=== PATIENT | male | born 1930 | race Caucasian/White ===

== ENCOUNTER 2016-08-03 16:28 | Inpatient (IN) | payer OTHER, MEDICARE ==
[~2016-08-03] VITALS: Ht 180.3 cm; Wt 90.0 kg
[~2016-08-03 16:28] MED LIST: AMT/50 PO; ASCA500 PO; DXY100 PO; ESCI1TAB9 PO; FERR1TAB13 PO; FINA5TAB PO; FLM4 PO; GABA1CAP5 PO; HYDR-4079 PO; LCTX PO; LSN10 PO; PRED20TA2 PO; SIMV20TA2 PO; WARF2.5T8 PO; WARF5TAB7 PO; [UNRECOGNIZED DRUG - CODE] PO
[2016-08-03] MEDS ORDERED: TAMS0.4C38 PO (17:46)
[2016-08-03] MEDS ORDERED: CYCL5TAB PO (17:46)
[2016-08-03] MEDS ORDERED: MISC4CAP PO (17:46)
--- NOTE | 2016-08-03 17:59 | EMERGENCY ROOM VISIT NOTE ---
History Report prepared by Jose: José Miguel Garay Under the Supervision of: Dr. Miroslava Marcos D.O. First contact with patient: 17:44 Chief Complaint: WEAKNESS Stated Complaint: WEAKNESS Nursing Triage Summary: pt had back surgery and a pe in november, pt was doing well, going to therapy and riding his bike, then over the past 2 wks he is becoming progressively weaker, c/o R hip pain, Dr Brown is treating him with hydrocodone/flexeril/fentanyl patch, over the past 2 days pt unable to use walker is now using w/c to get around because he gets played out with ambulation, pt lives with daughter. she is concerned for chf, pt has no hx of chf History of Present Illness The patient is an 86 year old male who presents to the Emergency Room with complaints of increased generalized weakness for the past two weeks. He has trouble ambulating secondary to weakness, even with the use of his walker. The patient notes right hip pain and lower back pain when he tries to ambulate as well. He has tried a muscle relaxer which did not help. The patient has also been intermittently confused as per his daughter. He denies dizziness or lightheadedness when he tries to ambulate. He denies short of breath when he tries to walk but daughter states he occasionally appears out of breath. Denies exertional chest pain or nausea. He denies any fevers, chills, headaches , changes in visions, chest pain, palpitations, or increased swelling of the legs. He has not had any recent falls. The patient has had multiple back surgeries, with the last being this past summer. He also had a PE this past summer and pneumonia in April. He is still on a blood thinner. The patient follows up with Dr. Brown, [facility], for his back. He had an MRI this morning, and is scheduled to get the results with Dr. Brown in four days. No incontinence. No saddle anesthesia. Occasional paresthesias in the RLE. Pt states pain/RLE paresthesias chronic and unchanged despite recent sx. The patient and his live with their daughter. He denies any cardiac history. He does not take anything to control his blood glucose levels. Blood sugar recently elevated as an outpt. Source of History: patient, family (daughter) Onset: two weeks ago Position: other (generalized) Quality: other (weakness) Timing: other (increased) Associated Symptoms: + SOB, + back pain, No chest pain, No chills, No fevers , No headache, No nausea Review of Systems See HPI for pertinent positives & negatives. A total of 10 systems reviewed and were otherwise negative. Past Medical & Surgical Medical Problems: (1) Chronic anticoagulation (2) Chronic steroid use (3) CKD (chronic kidney disease), stage III (4) Dyslipidemia (5) Esophageal Reflux (6) Fall (7) Hydrocele, right (8) Hyperlipidemia Nec/Nos (9) Hypertension (10) Hypertension Nos (11) Hypertrophy (Benign) Of 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 (12) Hypoxia (13) Lumbago (14) Lumbar spinal stenosis (15) Osteoarthritis (16) PMR (polymyalgia rheumatica) (17) PMR (polymyalgia rheumatica) (18) Pulmonary embolism (19) Spinal Stenosis-Lumbar (20) Weakness Surgical Problems: (1) H/O arthroscopic knee surgery (2) H/O cataract extraction (3) Hx of spinal surgery (4) S/P lumbar fusion Family History FH: heart disease Social History Smoking Status: Former Smoker Drug Use: none Marital Status: Housing Status: lives with family Occupation Status: retired Current/Historical Medications Scheduled Amitriptyline HCl (Amitriptyline HCl), 50 MG PO QPM Ascorbic Acid (Vitamin C), 500 MG PO DAILY Bee Pollen (Ra Bee Pollen), 1 TAB PO QAM Escitalopram Oxalate (Lexapro), 1 TAB PO DAILY Ferrous Sulfate (Kp Ferrous Sulfate), 1 TAB PO BID Finasteride (Proscar), 5 MG PO QAM Gabapentin (Neurontin), 800 MG PO TID Simvastatin (Zocor), 20 MG PO QPM Tamsulosin Hcl (Flomax), 1 CAP PO DAILY Warfarin Sod (Jantoven), 2.5 MG PO 4XWK Warfarin Sod (Jantoven), 5 MG PO 3XWK Scheduled PRN Cyclobenzaprine Hcl (Flexeril), 1 TAB PO HS PRN for Muscle Spasms Hydrocodone/Acetaminophen 10MG/325MG ([place] 10MG/325MG), 1-2 TABS PO Q4 PRN for Pain Miscellaneous Medications Probiotic Product (Align) Allergies Coded Allergies: Lorazepam (Unverified Allergy, Severe, agitation, 04/18/16) Oxycodone (Verified Allergy, Mild, ITCHINESS, 04/18/16) Physical Exam Vital Signs Date Time Temp Pulse Resp B/P Pulse Ox O2 Delivery O2 Flow Rate FiO2 08/03/16 22:00 144/80 08/03/16 21:40 96 23 95 08/03/16 21:30 124/78 08/03/16 21:15 36.6 15 138/65 95 Room Air 08/03/16 21:10 96 93 08/03/16 21:03 96 08/03/16 21:00 129/72 08/03/16 20:40 102 16 95 08/03/16 20:35 138/65 08/03/16 20:22 105 15 08/03/16 19:52 95 16 95 08/03/16 19:30 144/69 08/03/16 19:22 91 13 93 08/03/16 19:17 90 20 148/69 94 08/03/16 18:44 92 19 94 08/03/16 18:39 86 142/84 96 08/03/16 18:00 144/81 08/03/16 17:58 89 08/03/16 17:30 131/72 08/03/16 17:28 91 08/03/16 17:00 135/65 08/03/16 16:58 84 16 08/03/16 16:53 94 08/03/16 16:51 97 Room Air 08/03/16 16:45 36.6 102 20 107/59 97 Room Air 08/03/16 16:34 107/59 Physical Exam GENERAL: alert, well appearing, well nourished, no distress, non-toxic EYE EXAM: normal conjunctiva, PERRL and EOM's grossly intact OROPHARYNX: no exudate, no erythema, lips, buccal mucosa, and tongue normal and mucous membranes are moist NECK: supple, no nuchal rigidity, no adenopathy, non-tender LUNGS: Clear to auscultation. Normal chest wall mechanics, no w/r/r HEART: no murmurs, S1 normal and S2 normal ABDOMEN: abdomen soft, non-tender, normo-active bowel sounds, no masses, no rebound or guarding. BACK: Back is symmetrical on inspection and there is no deformity, no midline tenderness, no CVA tenderness. SKIN: no rashes and no bruising UPPER EXTREMITIES: upper extremities are grossly normal. LOWER EXTREMITIES: 1+ bilateral lower extremity edema. NEURO EXAM: Normal sensorium, cranial nerves II-XII grossly intact, normal speech, gross sensation intact. Medical Decision & Procedures ER Provider Diagnostic Interpretation: Xray results per the radiologist and my interpretation. Other results have been interpreted by the radiologist and reviewed by me. CHEST ONE VIEW PORTABLE CLINICAL HISTORY: general weakness COMPARISON STUDY: 04/19/2016 FINDINGS: The heart is enlarged. There is no lobar consolidation. There is no failure. There is minor bibasal interstitial thickening. There is improved aeration left lung base.[ IMPRESSION: Mild cardiomegaly. Mild basilar interstitial thickening with improving aeration left lung base. No acute parenchymal consolidation. Electronically signed by: Liam Hernández M.D. 08/03/2016 6:39 PM Dictated Date/Time: 08/03/2016 6:[address] HEAD WITHOUT CONTRAST (CT) CLINICAL HISTORY: Change in neurological status. Generalized weakness. COMPARISON STUDY: A 2716 TECHNIQUE: Axial CT of the brain is performed from the vertex to the skull base. IV contrast was not administered for this examination. CT DOSE: 687.98 mGy.cm FINDINGS: No intra or extra-axial mass lesions are visualized. There is no CT evidence of acute cortical infarction. There is no evidence of midline shift. There is no acute hemorrhage. No calvarial fractures are visualized. There are patchy white matter hypodensities likely on a small vessel basis. 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 A few tiny lacunar infarcts are also visualized. These remain similar to the preceding study. There is no evidence of pathologic ventricular dilatation. There is mucosal thickening within the sphenoid and right ethmoid complex. IMPRESSION: No acute intracranial findings Electronically signed by: Liam Hernández M.D. 08/03/2016 7:07 PM Dictated Date/Time: 08/03/2016 7:05 PM Laboratory Results 08/03/16 16:15 Red Blood Count 4.28, Mean Corpuscular Volume 93.5, Mean Corpuscular Hemoglobin 31.1, Mean Corpuscular Hemoglobin Concent 33.3, Mean Platelet Volume 9.8, Neutrophils (%) (Auto) 79.6, Lymphocytes (%) (Auto) 10.6, Monocytes (%) (Auto) 4.7, Eosinophils (%) (Auto) 0.8, Basophils (%) (Auto) 0.3, Neutrophils # (Auto) 6.24, Lymphocytes # (Auto) 0.83, Monocytes # (Auto) 0.37, Eosinophils # (Auto) 0.06, Basophils # (Auto) 0.02 08/03/16 16:15 Test 08/03/16 16:15 08/03/16 18:35 08/03/16 20:00 White Blood Count 7.83 K/uL (4.8-10.8) Red Blood Count 4.28 M/uL (4.7-6.1) Hemoglobin 13.3 g/dL (14.0-18.0) Hematocrit 40.0 % (42-52) Mean Corpuscular Volume 93.5 fL (80-100) Mean Corpuscular Hemoglobin 31.1 pg (25-34) Mean Corpuscular Hemoglobin Concent 33.3 g/dl (32-36) Platelet Count 159 K/uL (130-400) Mean Platelet Volume 9.8 fL (7.4-10.4) Neutrophils (%) (Auto) 79.6 % Lymphocytes (%) (Auto) 10.6 % Monocytes (%) (Auto) 4.7 % Eosinophils (%) (Auto) 0.8 % Basophils (%) (Auto) 0.3 % Neutrophils # (Auto) 6.24 K/uL (1.4-6.5) Lymphocytes # (Auto) 0.83 K/uL (1.2-3.4) Monocytes # (Auto) 0.37 K/uL (0.11-0.59) Eosinophils # (Auto) 0.06 K/uL (0-0.5) Basophils # (Auto) 0.02 K/uL (0-0.2) RDW Standard Deviation 53.0 fL (36.4-46.3) RDW Coefficient of Variation 15.5 % (11.5-14.5) Immature Granulocyte % (Auto) 4.0 % Immature Granulocyte # (Auto) 0.31 K/uL (0.00-0.02) Nucleated RBC Absolute Count (auto) 0.02 K/uL (0-0) Nucleated Red Blood Cells % 0.3 % Anion Gap 8.0 mmol/L (3-11) Est Creatinine Clear Calc Drug Dose 35.3 ml/min Estimated GFR () 44.6 Estimated GFR (Non- 38.4 BUN/Creatinine Ratio 18.3 (10-20) Calcium Level 9.2 mg/dl (8.5-10.1) Total Bilirubin 0.5 mg/dl (0.2-1) Aspartate Amino Transf (AST/SGOT) 18 U/L (15-37) Alanine Aminotransferase (ALT/SGPT) 49 U/L (12-78) Alkaline Phosphatase 65 U/L (45-117) Troponin I < 0.015 ng/ml (0-0.045) Pro-B-Type Natriuretic Peptide 277 pg/ml (0-1800) Total Protein 6.4 gm/dl (6.4-8.2) Albumin 3.1 gm/dl (3.4-5.0) Globulin 3.3 gm/dl (2.5-4.0) Albumin/Globulin Ratio 0.9 (0.9-2) Urine Color YELLOW Urine Appearance CLEAR (CLEAR) Urine pH 5.5 (4.5-7.5) Urine Specific [place] 1.008 (1.000-1.030) Urine Protein NEG (NEG) Urine Glucose (UA) NEG (NEG) Urine Ketones NEG (NEG) Urine Occult Blood NEG (NEG) Urine Nitrite NEG (NEG) Urine Bilirubin NEG (NEG) Urine Urobilinogen NEG (NEG) Urine Leukocyte Esterase NEG (NEG) Prothrombin Time 15.0 SECONDS (9.0-12.0) Prothromb Time International Ratio 1.4 (0.9-1.1) Activated Partial Thromboplast Time 28.0 SECONDS (21.0-31.0) Partial Thromboplastin Ratio 1.1 Laboratory results per my review. Medications Administered Medications (Trade) Dose Ordered Sig/Parminder Route Start Time Stop Time Status Last Admin Dose Admin Sodium Chloride (Nss 1000ml) 1,000 ml @ 125 mls/hr Q8H STAT IV 08/03/16 19:40 08/03/16 23:10 DC 08/03/16 19:47 125 MLS/HR ECG Indication: weakness Rate (beats per minute): 91 Rhythm: normal sinus Findings: no acute ischemic change, other (normal axis, normal intervals) ED Course 1746: The patient was evaluated in room B11b. A complete history and physical exam was performed. 1930: Checked on the patient. 1939: NSS 1000 ml @ 125 mls/hr. 1944: Medicine is being paged. 1949: [facility] The patient will be evaluated. Medical Decision Differential Diagnosis includes but is not limited to dehydration, stroke, anemia, hypoglycemia, hyponatremia, hypernatremia, urinary tract infection, pneumonia, bronchitis, sepsis, gastroenteritis, additional abdominal pathology, metabolic abnormalities and infections. Pt well appearing here, VS stable, is unsteady on feet and needed help getting to bathroom. No sx to warrant emergent MRI - doubt cauda equina, epidural abscess/hematoma. Doubt acs, no evidence of acute CHF, doubt PE - coags pending at time of admission but no overt sx to more strongly suggest it despite hx and pt denies feeling like PE last summer, pt states last INR within normal range and no recent change in coumadin. No tachy/sob. Description of pt and family suggestive of generalized weakness, worse with exertion. No evidence of acute infectious process, electrolyte abnormality. Hyperglycemia likely from steroid use vs new dx DM. Mild elevation of Cr - likely due to dehydration noted clinically. No focal neuro deficit to suggest cva. Unclear if sx related to worsening PMR. Consults Time Called: 1939 [facility]ing [facility] Returned Call: 1949 1949: Discussed the case with [facility]. The patient will be evaluated. Impression Primary Impression: Generalized weakness Additional Impressions: Ambulatory dysfunction Chronic back pain SHANIKA (acute kidney injury) Dehydration Scribe Attestation The scribe's documentation has been prepared under my direction and personally reviewed by me in its entirety. I confirm that the note above accurately reflects all work, treatment, procedures, and medical decision making performed by me. Departure Information Dispostion Being Evaluated By Hospitalist Referrals Luis Miguel Liriano M.D. (PCP) Patient Instructions My [facility] Problem Qualifiers Additional Impressions: Chronic back pain Back pain location: low back pain Back pain laterality: bilateral Sciatica presence: with sciatica Sciatica laterality: sciatica of right side Qualified Codes: M54.41 - Lumbago with sciatica, right side; G89.29 - Other chronic pain
[2016-08-03 18:16] LABS: BASO % 0.3 %; BASO ABS # 0.02 K/uL (0-0.2); COMPLETE YES; EOS % 0.8 %; LYMPH % 10.6 %; LYMPH ABS # 0.83 K/uL (1.2-3.4); MEAN CELL VOLUME 93.5 fL (80-100); MEAN CORPUSCULAR HEMOGLOBIN 31.1 pg (25-34); MEAN CORPUSCULAR HGB CONC 33.3 g/dl (32-36); MEAN PLATELET VOLUME 9.8 fL (7.4-10.4); MONO % 4.7 %; NEUT % 79.6 %; PLATELET COUNT 159 K/uL (130-400); RED BLOOD COUNT 4.28 M/uL (4.7-6.1); WHITE BLOOD COUNT 7.83 K/uL (4.8-10.8)
[2016-08-03 18:24] LABS: ALT/SGPT 49 U/L (12-78); BLOOD UREA NITROGEN 29 mg/dl (7-18); BUN/CREATININE RATIO 18.3 (10-20); CALCIUM 9.2 mg/dl (8.5-10.1); CARBON DIOXIDE 30 mmol/L (21-32); CHLORIDE 99 mmol/L (98-107); GLUCOSE 181 mg/dl (70-99); POTASSIUM 4.7 mmol/L (3.5-5.1); SODIUM 137 mmol/L (136-145)
[2016-08-03 18:29] LABS: ALB/GLOB RATIO 0.9 (0.9-2); ALKALINE PHOSPHATASE 65 U/L (45-117); AST/SGOT 18 U/L (15-37)
--- NOTE | 2016-08-03 18:41 | DIAGNOSTIC IMAGING REPORT ---
CHEST ONE VIEW PORTABLE CLINICAL HISTORY: general weakness COMPARISON STUDY: 04/19/2016 FINDINGS: The heart is enlarged. There is no lobar consolidation. There is no failure. There is minor bibasal interstitial thickening. There is improved aeration left lung base.[ IMPRESSION: Mild cardiomegaly. Mild basilar interstitial thickening with improving aeration left lung base. No acute parenchymal consolidation. Electronically signed by: Liam Hernández M.D. 08/03/2016 6:39 PM Dictated Date/Time: 08/03/2016 6:38 PM
[2016-08-03 19:07] LABS: URINE APPEARANCE CLEAR (CLEAR); URINE BILIRUBIN NEG (NEG); URINE COLOR YELLOW; URINE NITRITE NEG (NEG); URINE PH 5.5 (4.5-7.5); URINE SPECIFIC GRAVITY 1.008 (1.000-1.030); UROBILINOGEN NEG (NEG); ZZUR CULT IF INDIC CLEAN CATCH NO
[2016-08-03 19:08] LABS: MANUAL MICROSCOPIC REQUIRED? NO; REVIEW REQ? NO
--- NOTE | 2016-08-03 19:08 | DIAGNOSTIC IMAGING REPORT ---
CT HEAD WITHOUT CONTRAST (CT) CLINICAL HISTORY: Change in neurological status. Generalized weakness. COMPARISON STUDY: A 2716 TECHNIQUE: Axial CT of the brain is performed from the vertex to the skull base. IV contrast was not administered for this examination. CT DOSE: 687.98 mGy.cm FINDINGS: No intra or extra-axial mass lesions are visualized. There is no CT evidence of acute cortical infarction. There is no evidence of midline shift. There is no acute hemorrhage. No calvarial fractures are visualized. There are patchy white matter hypodensities likely on a small vessel basis. 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 A few tiny lacunar infarcts are also visualized. These remain similar to the preceding study. There is no evidence of pathologic ventricular dilatation. There is mucosal thickening within the sphenoid and right ethmoid complex. IMPRESSION: No acute intracranial findings Electronically signed by: Liam Hernández M.D. 08/03/2016 7:07 PM Dictated Date/Time: 08/03/2016 7:05 PM
[2016-08-03] MEDS ORDERED: SODIUM CHLORIDE 0.9% 1000ML 1,000 ML IV STA (19:40)
[2016-08-03 20:23] LABS: INR 1.4 (0.9-1.1); PARTIAL THROMBOPLASTIN RATIO 1.1
[2016-08-03 21:15] VITALS: BP 138/65; TEMP 36.6; O2SAT 95; BMI 27.7
[2016-08-03] MEDS ORDERED: HYDROCODONE/ACETAMI 10/325 TAB PO PRN (22:30)
[2016-08-03] MEDS ORDERED: DEXTROSE 50% 50 ML SYR IV PRN (22:30)
[2016-08-03] MEDS ORDERED: GLUCAGON FOR INJ 1 MG VIAL SQ PRN (22:30)
[2016-08-03] MEDS ORDERED: HYDROmorphone INJ 0.5 MG/0.5 ML SYR IV PRN (22:30)
[2016-08-03] MEDS ORDERED: GLUCOSE 10 TABS/TUBE PO PRN (22:30)
[2016-08-03] MEDS ORDERED: GLUCOSE 40% GEL 15 GM TUBE PO PRN (22:30)
[2016-08-03] MEDS ORDERED: ENOXAPARIN 1 MG/KG SQ SCH (22:30)
[2016-08-03] MEDS ORDERED: PHARMACY GLYCEMIC MGMT CONSULT PRN (22:37)
[2016-08-03] MEDS ORDERED: ACETAMINOPHEN 325 MG TAB PO PRN (22:45)
[2016-08-03] MEDS ORDERED: ONDANSETRON INJ 2 MG/ML 2 ML VIAL IV PRN (22:45)
[2016-08-03 23:00] VITALS: BP 167/71; PULSE 84; TEMP 36.5; O2SAT 94
--- NOTE | 2016-08-03 23:04 | History and Physical ---
History & Physical Date & Time of Service: Aug 03, 2016 at 22:47 Chief Complaint: Weakness Primary Care Physician: Luis Miguel Liriano M.D. History of Present Illness Source: patient, family, clinic records, hospital records 86 year old male with history of Back Surgery November 2015, Polymyalgia Rheumatica on Chronic Prednisone, Pulmonary Embolism on coumadin, presenting with increasing back pain and leg weakness x [address] Rainey for Primary Care. History supplemented by daughter at bedside. Patient known to have chronic back pain but seemed to have worsened over the past 2 weeks. Patient reports low back pain radiating to his right lower leg, as well as bilateral leg weakness, difficulty ambulating. Denies incontinence, paresthesias. Denies shortness of breath, chest pain, palpitations, dizziness. Daughter noticed that he has been progressively getting weak, and more drowsy lately. Appetite is good. Patient was evaluated by Dr. Brown and had an MRI this morning. Flexeril seemed to have provided only minimal relief. At the ED, CT head was negative for acute process. On exam, patient seen resting in bed. Somewhat drowsy but oriented x 3. Back pain worse with movement. Denies other active symptoms. Past Medical/Surgical History Medical Problems: (1) Chronic anticoagulation Status: Chronic (2) Chronic steroid use Status: Chronic (3) CKD (chronic kidney disease), stage III Status: Chronic (4) Dyslipidemia Status: Chronic (5) Esophageal Reflux Status: Chronic (6) Fall Status: Resolved (7) Hydrocele, right Status: Chronic (8) Hyperlipidemia Nec/Nos Status: Chronic (9) Hypertension Status: Chronic (10) Hypertension Nos Status: Chronic (11) Hypertrophy (Benign) Of 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 Status: Chronic (12) Lumbar spinal stenosis Status: Chronic (13) Osteoarthritis Status: Chronic (14) PMR (polymyalgia rheumatica) Status: Chronic (15) PMR (polymyalgia rheumatica) Status: Chronic (16) Pulmonary embolism Status: Chronic (17) Spinal Stenosis-Lumbar Status: Chronic Surgical Problems: (1) H/O arthroscopic knee surgery Status: Chronic (2) H/O cataract extraction Status: Resolved (3) Hx of spinal surgery Permanent Comment: lumbar decompression/fusion in [address] Brown Status: Chronic (4) S/P lumbar fusion Status: Resolved Family History FH: heart disease Social History Smoking Status: Unknown if Ever Smoked Drug Use: none Marital Status: Housing status: lives with family Occupational Status: retired Immunizations History of Influenza Vaccine: N/A Influenza Vaccine Date: Feb 16, 2008 History of Tetanus Vaccine?: Yes History of Pneumococcal: Unknown Pneumococcal Date: Jun 18, 1998 History of Hepatitis B Vaccine: No Multi-Drug Resistant Organisms History of MDRO: No Allergies Coded Allergies: Lorazepam (Unverified Allergy, Severe, agitation, 04/18/16) Oxycodone (Verified Allergy, Mild, ITCHINESS, 04/18/16) Home Medications Scheduled Amitriptyline HCl (Amitriptyline HCl), 50 MG PO QPM Ascorbic Acid (Vitamin C), 500 MG PO DAILY Bee Pollen (Ra Bee Pollen), 1 TAB PO QAM Escitalopram Oxalate (Lexapro), 1 TAB PO DAILY Ferrous Sulfate (Kp Ferrous Sulfate), 1 TAB PO BID Finasteride (Proscar), 5 MG PO QAM Gabapentin (Neurontin), 800 MG PO TID Simvastatin (Zocor), 20 MG PO QPM Tamsulosin Hcl (Flomax), 1 CAP PO DAILY Warfarin Sod (Jantoven), 2.5 MG PO 4XWK Warfarin Sod (Jantoven), 5 MG PO 3XWK Scheduled PRN Cyclobenzaprine Hcl (Flexeril), 1 TAB PO HS PRN for Muscle Spasms Hydrocodone/Acetaminophen 10MG/325MG ([place] 10MG/325MG), 1-2 TABS PO Q4 PRN for Pain Miscellaneous Medications Probiotic Product (Align) Review of Systems Constitutional- no fever; no weight loss Eyes- no acute visual changes ENT- no sinus drainage; no pharyngitis Pulmonary- no cough, no wheezing, no shortness of breath Cardiac- no chest pain, no palpitations, no orthopnea, no dependent edema GI- no nausea, no vomiting, no diarrhea, no melena, no hematochezia - no dysuria, no hematuria Musculoskeletal- (+) as noted above Derm- no rashes, no new skin lesions, no changing skin lesions Hematologic- no unusual bruising, no unusual bleeding Lymphatics- no adenopathy Endocrine- no polyuria or polydipsia; no heat or cold intolerance Neuro- no headaches, no focal neurologic symptoms Psych- no anxiety, no depression Physical Exam Vital Signs Date Time Temp Pulse Resp B/P Pulse Ox O2 Delivery O2 Flow Rate FiO2 08/03/16 22:00 144/80 08/03/16 21:40 96 23 95 08/03/16 21:30 124/78 08/03/16 21:15 36.6 15 138/65 95 Room Air 08/03/16 21:10 96 93 08/03/16 21:03 96 08/03/16 21:00 129/72 08/03/16 20:40 102 16 95 08/03/16 20:35 138/65 08/03/16 20:22 105 15 08/03/16 19:52 95 16 95 08/03/16 19:30 144/69 08/03/16 19:22 91 13 93 08/03/16 19:17 90 20 148/69 94 08/03/16 18:44 92 19 94 08/03/16 18:39 86 142/84 96 08/03/16 18:00 144/81 08/03/16 17:58 89 08/03/16 17:30 131/72 08/03/16 17:28 91 08/03/16 17:00 135/65 08/03/16 16:58 84 16 08/03/16 16:53 94 08/03/16 16:51 97 Room Air 08/03/16 16:45 36.6 102 20 107/59 97 Room Air 08/03/16 16:34 107/59 General Appearance: WD/WN, no apparent distress Head: normocephalic, atraumatic Eyes: normal inspection, EOMI, sclerae normal ENT: normal ENT inspection, hearing grossly normal, pharynx normal Neck: supple, no adenopathy, thyroid normal, no JVD, trachea midline Respiratory/Chest: chest non-tender, lungs clear, normal breath sounds, no respiratory distress, no accessory muscle use Cardiovascular: regular rate, rhythm, no edema, no JVD, no murmur Abdomen/GI: normal bowel sounds, non tender, soft, no organomegaly Back: normal inspection, + pertinent finding (tenderness on the right lower back region, area of the pelvis) Extremities/Musculoskelatal: normal inspection, no calf tenderness, no pedal edema, normal range of motion Neurologic/Psych: records officer II-XII nml as tested, no motor/sensory deficits, alert, normal mood/affect, normal reflexes, oriented x 3 Skin: normal color, warm/dry, no rash Lymphatic: no adenopathy, + axillary node abnormality Diagnostics Laboratory Results Results Past 24 Hours Test 08/03/16 16:15 08/03/16 18:35 08/03/16 20:00 Range/Units White Blood Count 7.83 4.8-10.8 K/uL Red Blood Count 4.28 4.7-6.1 M/uL Hemoglobin 13.3 14.0-18.0 g/dL Hematocrit 40.0 42-52 % Mean Corpuscular Volume 93.5 80-100 fL Mean Corpuscular Hemoglobin 31.1 25-34 pg Mean Corpuscular Hemoglobin Concent 33.3 32-36 g/dl Platelet Count 159 130-400 K/uL Mean Platelet Volume 9.8 7.4-10.4 fL Neutrophils (%) (Auto) 79.6 % Lymphocytes (%) (Auto) 10.6 % Monocytes (%) (Auto) 4.7 % Eosinophils (%) (Auto) 0.8 % Basophils (%) (Auto) 0.3 % Neutrophils # (Auto) 6.24 1.4-6.5 K/uL Lymphocytes # (Auto) 0.83 1.2-3.4 K/uL Monocytes # (Auto) 0.37 0.11-0.59 K/uL Eosinophils # (Auto) 0.06 0-0.5 K/uL Basophils # (Auto) 0.02 0-0.2 K/uL RDW Standard Deviation 53.0 36.4-46.3 fL RDW Coefficient of Variation 15.5 11.5-14.5 % Immature Granulocyte % (Auto) 4.0 % Immature Granulocyte # (Auto) 0.31 0.00-0.02 K/uL Nucleated RBC Absolute Count (auto) 0.02 0-0 K/uL Nucleated Red Blood Cells % 0.3 % Sodium Level 137 136-145 mmol/L Potassium Level 4.7 3.5-5.1 mmol/L Chloride Level 99 98-107 mmol/L Carbon Dioxide Level 30 21-32 mmol/L Anion Gap 8.0 3-11 mmol/L Blood Urea Nitrogen 29 7-18 mg/dl Creatinine 1.60 0.60-1.40 mg/dl Est Creatinine Clear Calc Drug Dose 35.3 ml/min Estimated GFR () 44.6 Estimated GFR (Non- 38.4 BUN/Creatinine Ratio 18.3 10-20 Random Glucose 181 70-99 mg/dl Calcium Level 9.2 8.5-10.1 mg/dl Total Bilirubin 0.5 0.2-1 mg/dl Aspartate Amino Transf (AST/SGOT) 18 15-37 U/L Alanine Aminotransferase (ALT/SGPT) 49 12-78 U/L Alkaline Phosphatase 65 45-117 U/L Troponin I < 0.015 0-0.045 ng/ml Pro-B-Type Natriuretic Peptide 277 0-1800 pg/ml Total Protein 6.4 6.4-8.2 gm/dl Albumin 3.1 3.4-5.0 gm/dl Globulin 3.3 2.5-4.0 gm/dl Albumin/Globulin Ratio 0.9 0.9-2 Urine Color YELLOW Urine Appearance CLEAR CLEAR Urine pH 5.5 4.5-7.5 Urine Specific [place] 1.008 1.000-1.030 Urine Protein NEG NEG Urine Glucose (UA) NEG NEG Urine Ketones NEG NEG Urine Occult Blood NEG NEG Urine Nitrite NEG NEG Urine Bilirubin NEG NEG Urine Urobilinogen NEG NEG Urine Leukocyte Esterase NEG NEG Prothrombin Time 15.0 9.0-12.0 SECONDS Prothromb Time International Ratio 1.4 0.9-1.1 Activated Partial Thromboplast Time 28.0 21.0-31.0 SECONDS Partial Thromboplastin Ratio 1.1 Diagnostic Radiology CXR IMPRESSION: Mild cardiomegaly. Mild basilar interstitial thickening with improving aeration left lung base. No acute parenchymal consolidation. EKG NSR, HR 91, no signs of acute ischemia Impression Assessment and Plan 86 year old male with history of Back Surgery November 2015, Polymyalgia Rheumatica on Chronic Prednisone, Pulmonary Embolism on coumadin, presenting with increasing back pain and leg weakness x 2 weeks. GENERALIZED WEAKNESS likely multifactorial - from underlying back pain, Flexeril use, Deconditioning - IV fluids check TSH PERSISTENT LOW BACK PAIN POSSIBLE SCIATICA - history of back surgery November 2016 after a fall - follows with Dr. Brown MRI spine done at his office this morning - continue Fentanyl patch, [place] add Lidoderm patch, PRN Percocet, Dilaudid - start Decadron 6mg q8h, monitor BSGs usually on Prednisone 15mg daily for PMR - Dr. Brown consulted DM TYPE 2, NEW DIAGNOSIS, LIKELY FROM CHRONIC STEROIDS - a1c 8 per outpatient testing recently random BSG 216 - not on any medication for DM yet - ISS for now repeat a1c in AM HYPERTENSION - stable on Lisinopril CKD 3 - baseline crea 1.4-1.5 monitor BPH - continue Tamsulosin, Finasteride POLYMYALGIA RHEUMATICA - start Decadron 6mg q8h, monitor BSGs usually on Prednisone 15mg daily for PMR HISTORY OF PULMONARY EMBOLISM ON COUMADIN - INR 1.4 usually on coumadin 2.5mg po daily - coumadin 5mg daily Lovenox BID bridge INR daily ASPIRATION RISK - mech soft diet per family DVT PROPHYLAXIS - coumadin + lovenox bridge DNR PER DISCUSSION WITH PATIENT DISPOSITION pending lives with daughter may need Rehab/SNF for PT/OT Advanced Directives Existing Living Will: No Existing Power of Supervisor Shuttle Veneering: No VTE Prophylaxis VTE Risk Assessment Done? Y/N: Yes Risk Level: Moderate
[2016-08-03] MEDS ORDERED: SODIUM CHLORIDE 0.9% 1000ML 1,000 ML IV SCH (23:15)
[2016-08-03] MEDS ORDERED: LIDODERM (LIDOCAINE) PATCH 5% TD ONE (23:30)
[2016-08-03] MEDS ORDERED: WARFARIN SOD 2.5 MG TAB PO SCH (23:30)
[2016-08-03] MEDS: DEXAMETHASONE INJ 6 MG in SYRINGE 0 ML IV SCH (23:34)
[2016-08-03] MEDS: ENOXAPARIN 100 MG/1ML SYR SQ SCH (23:36)
[2016-08-03] MEDS: FENTANYL 25 MCG/HR TDSY TD SCH (23:59)
[2016-08-04] VITALS (9 sets, daily range): BP systolic 144–202; BP diastolic 70–105; PULSE 82–110; TEMP 36.3–36.8; O2SAT 94–97
[2016-08-04] MEDS: INSULIN ASPART 100 UNITS/ML 3 ML PEN SC SCH ×5 (00:07→21:10)
[2016-08-04] MEDS: LISINOPRIL 10 MG TAB PO SCH (06:01)
[2016-08-04 06:49] LABS: COMPLETE YES; EOS % 0.4 %; HEMATOCRIT 38.2 % (42-52); IG% 4.6 %; LYMPH % 8.4 %; MEAN CELL VOLUME 93.9 fL (80-100); MEAN CORPUSCULAR HEMOGLOBIN 31.4 pg (25-34); MEAN CORPUSCULAR HGB CONC 33.5 g/dl (32-36); MEAN PLATELET VOLUME 9.5 fL (7.4-10.4); NEUT % 84.6 %; PLATELET COUNT 127 K/uL (130-400); RED BLOOD COUNT 4.07 M/uL (4.7-6.1); WHITE BLOOD COUNT 7.11 K/uL (4.8-10.8)
[2016-08-04 06:59] LABS: INR 1.4 (0.9-1.1); PROTHROMBIN TIME (PATIENT) 14.7 SECONDS (9.0-12.0)
[2016-08-04 07:23] LABS: BUN/CREATININE RATIO 17.2 (10-20); CALCIUM 8.9 mg/dl (8.5-10.1); CREATININE 1.5 mg/dl (0.60-1.40); POTASSIUM 5.1 mmol/L (3.5-5.1)
[2016-08-04 07:31] LABS: ESTIMATED AVERAGE GLUCOSE 200 mg/dl; HA1C FLAG Normal (Normal)
[2016-08-04 07:33] LABS: THYROID STIMULATING HORMONE 0.2 uIu/ml (0.300-4.500)
[2016-08-04] MEDS: DEXAMETHASONE INJ 6 MG in SYRINGE 0 ML IV SCH ×3 (08:19→23:38)
[2016-08-04] MEDS ORDERED: HydrALAZINE HCL 20 MG/ML VIAL IV. STA (08:20)
[2016-08-04] MEDS: CHECK FENTANYL PATCH PLACEMENT SCH ×3 (08:21→23:39)
[2016-08-04] MEDS ORDERED: BEE POLLEN PO SCH (09:00)
[2016-08-04] MEDS: DOCUSATE SODIUM/SENNA 50/8.6MG TAB PO SCH (09:07)
[2016-08-04] MEDS: ASCORBIC ACID 500 MG TAB PO SCH (09:07)
[2016-08-04] MEDS: FINASTERIDE 5 MG TAB PO SCH (09:07)
[2016-08-04] MEDS: GABAPENTIN 400 MG CAP PO SCH ×3 (09:08→21:06)
[2016-08-04] MEDS: ESCITALOPRAM OXALATE 10 MG TAB PO SCH (09:08)
[2016-08-04] MEDS: FERROUS SULFATE 325 MG TAB PO SCH ×2 (09:09→21:45)
[2016-08-04] MEDS: TAMSULOSIN HCL 0.4 MG CAP PO SCH (09:09)
[2016-08-04] MEDS ORDERED: AMLODIPINE BESYLATE 5 MG TAB PO ONE (10:00)
--- NOTE | 2016-08-04 10:27 | Pharmacy Progress Note ---
Glycemic Control Intl Consult Date of Service Aug 04, 2016. Scope Glycemic Pharmacist consulted for glycemic control and to write orders per [facility] inpatient glycemic control protocol Objective Weight (Kilograms): 90.000 Accuchecks BSG (last 24hrs): Test 08/03/16 16:15 08/04/16 00:01 08/04/16 06:00 08/04/16 08:03 Random Glucose 181 mg/dl (70-99) 262 mg/dl (70-99) Bedside Glucose 200 mg/dl (70-99) 230 mg/dl (70-99) Laboratory Data (last 24hrs) Test 08/03/16 16:15 08/04/16 06:00 Anion Gap 8.0 mmol/L 7.0 mmol/L BUN/Creatinine Ratio 18.3 17.2 Blood Urea Nitrogen 29 mg/dl 26 mg/dl Creatinine 1.60 mg/dl 1.50 mg/dl Potassium Level 4.7 mmol/L 5.1 mmol/L Sodium Level 137 mmol/L 139 mmol/L White Blood Count 7.83 K/uL 7.11 K/uL Red Blood Count 4.28 M/uL 4.07 M/uL Hemoglobin 13.3 g/dL 12.8 g/dL Hematocrit 40.0 % 38.2 % Mean Corpuscular Volume 93.5 fL 93.9 fL Mean Corpuscular Hemoglobin 31.1 pg 31.4 pg Mean Corpuscular Hemoglobin Concent 33.3 g/dl 33.5 g/dl Platelet Count 159 K/uL 127 K/uL Mean Platelet Volume 9.8 fL 9.5 fL Neutrophils (%) (Auto) 79.6 % 84.6 % Lymphocytes (%) (Auto) 10.6 % 8.4 % Monocytes (%) (Auto) 4.7 % 2.0 % Eosinophils (%) (Auto) 0.8 % 0.4 % Basophils (%) (Auto) 0.3 % 0.0 % Neutrophils # (Auto) 6.24 K/uL 6.01 K/uL Lymphocytes # (Auto) 0.83 K/uL 0.60 K/uL Monocytes # (Auto) 0.37 K/uL 0.14 K/uL Eosinophils # (Auto) 0.06 K/uL 0.03 K/uL Basophils # (Auto) 0.02 K/uL 0.00 K/uL Hemoglobin A1c 8.6 % HbA1c Test 08/04/16 06:00 Hemoglobin A1c 8.6 % (4.5-5.6) H Recent Pertinent Medications Outpatient Anti-diabetic Regimen: * None * On prednisone 15 mg po daily for PMR * A1c = 8.6 % on 08/04/16 Risk Factors for Insulin Resistance: * Steroids: Dexamethasone 6 mg IV q8h * Diet: T2DM / AHA Assessment & Plan ASSESSMENT: * ADA & AACE recommend a goal blood sugar range 140-180 mg/dl for the majority of critically ill & non-critically ill patients. However, more stringent targets may be selected in individual cases. * 86 yo M with generalized weakness. Hx back surgery November 2015, Dr. Brown following. * No formal diagnosis of diabetes, not on any diabetes medications as outpatient. However, is on prednisone for PMR as outpatient. * BSG's elevated to 180-230 mg/dL over the last 24 hours. * Will start Novolog at slightly looser than weight-based estimate to start * Will start Lantus at 0.1 units/kg daily PLAN FOR INPATIENT GLYCEMIC CONTROL: * Basal insulin with LANTUS 10 units SQ daily (hold for BSG < 140 mg/dL) * Correctional Insulin with NOVOLOG per scale ACHS or Q6hrs while NPO * Goal Range: Low 140 mg/dL - High 180 mg/dL * Correction Factor: 30 mg/dL/unit * Nutritional / Prandial insulin per carb ratio of 1 unit per 10 grams CHO consumed * Please note that the plan above was derived based on current level of insulin resistance and hospital stress. These recommendations are appropriate for inpatient admission only. Plan of care upon discharge will need to be reassessed to avoid potential outpatient hypo/hyperglycemia. Thank you.
[2016-08-04] MEDS: ENOXAPARIN 100 MG/1ML SYR SQ SCH ×2 (10:39→23:38)
[2016-08-04] MEDS: INSULIN GLARGINE SOLOSTAR 100 UNITS/ML 3 ML PEN SC SCH (10:42)
--- NOTE | 2016-08-04 10:42 | DIAGNOSTIC IMAGING REPORT ---
CHEST ONE VIEW PORTABLE CLINICAL HISTORY: Shortness of breath. COMPARISON STUDY: Chest radiograph August 03, 2016. FINDINGS: Lung volumes are diminished. Bibasilar opacities have developed. There is no pneumothorax or pleural effusion. Mediastinal widening is likely due to mediastinal fat. IMPRESSION: 1. Diminished lung volumes. 2. Bibasilar opacities which may reflect atelectasis on this hypoventilatory study. An infectious process could appear similar. 3. Pulmonary vascular congestion without overt pulmonary edema. Electronically signed by: Jimbo Chase M.D. 08/04/2016 10:41 AM Dictated Date/Time: 08/04/2016 10:40 AM
--- NOTE | 2016-08-04 12:35 | DIAGNOSTIC IMAGING REPORT ---
MRI OF THE PELVIS AND HIPS WITHOUT CONTRAST CLINICAL HISTORY: Right hip pain. Weakness. COMPARISON STUDY: CT of the abdomen and pelvis November 23, 2015. TECHNIQUE: Utilizing 1.5 Samira magnet and dedicated coil, multiplanar, multiecho imaging of the pelvis and hips was performed without IV or intra-articular contrast FINDINGS: The sacroiliac joints and symphysis pubis are intact. There is no marrow edema or marrow replacement within the proximal femurs. There is mild arthritis of both hips. There is no evidence for avascular necrosis of the femoral heads. No pelvic mass or lymphadenopathy is present. A 4 cm left renal cyst is incidentally noted. Postsurgical findings within the lumbosacral spine with multilevel discectomy, decompression and bilateral pedicle screw fusion are partially imaged on this exam. Increased T2 signal within the right sacral ala is likely due to failure fat saturation related to the hardware. There is sigmoid diverticulosis without evidence for acute diverticulitis on this exam. IMPRESSION: 1. No acute abnormality within the pelvis or hips by MRI. 2. Unremarkable MRI of the right hip for age. Minimal osteoarthritis. 3. Increased signal within the right sacral ala. This is likely artifactual. Marrow edema is considered less likely. Electronically signed by: Jimbo Chase M.D. 08/04/2016 12:33 PM Dictated Date/Time: 08/04/2016 12:25 PM
--- NOTE | 2016-08-04 13:07 | ORTHOPEDIC CONSULTATION ---
DATE OF CONSULTATION: 08/04/2016 DATE OF CONSULTATION: 08/04/2016. CHIEF COMPLAINT: Right hip pain and bilateral lower extremity weakness. HISTORY OF PRESENT ILLNESS: This is an 86-year-old male who is well known to me. I have been working with Mr. Kan for several years. He has had 2 lumbar surgeries including most recent surgery which was a lumbar decompression and fusion L2 to the sacrum. He had been doing well, but over the past several weeks has noted decline in his symptoms. The symptoms include right hip pain, thigh pain and what he describes as progressive weakness to the bilateral lower extremities with prolonged standing and ambulation. He denies any precipitating trauma, fall or event. He has tried various medications to no avail. He has been seen by my partner, Dr. Wall who obtained x-rays of the right hip and felt there was no significant disease. He did have a trochanteric bursa injection by Dr. Wlal with no significant improvement. PHYSICAL EXAMINATION: On exam this morning he has tenderness to palpation of the right greater trochanter. He has positive log roll. He exhibits excellent strength to bilateral plantarflexion, dorsiflexion and quadriceps. Sensory is symmetric and intact here. No perineal numbness. He did stand and ambulate for me this morning with the assistance of a walker. He seemed to tolerate this relatively comfortably. MRI of the lumbar spine performed at [facility] [place] 08/03/2016 available for review. It demonstrates instrumented fusion, lumbar decompression L2 to the sacrum. I appreciate no evidence of adjacent level disease or pathology or fracture. ASSESSMENT: Right hip pain and leg weakness. PLAN: At this time, I cannot explain his leg weakness. He demonstrates no clonus or evidence of upper motor neuron signs. He denies any numbness or tingling. It is strictly pain only. Weakness is with prolonged walking. At this point I will obtain an MRI of the pelvis to rule out occult fracture or inflammation contributing to symptom complex. Pending these results, we may need to also consider consultation with neurology.
[2016-08-04] MEDS: FENTANYL 25 MCG/HR TDSY TD SCH (15:12)
[2016-08-04] MEDS: WARFARIN SOD 5 MG TAB PO SCH (17:53)
[2016-08-04] MEDS: AMITRIPTYLINE HCL 50 MG TAB PO SCH (21:05)
[2016-08-04] MEDS: SIMVASTATIN 20 MG TAB PO SCH (21:06)
--- NOTE | 2016-08-04 21:31 | Progress Note ---
Subjective Date of Service: Aug 04, 2016. Subjective Pt evaluation today including: conversation w/ patient, conversation w/ family , physical exam, lab review, review of studies, review of inpatient medication list Saw/examined the patient in room 303 He felt short of breath this morning - felt better during my exam with oxygen on Presented to the ER due to low back pain and generalized weakness I spoke with the daughter who said she is having trouble caring for him at home He seems a little anxious this morning; but calmed down during exam Denies chest pain Problem List Medical Problems: (1) SHANIKA (acute kidney injury) Status: Acute (2) Ambulatory dysfunction Status: Acute (3) Ambulatory dysfunction Status: Acute (4) Chronic back pain Status: Acute (5) Dehydration Status: Acute (6) Dehydration Status: Acute (7) Esophageal Reflux Status: Chronic (8) Generalized weakness Status: Acute (9) Hyperlipidemia Nec/Nos Status: Chronic (10) Hypertension Nos Status: Chronic (11) Hypertrophy (Benign) Of 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 Status: Chronic (12) Hypotension Status: Acute (13) Left sided abdominal pain Status: Acute (14) PMR (polymyalgia rheumatica) Status: Chronic (15) Pulmonary emboli Status: Acute (16) Spinal Stenosis-Lumbar Status: Chronic (17) Tachycardia Status: Acute (18) Weakness Status: Acute Review of Systems Constitutional: + fatigue, + weakness Respiratory: + shortness of breath, No cough, No dyspnea on exertion, No hemoptysis, No sputum, No wheezing Cardiac: No chest pain, No edema, No palpitations Abdomen: No diarrhea, No nausea, No pain, No vomiting Musculoskeletal: + joint pain (low back pain, left leg weakness) Heme: No abnormal bleeding/bruising Medications Current Inpatient Medications Medications (Trade) Dose Ordered Sig/Parminder Route Start Time Stop Time Status Last Admin Dose Admin Dexamethasone Sodium Phosphate/ Syringe (Decadron Inj/ Syringe) 1.5 ml @ 1 mls/min Q8H IV 08/03/16 23:30 09/02/16 23:29 08/04/16 16:37 1 MLS/MIN Lidocaine (Lidoderm Patch 5%) 1 patch HS TD 08/04/16 21:00 09/03/16 20:59 Hydromorphone HCl (Dilaudid Inj) 0.5 mg Q6H PRN IV 08/03/16 22:30 4/14/17 22:29 Insulin Aspart (novoLOG ASPART) SLIDING SCALE If C... ACHS SC 08/04/16 00:00 09/03/16 00:00 08/04/16 18:00 5 UNITS Glucose (Glucose 40% Gel) 15-30 GRAMS 15 GRAMS... UD PRN PO 08/03/16 22:30 09/02/16 22:29 Glucose (Glucose Chew Tab) 4-8 Tablets 4 Tabl... UD PRN PO 08/03/16 22:30 09/02/16 22:29 Dextrose (Dextrose 50% 50ML Syringe) 25-50ML OF 50% DW IV FOR... UD PRN IV 08/03/16 22:30 09/02/16 22:29 Glucagon (Glucagon Inj) 1 mg UD PRN SQ 08/03/16 22:30 09/02/16 22:29 Miscellaneous Information (Consult Glycemic Management Pharmacy) 1 ea UD PRN N/A 08/03/16 22:37 09/02/16 22:36 Warfarin Sodium (Coumadin Tab) 5 mg DAILY@16 PO 08/04/16 16:00 09/03/16 15:59 08/04/16 17:53 5 MG Amitriptyline HCl (Elavil Tab) 50 mg QPM PO 08/04/16 21:00 09/03/16 20:59 Ascorbic Acid (Vitamin C Tab) 500 mg DAILY PO 08/04/16 09:00 09/03/16 08:59 08/04/16 09:07 500 MG Escitalopram Oxalate (Lexapro Tab) 10 mg DAILY PO 08/04/16 09:00 09/03/16 08:59 08/04/16 09:08 10 MG Finasteride (Proscar Tab) 5 mg QAM PO 08/04/16 09:00 09/03/16 08:59 08/04/16 09:07 5 MG Gabapentin (Neurontin Cap) 800 mg TID PO 08/04/16 09:00 09/03/16 08:59 08/04/16 14:18 800 MG Acetaminophen/ Hydrocodone Bitart ([place] 10/325 Tab) 1 tab Q4 PRN PO 08/03/16 22:30 08/17/16 22:29 Simvastatin (Zocor Tab) 20 mg QPM PO 08/04/16 21:00 09/03/16 20:59 Tamsulosin HCl (Flomax Cap) 0.4 mg DAILY PO 08/04/16 09:00 09/03/16 08:59 08/04/16 09:09 0.4 MG Ferrous Sulfate (Feosol Tab) 325 mg BID PO 08/04/16 09:00 09/03/16 08:59 08/04/16 09:09 325 MG Acetaminophen (Tylenol Tab) 650 mg Q4H PRN PO 08/03/16 22:45 09/02/16 22:44 Ondansetron HCl (Zofran Inj) 4 mg Q6H PRN IV 08/03/16 22:45 09/02/16 22:44 Lisinopril (Zestril Tab) 10 mg QAM PO 08/04/16 09:00 09/03/16 08:59 08/04/16 06:01 10 MG Fentanyl (Duragesic Patch) 25 mcg Q3D@2330 TD 08/03/16 23:30 08/17/16 23:29 08/04/16 15:12 25 MCG Senna/Docusate Sodium (Senokot S Tab) 1 tab QAM PO 08/04/16 09:00 09/03/16 08:59 08/04/16 09:07 1 TAB Miscellaneous (Remove Lidoderm Patch) 1 ea QAM N/A 08/04/16 09:00 09/03/16 08:59 08/04/16 09:13 1 EA Enoxaparin Sodium (Lovenox Inj) 90 mg Q12@1100,2300 SQ 08/03/16 23:30 09/02/16 23:29 08/04/16 10:39 90 MG Miscellaneous (Fentanyl Patch Remove & Waste) 1 ea Q3D@2329 N/A 08/06/16 23:29 09/05/16 23:28 Miscellaneous Information (Check Fentanyl Patch Placement) 1 ea QS N/A 08/04/16 08:00 09/03/16 07:59 08/04/16 16:38 1 EA Insulin Glargine (Lantus Solostar Pen) QAM SC 08/04/16 10:30 09/03/16 10:29 08/04/16 10:42 10 UNIT Objective Vital Signs Date Time Temp Pulse Resp B/P Pulse Ox O2 Delivery O2 Flow Rate FiO2 08/04/16 16:15 Room Air 08/04/16 15:35 36.6 98 16 157/70 97 Room Air 08/04/16 11:18 110 144/81 97 Room Air 08/04/16 09:45 187/83 08/04/16 09:00 99 202/105 08/04/16 08:00 Room Air 08/04/16 07:39 36.3 87 17 199/102 95 Room Air 08/04/16 04:30 180/78 08/04/16 03:14 202/83 185/82 08/03/16 23:30 Room Air 08/03/16 23:00 36.5 84 16 167/71 94 Room Air 08/03/16 22:54 92 14 156/71 96 08/03/16 22:00 144/80 08/03/16 21:40 96 23 95 08/03/16 21:30 124/78 08/03/16 21:15 36.6 15 138/65 95 Room Air Physical Exam General Appearance: no apparent distress Respiratory/Chest: no respiratory distress, no accessory muscle use, + decreased breath sounds, + crackles (bases) Cardiovascular: regular rate, rhythm, no edema, no murmur Abdomen: normal bowel sounds, non tender, soft Extremities: normal range of motion (bilateral lower extremities), normal inspection, no pedal edema Neurologic/Psychiatric: no motor/sensory deficits, alert, normal mood/affect Laboratory Results Last 24 Hours Test 08/04/16 00:01 08/04/16 06:00 08/04/16 08:03 08/04/16 12:42 Bedside Glucose 200 mg/dl 230 mg/dl 196 mg/dl White Blood Count 7.11 K/uL Red Blood Count 4.07 M/uL Hemoglobin 12.8 g/dL Hematocrit 38.2 % Mean Corpuscular Volume 93.9 fL Mean Corpuscular Hemoglobin 31.4 pg Mean Corpuscular Hemoglobin Concent 33.5 g/dl Platelet Count 127 K/uL Mean Platelet Volume 9.5 fL Neutrophils (%) (Auto) 84.6 % Lymphocytes (%) (Auto) 8.4 % Monocytes (%) (Auto) 2.0 % Eosinophils (%) (Auto) 0.4 % Basophils (%) (Auto) 0.0 % Neutrophils # (Auto) 6.01 K/uL Lymphocytes # (Auto) 0.60 K/uL Monocytes # (Auto) 0.14 K/uL Eosinophils # (Auto) 0.03 K/uL Basophils # (Auto) 0.00 K/uL RDW Standard Deviation 52.1 fL RDW Coefficient of Variation 15.3 % Immature Granulocyte % (Auto) 4.6 % Immature Granulocyte # (Auto) 0.33 K/uL Prothrombin Time 14.7 SECONDS Prothromb Time International Ratio 1.4 Sodium Level 139 mmol/L Potassium Level 5.1 mmol/L Chloride Level 102 mmol/L Carbon Dioxide Level 30 mmol/L Anion Gap 7.0 mmol/L Blood Urea Nitrogen 26 mg/dl Creatinine 1.50 mg/dl Est Creatinine Clear Calc Drug Dose 37.6 ml/min Estimated GFR () 48.2 Estimated GFR (Non- 41.6 BUN/Creatinine Ratio 17.2 Random Glucose 262 mg/dl Estimated Average Glucose 200 mg/dl Hemoglobin A1c 8.6 % Calcium Level 8.9 mg/dl Thyroid Stimulating Hormone (TSH) 0.200 uIu/ml Test 08/04/16 17:03 08/04/16 20:53 Bedside Glucose 153 mg/dl 198 mg/dl Assessment and Plan This is an 86 year old male with PMH of polymyalgia rheumatica on chronic steroids, hx. of pulmonary embolism on Coumadin presents secondary to low back pain radiating to the right leg and generalized weakness Shortness of Breath Hx. of Pulmonary Embolism Presented with a subtherapeutic INR agree with Lovenox at this time, bridge to Coumadin INR = 1.4 this morning, will recheck in AM CXR performed this morning, some pulmonary congestion stopped IVFs symptomatically feels better with oxygen, though saturating well will hold off on diuretics for now, but if SOB returns, may need Lasix Low Back Pain Right Lower Extremity Weakness appreciate Dr. Brown input MRI of lumbar spine was done prior to arrival MRI of pelvis also done no acute findings on either PT/OT ordered currently on IV steroids will likely need placement if weakness persists, agree that we may need neurology input New Onset DM2 Ha1c > 8% will need medication on discharge for now, basal insulin + sliding scale HTN continue current meds CKD stage 3 creat at baseline DVT ppx Lovenox + Coumadin bridge DNR
[2016-08-04] MEDS: LIDODERM (LIDOCAINE) PATCH 5% TD SCH (21:45)
[2016-08-05 05:54] LABS: HEMATOCRIT 37.5 % (42-52); MEAN CELL VOLUME 90.6 fL (80-100); MEAN CORPUSCULAR HEMOGLOBIN 30.4 pg (25-34); MEAN CORPUSCULAR HGB CONC 33.6 g/dl (32-36); PLATELET COUNT 140 K/uL (130-400); RED BLOOD COUNT 4.14 M/uL (4.7-6.1); WHITE BLOOD COUNT 8.94 K/uL (4.8-10.8)
[2016-08-05 06:03] LABS: INR 1.4 (0.9-1.1); PROTHROMBIN TIME (PATIENT) 15.4 SECONDS (9.0-12.0)
[2016-08-05 06:19] LABS: BUN/CREATININE RATIO 22.2 (10-20); CALCIUM 9.1 mg/dl (8.5-10.1); CREATININE 1.2 mg/dl (0.60-1.40); MAGNESIUM 2.2 mg/dl (1.8-2.4); POTASSIUM 4.4 mmol/L (3.5-5.1)
[2016-08-05 07:02] VITALS: BP 155/84; PULSE 83; TEMP 36.3; O2SAT 98
[2016-08-05] MEDS: DEXAMETHASONE INJ 6 MG in SYRINGE 0 ML IV SCH ×2 (08:08→16:08)
[2016-08-05] MEDS: CHECK FENTANYL PATCH PLACEMENT SCH ×3 (08:09→23:31)
--- NOTE | 2016-08-05 09:26 | PROGRESS NOTE ---
DATE: 08/05/2016 MRI of the pelvis is essentially benign. I reviewed it personally. I do not appreciate any significant inflammatory change around the right greater trochanter or hip joint. At this point, I am not able to explain his progressive weakness and pain patterns, sort of sprain strain regarding the hip region. At this point, it may warrant an evaluation by neurology on Saturday.
[2016-08-05 10:00] VITALS: BP 173/70; PULSE 89
[2016-08-05] MEDS: DOCUSATE SODIUM/SENNA 50/8.6MG TAB PO SCH (10:11)
[2016-08-05] MEDS: FERROUS SULFATE 325 MG TAB PO SCH ×2 (10:11→20:56)
[2016-08-05] MEDS: FINASTERIDE 5 MG TAB PO SCH (10:12)
[2016-08-05] MEDS: ESCITALOPRAM OXALATE 10 MG TAB PO SCH (10:12)
[2016-08-05] MEDS: GABAPENTIN 400 MG CAP PO SCH ×3 (10:13→20:57)
[2016-08-05] MEDS: TAMSULOSIN HCL 0.4 MG CAP PO SCH (10:13)
[2016-08-05] MEDS: ASCORBIC ACID 500 MG TAB PO SCH (10:13)
[2016-08-05] MEDS: ENOXAPARIN 100 MG/1ML SYR SQ SCH ×2 (10:20→23:30)
[2016-08-05] MEDS: INSULIN GLARGINE SOLOSTAR 100 UNITS/ML 3 ML PEN SC SCH ×2 (10:26→21:03)
[2016-08-05] MEDS: INSULIN ASPART 100 UNITS/ML 3 ML PEN SC SCH ×4 (10:29→21:02)
--- NOTE | 2016-08-05 10:39 | Pharmacy Progress Note ---
Glycemic Control: Progress Nt Date of Service Aug 05, 2016. Scope Glycemic Pharmacist consulted for glycemic control and to write orders per [facility] inpatient glycemic control protocol. Objective Accuchecks BSG (last 24hrs): Test 08/04/16 12:42 08/04/16 17:03 08/04/16 20:53 08/05/16 05:20 Bedside Glucose 196 mg/dl (70-99) 153 mg/dl (70-99) 198 mg/dl (70-99) Random Glucose 217 mg/dl (70-99) Test 08/05/16 08:03 Bedside Glucose 218 mg/dl (70-99) Laboratory Data (last 24hrs) Test 08/05/16 05:20 Anion Gap 7.0 mmol/L BUN/Creatinine Ratio 22.2 Blood Urea Nitrogen 27 mg/dl Creatinine 1.20 mg/dl Potassium Level 4.4 mmol/L Sodium Level 141 mmol/L White Blood Count 8.94 K/uL HbA1c: Test 08/04/16 06:00 Hemoglobin A1c 8.6 % (4.5-5.6) H Recent Pertinent Medications Outpatient Anti-diabetic Regimen: * None * On prednisone 15 mg po daily for PMR * A1c = 8.6 % on 08/04/16 Risk Factors for Insulin Resistance: * Steroids: Dexamethasone 6 mg IV q8h * Diet: T2DM / AHA Assessment & Plan ASSESSMENT: * ADA & AACE recommend a goal blood sugar range 140-180 mg/dl for the majority of critically ill & non-critically ill patients. However, more stringent targets may be selected in individual cases. 08/04/16 * 86 yo M with generalized weakness. Hx back surgery November 2015, Dr. Brown following. * No formal diagnosis of diabetes, not on any diabetes medications as outpatient. However, is on prednisone for PMR as outpatient. * BSG's elevated to 180-230 mg/dL over the last 24 hours. * Will start Novolog at slightly looser than weight-based estimate to start * Will start Lantus at 0.1 units/kg daily 08/05/16 * AM fasting BSG elevated. Will maintain AM Lantus dose, but will add in PM Lantus dose based on BSG * Post-prandial BSG's elevated, albeit not significantly. Will slightly tighten carb ratio as patient is being maintained on dexamethasone. Will also slightly tighten correction factor. * Lunch BSG elevated to 236 mg/dL but as AM Novolog was administered < 1 hr before that this does not change recommendation outlined above PLAN FOR INPATIENT GLYCEMIC CONTROL: * Increase Basal insulin with LANTUS 10 units SQ qAM (hold for BSG < 110 mg/dL) and 5 units qPM (hold for BSG < 180 mg/dL) * Correctional Insulin with NOVOLOG per scale ACHS or Q6hrs while NPO * Goal Range: Low 140 mg/dL - High 180 mg/dL * Tighten Correction Factor: 25 mg/dL/unit * Tighten Nutritional / Prandial insulin per carb ratio of 1 unit per 9 grams CHO consumed * Please note that the plan above was derived based on current level of insulin resistance and hospital stress. These recommendations are appropriate for inpatient admission only. Plan of care upon discharge will need to be reassessed to avoid potential outpatient hypo/hyperglycemia. Thank you.
[2016-08-05] MEDS: LISINOPRIL 10 MG TAB PO SCH (12:00)
[2016-08-05] MEDS ORDERED: LISINOPRIL 10 MG TAB PO ONE (13:00)
[2016-08-05 14:36] VITALS: BP 150/76; PULSE 103
--- NOTE | 2016-08-05 15:12 | ECHOCARDIOGRAM REPORT ---
*NOTICE TO RECEIVING DEMOCRAT AGENCY This information is strictly Confidential and protected under [place] law. [place] law prohibits you from making any further disclosure of this information unless further disclosure is expressly permitted by the written consent of the person to whom it pertains or is authorized by law. A general authorization for the release of medical or other information is not sufficient for this purpose. Hospital accepts no responsibility if the information is made available to any other person, INCLUDING THE PATIENT. Interpretation Summary * Name: CASS CALDWELL Study Date: 08/05/2016 01:26 PM BP: 173/70 mmHg * Patient Location: [facility] HR: 89 * : 1930 (M/d/yyyy) Gender: Male Height: 71 in * Age: 86 yrs Ethnicity: [place] Weight: 198 lb * Ordering Physician: Skyla Lehman DO * Performed By: Judith Maravilla RDCS * * Reason For Study: CHF * BSA: 2.1 m2 * -- Conclusions -- * 1. Normal LV size. Borderline concentric LVH. * 2. Normal LV systolic function. LVEF 55-60%. No regional wall motion abnormaliteis. * 3. Normal RV size and function. * 4. No significant valvular pathology. * 5. Grade I diastolic dysfunction. * 6. Compared with prior study on 11/23/2015: No significant changes. Procedure Details * A complete two-dimensional transthoracic echocardiogram was performed (2D, M-mode, Doppler and color flow Doppler). Left Ventricle * The left ventricle is grossly normal size. * There is borderline concentric left ventricular hypertrophy. * Ejection Fraction = 55-60%. * No regional wall motion abnormalities noted. Right Ventricle * The right ventricle is grossly normal size. * The right ventricular systolic function is normal. Atria * The left atrium is moderately dilated. * Right atrial size is normal. * No ASD detected; PFO is not assessed. Mitral Valve * The mitral valve is grossly normal. * There is no mitral valve stenosis. * There is trace mitral regurgitation. Tricuspid Valve * The tricuspid valve is not well visualized, but is grossly normal. * Significant tricuspid regurgitation is absent. Aortic Valve * The aortic valve opens well. * The aortic valve is trileaflet. * No hemodynamically significant valvular aortic stenosis. * Trace aortic regurgitation. Pulmonic Valve * The pulmonary valve is not well seen, but the Doppler examination is normal without significant regurgitation or stenosis. Great Vessels * The aortic root and proximal ascending aorta are normal sized. Pericardium/Pleural * There is no pericardial effusion. Left Ventricular Diastolic Function * Grade I diastolic dysfunction, (abnormal relaxation pattern). MMode 2D Measurements and Calculations IVSd 1.3 cm LVIDd 4.0 cm LVIDs 2.9 cm LVPWd 0.95 cm IVS/LVPW 1.4 FS 27.2 % EDV(Teich) 68.0 ml ESV(Teich) 31.6 ml EF(Teich) 53.5 % EDV(cubed) 61.7 ml ESV(cubed) 23.8 ml EF(cubed) 61.4 % LV mass(C)d 150.5 grams LV mass(C)dI 71.7 grams/m\S\2 SV(Teich) 36.4 ml SI(Teich) 17.3 ml/m\S\2 SV(cubed) 37.8 ml SI(cubed) 18.0 ml/m\S\2 Ao root diam 3.1 cm Ao root area 7.5 cm\S\2 ACS 1.8 cm LA dimension 2.7 cm asc Aorta Diam 3.2 cm LA/Ao 0.89 LVOT diam 2.0 cm LVOT area 3.1 cm\S\2 LVAd ap4 25.2 cm\S\2 LVLd ap4 7.3 cm EDV(MOD-sp4) 71.6 ml EDV(sp4-el) 73.5 ml LVAs ap4 15.0 cm\S\2 LVLs ap4 6.3 cm ESV(MOD-sp4) 32.3 ml ESV(sp4-el) 30.3 ml EF(MOD-sp4) 54.9 % EF(sp4-el) 58.7 % LVAd ap2 18.0 cm\S\2 LVLd ap2 7.1 cm EDV(MOD-sp2) 38.4 ml EDV(sp2-el) 38.7 ml LVAs ap2 11.1 cm\S\2 LVLs ap2 6.8 cm ESV(MOD-sp2) 15.9 ml ESV(sp2-el) 15.4 ml EF(MOD-sp2) 58.6 % EF(sp2-el) 60.3 % LVLd %diff -3.22 % EDV(MOD-bp) 52.4 ml LVLs %diff 7.5 % ESV(MOD-bp) 23.2 ml EF(MOD-bp) 55.7 % SV(MOD-sp4) 39.4 ml SI(MOD-sp4) 18.7 ml/m\S\2 SV(MOD-sp2) 22.5 ml SI(MOD-sp2) 10.7 ml/m\S\2 SV(MOD-bp) 29.2 ml SI(MOD-bp) 13.9 ml/m\S\2 SV(sp4-el) 43.1 ml SI(sp4-el) 20.5 ml/m\S\2 SV(sp2-el) 23.4 ml SI(sp2-el) 11.1 ml/m\S\2 Doppler Measurements and Calculations MV E max caro 76.6 cm/sec MV A max caro 136.8 cm/sec MV E/A 0.56 MV dec time 0.19 sec Ao V2 max 129.4 cm/sec Ao max PG 6.7 mmHg Ao max PG (full) 2.4 mmHg RIVER(V,A) 2.5 cm\S\2 RIVER(V,D) 2.5 cm\S\2 AI max caro 276.3 cm/sec AI max PG 30.6 mmHg AI dec slope 313.7 cm/sec\S\2 AI P1/2t 258.0 msec LV V1 max PG 4.3 mmHg LV V1 max 103.8 cm/sec PA V2 max 146.6 cm/sec PA max PG 8.6 mmHg PA acc slope 817.4 cm/sec\S\2 PA acc time 0.11 sec TR max caro 108.6 cm/sec PA pr(Accel) 31.5 mmHg
[2016-08-05 15:15] VITALS: BP 146/79; PULSE 97; TEMP 36.5; O2SAT 94
[2016-08-05] MEDS: WARFARIN SOD 5 MG TAB PO SCH (16:06)
--- NOTE | 2016-08-05 17:22 | Progress Note ---
Subjective Date of Service: Aug 05, 2016. Subjective Pt evaluation today including: conversation w/ patient, physical exam, lab review, review of studies, review of inpatient medication list Saw/examined the patient in room 303, daughter in the room with him States he is breathing better currently, no oxygen needed at this time There is no chest pain Low back pain is still there, but controlled while laying Patient concerned about R leg weakness Problem List Medical Problems: (1) SHANIKA (acute kidney injury) Status: Acute (2) Ambulatory dysfunction Status: Acute (3) Ambulatory dysfunction Status: Acute (4) Chronic back pain Status: Acute (5) Dehydration Status: Acute (6) Dehydration Status: Acute (7) Esophageal Reflux Status: Chronic (8) Generalized weakness Status: Acute (9) Hyperlipidemia Nec/Nos Status: Chronic (10) Hypertension Nos Status: Chronic (11) Hypertrophy (Benign) Of 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 Status: Chronic (12) Hypotension Status: Acute (13) Left sided abdominal pain Status: Acute (14) PMR (polymyalgia rheumatica) Status: Chronic (15) Pulmonary emboli Status: Acute (16) Spinal Stenosis-Lumbar Status: Chronic (17) Tachycardia Status: Acute (18) Weakness Status: Acute Review of Systems Constitutional: No chills, No fever Respiratory: No shortness of breath Cardiac: No chest pain, No edema, No palpitations Abdomen: No diarrhea (improving), No nausea, No pain, No vomiting Objective Vital Signs Date Time Temp Pulse Resp B/P Pulse Ox O2 Delivery O2 Flow Rate FiO2 08/05/16 14:36 103 150/76 08/05/16 10:00 89 173/70 08/05/16 08:00 Room Air 08/05/16 07:02 36.3 83 17 155/84 98 Room Air 08/04/16 23:30 36.8 85 16 167/79 94 Room Air 08/04/16 23:25 Room Air 08/04/16 21:13 82 163/83 08/04/16 16:15 Room Air 08/04/16 15:35 36.6 98 16 157/70 97 Room Air Physical Exam General Appearance: no apparent distress Respiratory/Chest: chest non-tender, lungs clear, normal breath sounds, no respiratory distress, no accessory muscle use Cardiovascular: regular rate, rhythm, no edema, no gallop, no JVD, no murmur Abdomen: normal bowel sounds, non tender, soft Extremities: normal inspection, no pedal edema Neurologic/Psychiatric: + motor weakness (painful ROM of right leg) Skin: normal color Laboratory Results Last 24 Hours Test 08/04/16 17:03 08/04/16 20:53 08/05/16 05:20 08/05/16 08:03 Bedside Glucose 153 mg/dl 198 mg/dl 218 mg/dl White Blood Count 8.94 K/uL Red Blood Count 4.14 M/uL Hemoglobin 12.6 g/dL Hematocrit 37.5 % Mean Corpuscular Volume 90.6 fL Mean Corpuscular Hemoglobin 30.4 pg Mean Corpuscular Hemoglobin Concent 33.6 g/dl RDW Standard Deviation 50.3 fL RDW Coefficient of Variation 15.2 % Platelet Count 140 K/uL Mean Platelet Volume 9.0 fL Prothrombin Time 15.4 SECONDS Prothromb Time International Ratio 1.4 Sodium Level 141 mmol/L Potassium Level 4.4 mmol/L Chloride Level 104 mmol/L Carbon Dioxide Level 30 mmol/L Anion Gap 7.0 mmol/L Blood Urea Nitrogen 27 mg/dl Creatinine 1.20 mg/dl Est Creatinine Clear Calc Drug Dose 47.1 ml/min Estimated GFR () 63.1 Estimated GFR (Non- 54.4 BUN/Creatinine Ratio 22.2 Random Glucose 217 mg/dl Calcium Level 9.1 mg/dl Magnesium Level 2.2 mg/dl Test 08/05/16 11:25 Bedside Glucose 236 mg/dl Assessment and Plan This is an 86 year old male with PMH of polymyalgia rheumatica on chronic steroids, hx. of pulmonary embolism on Coumadin presents secondary to low back pain radiating to the right leg and generalized weakness Shortness of Breath Hx. of Pulmonary Embolism 08/05 no shortness of breath today CXR with diminished lung volumes and some congestion IVFs stopped continue Lovenox + Coumadin bridge 08/04 Presented with a subtherapeutic INR agree with Lovenox at this time, bridge to Coumadin INR = 1.4 this morning, will recheck in AM CXR performed this morning, some pulmonary congestion stopped IVFs symptomatically feels better with oxygen, though saturating well will hold off on diuretics for now, but if SOB returns, may need Lasix Low Back Pain Right Lower Extremity Weakness appreciate Dr. Brown input MRI of lumbar spine was done prior to arrival MRI of pelvis also done no acute findings on either PT/OT ordered currently on IV steroids will likely need placement neuro consult placed New Onset DM2 Ha1c > 8% will need medication on discharge for now, basal insulin + sliding scale HTN gave an extra dose of Lisinopril otherwise, continue current medications CKD stage 3 creat improved, IVFs stopped DVT ppx Lovenox + Coumadin bridge DNR
[2016-08-05] MEDS: SIMVASTATIN 20 MG TAB PO SCH (20:56)
[2016-08-05] MEDS: AMITRIPTYLINE HCL 50 MG TAB PO SCH (20:57)
[2016-08-05] MEDS: LIDODERM (LIDOCAINE) PATCH 5% TD SCH (20:57)
[2016-08-05 23:03] VITALS: BP_SYST 177; BP_SYST 180; BP_DIAS 68; BP_DIAS 73; PULSE 66; TEMP 36.3; O2SAT 95
[2016-08-06] VITALS (7 sets, daily range): BP systolic 138–195; BP diastolic 67–86; PULSE 19–79; TEMP 36.5–37.4; O2SAT 94–95; Ht 180.3 cm; Wt 90.0 kg
[2016-08-06] MEDS ORDERED: CLONIDINE HCL 0.1 MG TAB PO ONE (01:31)
[2016-08-06] MEDS ORDERED: CLONIDINE HCL 0.1 MG TAB PO PRN (01:45)
[2016-08-06 06:25] LABS: HEMATOCRIT 36.7 % (42-52); MEAN CORPUSCULAR HEMOGLOBIN 31.1 pg (25-34); MEAN CORPUSCULAR HGB CONC 34.6 g/dl (32-36); MEAN PLATELET VOLUME 9.5 fL (7.4-10.4); PLATELET COUNT 146 K/uL (130-400); RED BLOOD COUNT 4.08 M/uL (4.7-6.1); WHITE BLOOD COUNT 9.21 K/uL (4.8-10.8)
[2016-08-06 06:37] LABS: INR 1.9 (0.9-1.1); PROTHROMBIN TIME (PATIENT) 20.7 SECONDS (9.0-12.0)
[2016-08-06 06:55] LABS: BUN/CREATININE RATIO 23.9 (10-20); CALCIUM 8.8 mg/dl (8.5-10.1); CREATININE 1.2 mg/dl (0.60-1.40); MAGNESIUM 2.2 mg/dl (1.8-2.4); POTASSIUM 4.1 mmol/L (3.5-5.1)
[2016-08-06] MEDS: CHECK FENTANYL PATCH PLACEMENT SCH ×3 (07:39→23:24)
[2016-08-06] MEDS: GABAPENTIN 400 MG CAP PO SCH ×3 (09:07→20:45)
[2016-08-06] MEDS: FINASTERIDE 5 MG TAB PO SCH (09:07)
[2016-08-06] MEDS: LISINOPRIL 10 MG TAB PO SCH (09:08)
[2016-08-06] MEDS: FERROUS SULFATE 325 MG TAB PO SCH ×2 (09:08→20:45)
[2016-08-06] MEDS: ESCITALOPRAM OXALATE 10 MG TAB PO SCH (09:08)
[2016-08-06] MEDS: DOCUSATE SODIUM/SENNA 50/8.6MG TAB PO SCH (09:08)
[2016-08-06] MEDS: ASCORBIC ACID 500 MG TAB PO SCH (09:09)
[2016-08-06] MEDS: TAMSULOSIN HCL 0.4 MG CAP PO SCH (09:09)
[2016-08-06] MEDS: INSULIN ASPART 100 UNITS/ML 3 ML PEN SC SCH ×4 (09:13→20:48)
[2016-08-06] MEDS: INSULIN GLARGINE SOLOSTAR 100 UNITS/ML 3 ML PEN SC SCH ×2 (09:14→20:51)
[2016-08-06] MEDS: ENOXAPARIN 100 MG/1ML SYR SQ SCH ×2 (12:00→22:35)
--- NOTE | 2016-08-06 14:43 | Progress Note ---
Subjective Date of Service: Aug 06, 2016. Subjective Pt evaluation today including: conversation w/ patient, physical exam, lab review, review of studies, conversation w/ in home sales consultant, review of inpatient medication list Saw/examined the patient in room 303 Currently seated at bedside states there is currently no low back pain right leg weakness, but not present until ambulating No shortness of breath Problem List Medical Problems: (1) SHANIKA (acute kidney injury) Status: Acute (2) Ambulatory dysfunction Status: Acute (3) Ambulatory dysfunction Status: Acute (4) Chronic back pain Status: Acute (5) Dehydration Status: Acute (6) Dehydration Status: Acute (7) Esophageal Reflux Status: Chronic (8) Generalized weakness Status: Acute (9) Hyperlipidemia Nec/Nos Status: Chronic (10) Hypertension Nos Status: Chronic (11) Hypertrophy (Benign) Of 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 Status: Chronic (12) Hypotension Status: Acute (13) Left sided abdominal pain Status: Acute (14) PMR (polymyalgia rheumatica) Status: Chronic (15) Pulmonary emboli Status: Acute (16) Spinal Stenosis-Lumbar Status: Chronic (17) Tachycardia Status: Acute (18) Weakness Status: Acute Review of Systems Respiratory: No cough, No dyspnea on exertion, No shortness of breath, No sputum, No wheezing Cardiac: No chest pain, No edema, No palpitations Abdomen: No diarrhea, No nausea, No pain, No vomiting Musculoskeletal: + joint pain (low back pain, r LE pain/weakness) Medications Current Inpatient Medications Medications (Trade) Dose Ordered Sig/Parminder Route Start Time Stop Time Status Last Admin Dose Admin Lidocaine (Lidoderm Patch 5%) 1 patch HS TD 08/04/16 21:00 09/03/16 20:59 08/05/16 20:57 1 PATCH Hydromorphone HCl (Dilaudid Inj) 0.5 mg Q6H PRN IV 08/03/16 22:30 08/17/16 22:29 Insulin Aspart (novoLOG ASPART) SLIDING SCALE If C... ACHS SC 08/04/16 00:00 09/03/16 00:00 08/06/16 13:22 9 UNITS Glucose (Glucose 40% Gel) 15-30 GRAMS 15 GRAMS... UD PRN PO 08/03/16 22:30 09/02/16 22:29 Glucose (Glucose Chew Tab) 4-8 Tablets 4 Tabl... UD PRN PO 08/03/16 22:30 09/02/16 22:29 Dextrose (Dextrose 50% 50ML Syringe) 25-50ML OF 50% DW IV FOR... UD PRN IV 08/03/16 22:30 09/02/16 22:29 Glucagon (Glucagon Inj) 1 mg UD PRN SQ 08/03/16 22:30 09/02/16 22:29 Miscellaneous Information (Consult Glycemic Management Pharmacy) 1 ea UD PRN N/A 08/03/16 22:37 09/02/16 22:36 Warfarin Sodium (Coumadin Tab) 5 mg DAILY@16 PO 08/04/16 16:00 09/03/16 15:59 08/05/16 16:06 5 MG Amitriptyline HCl (Elavil Tab) 50 mg QPM PO 08/04/16 21:00 09/03/16 20:59 08/05/16 20:57 50 MG Ascorbic Acid (Vitamin C Tab) 500 mg DAILY PO 08/04/16 09:00 09/03/16 08:59 08/06/16 09:09 500 MG Escitalopram Oxalate (Lexapro Tab) 10 mg DAILY PO 08/04/16 09:00 09/03/16 08:59 08/06/16 09:08 10 MG Finasteride (Proscar Tab) 5 mg QAM PO 08/04/16 09:00 09/03/16 08:59 08/06/16 09:07 5 MG Gabapentin (Neurontin Cap) 800 mg TID PO 08/04/16 09:00 09/03/16 08:59 08/06/16 13:23 800 MG Acetaminophen/ Hydrocodone Bitart ([place] 10/325 Tab) 1 tab Q4 PRN PO 08/03/16 22:30 08/17/16 22:29 Simvastatin (Zocor Tab) 20 mg QPM PO 08/04/16 21:00 09/03/16 20:59 08/05/16 20:56 20 MG Tamsulosin HCl (Flomax Cap) 0.4 mg DAILY PO 08/04/16 09:00 09/03/16 08:59 08/06/16 09:09 0.4 MG Ferrous Sulfate (Feosol Tab) 325 mg BID PO 08/04/16 09:00 09/03/16 08:59 08/06/16 09:08 325 MG Acetaminophen (Tylenol Tab) 650 mg Q4H PRN PO 08/03/16 22:45 09/02/16 22:44 Ondansetron HCl (Zofran Inj) 4 mg Q6H PRN IV 08/03/16 22:45 09/02/16 22:44 Lisinopril (Zestril Tab) 10 mg QAM PO 08/04/16 09:00 09/03/16 08:59 08/06/16 09:08 10 MG Fentanyl (Duragesic Patch) 25 mcg Q3D@2330 TD 08/03/16 23:30 08/17/16 23:29 08/04/16 15:12 25 MCG Senna/Docusate Sodium (Senokot S Tab) 1 tab QAM PO 08/04/16 09:00 09/03/16 08:59 08/06/16 09:08 1 TAB Miscellaneous (Remove Lidoderm Patch) 1 ea QAM N/A 08/04/16 09:00 09/03/16 08:59 08/06/16 09:10 1 EA Enoxaparin Sodium (Lovenox Inj) 90 mg Q12@1100,2300 SQ 08/03/16 23:30 09/02/16 23:29 08/06/16 12:00 90 MG Miscellaneous (Fentanyl Patch Remove & Waste) 1 ea Q3D@2329 N/A 08/06/16 23:29 09/05/16 23:28 Miscellaneous Information (Check Fentanyl Patch Placement) 1 ea QS N/A 08/04/16 08:00 09/03/16 07:59 08/06/16 07:39 1 EA Insulin Glargine (Lantus Solostar Pen) QAM SC 08/04/16 10:30 09/03/16 10:29 08/06/16 09:14 10 UNIT Insulin Glargine (Lantus Solostar Pen) QPM SC 08/05/16 21:00 09/04/16 20:59 08/05/16 21:03 5 UNIT Prednisone (PredniSONE TAB) 40 mg DAILY PO 08/06/16 09:00 09/05/16 08:59 08/06/16 09:10 40 MG Clonidine HCl (Catapres Tab) 0.1 mg Q6H PRN PO 08/06/16 01:45 09/05/16 01:44 Objective Vital Signs Date Time Temp Pulse Resp B/P Pulse Ox O2 Delivery O2 Flow Rate FiO2 08/06/16 11:54 151/67 08/06/16 10:25 94 Room Air 08/06/16 08:28 37.4 79 19 138/70 94 Room Air 08/06/16 07:30 Room Air 08/06/16 03:30 175/70 08/06/16 01:05 76 192/85 195/86 08/05/16 23:30 Room Air 08/05/16 23:03 36.3 66 20 180/73 95 Room Air 177/68 08/05/16 15:45 Room Air 08/05/16 15:15 36.5 97 16 146/79 94 Room Air 08/05/16 14:36 103 150/76 Physical Exam General Appearance: no apparent distress Respiratory/Chest: no respiratory distress, no accessory muscle use Cardiovascular: regular rate, rhythm, no edema, no murmur Abdomen: normal bowel sounds, non tender, soft Extremities: normal inspection, no pedal edema Neurologic/Psychiatric: no motor/sensory deficits, alert, normal mood/affect Laboratory Results Last 24 Hours Test 08/05/16 16:59 08/05/16 20:49 08/06/16 05:20 08/06/16 07:19 Bedside Glucose 178 mg/dl 205 mg/dl White Blood Count 9.21 K/uL Red Blood Count 4.08 M/uL Hemoglobin 12.7 g/dL Hematocrit 36.7 % Mean Corpuscular Volume 90.0 fL Mean Corpuscular Hemoglobin 31.1 pg Mean Corpuscular Hemoglobin Concent 34.6 g/dl RDW Standard Deviation 49.6 fL RDW Coefficient of Variation 15.1 % Platelet Count 146 K/uL Mean Platelet Volume 9.5 fL Prothrombin Time 20.7 SECONDS Prothromb Time International Ratio 1.9 Sodium Level 140 mmol/L Potassium Level 4.1 mmol/L Chloride Level 103 mmol/L Carbon Dioxide Level 28 mmol/L Anion Gap 9.0 mmol/L Blood Urea Nitrogen 29 mg/dl Creatinine 1.20 mg/dl Est Creatinine Clear Calc Drug Dose 47.1 ml/min Estimated GFR () 63.1 Estimated GFR (Non- 54.4 BUN/Creatinine Ratio 23.9 Random Glucose 165 mg/dl Calcium Level 8.8 mg/dl Magnesium Level 2.2 mg/dl Erythrocyte Sedimentation Rate 12 mm/hr Total Creatine Kinase 14 U/L Test 08/06/16 08:00 08/06/16 11:12 Bedside Glucose 147 mg/dl 193 mg/dl Assessment and Plan This is an 86 year old male with PMH of polymyalgia rheumatica on chronic steroids, hx. of pulmonary embolism on Coumadin presents secondary to low back pain radiating to the right leg and generalized weakness Shortness of Breath Hx. of Pulmonary Embolism 08/06 Lovenox + Coumadin bridge clinically stable 08/05 no shortness of breath today CXR with diminished lung volumes and some congestion IVFs stopped continue Lovenox + Coumadin bridge 08/04 Presented with a subtherapeutic INR agree with Lovenox at this time, bridge to Coumadin INR = 1.4 this morning, will recheck in AM CXR performed this morning, some pulmonary congestion stopped IVFs symptomatically feels better with oxygen, though saturating well will hold off on diuretics for now, but if SOB returns, may need Lasix Low Back Pain Right Lower Extremity Weakness 08/06 MRI of back and pelvis normal appreciate neuro input PT/OT will need rehab Taper prednisone, currently 40mg daily 08/[address] Brown input MRI of lumbar spine was done prior to arrival MRI of pelvis also done no acute findings on either PT/OT ordered currently on IV steroids will likely need placement neuro consult placed New Onset DM2 4/3 oral medications on discharge taper prednisone 08/05 Ha1c > 8% will need medication on discharge for now, basal insulin + sliding scale HTN gave an extra dose of Lisinopril otherwise, continue current medications CKD stage 3 creat improved, IVFs stopped DVT ppx Lovenox + Coumadin bridge DNR
--- NOTE | 2016-08-06 15:31 | Neurology Consultation ---
Neurology Consultation Date of Consultation: Aug 06, 2016. Attending Physician: Skyla Lehman DO Primary Care Physician: Luis Miguel Liriano M.D. Reason for Consultation: Right LE weakness History of Present Illness Source: patient, family Hugh is an 86 year old male who has a PMH HTN, OA, polymyalgia rheumatic on chronic steroids, CKD III, back surgeries x 3, newly diagnosed DM. Daughter is in the room and states he had his last back surgery at the end of last year with Dr Brown. He did well in rehab but then developed a PE. He was treated and then developed pneumonia and right hip and back pain. He had an MRI at Dr Brown office which she states had no acute findings. He had progressive weakness and hip pain and SOB and was brought to the ED. He was found to be DM. He does not have pain when lying down but as soon as he moves his hip hurts. He denies any falls. Daughter states he has a sister and his father both had parkinson's and she states his is having more difficulty eating because of the hand shaking and he is now shuffling with his gait. denies CP, SOB, vision changes, slurred speech, swallowing difficulty, N, V, fever chills night sweats. 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 Status: Chronic (12) Hypotension Status: Acute (13) Left sided abdominal pain Status: Acute (14) PMR (polymyalgia rheumatica) Status: Chronic (15) Pulmonary emboli Status: Acute (16) Spinal Stenosis-Lumbar Status: Chronic (17) Tachycardia Status: Acute (18) Weakness Status: Acute Social History Drug Use: none Marital Status: Housing Status: lives with family Occupation Status: retired Allergies Coded Allergies: Lorazepam (Unverified Allergy, Severe, agitation, 04/18/16) Oxycodone (Verified Allergy, Mild, ITCHINESS, 04/18/16) Current Inpatient Medications Current Inpatient Medications Medications (Trade) Dose Ordered Sig/Parminder Route Start Time Stop Time Status Last Admin Dose Admin Lidocaine (Lidoderm Patch 5%) 1 patch HS TD 08/04/16 21:00 09/03/16 20:59 08/05/16 20:57 1 PATCH Hydromorphone HCl (Dilaudid Inj) 0.5 mg Q6H PRN IV 08/03/16 22:30 08/17/16 22:29 Insulin Aspart (novoLOG ASPART) SLIDING SCALE If C... ACHS SC 08/04/16 00:00 09/03/16 00:00 08/06/16 13:22 9 UNITS Glucose (Glucose 40% Gel) 15-30 GRAMS 15 GRAMS... UD PRN PO 08/03/16 22:30 09/02/16 22:29 Glucose (Glucose Chew Tab) 4-8 Tablets 4 Tabl... UD PRN PO 08/03/16 22:30 09/02/16 22:29 Dextrose (Dextrose 50% 50ML Syringe) 25-50ML OF 50% DW IV FOR... UD PRN IV 08/03/16 22:30 09/02/16 22:29 Glucagon (Glucagon Inj) 1 mg UD PRN SQ 08/03/16 22:30 09/02/16 22:29 Miscellaneous Information (Consult Glycemic Management Pharmacy) 1 ea UD PRN N/A 08/03/16 22:37 09/02/16 22:36 Warfarin Sodium (Coumadin Tab) 5 mg DAILY@16 PO 08/04/16 16:00 09/03/16 15:59 08/05/16 16:06 5 MG Amitriptyline HCl (Elavil Tab) 50 mg QPM PO 08/04/16 21:00 09/03/16 20:59 08/05/16 20:57 50 MG Ascorbic Acid (Vitamin C Tab) 500 mg DAILY PO 08/04/16 09:00 09/03/16 08:59 08/06/16 09:09 500 MG Escitalopram Oxalate (Lexapro Tab) 10 mg DAILY PO 08/04/16 09:00 09/03/16 08:59 08/06/16 09:08 10 MG Finasteride (Proscar Tab) 5 mg QAM PO 08/04/16 09:00 09/03/16 08:59 08/06/16 09:07 5 MG Gabapentin (Neurontin Cap) 800 mg TID PO 08/04/16 09:00 09/03/16 08:59 08/06/16 13:23 800 MG Acetaminophen/ Hydrocodone Bitart ([place] 10/325 Tab) 1 tab Q4 PRN PO 08/03/16 22:30 08/17/16 22:29 Simvastatin (Zocor Tab) 20 mg QPM PO 08/04/16 21:00 09/03/16 20:59 08/05/16 20:56 20 MG Tamsulosin HCl (Flomax Cap) 0.4 mg DAILY PO 08/04/16 09:00 09/03/16 08:59 08/06/16 09:09 0.4 MG Ferrous Sulfate (Feosol Tab) 325 mg BID PO 08/04/16 09:00 09/03/16 08:59 08/06/16 09:08 325 MG Acetaminophen (Tylenol Tab) 650 mg Q4H PRN PO 08/03/16 22:45 09/02/16 22:44 Ondansetron HCl (Zofran Inj) 4 mg Q6H PRN IV 08/03/16 22:45 09/02/16 22:44 Lisinopril (Zestril Tab) 10 mg QAM PO 08/04/16 09:00 09/03/16 08:59 08/06/16 09:08 10 MG Fentanyl (Duragesic Patch) 25 mcg Q3D@2330 TD 08/03/16 23:30 08/17/16 23:29 08/04/16 15:12 25 MCG Senna/Docusate Sodium (Senokot S Tab) 1 tab QAM PO 08/04/16 09:00 09/03/16 08:59 08/06/16 09:08 1 TAB Miscellaneous (Remove Lidoderm Patch) 1 ea QAM N/A 08/04/16 09:00 09/03/16 08:59 08/06/16 09:10 1 EA Enoxaparin Sodium (Lovenox Inj) 90 mg Q12@1100,2300 SQ 08/03/16 23:30 09/02/16 23:29 08/06/16 12:00 90 MG Miscellaneous (Fentanyl Patch Remove & Waste) 1 ea Q3D@2329 N/A 08/06/16 23:29 09/05/16 23:28 Miscellaneous Information (Check Fentanyl Patch Placement) 1 ea QS N/A 08/04/16 08:00 09/03/16 07:59 08/06/16 07:39 1 EA Insulin Glargine (Lantus Solostar Pen) QAM SC 08/04/16 10:30 09/03/16 10:29 08/06/16 09:14 10 UNIT Insulin Glargine (Lantus Solostar Pen) QPM SC 08/05/16 21:00 09/04/16 20:59 08/05/16 21:03 5 UNIT Prednisone (PredniSONE TAB) 40 mg DAILY PO 08/06/16 09:00 09/05/16 08:59 08/06/16 09:10 40 MG Clonidine HCl (Catapres Tab) 0.1 mg Q6H PRN PO 08/06/16 01:45 09/05/16 01:44 Physical Exam Vital Signs (Past 24 Hrs): Date Time Temp Pulse Resp B/P Pulse Ox O2 Delivery O2 Flow Rate FiO2 08/06/16 11:54 151/67 08/06/16 10:25 94 Room Air 08/06/16 08:28 37.4 79 19 138/70 94 Room Air 08/06/16 07:30 Room Air 08/06/16 03:30 175/70 08/06/16 01:05 76 192/85 195/86 08/05/16 23:30 Room Air 08/05/16 23:03 36.3 66 20 180/73 95 Room Air 177/68 08/05/16 15:45 Room Air 08/05/16 15:15 36.5 97 16 146/79 94 Room Air Physical Exam: Constitutional: appearance nourished, very stoic decreased blink frequency Ears, Nose, Mouth and Throat: mucous membranes moist, no injection and skin normal, eyes normal Cardiovascular: normal S-1 and S-2 and regular rate and rhythm Respiratory: clear to auscultation (CTA) and no rales, rhonchi or wheeze Musculoskeletal: no peripheral edema and good distal pulses Skin: no stigmata of neurocutaneous disease noted and normal and intact Eyes: extraocular muscles intact (EOMI) and pupils equal, round and reactive to light (PERRL), miotic NEUROLOGIC EXAMINATION: Mental status: Alert and interactive Oriented to full date and location Oriented to person Speech fluent with no evidence of aphasia Cranial Nerves smile and eye brow raise symmetric, tongue midline Reflexes: Deep tendon reflexes were symmetrical and graded 2/5. Plantar responses were neutral , no clonus bilaterally Sensory: decreased sensation to vibration, GT proprioception and cool intact Coordination: finger to nose without bipass, minimal tremor, intentions tremor with out reached hands, no cog wheeling Gait/Stance: Posture lying in bed Motor: Negative for pronator drift of out stretched arms with eyes closed. Strength: biceps triceps hand wrapping machine helper intrinsics bilaterally 5/5, right hip flex 4+/5 plantar flex ext bilaterally 5/5. Laboratory Results Past 24 Hours: 08/06/16 05:20 08/06/16 05:20 Test 08/06/16 05:20 08/06/16 07:19 08/06/16 11:12 Red Blood Count 4.08 M/uL (4.7-6.1) Mean Corpuscular Volume 90.0 fL (80-100) Mean Corpuscular Hemoglobin 31.1 pg (25-34) Mean Corpuscular Hemoglobin Concent 34.6 g/dl (32-36) RDW Standard Deviation 49.6 fL (36.4-46.3) RDW Coefficient of Variation 15.1 % (11.5-14.5) Mean Platelet Volume 9.5 fL (7.4-10.4) Prothrombin Time 20.7 SECONDS (9.0-12.0) Prothromb Time International Ratio 1.9 (0.9-1.1) Anion Gap 9.0 mmol/L (3-11) Est Creatinine Clear Calc Drug Dose 47.1 ml/min Estimated GFR () 63.1 Estimated GFR (Non- 54.4 BUN/Creatinine Ratio 23.9 (10-20) Calcium Level 8.8 mg/dl (8.5-10.1) Magnesium Level 2.2 mg/dl (1.8-2.4) Erythrocyte Sedimentation Rate 12 mm/hr (0-14) Total Creatine Kinase 14 U/L (39-308) Bedside Glucose 193 mg/dl (70-99) Imaging CT head-There are patchy white matter hypodensities likely on a small vessel basis. 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 A few tiny lacunar infarcts are also visualized. These remain similar to the preceding study. TTE- 1. Normal LV size. Borderline concentric LVH. 2. Normal LV systolic function. LVEF 55-60%. No regional wall motion abnormaliteis. 3. Normal RV size and function. 4. No significant valvular pathology. 5. Grade I diastolic dysfunction. 6. Compared with prior study on 11/23/2015: No significant changes. Impression 86 year old male s/p back surgeries, PE, pneumonia with progressive LE weakness- newly diagnosed DM Plan 1. MRI with and without contrast would be helpful to r/o stroke 2. PT/OT speech for discharge needs 3. medical management of DM, HTN 4. out patient EMG 5. consult pain mgt for possible hip injection I have seen and discussed above patient with Dr Real Mc, neurology I have seen this man examined him and discussed the situation and findings with Denisse JOLLY and the patients daughter suspect weakness is in part steroid induced and exacerbated by effects of local pain He may have meghan element of a central gait disturbance as well and mri looking for leukoencephalopathy is being ordered in addition to pain management evaluation for potential injection in another site besides the right trochanteric bursa will need outpatient emg/ncs and repetetive nerve stimualtion and currently ck, aldolase and antiacr ab levels have been ordered but doubt the latter exam shows no myelopathy, and only minimal neuropathy and 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
--- NOTE | 2016-08-06 15:38 | Pharmacy Progress Note ---
Glycemic: Assessment & Plan Date of Service Aug 06, 2016. Assessment & Plan ASSESSMENT: * ADA & AACE recommend a goal blood sugar range 140-180 mg/dl for the majority of critically ill & non-critically ill patients. However, more stringent targets may be selected in individual cases. 08/04/16 * 86 yo M with generalized weakness. Hx back surgery November 2015, Dr. Brown following. * No formal diagnosis of diabetes, not on any diabetes medications as outpatient. However, is on prednisone for PMR as outpatient. * BSG's elevated to 180-230 mg/dL over the last 24 hours. * Will start Novolog at slightly looser than weight-based estimate to start * Will start Lantus at 0.1 units/kg daily 08/05/16 * AM fasting BSG elevated. Will maintain AM Lantus dose, but will add in PM Lantus dose based on BSG * Post-prandial BSG's elevated, albeit not significantly. Will slightly tighten carb ratio as patient is being maintained on dexamethasone. Will also slightly tighten correction factor. * Lunch BSG elevated to 236 mg/dL but as AM Novolog was administered < 1 hr before that this does not change recommendation outlined above 08/06/16 * FBG has improved this morning, 147 mg/dl * Decadron was discontinued yesterday afternoon. However, the effects of Decadron on BSGs usually persist for up to 72 hours. Additionally, the pt is now ordered Prednisone 40 mg daily. * Of note, pt is on chronic prednisone doses of 15mg daily as an outpatient. * No changes will be made to insulin regimen at this time. CONTINUE CURRENT PLAN FOR INPATIENT GLYCEMIC CONTROL: * Basal insulin: Lantus qAM per scale: BSG below 110 mg/dl, give 0 units; BSG above 110 mg/dl, give 10units Lantus qPM per scale: BSG below 180 mg/dl, give 0 units; BSG above 180 mg/dl, give 5 units * Correctional Insulin: Novolog Correction per scale ACHS Goal Range: Low 140 mg/dL - High 180 mg/dL Correction Factor: 25 mg/dL/unit * Prandial insulin: Per carb ratio of 1 unit per 9 grams CHO consumed BSGs continue to improve, no changes needed to inpatient regimen at this time. Pharmacy will continue to monitor patient daily and write orders per [facility] inpatient glycemic control protocol. Thanks. * Please note that the plan above was derived based on current level of insulin resistance and hospital stress. These recommendations are appropriate for inpatient admission only. Plan of care upon discharge will need to be reassessed to avoid potential outpatient hypo/hyperglycemia.
[2016-08-06] MEDS: WARFARIN SOD 5 MG TAB PO SCH (16:25)
[2016-08-06] MEDS: AMITRIPTYLINE HCL 50 MG TAB PO SCH (20:45)
[2016-08-06] MEDS: SIMVASTATIN 20 MG TAB PO SCH (20:46)
[2016-08-06] MEDS: LIDODERM (LIDOCAINE) PATCH 5% TD SCH (20:47)
[2016-08-06] MEDS: FENTANYL 25 MCG/HR TDSY TD SCH (23:23)
[2016-08-06] MEDS ORDERED: FENTANYL PATCH REMOVE & WASTE SCH (23:29)
[2016-08-07 02:30] VITALS: BP 176/73; PULSE 78
[2016-08-07 06:20] LABS: HEMATOCRIT 39.1 % (42-52); MEAN CELL VOLUME 90.5 fL (80-100); MEAN CORPUSCULAR HEMOGLOBIN 31.3 pg (25-34); MEAN CORPUSCULAR HGB CONC 34.5 g/dl (32-36); MEAN PLATELET VOLUME 9.5 fL (7.4-10.4); PLATELET COUNT 138 K/uL (130-400); RED BLOOD COUNT 4.32 M/uL (4.7-6.1); WHITE BLOOD COUNT 8.26 K/uL (4.8-10.8)
[2016-08-07 06:27] LABS: INR 2.9 (0.9-1.1); PROTHROMBIN TIME (PATIENT) 32.2 SECONDS (9.0-12.0)
[2016-08-07 06:52] LABS: CALCIUM 9.1 mg/dl (8.5-10.1); CREATININE 1.3 mg/dl (0.60-1.40); POTASSIUM 4.3 mmol/L (3.5-5.1)
[2016-08-07 07:11] VITALS: BP 172/78; PULSE 69; TEMP 36.4; O2SAT 97
[2016-08-07] MEDS: CHECK FENTANYL PATCH PLACEMENT SCH ×3 (07:50→23:29)
[2016-08-07] MEDS: LISINOPRIL 10 MG TAB PO SCH (08:29)
[2016-08-07] MEDS: GABAPENTIN 400 MG CAP PO SCH ×3 (08:29→21:19)
[2016-08-07] MEDS: FERROUS SULFATE 325 MG TAB PO SCH ×2 (08:29→21:19)
[2016-08-07] MEDS: ASCORBIC ACID 500 MG TAB PO SCH (08:29)
[2016-08-07] MEDS: TAMSULOSIN HCL 0.4 MG CAP PO SCH (08:29)
[2016-08-07] MEDS: FINASTERIDE 5 MG TAB PO SCH (08:30)
[2016-08-07] MEDS: ESCITALOPRAM OXALATE 10 MG TAB PO SCH (08:30)
[2016-08-07] MEDS: DOCUSATE SODIUM/SENNA 50/8.6MG TAB PO SCH (08:30)
[2016-08-07] MEDS: INSULIN ASPART 100 UNITS/ML 3 ML PEN SC SCH ×4 (08:55→21:22)
[2016-08-07 09:58] VITALS: BP 123/74; PULSE 84; O2SAT 95
--- NOTE | 2016-08-07 10:57 | Pharmacy Progress Note ---
Glycemic Control: Progress Nt Date of Service Aug 07, 2016. Scope Glycemic Pharmacist consulted by Dr Elder on 08/03/16 for glycemic control and to write orders per [facility] inpatient glycemic control protocol. Objective Accuchecks BSG (last 24hrs): Test 08/06/16 11:12 08/06/16 17:04 08/06/16 20:46 08/07/16 05:30 Bedside Glucose 193 mg/dl (70-99) 203 mg/dl (70-99) 180 mg/dl (70-99) Random Glucose 99 mg/dl (70-99) Test 08/07/16 07:58 Bedside Glucose 83 mg/dl (70-99) Laboratory Data (last 24hrs) Test 08/07/16 05:30 Anion Gap 6.0 mmol/L BUN/Creatinine Ratio 21.0 Blood Urea Nitrogen 27 mg/dl Creatinine 1.30 mg/dl Potassium Level 4.3 mmol/L Sodium Level 141 mmol/L White Blood Count 8.26 K/uL HbA1c: Test 08/04/16 06:00 Hemoglobin A1c 8.6 % (4.5-5.6) H Recent Pertinent Medications Outpatient Anti-diabetic Regimen: * N/A The patient is currently receiving: * Basal insulin: Lantus 5-10 units every 12 hours based on BSG * Correctional Insulin: Novolog Correction per scale ACHS Goal Range: Low 140 mg/dL - High 180 mg/dL Correction Factor: 25 mg/dL/unit * Prandial insulin: Per carb ratio of 1 unit per 9 grams CHO consumed * Oral Agents: N/A Risk Factors for Insulin Resistance: * Steroids * Diet Assessment & Plan ASSESSMENT: * 86yo ?T2DM? male with steroid induced hyperglycemia * Steroids tapered significantly from IV Dexamethasone 8mg IV Q8hrs --> Prednisone 40mg PO daily * Expect significant improvement in BSGs with this massive step down in steroid dosing * Steroids have their most profound effect on post-prandial hyperglycemia --> will empirically loosen CF/CR in accordance with tapered steroids * AM fasting BSG is below goal range per inpatient targets at 83mg/dl * Basal insulin no longer needed to help cover RTC steroid dosing --> will D/C * ADA & AACE recommend a goal blood sugar range 140-180 mg/dl for the majority of critically ill & non-critically ill patients. However, more stringent targets may be selected in individual cases. PLAN FOR INPATIENT GLYCEMIC CONTROL: * D/C Basal insulin with Lantus * NOVOLOG per scale ACHS or Q6hrs while NPO * Goal Range: Low 140 mg/dL - High 180 mg/dL * Loosen Correction Factor: 40 mg/dL/unit * Loosen Nutritional / Prandial insulin per carb ratio of 1 unit per 13 grams CHO consumed RECOMMENDATIONS FOR DISCHARGE: * A1c is elevated at 8.6% however this is adequate glycemic control based on patient specific factors (age, co-morbidities, etc) * Pt may require short courses of insulin to help manage severe hyperglycemia when chronic steroid/prednisone dosing is increased for acute situations. Pt can work this out with PCP if needed in the future. * Please note that the plan above was derived based on current level of insulin resistance and hospital stress. These recommendations are appropriate for inpatient admission only. Plan of care upon discharge will need to be reassessed to avoid potential outpatient hypo/hyperglycemia. Thank you.
[2016-08-07] MEDS: ENOXAPARIN 100 MG/1ML SYR SQ SCH (11:00)
--- NOTE | 2016-08-07 11:04 | CONSULTATION REPORT ---
DATE OF CONSULTATION: 08/07/2016 Plan of care discussed with Dr. Ayde Murphy. CHIEF COMPLAINT: Right-sided low back pain with radiation toward the hip and thigh as well as lower extremity weakness. HISTORY OF PRESENT ILLNESS: Mr. Kan is an 86-year-old white male who was admitted with complaints of weakness in the lower extremities as well as pain in the right lumbosacral region extending to the lateral hip and thigh location. He has a prior history of lumbar spinal surgery in November 2015 in which he was fused from L2 through the sacrum. The patient reported right lower extremity radicular pain as his initial complaint prior to the surgery, which was improved. The patient reported recurrence over the past 1 month without known injury of pain in the right lumbosacral region extending into the gluteal, lateral hip and thigh location. Primary evaluation with Dr. Brown in the outpatient setting with MRI failed to reveal an acute abnormality. A right greater trochanteric bursa injection was performed by Dr. Wall without relief of symptoms. The patient indicates that his pain has been improved over the past 24-48 hours. He indicates his pain as 0/10 in the sitting position. His pain can range between a 4-5/10 with ambulation. He reports moderate discomfort with positional change from sitting to standing. The patient has been out of bed to the bathroom with use of a walker without limitations over the past 24 hours per his report. The patient denies radiating pain below the level of the knee. He denies footdrop, bowel or bladder incontinence, or other constitutional complaints at today's visit. He does have past medical history significant for polymyalgia rheumatica, on chronic prednisone, as well as pulmonary embolism, on Coumadin which is currently being bridged with Lovenox due to a subtherapeutic INR. PAST MEDICAL HISTORY: 1. Chronic anticoagulation therapy with Coumadin. 2. Chronic steroid use. 3. Chronic kidney disease -- stage III. 4. Dyslipidemia. 5. GERD. 6. History of right-sided hydrocele. 7. Hyperlipidemia. 8. Hypertension. 9. BPH. 10. Lumbar spinal canal stenosis. 11. Osteoarthritis. 12. Polymyalgia rheumatica -- chronic steroid dependency. 13. History of pulmonary embolism. PAST SURGICAL HISTORY: 1. Knee arthroscopy. 2. Cataract extraction. 3. Multiple lumbar spine surgeries, most recent fusion from L2 through S1 in 2015. SOCIAL HISTORY: The patient currently lives with family. He is . The patient is retired. Denies alcohol or illicit drug use or tobacco utilization. FAMILY HISTORY: Heart disease. ALLERGIES: LORAZEPAM AND OXYCODONE. CURRENT MEDICATIONS: Reviewed extensively in EMR -- refer current list. REVIEW OF SYSTEMS: The patient denies complaints related to cardiac, pulmonary, GI, , endocrine, neurologic, hepatic, renal, ENT, dermatologic, musculoskeletal other than described above in the HPI. PHYSICAL EXAMINATION: VITAL SIGNS: Temperature 36.4 degrees Celsius, pulse 69, respirations 19, BP 172/78, pulse oximetry 97 on room air. GENERAL: Mr. Kan is sitting in a bedside chair upon entering the room, in no acute distress. Speech and thought process are appropriate. Mood and affect are appropriate. Cognition is intact. BACK AND SPINE: Complete loss of lumbar lordosis. He has a well-healed midline surgical incision over the entire lumbar spine. He is nontender over the midline. He has no focal facet joint tenderness to provocative testing. He is nontender in the paravertebral, quadratus lumborum or gluteal musculature. The patient is tender to provocative testing of the right SI joint. He is nontender correspondingly on the left. LOWER EXTREMITIES: SLR negative bilaterally in the sitting position. NIGEL maneuver is equivocal on the right and negative on the left. Thigh thrust test was positive on the right and negative on the left. He has limited range of motion of the hips with internal and external rotation but no obvious discomfort. He is nontender over the greater trochanter. Sensation is intact without deficits. Strength is 5/5 and equal with dorsiflexion, plantarflexion, EHL testing, knee flexion/extension, hip flexion/extension maneuvering. NEUROLOGIC: Cranial nerves are grossly intact. The patient was witnessed ambulating with a walker out of the bathroom prior to entering the room. IMAGING: Pelvic and hip MRI without contrast dated 08/04/2016 revealed no acute abnormalities in the pelvis or hips by MRI. Unremarkable MRI of the right hip for age. Minimal osteoarthritis. Increased signal within the right sacral ala which was likely artifactual. Marrow edema is considered less likely. Lumbar spine MRI unavailable for review, which was reportedly done at an outside facility. ASSESSMENT: 1. Right-sided sacroiliitis. 2. Right lower extremity radicular pain without myelopathy. 3. Lumbar post-laminectomy syndrome with fusion from L2 through S1. 4. Chronic anticoagulation therapy with Coumadin secondary to history of pulmonary embolism. 5. Polymyalgia rheumatica, chronic steroid dependency. TREATMENT AND RECOMMENDATIONS: We discussed potential etiologies as well as various treatment options. We discussed pursuing a diagnostic/therapeutic right SI joint injection should it be safe for him to hold Coumadin therapy in the outpatient setting. There is plan for discharge to [facility]. The patient may return to Dr. Brown's office for consideration of right SI joint injection or to our clinic in the outpatient setting for consideration of the SI joint procedure with symptomatic persistent/recurrence as he is reporting symptomatic improvement over the past 24-48 hours. Thank you for allowing us to participate in the care of Mr. Kan. JAMAAL
[2016-08-07] MEDS ORDERED: NURSING VERBAL MED ORDER ONE (11:45)
[2016-08-07 15:09] VITALS: BP 128/74; PULSE 97; TEMP 36.6; O2SAT 96
--- NOTE | 2016-08-07 15:12 | Neurology Progress Notes ---
Neurology Progress Note Date of Service Aug 07, 2016. Subjective Hugh is an 86 year old male who has a PMH HTN, OA, polymyalgia rheumatic on chronic steroids, CKD III, back surgeries x 3, newly diagnosed DM. Daughter is in the room and states he had his last back surgery at the end of last year with Dr Brown. He did well in rehab but then developed a PE. He was treated and then developed pneumonia and right hip and back pain. He had an MRI at Dr Brown office which she states had no acute findings. He had progressive weakness and hip pain and SOB and was brought to the ED. He was found to be DM. He does not have pain when lying down but as soon as he moves his hip hurts. Patient is walking better today and is not having as much pain. He refused the MRI brain just didn't want it. Discussed with daughter that is was really not essential. Daughter states they are going to get him to [facility] for rehab and try the injection in the SI joint the pain mgt has recommended and see how he does with that. She will call if she wants to pursue the EMG after HS. Objective Date Time Temp Pulse Resp B/P Pulse Ox O2 Delivery O2 Flow Rate FiO2 08/07/16 09:58 84 123/74 95 Room Air 08/07/16 07:45 Room Air 08/07/16 07:11 36.4 69 19 172/78 97 Room Air 08/07/16 02:30 78 176/73 08/06/16 23:25 184/78 08/06/16 23:25 36.6 69 16 187/78 94 Room Air 08/06/16 23:15 Room Air 08/06/16 16:05 Room Air 08/06/16 15:20 36.5 74 16 142/77 95 Room Air Last 24 Hours Test 08/06/16 17:04 08/06/16 18:10 08/06/16 20:46 08/07/16 05:30 Bedside Glucose 203 mg/dl 180 mg/dl White Blood Count 8.26 K/uL Red Blood Count 4.32 M/uL Hemoglobin 13.5 g/dL Hematocrit 39.1 % Mean Corpuscular Volume 90.5 fL Mean Corpuscular Hemoglobin 31.3 pg Mean Corpuscular Hemoglobin Concent 34.5 g/dl RDW Standard Deviation 50.0 fL RDW Coefficient of Variation 15.1 % Platelet Count 138 K/uL Mean Platelet Volume 9.5 fL Nucleated RBC Absolute Count (auto) 0.02 K/uL Nucleated Red Blood Cells % 0.3 % Prothrombin Time 32.2 SECONDS Prothromb Time International Ratio 2.9 Sodium Level 141 mmol/L Potassium Level 4.3 mmol/L Chloride Level 105 mmol/L Carbon Dioxide Level 30 mmol/L Anion Gap 6.0 mmol/L Blood Urea Nitrogen 27 mg/dl Creatinine 1.30 mg/dl Est Creatinine Clear Calc Drug Dose 43.4 ml/min Estimated GFR () 57.3 Estimated GFR (Non- 49.4 BUN/Creatinine Ratio 21.0 Random Glucose 99 mg/dl Calcium Level 9.1 mg/dl Chemistry Specimen Hemolysis Test 08/07/16 07:58 08/07/16 11:53 Bedside Glucose 83 mg/dl 151 mg/dl Imaging: no further imaging Exam: gen: alert and oriented NAD lungs CTA CV RRR patient is walking to the bathroom with his walker (which is baseline) Current Inpatient Medications Medications (Trade) Dose Ordered Sig/Parminder Route Start Time Stop Time Status Last Admin Dose Admin Lidocaine (Lidoderm Patch 5%) 1 patch HS TD 08/04/16 21:00 09/03/16 20:59 08/06/16 20:47 1 PATCH Hydromorphone HCl (Dilaudid Inj) 0.5 mg Q6H PRN IV 08/03/16 22:30 08/17/16 22:29 Insulin Aspart (novoLOG ASPART) SLIDING SCALE If C... ACHS SC 08/04/16 00:00 09/03/16 00:00 08/07/16 13:19 4 UNITS Glucose (Glucose 40% Gel) 15-30 GRAMS 15 GRAMS... UD PRN PO 08/03/16 22:30 09/02/16 22:29 Glucose (Glucose Chew Tab) 4-8 Tablets 4 Tabl... UD PRN PO 08/03/16 22:30 09/02/16 22:29 Dextrose (Dextrose 50% 50ML Syringe) 25-50ML OF 50% DW IV FOR... UD PRN IV 08/03/16 22:30 09/02/16 22:29 Glucagon (Glucagon Inj) 1 mg UD PRN SQ 08/03/16 22:30 09/02/16 22:29 Miscellaneous Information (Consult Glycemic Management Pharmacy) 1 ea UD PRN N/A 08/03/16 22:37 09/02/16 22:36 Warfarin Sodium (Coumadin Tab) 5 mg DAILY@16 PO 08/04/16 16:00 09/03/16 15:59 08/06/16 16:25 5 MG Amitriptyline HCl (Elavil Tab) 50 mg QPM PO 08/04/16 21:00 09/03/16 20:59 08/06/16 20:45 50 MG Ascorbic Acid (Vitamin C Tab) 500 mg DAILY PO 08/04/16 09:00 09/03/16 08:59 08/07/16 08:29 500 MG Escitalopram Oxalate (Lexapro Tab) 10 mg DAILY PO 08/04/16 09:00 09/03/16 08:59 08/07/16 08:30 10 MG Finasteride (Proscar Tab) 5 mg QAM PO 08/04/16 09:00 09/03/16 08:59 08/07/16 08:30 5 MG Gabapentin (Neurontin Cap) 800 mg TID PO 08/04/16 09:00 09/03/16 08:59 08/07/16 13:21 800 MG Acetaminophen/ Hydrocodone Bitart ([place] 10/325 Tab) 1 tab Q4 PRN PO 08/03/16 22:30 08/17/16 22:29 Simvastatin (Zocor Tab) 20 mg QPM PO 08/04/16 21:00 09/03/16 20:59 08/06/16 20:46 20 MG Tamsulosin HCl (Flomax Cap) 0.4 mg DAILY PO 08/04/16 09:00 09/03/16 08:59 08/07/16 08:29 0.4 MG Ferrous Sulfate (Feosol Tab) 325 mg BID PO 08/04/16 09:00 09/03/16 08:59 08/07/16 08:29 325 MG Acetaminophen (Tylenol Tab) 650 mg Q4H PRN PO 08/03/16 22:45 09/02/16 22:44 Ondansetron HCl (Zofran Inj) 4 mg Q6H PRN IV 08/03/16 22:45 09/02/16 22:44 Lisinopril (Zestril Tab) 10 mg QAM PO 08/04/16 09:00 09/03/16 08:59 08/07/16 08:29 10 MG Fentanyl (Duragesic Patch) 25 mcg Q3D@2330 TD 08/03/16 23:30 08/17/16 23:29 08/06/16 23:23 25 MCG Senna/Docusate Sodium (Senokot S Tab) 1 tab QAM PO 08/04/16 09:00 09/03/16 08:59 08/07/16 08:30 1 TAB Miscellaneous (Remove Lidoderm Patch) 1 ea QAM N/A 08/04/16 09:00 09/03/16 08:59 08/07/16 08:24 1 EA Miscellaneous (Fentanyl Patch Remove & Waste) 1 ea Q3D@2329 N/A 08/06/16 23:29 09/05/16 23:28 08/06/16 23:23 1 EA Miscellaneous Information (Check Fentanyl Patch Placement) 1 ea QS N/A 08/04/16 08:00 09/03/16 07:59 08/07/16 07:50 1 EA Prednisone (PredniSONE TAB) 40 mg DAILY PO 08/06/16 09:00 09/05/16 08:59 08/07/16 08:30 40 MG Clonidine HCl (Catapres Tab) 0.1 mg Q6H PRN PO 08/06/16 01:45 09/05/16 01:44 08/06/16 23:31 0.1 MG Impression 86 year old male s/p back surgeries, PE, pneumonia with progressive LE weakness- newly diagnosed DM Plan 1. MRI with and without contrast - patient refused- not essential to assessment 2. PT/OT speech for discharge needs 3. medical management of DM, HTN 4. out patient EMG if family would like to pursue they will call for appointment 5. consult pain mgt for possible hip injection- recommending SI joint injection 6. will sign off for now please call with any further concerns or questions 7. family pursue admission to [facility] I have seen and discussed above patient with Dr Real Mc, neurology Seen and discussed with Yohana Benavides no pain today and able to ambulate with walker will hold off on mri and EMG labs thus far ok and achr ab will be out for some time exam and history suggest steroid myopathy low grade with step off in status due to pain related diminished activity and disuse off hiopefully the [facility] or potentially another rehab facility for some therapy prior to returning home we will sign off now Real Mc MD
[2016-08-07] MEDS: WARFARIN SOD 5 MG TAB PO SCH (16:37)
--- NOTE | 2016-08-07 17:04 | Progress Note ---
Subjective Date of Service: Aug 07, 2016. Subjective Pt evaluation today including: conversation w/ patient, physical exam, lab review, review of studies, review of inpatient medication list Saw/examined the patient in room 303 He's doing well today, denies any pain No lower extremity pain Seated comfortably Problem List Medical Problems: (1) SHANIKA (acute kidney injury) Status: Acute (2) Ambulatory dysfunction Status: Acute (3) Ambulatory dysfunction Status: Acute (4) Chronic back pain Status: Acute (5) Dehydration Status: Acute (6) Dehydration Status: Acute (7) Esophageal Reflux Status: Chronic (8) Generalized weakness Status: Acute (9) Hyperlipidemia Nec/Nos Status: Chronic (10) Hypertension Nos Status: Chronic (11) Hypertrophy (Benign) Of 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 Status: Chronic (12) Hypotension Status: Acute (13) Left sided abdominal pain Status: Acute (14) PMR (polymyalgia rheumatica) Status: Chronic (15) Pulmonary emboli Status: Acute (16) Spinal Stenosis-Lumbar Status: Chronic (17) Tachycardia Status: Acute (18) Weakness Status: Acute Review of Systems Constitutional: No weakness Respiratory: No cough, No shortness of breath, No sputum Abdomen: No diarrhea, No nausea, No pain, No vomiting Musculoskeletal: No joint pain, No muscle pain Medications Current Inpatient Medications Medications (Trade) Dose Ordered Sig/Parminder Route Start Time Stop Time Status Last Admin Dose Admin Lidocaine (Lidoderm Patch 5%) 1 patch HS TD 08/04/16 21:00 09/03/16 20:59 08/06/16 20:47 1 PATCH Hydromorphone HCl (Dilaudid Inj) 0.5 mg Q6H PRN IV 08/03/16 22:30 08/17/16 22:29 Insulin Aspart (novoLOG ASPART) SLIDING SCALE If C... ACHS SC 08/04/16 00:00 09/03/16 00:00 08/07/16 13:19 4 UNITS Glucose (Glucose 40% Gel) 15-30 GRAMS 15 GRAMS... UD PRN PO 08/03/16 22:30 09/02/16 22:29 Glucose (Glucose Chew Tab) 4-8 Tablets 4 Tabl... UD PRN PO 08/03/16 22:30 09/02/16 22:29 Dextrose (Dextrose 50% 50ML Syringe) 25-50ML OF 50% DW IV FOR... UD PRN IV 08/03/16 22:30 09/02/16 22:29 Glucagon (Glucagon Inj) 1 mg UD PRN SQ 08/03/16 22:30 09/02/16 22:29 Miscellaneous Information (Consult Glycemic Management Pharmacy) 1 ea UD PRN N/A 08/03/16 22:37 09/02/16 22:36 Warfarin Sodium (Coumadin Tab) 5 mg DAILY@16 PO 08/04/16 16:00 09/03/16 15:59 08/07/16 16:37 5 MG Amitriptyline HCl (Elavil Tab) 50 mg QPM PO 08/04/16 21:00 09/03/16 20:59 08/06/16 20:45 50 MG Ascorbic Acid (Vitamin C Tab) 500 mg DAILY PO 08/04/16 09:00 09/03/16 08:59 08/07/16 08:29 500 MG Escitalopram Oxalate (Lexapro Tab) 10 mg DAILY PO 08/04/16 09:00 09/03/16 08:59 08/07/16 08:30 10 MG Finasteride (Proscar Tab) 5 mg QAM PO 08/04/16 09:00 09/03/16 08:59 08/07/16 08:30 5 MG Gabapentin (Neurontin Cap) 800 mg TID PO 08/04/16 09:00 09/03/16 08:59 08/07/16 13:21 800 MG Acetaminophen/ Hydrocodone Bitart ([place] 10/325 Tab) 1 tab Q4 PRN PO 08/03/16 22:30 08/17/16 22:29 Simvastatin (Zocor Tab) 20 mg QPM PO 08/04/16 21:00 09/03/16 20:59 08/06/16 20:46 20 MG Tamsulosin HCl (Flomax Cap) 0.4 mg DAILY PO 08/04/16 09:00 09/03/16 08:59 08/07/16 08:29 0.4 MG Ferrous Sulfate (Feosol Tab) 325 mg BID PO 08/04/16 09:00 09/03/16 08:59 08/07/16 08:29 325 MG Acetaminophen (Tylenol Tab) 650 mg Q4H PRN PO 08/03/16 22:45 09/02/16 22:44 Ondansetron HCl (Zofran Inj) 4 mg Q6H PRN IV 08/03/16 22:45 09/02/16 22:44 Lisinopril (Zestril Tab) 10 mg QAM PO 08/04/16 09:00 09/03/16 08:59 08/07/16 08:29 10 MG Fentanyl (Duragesic Patch) 25 mcg Q3D@2330 TD 08/03/16 23:30 08/17/16 23:29 08/06/16 23:23 25 MCG Senna/Docusate Sodium (Senokot S Tab) 1 tab QAM PO 08/04/16 09:00 09/03/16 08:59 08/07/16 08:30 1 TAB Miscellaneous (Remove Lidoderm Patch) 1 ea QAM N/A 08/04/16 09:00 09/03/16 08:59 08/07/16 08:24 1 EA Miscellaneous (Fentanyl Patch Remove & Waste) 1 ea Q3D@2329 N/A 08/06/16 23:29 09/05/16 23:28 08/06/16 23:23 1 EA Miscellaneous Information (Check Fentanyl Patch Placement) 1 ea QS N/A 08/04/16 08:00 09/03/16 07:59 08/07/16 16:00 1 EA Prednisone (PredniSONE TAB) 40 mg DAILY PO 08/06/16 09:00 09/05/16 08:59 08/07/16 08:30 40 MG Clonidine HCl (Catapres Tab) 0.1 mg Q6H PRN PO 08/06/16 01:45 09/05/16 01:44 08/06/16 23:31 0.1 MG Objective Vital Signs Date Time Temp Pulse Resp B/P Pulse Ox O2 Delivery O2 Flow Rate FiO2 08/07/16 15:09 36.6 97 17 128/74 96 Room Air 08/07/16 09:58 84 123/74 95 Room Air 08/07/16 07:45 Room Air 08/07/16 07:11 36.4 69 19 172/78 97 Room Air 08/07/16 02:30 78 176/73 08/06/16 23:25 184/78 08/06/16 23:25 36.6 69 16 187/78 94 Room Air 08/06/16 23:15 Room Air Physical Exam General Appearance: no apparent distress Respiratory/Chest: lungs clear, no respiratory distress, no accessory muscle use Cardiovascular: regular rate, rhythm, no edema, no murmur Abdomen: normal bowel sounds, non tender, soft Extremities: normal inspection, no pedal edema Neurologic/Psychiatric: alert Laboratory Results Last 24 Hours Test 08/06/16 17:04 08/06/16 18:10 08/06/16 20:46 08/07/16 05:30 Bedside Glucose 203 mg/dl 180 mg/dl White Blood Count 8.26 K/uL Red Blood Count 4.32 M/uL Hemoglobin 13.5 g/dL Hematocrit 39.1 % Mean Corpuscular Volume 90.5 fL Mean Corpuscular Hemoglobin 31.3 pg Mean Corpuscular Hemoglobin Concent 34.5 g/dl RDW Standard Deviation 50.0 fL RDW Coefficient of Variation 15.1 % Platelet Count 138 K/uL Mean Platelet Volume 9.5 fL Nucleated RBC Absolute Count (auto) 0.02 K/uL Nucleated Red Blood Cells % 0.3 % Prothrombin Time 32.2 SECONDS Prothromb Time International Ratio 2.9 Sodium Level 141 mmol/L Potassium Level 4.3 mmol/L Chloride Level 105 mmol/L Carbon Dioxide Level 30 mmol/L Anion Gap 6.0 mmol/L Blood Urea Nitrogen 27 mg/dl Creatinine 1.30 mg/dl Est Creatinine Clear Calc Drug Dose 43.4 ml/min Estimated GFR () 57.3 Estimated GFR (Non- 49.4 BUN/Creatinine Ratio 21.0 Random Glucose 99 mg/dl Calcium Level 9.1 mg/dl Chemistry Specimen Hemolysis Test 08/07/16 07:58 08/07/16 11:53 Bedside Glucose 83 mg/dl 151 mg/dl Assessment and Plan This is an 86 year old male with PMH of polymyalgia rheumatica on chronic steroids, hx. of pulmonary embolism on Coumadin presents secondary to low back pain radiating to the right leg and generalized weakness Shortness of Breath Hx. of Pulmonary Embolism 08/07 d/c Lovenox continue Coumadin INR = 2.9 recheck INR at [facility] in AM 08/06 Lovenox + Coumadin bridge clinically stable 08/05 no shortness of breath today CXR with diminished lung volumes and some congestion IVFs stopped continue Lovenox + Coumadin bridge 08/04 Presented with a subtherapeutic INR agree with Lovenox at this time, bridge to Coumadin INR = 1.4 this morning, will recheck in AM CXR performed this morning, some pulmonary congestion stopped IVFs symptomatically feels better with oxygen, though saturating well will hold off on diuretics for now, but if SOB returns, may need Lasix Low Back Pain Right Lower Extremity Weakness 08/07 taper prednisone at [facility] 08/06 MRI of back and pelvis normal appreciate neuro input PT/OT will need rehab Taper prednisone, currently 40mg daily 08/[address] Brown input MRI of lumbar spine was done prior to arrival MRI of pelvis also done no acute findings on either PT/OT ordered currently on IV steroids will likely need placement neuro consult placed New Onset DM2 08/06 oral medications on discharge taper prednisone 08/05 Ha1c > 8% will need medication on discharge for now, basal insulin + sliding scale HTN gave an extra dose of Lisinopril otherwise, continue current medications CKD stage 3 creat improved, IVFs stopped DVT ppx Lovenox + Coumadin bridge DNR
[2016-08-07] MEDS ORDERED: LSN10 PO (17:09)
[2016-08-07] MEDS ORDERED: PRED10TA PO (17:09)
[2016-08-07] MEDS ORDERED: METF500T5 PO (17:09)
--- NOTE | 2016-08-07 17:12 | Discharge Instructions ---
Discharge Instructions Date of Service Aug 07, 2016. Admission Reason for Admission: Weakness Discharge Discharge Diagnosis / Problem: Lower Extremity Weakness; New Onset DM2; hx. of PE Discharge Goals Goal(s): Decrease discomfort, Improve function, Diagnostic testing, Therapeutic intervention Activity Recommendations Activity Level: Up Ad Kristin Therapies: Physical Therapy, Occupational Therapy . Additional Information Patient informed of condition: Yes Advance Directives: Yes DNR: Yes Level of Care: Acute Rehab Communicable Disease: No Prognosis: Stable Instructions / Follow-Up Instructions / Follow-Up You will be started on Metformin 500mg twice a day for your new onset diabetes Blood sugars should be checked twice daily You are stated on lisinopril 10mg daily for blood pressure You will be on a prednisone taper * Take 40mg x 3 days, then 30mg x 3 days, then 20mg x 3 days, and then back to 15mg as home dose Current Hospital Diet Patient's current hospital diet: Diabetes Type 2 Diet, AHA Diet (Heart Healthy) Discharge Diet Recommended Diet: AHA Diet (Heart Healthy), Diabetes Type 2 Diet Pending Studies Studies pending at discharge: no Laboratory Results Hemoglobin A1c Test 08/04/16 06:00 Range/Units Estimated Average Glucose 200 mg/dl Hemoglobin A1c 8.6 H 4.5-5.6 % Medical Emergencies . Who to Call and When: Medical Emergencies: If at any time you feel your situation is an emergency, please call 911 immediately. . Non-Emergent Contact Non-Emergency issues call your: Primary Care Provider . . "Provider Documentation" section prepared by Skyla Lehman. Core Measure Problem Core Measures: None
--- NOTE | 2016-08-07 17:14 | Discharge Summary ---
Discharge Summary Date of Service Aug 07, 2016. Discharge Summary Admission Date: Aug 03, 2016 at 22:20 Discharge Date: Aug 07, 2016 Discharge Disposition: Rehab Principal Diagnosis: Lower Extremity Weakness Low Back Pain New Onset DM2 Hx. of PE Medication Reconciliation New Medications: Metformin Hcl Er (Glucophage Er) 500 Mg Tab 500 MG PO BID for 30 Days, #60 TAB Prednisone Tab (Prednisone) 10 Mg Tab 10 MG PO DAILY for 30 Days, #30 TAB Lisinopril (Zestril) 10 Mg Tab 10 MG PO QAM for 30 Days, #30 TAB Continued Medications: Amitriptyline HCl (Amitriptyline HCl) 50 Mg Tab 50 MG PO QPM, #30 Ascorbic Acid (Vitamin C) 500 Mg Tab 500 MG PO DAILY Bee Pollen (Ra Bee Pollen) 500 Mg Chw 1 TAB PO QAM Cyclobenzaprine Hcl (Flexeril) 5 Mg Tab 1 TAB PO HS PRN for Muscle Spasms for 30 Days, #30 TAB Escitalopram Oxalate (Lexapro) 10 Mg Tab 1 TAB PO DAILY for 30 Days, #30 TAB 3 Refills Ferrous Sulfate (Kp Ferrous Sulfate) 325 Mg Tab 1 TAB PO BID, TAB 3 Refills Finasteride (Proscar) 5 Mg Tab 5 MG PO QAM Gabapentin (Neurontin) 400 Mg Cap 800 MG PO TID, CAP Hydrocodone/Acetaminophen 10MG/325MG ([place] 10MG/325MG) Tab 1-2 TABS PO Q4 PRN for Pain for 20 Days, TAB PRN PAIN Probiotic Product (Align) 4 Mg Cap Simvastatin (Zocor) 20 Mg Tab 20 MG PO QPM Tamsulosin Hcl (Flomax) 0.4 Mg Cap 1 CAP PO DAILY for 30 Days, #30 CAP 5 Refills Warfarin Sod (Jantoven) 2.5 Mg Tab 2.5 MG PO 4XWK, TAB TAKE 2.5 MG ON SUNDAYS, MONDAYS, WEDNESDAYS AND FRIDAYS Warfarin Sod (Jantoven) 5 Mg Tab 5 MG PO 3XWK, TAB TAKE 5 MG ON TUESDAYS, THURSDAYS AND SATURDAYS Admission Information HPI (per Admitting provider): 86 year old male with history of Back Surgery November 2015, Polymyalgia Rheumatica on Chronic Prednisone, Pulmonary Embolism on coumadin, presenting with increasing back pain and leg weakness x [address] Rainey for Primary Care. History supplemented by daughter at bedside. Patient known to have chronic back pain but seemed to have worsened over the past 2 weeks. Patient reports low back pain radiating to his right lower leg, as well as bilateral leg weakness, difficulty ambulating. Denies incontinence, paresthesias. Denies shortness of breath, chest pain, palpitations, dizziness. Daughter noticed that he has been progressively getting weak, and more drowsy lately. Appetite is good. Patient was evaluated by Dr. Brown and had an MRI this morning. Flexeril seemed to have provided only minimal relief. At the ED, CT head was negative for acute process. On exam, patient seen resting in bed. Somewhat drowsy but oriented x 3. Back pain worse with movement. Denies other active symptoms. Physical Exam (per Admitting): General Appearance: WD/WN, no apparent distress Head: normocephalic, atraumatic Eyes: normal inspection, EOMI, sclerae normal ENT: normal ENT inspection, hearing grossly normal, pharynx normal Neck: supple, no adenopathy, thyroid normal, no JVD, trachea midline Respiratory/Chest: chest non-tender, lungs clear, normal breath sounds, no respiratory distress, no accessory muscle use Cardiovascular: regular rate, rhythm, no edema, no JVD, no murmur Abdomen/GI: normal bowel sounds, non tender, soft, no organomegaly Back: normal inspection, + pertinent finding (tenderness on the right lower back region, area of the pelvis) Extremities/Musculoskelatal: normal inspection, no calf tenderness, no pedal edema, normal range of motion Neurologic/Psych: 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 of pulmonary embolism on Coumadin presents secondary to low back pain radiating to the right leg and generalized weakness Shortness of Breath Hx. of Pulmonary Embolism 5 Plan is to discharge to [facility] Continue Coumadin with goal INR of 2-3 4/4 d/c Lovenox continue Coumadin INR = 2.9 recheck INR at [facility] in AM 08/06 Lovenox + Coumadin bridge clinically stable 08/05 no shortness of breath today CXR with diminished lung volumes and some congestion IVFs stopped continue Lovenox + Coumadin bridge 08/04 Presented with a subtherapeutic INR agree with Lovenox at this time, bridge to Coumadin INR = 1.4 this morning, will recheck in AM CXR performed this morning, some pulmonary congestion stopped IVFs symptomatically feels better with oxygen, though saturating well will hold off on diuretics for now, but if SOB returns, may need Lasix Low Back Pain Right Lower Extremity Weakness 08/08 prednisone taper as per instructions (40mg x 3 days, 30mg x 3 days, 20mg x 3 days, then back to home dose of 15mg) 08/07 taper prednisone at [facility] 08/06 MRI of back and pelvis normal appreciate neuro input PT/OT will need rehab Taper prednisone, currently 40mg daily 08/[address] Brown input MRI of lumbar spine was done prior to arrival MRI of pelvis also done no acute findings on either PT/OT ordered currently on IV steroids will likely need placement neuro consult placed New Onset DM2 08/07 started on metformin 500mg BID, lisinopril 10mg daily to check BSGs twice daily at [facility] 08/06 oral medications on discharge taper prednisone 08/05 Ha1c > 8% will need medication on discharge for now, basal insulin + sliding scale HTN gave an extra dose of Lisinopril otherwise, continue current medications CKD stage 3 creat improved, IVFs stopped DVT ppx Lovenox + Coumadin bridge DNR Total time spent on discharge = 35 minutes This includes examination of the patient, discharge planning, medication reconciliation, and communication with other providers. Discharge Instructions You will be started on Metformin 500mg twice a day for your new onset diabetes Blood sugars should be checked twice daily You are stated on lisinopril 10mg daily for blood pressure You will be on a prednisone taper * Take 40mg x 3 days, then 30mg x 3 days, then 20mg x 3 days, and then back to 15mg as home dose
[2016-08-07] MEDS: LIDODERM (LIDOCAINE) PATCH 5% TD SCH (21:00)
[2016-08-07] MEDS: SIMVASTATIN 20 MG TAB PO SCH (21:19)
[2016-08-07] MEDS: AMITRIPTYLINE HCL 50 MG TAB PO SCH (21:19)
[2016-08-07 22:55] VITALS: BP 172/79; PULSE 78; TEMP 36.9; O2SAT 95
[2016-08-07 23:26] VITALS: BP 162/89
[2016-08-08 06:30] VITALS: BP 123/73; PULSE 66; TEMP 36.8; O2SAT 93
[2016-08-08 06:31] LABS: INR 2.9 (0.9-1.1); PROTHROMBIN TIME (PATIENT) 32.7 SECONDS (9.0-12.0)
[2016-08-08 07:27] VITALS: BP_SYST 178; BP_SYST 186; BP_DIAS 82; PULSE 82; TEMP 36.7; O2SAT 94
[2016-08-08] MEDS: CHECK FENTANYL PATCH PLACEMENT SCH (07:53)
[2016-08-08] MEDS: INSULIN ASPART 100 UNITS/ML 3 ML PEN SC SCH ×2 (08:00→12:42)
[2016-08-08] MEDS: LISINOPRIL 10 MG TAB PO SCH (08:31)
[2016-08-08] MEDS: ASCORBIC ACID 500 MG TAB PO SCH (08:31)
[2016-08-08] MEDS: ESCITALOPRAM OXALATE 10 MG TAB PO SCH (08:31)
[2016-08-08] MEDS: GABAPENTIN 400 MG CAP PO SCH (08:31)
[2016-08-08] MEDS: FERROUS SULFATE 325 MG TAB PO SCH (08:31)
[2016-08-08] MEDS: FINASTERIDE 5 MG TAB PO SCH (08:31)
[2016-08-08] MEDS: TAMSULOSIN HCL 0.4 MG CAP PO SCH (08:31)
[2016-08-08] MEDS: DOCUSATE SODIUM/SENNA 50/8.6MG TAB PO SCH (08:32)
--- NOTE | 2016-08-08 09:33 | Progress Note ---
Subjective Date of Service: Aug 08, 2016. Subjective Pt evaluation today including: conversation w/ patient, physical exam, lab review, review of studies, review of inpatient medication list Saw/examined the patient in room 303 He's doing well today, no problems; low back pain improved, R leg pain/weakness improved as well Problem List Medical Problems: (1) SHANIKA (acute kidney injury) Status: Acute (2) Ambulatory dysfunction Status: Acute (3) Ambulatory dysfunction Status: Acute (4) Chronic back pain Status: Acute (5) Dehydration Status: Acute (6) Dehydration Status: Acute (7) Esophageal Reflux Status: Chronic (8) Generalized weakness Status: Acute (9) Hyperlipidemia Nec/Nos Status: Chronic (10) Hypertension Nos Status: Chronic (11) Hypertrophy (Benign) Of 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 Status: Chronic (12) Hypotension Status: Acute (13) Left sided abdominal pain Status: Acute (14) PMR (polymyalgia rheumatica) Status: Chronic (15) Pulmonary emboli Status: Acute (16) Spinal Stenosis-Lumbar Status: Chronic (17) Tachycardia Status: Acute (18) Weakness Status: Acute Review of Systems Constitutional: No chills, No fever Respiratory: No cough, No shortness of breath, No sputum Cardiac: No chest pain Abdomen: No diarrhea, No nausea, No pain, No vomiting Medications Current Inpatient Medications Medications (Trade) Dose Ordered Sig/Parminder Route Start Time Stop Time Status Last Admin Dose Admin Lidocaine (Lidoderm Patch 5%) 1 patch HS TD 08/04/16 21:00 09/03/16 20:59 08/06/16 20:47 1 PATCH Hydromorphone HCl (Dilaudid Inj) 0.5 mg Q6H PRN IV 08/03/16 22:30 08/17/16 22:29 Insulin Aspart (novoLOG ASPART) SLIDING SCALE If C... ACHS SC 08/04/16 00:00 09/03/16 00:00 08/07/16 21:22 1 UNITS Glucose (Glucose 40% Gel) 15-30 GRAMS 15 GRAMS... UD PRN PO 08/03/16 22:30 09/02/16 22:29 Glucose (Glucose Chew Tab) 4-8 Tablets 4 Tabl... UD PRN PO 08/03/16 22:30 09/02/16 22:29 Dextrose (Dextrose 50% 50ML Syringe) 25-50ML OF 50% DW IV FOR... UD PRN IV 08/03/16 22:30 09/02/16 22:29 Glucagon (Glucagon Inj) 1 mg UD PRN SQ 08/03/16 22:30 09/02/16 22:29 Miscellaneous Information (Consult Glycemic Management Pharmacy) 1 ea UD PRN N/A 08/03/16 22:37 09/02/16 22:36 Warfarin Sodium (Coumadin Tab) 5 mg DAILY@16 PO 08/04/16 16:00 09/03/16 15:59 08/07/16 16:37 5 MG Amitriptyline HCl (Elavil Tab) 50 mg QPM PO 08/04/16 21:00 09/03/16 20:59 08/07/16 21:19 50 MG Ascorbic Acid (Vitamin C Tab) 500 mg DAILY PO 08/04/16 09:00 09/03/16 08:59 08/08/16 08:31 500 MG Escitalopram Oxalate (Lexapro Tab) 10 mg DAILY PO 08/04/16 09:00 09/03/16 08:59 08/08/16 08:31 10 MG Finasteride (Proscar Tab) 5 mg QAM PO 08/04/16 09:00 09/03/16 08:59 08/08/16 08:31 5 MG Gabapentin (Neurontin Cap) 800 mg TID PO 08/04/16 09:00 09/03/16 08:59 08/08/16 08:31 800 MG Acetaminophen/ Hydrocodone Bitart ([place] 10/325 Tab) 1 tab Q4 PRN PO 08/03/16 22:30 08/17/16 22:29 Simvastatin (Zocor Tab) 20 mg QPM PO 08/04/16 21:00 09/03/16 20:59 08/07/16 21:19 20 MG Tamsulosin HCl (Flomax Cap) 0.4 mg DAILY PO 08/04/16 09:00 09/03/16 08:59 08/08/16 08:31 0.4 MG Ferrous Sulfate (Feosol Tab) 325 mg BID PO 08/04/16 09:00 09/03/16 08:59 08/08/16 08:31 325 MG Acetaminophen (Tylenol Tab) 650 mg Q4H PRN PO 08/03/16 22:45 09/02/16 22:44 Ondansetron HCl (Zofran Inj) 4 mg Q6H PRN IV 08/03/16 22:45 09/02/16 22:44 Lisinopril (Zestril Tab) 10 mg QAM PO 08/04/16 09:00 09/03/16 08:59 08/08/16 08:31 10 MG Fentanyl (Duragesic Patch) 25 mcg Q3D@2330 TD 08/03/16 23:30 08/17/16 23:29 08/06/16 23:23 25 MCG Senna/Docusate Sodium (Senokot S Tab) 1 tab QAM PO 08/04/16 09:00 09/03/16 08:59 08/07/16 08:30 1 TAB Miscellaneous (Remove Lidoderm Patch) 1 ea QAM N/A 08/04/16 09:00 09/03/16 08:59 08/07/16 08:24 1 EA Miscellaneous (Fentanyl Patch Remove & Waste) 1 ea Q3D@2329 N/A 08/06/16 23:29 09/05/16 23:28 08/06/16 23:23 1 EA Miscellaneous Information (Check Fentanyl Patch Placement) 1 ea QS N/A 08/04/16 08:00 09/03/16 07:59 08/08/16 07:53 1 EA Prednisone (PredniSONE TAB) 40 mg DAILY PO 08/06/16 09:00 09/05/16 08:59 08/08/16 08:31 40 MG Clonidine HCl (Catapres Tab) 0.1 mg Q6H PRN PO 08/06/16 01:45 09/05/16 01:44 08/06/16 23:31 0.1 MG Objective Vital Signs Date Time Temp Pulse Resp B/P Pulse Ox O2 Delivery O2 Flow Rate FiO2 08/08/16 07:45 Room Air 08/08/16 07:27 36.7 82 19 186/82 94 178/82 08/07/16 23:26 162/89 08/07/16 23:20 Room Air 08/07/16 22:55 36.9 78 18 172/79 95 Room Air 08/07/16 16:00 Room Air 08/07/16 15:09 36.6 97 17 128/74 96 Room Air 08/07/16 09:58 84 123/74 95 Room Air Physical Exam General Appearance: no apparent distress Respiratory/Chest: lungs clear, normal breath sounds, no respiratory distress, no accessory muscle use Cardiovascular: regular rate, rhythm, no edema, no murmur Abdomen: normal bowel sounds, non tender, soft Extremities: normal inspection, no pedal edema Neurologic/Psychiatric: no motor/sensory deficits, alert, normal mood/affect Skin: normal color Laboratory Results Last 24 Hours Test 08/07/16 11:53 08/07/16 17:23 08/07/16 20:53 08/08/16 05:26 Bedside Glucose 151 mg/dl 168 mg/dl 194 mg/dl Prothrombin Time 32.7 SECONDS Prothromb Time International Ratio 2.9 Test 08/08/16 08:02 Bedside Glucose 94 mg/dl Assessment and Plan This is an 86 year old male with PMH of polymyalgia rheumatica on chronic steroids, hx. of pulmonary embolism on Coumadin presents secondary to low back pain radiating to the right leg and generalized weakness Shortness of Breath Hx. of Pulmonary Embolism 08/08 Plan is to discharge to [facility] Continue Coumadin with goal INR of 2-3 08/07 d/c Lovenox continue Coumadin INR = 2.9 recheck INR at [facility] in AM 08/06 Lovenox + Coumadin bridge clinically stable 08/05 no shortness of breath today CXR with diminished lung volumes and some congestion IVFs stopped continue Lovenox + Coumadin bridge 08/04 Presented with a subtherapeutic INR agree with Lovenox at this time, bridge to Coumadin INR = 1.4 this morning, will recheck in AM CXR performed this morning, some pulmonary congestion stopped IVFs symptomatically feels better with oxygen, though saturating well will hold off on diuretics for now, but if SOB returns, may need Lasix Low Back Pain Right Lower Extremity Weakness 08/08 prednisone taper as per instructions (40mg x 3 days, 30mg x 3 days, 20mg x 3 days, then back to home dose of 15mg) 08/07 taper prednisone at [facility] 08/06 MRI of back and pelvis normal appreciate neuro input PT/OT will need rehab Taper prednisone, currently 40mg daily 08/[address] Brown input MRI of lumbar spine was done prior to arrival MRI of pelvis also done no acute findings on either PT/OT ordered currently on IV steroids will likely need placement neuro consult placed New Onset DM2 08/07 started on metformin 500mg BID, lisinopril 10mg daily to check BSGs twice daily at [facility] 08/06 oral medications on discharge taper prednisone 08/05 Ha1c > 8% will need medication on discharge for now, basal insulin + sliding scale HTN gave an extra dose of Lisinopril otherwise, continue current medications CKD stage 3 creat improved, IVFs stopped DVT ppx Lovenox + Coumadin bridge DNR
[2016-08-08 09:43] VITALS: TEMP 36.7; O2SAT 94
[2016-08-08 09:51] VITALS: BP 155/72; PULSE 79
[2016-08-08] MEDS ORDERED: LISINOPRIL 5 MG TAB PO ONE (10:00)
[2016-08-11 20:22] LABS: ACETYLCHOLINE RECEP MODULATING 21; ACETYLCHOLINE RECEPT BLOCKING <15 % inhibit (<15); RECEPTOR BINDING AB <0.30 nmol/L (<=0.30)
[2016-08-23] MEDS ORDERED: TAMS0.4C38 PO (13:39)
[2016-08-23] MEDS ORDERED: PRED-301 PO (13:39)
[2016-09-20] MEDS ORDERED: GLC/500 PO (11:04)
[2016-10-10] MEDS ORDERED: LISI-729 PO (11:01)
[2016-10-10] MEDS ORDERED: FNTTP25 (11:02)
[2017-01-22] MEDS ORDERED: PRED-301 PO (07:37)
[2017-03-15] MEDS ORDERED: PRD20 PO (14:10)
[2017-03-15] MEDS ORDERED: LSN5 PO (14:10)
[2017-03-15] MEDS ORDERED: AMOX1TAB42 PO (14:10)
== END 2016-08-08 13:27 | DRG 552 ==
LOC: ENRESERVTM → ENRESERVDT → EDSEX 16:28 → EDBD 16:28 → C.EDB 16:29 → C.3E 22:20 → UNDODISIN 08-04 11:30
PROVIDERS: ADMIT Internal Medicine; ATTEND Family Medicine
DX: M54.5 Low back pain (principal); N17.9 Acute kidney failure, unspecified; I12.9 Hypertensive chronic kidney disease with stage 1 through stage 4 chronic kidney disease, or unspecified chronic kidney disease; N18.3 Chronic kidney disease, stage 3 (moderate); E11.22 Type 2 diabetes mellitus with diabetic chronic kidney disease; K21.9 Gastro-esophageal reflux disease without esophagitis; E78.5 Hyperlipidemia, unspecified; M46.1 Sacroiliitis, not elsewhere classified; Z66 Do not resuscitate; M96.1 Postlaminectomy syndrome, not elsewhere classified; Z79.52 Long term (current) use of systemic steroids; M35.3 Polymyalgia rheumatica; Z79.01 Long term (current) use of anticoagulants; M25.551 Pain in right hip; N40.0 Benign prostatic hyperplasia without lower urinary tract symptoms; Z86.711 Personal history of pulmonary embolism; E86.0 Dehydration

== ENCOUNTER → 2016-09-17 | Outpatient (CLI) | payer OTHER, MEDICARE ==
[~2016-09-17] MED LIST changes: +AMOX1TAB42 PO; -DXY100 PO; -FLM4 PO; +FNTTP25; +FNTTP50 TD; +GLC/500 PO; -LCTX PO; +LISI-729 PO; +LSN5 PO; +MISC4CAP PO; +OMEP40CA41 PO; +PRD20 PO; +PRED-301 PO; -PRED20TA2 PO; +TAMS0.4C38 PO; -WARF2.5T8 PO; -WARF5TAB7 PO
--- NOTE | 2016-09-17 09:53 | DIAGNOSTIC IMAGING REPORT ---
(BARIUM SWALLOW) ESOPHAGUS CLINICAL HISTORY: ESOPHAGEAL DYSPHAGIA COMPARISON STUDY: None. FLUOROSCOPY TIME: 0.4 minutes. 10 images submitted. FINDINGS: The examination was terminated early as the patient aspirated the barium. The visualized portion of the esophagus is normal in course and caliber. No hiatus hernia. IMPRESSION: Incomplete examination as the patient aspirated during the study. The esophagus appears unremarkable. Recommend dedicated video swallow for further evaluation. Electronically signed by: Gregor Chanel M.D. 09/17/2016 9:51 AM Dictated Date/Time: 09/17/2016 9:50 AM
== END | disposition home or self-care (01) ==
LOC: C.RAD 09:15
PROVIDERS: ATTEND Family Medicine
DX: R13.14 Dysphagia, pharyngoesophageal phase (principal)

== ENCOUNTER → 2016-09-19 | Outpatient (CLI) | payer OTHER, MEDICARE ==
[2016-09-19 09:41] LABS: BASO % 0.1 %; BASO ABS # 0.01 K/uL (0-0.2); COMPLETE YES; EOS % 0.7 %; HEMATOCRIT 36.2 % (42-52); IG% 1.9 %; LYMPH % 14.2 %; LYMPH ABS # 0.98 K/uL (1.2-3.4); MEAN CELL VOLUME 98.9 fL (80-100); MEAN CORPUSCULAR HEMOGLOBIN 31.7 pg (25-34); MEAN PLATELET VOLUME 9.5 fL (7.4-10.4); NEUT % 80.1 %; PLATELET COUNT 176 K/uL (130-400); RED BLOOD COUNT 3.66 M/uL (4.7-6.1); WHITE BLOOD COUNT 6.89 K/uL (4.8-10.8)
== END | disposition home or self-care (01) ==
LOC: C.LAB 08:41
PROVIDERS: ATTEND Physician Assistant Medical
DX: Z01.812 Encounter for preprocedural laboratory examination (principal)

== ENCOUNTER → 2016-10-16 | Outpatient (CLI) | payer OTHER, MEDICARE ==
[~2016-10-16] MED LIST changes: -LSN10 PO
--- NOTE | 2016-10-16 13:37 | DIAGNOSTIC IMAGING REPORT ---
VIDEO SWALLOW HISTORY: ASPIRATION INTO AIRWAY, DYSPHAGIA TECHNIQUE: Video fluoroscopic evaluation of swallowing was performed in the AP and lateral projections by the speech pathology staff. The patient is fed nectar-thick and thin liquid barium, a barium coated wafer, and barium pudding. FLUOROSCOPY TIME: 2.6 minutes. A cine loop was submitted. COMPARISON STUDY: Barium swallow 09/17/2016. FINDINGS: Multiple episodes of deep penetration. However, no definite aspiration identified. This is likely due to the slightly delayed epiglottic deflection. Mild vallecular residue seen throughout the examination. IMPRESSION: 1. Multiple episodes of deep penetration without definite aspiration 2. Please see the speech pathologist report for detailed findings and recommendations. Electronically signed by: Gregor Chanel M.D. 10/16/2016 1:35 PM Dictated Date/Time: 10/16/2016 1:26 PM
--- NOTE | 2016-10-16 17:02 | SWALLOWING EVALUATION ---
REFERRING SPEECH PATHOLOGIST: n/a HISTORY: This 86 year-old man was referred for a VFSS at [facility] in order to assess swallowing s/p an episode of petey aspiration during an attempt to complete a Barium Swallow Study on 09/17/16. He reports having globus sensation and also that he can sometimes regurgitate liquids and solids after swallowing. He also reports being able to "taste the last thing I had to eat all through the night and the next morning". The patient has a PMH significant for unilateral vocal fold paralysis, spinal stenosis, prostatitis, syncope, CKD III, DM II, hypertension, and OA. He had a VFSS in 2012 that resulted normally. Currently the patient's diet level is regular. He has recently begun taking Omeprazole q.d. and reports possibly feeling some improvement of symptoms. PROCEDURE: The patient was seen in the Radiology Department of [facility] for the VFSS. Cursory examination of the oral cavity revealed adequate dentition. Movement of the articulators was WNL. The patient was seated on a stool and was viewed in both the Anterior-Posterior (A-P) and Lateral planes. Volitional phonation exercises completed in the A-P plane revealed bilateral vocal fold movement (contrary to history of unilateral movement) and vocal intensity within functional limits, but with a gravelly quality. In the lateral plane, the patient was given the following boluses: 1 tsp. thin liquid barium x 2, single swallow thin liquid barium self-presented from a cup, sequential swallows of thin liquid barium self-presented from a cup, 1 tsp. nectar-thick liquid barium, single swallow nectar-thick liquid barium self-presented from a cup, 1 tsp. barium pudding, and 1 club cracker with barium pudding. The patient was then repositioned into the A-P plane and given the following boluses: 1 tsp. nectar-thick liquid barium and 1 tsp. barium pudding. RESULTS: Oral Stage: Interlabial bolus escape without progression to the anterior lip. Cohesive bolus between tongue and palate during oral bolus hold exercise. Timely and efficient mastication. Disorganized lingual movement for bolus transport. Residue collections on the tongue after the swallow. These cleared with a second swallow. Latent pharyngeal swallow initiation when the bolus head was in the pyriform sinuses. Indications of decreased lingual strength and coordination and delayed pharyngeal swallow initiation. Pharyngeal Stage: No contrast between the soft palate and pharyngeal wall. Partial superior movement of the thyroid cartilage with partial approximation of the arytenoids to the epiglottic petiole. Partial anterior hyoid excursion. Complete epiglottic inversion. Incomplete laryngeal vestibular closure. Diminished pharyngeal stripping wave. Incomplete pharyngeal contraction as seen in the AP plane. Partial distention and duration of PES opening. Wide column of contrast between the tongue base and pharyngeal wall. Collection of bolus in the valleculae after the initial swallow. Minimized with second swallow. There was no overt aspiration during this study; HOWEVER, there was PETEY PENETRATION (PA Scale = 4) with thin liquid boluses and also penetration with nectar-thick liquid boluses. There is HIGH suspicion of microaspiration. Esophageal Stage: There was complete clearance as a pudding bolus transited the esophagus. SUMMARY/RECOMMENDATIONS: This patient presents with mild-moderate oral-pharyngeal dysphagia. In addition, the patient presents with s/s esophageal dysfunction. Despite not seeing esophageal bolus retention, the patient's presenting complaints are very suspicious for esophageal dysfunction. The following is recommended: 1. SLIPPERY diet: choose foods that are moist, loose, slippery; avoid foods that are thick, dry, doughy, pasty; use condiments liberally to make foods slippery 2. Compensatory Strategies: Fully upright for meals and for 20-30 minutes after meals; keep head of bed elevated AT LEAST 30-degrees at ALL times-even sleep; alternate solids and liquids frequently during meals; avoid icy cold beverages/use warm beverages during meals; complete oral hygiene frequently (at least 3x/day) to minimize oral bacteria that may be aspirated with any microaspiration 3. Consideration of f/u with otolaryngology re: dysphonia and h/o vocal fold dysfunction 4. Consideration of using Omeprazole b.i.d. d/t patient c/o increased reflux and increased discomfort at night. 5. Consideration of f/u with gastroenterology re: GERD management. A summary of the results and recommendations was discussed with the patient and his daughter immediately following the study. They were also given some written information re: Slippery diet. They are anticipating f/u with the referring physician. Thank you for referral of this patient. Please contact me at if any additional information is needed.
== END | disposition home or self-care (01) ==
LOC: C.RAD 12:32
PROVIDERS: ATTEND Family Medicine
DX: R13.10 Dysphagia, unspecified (principal)

== ENCOUNTER → 2016-11-12 | Outpatient (CLI) | payer OTHER, MEDICARE ==
[~2016-11-12] MED LIST changes: -AMOX1TAB42 PO; -FNTTP50 TD; -LSN5 PO; +MISC4CAP; -MISC4CAP PO; -OMEP40CA41 PO; -PRD20 PO
[2016-11-12 11:47] LABS: BASO % 0.1 %; BASO ABS # 0.01 K/uL (0-0.2); COMPLETE YES; EOS % 0.1 %; HEMATOCRIT 37.5 % (42-52); IG% 1.7 %; LYMPH % 12.6 %; LYMPH ABS # 0.91 K/uL (1.2-3.4); MEAN CELL VOLUME 98.2 fL (80-100); MEAN CORPUSCULAR HEMOGLOBIN 31.9 pg (25-34); MEAN CORPUSCULAR HGB CONC 32.5 g/dl (32-36); MEAN PLATELET VOLUME 9.5 fL (7.4-10.4); MONO % 5.1 %; NEUT % 80.4 %; PLATELET COUNT 185 K/uL (130-400); RED BLOOD COUNT 3.82 M/uL (4.7-6.1); WHITE BLOOD COUNT 7.24 K/uL (4.8-10.8)
== END | disposition home or self-care (01) ==
LOC: C.LAB 10:54
PROVIDERS: ATTEND Physician Assistant Medical
DX: D84.9 Immunodeficiency, unspecified (principal); Z79.899 Other long term (current) drug therapy

== ENCOUNTER 2017-03-13 11:43 | Inpatient (IN) | payer OTHER, MEDICARE ==
[~2017-03-13] VITALS: Ht 180.3 cm; Wt 92.2 kg
[~2017-03-13 11:43] MED LIST changes: -FNTTP25; -MISC4CAP; +MISC4CAP PO
[2017-03-13] MEDS ORDERED: SODIUM CHLORIDE 0.9% 1000ML 1,000 ML IV STA (12:31)
[2017-03-13] MEDS ORDERED: OPTIRAY 320 IV PRN (12:45)
[2017-03-13 12:46] LABS: BASO % 0.3 %; BASO ABS # 0.03 K/uL (0-0.2); COMPLETE YES; EOS % 1.9 %; HEMATOCRIT 37.7 % (42-52); IG% 0.7 %; LYMPH % 18.7 %; LYMPH ABS # 1.78 K/uL (1.2-3.4); MEAN CELL VOLUME 94.3 fL (80-100); MEAN CORPUSCULAR HEMOGLOBIN 29.8 pg (25-34); MEAN CORPUSCULAR HGB CONC 31.6 g/dl (32-36); MEAN PLATELET VOLUME 10.6 fL (7.4-10.4); MONO % 5.9 %; NEUT % 72.5 %; PLATELET COUNT 235 K/uL (130-400); WHITE BLOOD COUNT 9.54 K/uL (4.8-10.8)
[2017-03-13 12:54] LABS: BUN/CREATININE RATIO 10.4 (10-20); CALCIUM 9.6 mg/dl (8.5-10.1); CREATININE 1.57 mg/dl (0.60-1.40); POTASSIUM 4.1 mmol/L (3.5-5.1)
--- NOTE | 2017-03-13 12:59 | DIAGNOSTIC IMAGING REPORT ---
CHEST ONE VIEW PORTABLE CLINICAL HISTORY: weakness mental status change COMPARISON STUDY: 08/04/2016 FINDINGS: Minimal chronic interstitial change left base. Slight peribronchial thickening also considered chronic. Upper lungs are clear. Diaphragms smooth. IMPRESSION: Chronic change. No acute process. The above report was generated using voice recognition software. It may contain grammatical, syntax or spelling errors. Electronically signed by: Shahab Renee M.D. 03/13/2017 12:58 PM Dictated Date/Time: 03/13/2017 12:55 PM
[2017-03-13 13:05] LABS: ALB/GLOB RATIO 0.9 (0.9-2); CKMB/CK RATIO 4.3 (0-3.0); THYROID STIMULATING HORMONE 1.49 uIu/ml (0.300-4.500)
[2017-03-13 13:42] LABS: URINE APPEARANCE CLEAR (CLEAR); URINE BILIRUBIN NEG (NEG); URINE COLOR YELLOW; URINE EPITHELIAL CELL AUTO 0-5 /lpf (0-5); URINE NITRITE NEG (NEG); URINE SPECIFIC GRAVITY 1.016 (1.000-1.030); UROBILINOGEN NEG (NEG); ZZUR CULT IF INDIC CLEAN CATCH NO
[2017-03-13 13:48] LABS: MANUAL MICROSCOPIC REQUIRED? NO; REVIEW REQ? NO
--- NOTE | 2017-03-13 13:50 | DIAGNOSTIC IMAGING REPORT ---
ABD/PELVIS NO IV OR ORAL CONT CLINICAL HISTORY: 87 years-old Male presenting with abd pain, ventral/umbilical hernia, elevated labs, weakness. TECHNIQUE: Multidetector CT of the abdomen and pelvis was performed without the use of intravenous contrast. IV contrast: None. A dose lowering technique was used consistent with the principles of ALARA (as low as reasonably achievable). COMPARISON: 11/23/2015. CT DOSE (mGy.cm): The estimated cumulative dose is 1192.95 mGy.cm. FINDINGS: Post Tensioning Ironworker topogram: Posterior lumbar fusion hardware. Lung bases: Extensive dependent changes possibly atelectasis and/or chronic aspiration. Minimal debris in several subsegmental lower lobe bronchi. Multichamber enlargement of the heart. Coronary artery and aortic valve calcification. No pericardial or pleural effusion. Liver: Normal morphology. Density consistent with hepatic steatosis. Biliary: No gross biliary ductal dilatation allowing for noncontrast technique. Normal gallbladder. Pancreas: Moderate parenchymal atrophy. Spleen: Normal noncontrast appearance. Adrenal glands: Normal noncontrast appearance. Kidneys and ureters: Well-defined hypodensity in the left kidney indeterminate but likely simple cyst. No hydronephrosis. No nephrolithiasis. Ureters normal. Bladder: Normal. Pelvic organs: Prostate and seminal vesicles normal. Bowel: Moderate stool burden throughout normal caliber colon. Diverticulosis of the sigmoid colon. No bowel obstruction. Peritoneal cavity: No free fluid or intraperitoneal gas. Lymph nodes: No gross lymphadenopathy allowing for noncontrast technique. Vasculature: Atherosclerosis of the abdominal aorta, which demonstrates mild multifocal ectasia, most prominent in the infrarenal portion with a maximal diameter of 2.7 cm. Abdominal wall: Diastasis of the rectus abdominis. No evidence of ventral abdominal defect to suggest hernia. Musculoskeletal: Posterior lumbar fusion hardware with laminectomy defects of L3-L5. Osteopenia. IMPRESSION: 1. Extensive dependent changes in the lungs with minimal debris in subsegmental bronchi could suggest chronic aspiration. 2. Hepatic steatosis. Correlate with function tests to exclude steatohepatitis, which can be a cause for abdominal pain. 3. Moderate stool burden could suggest constipation. Electronically signed by: Caleb Hill M.D. 03/13/2017 1:49 PM Dictated Date/Time: 03/13/2017 1:38 PM
--- NOTE | 2017-03-13 14:01 | EMERGENCY ROOM VISIT NOTE ---
History Report prepared by Jose: Johana Corey Under the Supervision of: Dr. Liliana Small M.D. First contact with patient: 12:22 Chief Complaint: WEAKNESS Stated Complaint: SHOULDER PAIN/WEAKNESS Nursing Triage Summary: Patient lives with his daughter. This morning daughter noticed that around 0700 patient was more weak than normal. Patient was unsteady on his feet and had to use his walker to walk. History of TIA. Patient denies chest pain or shortness of breath. Denies dizziness. Denies numbness or tingling anywhere. Daughter and patient noted patient having mild tremors in his hands, which is new for patient. Patient also c/o feeling constipated x 3 days. PE one year ago, but no longer taking coumadin. History of Present Illness The patient is a 87 year old male who presents to the Emergency Room with complaints of constant weakness beginning this morning. The patient was feeling fine last night before bed. This morning he woke up and his arms felt weak bilaterally. He has a lot of pain in his shoulder and states that it hurts to raise his arms. He is unable to lift his arms secondary to pain. He has a history of polymyalgia rheumatica but states that he has not recently had any flare-ups related to this. The patient is chronically on prednisone and is currently taking 10mg daily. Daughter states that the patient has had some health problems over the past 18 months including back surgery, a PE, PNA, and C -diff. Recently he had been doing well though. Two days ago he returned to physical therapy. He has been riding his stationary bike and feeling well. This new weakness started suddenly today. The patient takes fentanyl and hydrocodone for pain. They deny any recent changes to his medications. The patient denies nausea, vomiting, diarrhea, and urinary symptoms. He has not had a bowel movement in 3 days. He reports diffuse abdominal pain with movement. Source of History: patient, family Onset: this morning Position: other (global) Quality: other (weakness) Timing: constant Modifying Factors (Worsening): movement Associated Symptoms: + abdominal pain, No nausea, No vomiting, No diarrhea, No urinary symptoms Review of Systems See HPI for pertinent positives & negatives. A total of 10 systems reviewed and were otherwise negative. Past Medical & Surgical Medical Problems: (1) Chronic anticoagulation (2) Chronic steroid use (3) CKD (chronic kidney disease), stage III (4) Dyslipidemia (5) Esophageal Reflux (6) Fall (7) History of pulmonary embolism (8) Hydrocele, right (9) Hyperlipidemia Nec/Nos (10) Hypertension (11) Hypertension Nos (12) Hypertrophy (Benign) Of 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 (13) Hypoxia (14) Lumbago (15) Lumbar spinal stenosis (16) Osteoarthritis (17) PMR (polymyalgia rheumatica) (18) PMR (polymyalgia rheumatica) (19) Pulmonary embolism (20) Spinal Stenosis-Lumbar (21) Weakness Surgical Problems: (1) H/O arthroscopic knee surgery (2) H/O cataract extraction (3) Hx of spinal surgery (4) S/P lumbar fusion Family History FH: heart disease Social History Smoking Status: Former Smoker Drug Use: none Marital Status: Housing Status: lives with family Occupation Status: retired Current/Historical Medications Scheduled Amitriptyline HCl (Amitriptyline HCl), 50 MG PO QPM Ascorbic Acid (Vitamin C), 500 MG PO DAILY Bee Pollen (Ra Bee Pollen), 1 TAB PO QAM Escitalopram Oxalate (Lexapro), 1 TAB PO DAILY Fentanyl (Duragesic), 1 PATCH TD [id number] Ferrous Sulfate (Kp Ferrous Sulfate), 1 TAB PO BID Finasteride (Proscar), 5 MG PO QAM Gabapentin (Neurontin), 800 MG PO BID Metformin Hcl (Glucophage), 500 MG PO BID Omeprazole (Prilosec), 1 CAP PO BID Prednisone (Prednisone), 10 MG PO QPM Probiotic Product (Align), 1 CAP PO HS Simvastatin (Zocor), 20 MG PO QPM Tamsulosin Hcl (Flomax), 0.4 MG PO BID Scheduled PRN Hydrocodone/Acetaminophen 10MG/325MG ([place] 10MG/325MG), 1-2 TABS PO Q4H PRN for Pain Allergies Coded Allergies: Oxycodone (Verified Allergy, Mild, ITCHINESS, 03/13/17) Lorazepam (Unverified Adverse Reaction, Severe, agitation, 03/13/17) Physical Exam Vital Signs Date Time Temp Pulse Resp B/P (MAP) Pulse Ox O2 Delivery O2 Flow Rate FiO2 03/13/17 17:10 98 134/72 91 Room Air 03/13/17 16:35 Room Air 03/13/17 14:56 103 131/59 93 Room Air 03/13/17 14:27 99 137/63 91 Room Air 03/13/17 13:55 100 148/94 94 Room Air 03/13/17 13:13 98 22 95 03/13/17 13:01 116/57 03/13/17 12:44 131/53 03/13/17 12:43 112 21 86 03/13/17 12:14 103 03/13/17 12:13 103 20 94 03/13/17 12:12 93 Room Air 03/13/17 12:10 36.9 107 123/56 92 Room Air 03/13/17 11:49 123/56 Physical Exam Vital signs reviewed. General: Chronically ill appearing male, in no significant distress. HEENT: No scleral icterus, PERRLA, neck supple. Atraumatic. Dry mucous membranes Cardiovascular: Regular rate and rhythm, no extra sounds. Pulmonary: Clear to auscultation bilaterally, normal work of breathing. Abdomen: Soft, nontender, nondistended, positive bowel sounds. Small reducible ventral/umbilical hernia. Musculoskeletal: Atraumatic, no peripheral edema. Neurologic: Patient is somnolent but arousable. Answers questions in short sentences. Falls asleep quickly. Skin: Warm, dry, no rash Medical Decision & Procedures ER Provider Diagnostic Interpretation: Radiology results as stated below per my review and radiologist interpretation: CHEST ONE VIEW PORTABLE CLINICAL HISTORY: weakness mental status change COMPARISON STUDY: 08/04/2016 FINDINGS: Minimal chronic interstitial change left base. Slight peribronchial thickening also considered chronic. Upper lungs are clear. Diaphragms smooth. IMPRESSION: Chronic change. No acute process. The above report was generated using voice recognition software. It may contain grammatical, syntax or spelling errors. Electronically signed by: Shahab Renee M.D. 03/13/2017 12:58 PM Dictated Date/Time: 03/13/2017 12:55 PM ABD/PELVIS NO IV OR ORAL CONT CLINICAL HISTORY: 87 years-old Male presenting with abd pain, ventral/umbilical hernia, elevated labs, weakness. TECHNIQUE: Multidetector CT of the abdomen and pelvis was performed without the use of intravenous contrast. IV contrast: None. A dose lowering technique was used consistent with the principles of ALARA (as low as reasonably achievable). COMPARISON: 11/23/2015. CT DOSE (mGy.cm): The estimated cumulative dose is 1192.95 mGy.cm. FINDINGS: Procedure Analyst topogram: Posterior lumbar fusion hardware. Lung bases: Extensive dependent changes possibly atelectasis and/or chronic aspiration. Minimal debris in several subsegmental lower lobe bronchi. Multichamber enlargement of the heart. Coronary artery and aortic valve calcification. No pericardial or pleural effusion. Liver: Normal morphology. Density consistent with hepatic steatosis. Biliary: No gross biliary ductal dilatation allowing for noncontrast technique. Normal gallbladder. Pancreas: Moderate parenchymal atrophy. Spleen: Normal noncontrast appearance. Adrenal glands: Normal noncontrast appearance. Kidneys and ureters: Well-defined hypodensity in the left kidney indeterminate but likely simple cyst. No hydronephrosis. No nephrolithiasis. Ureters normal. Bladder: Normal. Pelvic organs: Prostate and seminal vesicles normal. Bowel: Moderate stool burden throughout normal caliber colon. Diverticulosis of the sigmoid colon. No bowel obstruction. Peritoneal cavity: No free fluid or intraperitoneal gas. Lymph nodes: No gross lymphadenopathy allowing for noncontrast technique. Vasculature: Atherosclerosis of the abdominal aorta, which demonstrates mild multifocal ectasia, most prominent in the infrarenal portion with a maximal diameter of 2.7 cm. Abdominal wall: Diastasis of the rectus abdominis. No evidence of ventral abdominal defect to suggest hernia. Musculoskeletal: Posterior lumbar fusion hardware with laminectomy defects of L3-L5. Osteopenia. IMPRESSION: 1. Extensive dependent changes in the lungs with minimal debris in subsegmental bronchi could suggest chronic aspiration. 2. Hepatic steatosis. Correlate with function tests to exclude steatohepatitis, which can be a cause for abdominal pain. 3. Moderate stool burden could suggest constipation. Electronically signed by: Caleb Hill M.D. 03/13/2017 1:49 PM Dictated Date/Time: 03/13/2017 1:38 PM Laboratory Results 03/13/17 11:30 Red Blood Count 4.00, Mean Corpuscular Volume 94.3, Mean Corpuscular Hemoglobin 29.8, Mean Corpuscular Hemoglobin Concent 31.6, Mean Platelet Volume 10.6, Neutrophils (%) (Auto) 72.5, Lymphocytes (%) (Auto) 18.7, Monocytes (%) (Auto) 5.9, Eosinophils (%) (Auto) 1.9, Basophils (%) (Auto) 0.3, Neutrophils # (Auto) 6.92, Lymphocytes # (Auto) 1.78, Monocytes # (Auto) 0.56, Eosinophils # (Auto) 0.18, Basophils # (Auto) 0.03 03/13/17 11:30 Test 03/13/17 11:30 03/13/17 11:58 03/13/17 13:20 White Blood Count 9.54 K/uL (4.8-10.8) Red Blood Count 4.00 M/uL (4.7-6.1) Hemoglobin 11.9 g/dL (14.0-18.0) Hematocrit 37.7 % (42-52) Mean Corpuscular Volume 94.3 fL (80-100) Mean Corpuscular Hemoglobin 29.8 pg (25-34) Mean Corpuscular Hemoglobin Concent 31.6 g/dl (32-36) Platelet Count 235 K/uL (130-400) Mean Platelet Volume 10.6 fL (7.4-10.4) Neutrophils (%) (Auto) 72.5 % Lymphocytes (%) (Auto) 18.7 % Monocytes (%) (Auto) 5.9 % Eosinophils (%) (Auto) 1.9 % Basophils (%) (Auto) 0.3 % Neutrophils # (Auto) 6.92 K/uL (1.4-6.5) Lymphocytes # (Auto) 1.78 K/uL (1.2-3.4) Monocytes # (Auto) 0.56 K/uL (0.11-0.59) Eosinophils # (Auto) 0.18 K/uL (0-0.5) Basophils # (Auto) 0.03 K/uL (0-0.2) RDW Standard Deviation 48.9 fL (36.4-46.3) RDW Coefficient of Variation 14.3 % (11.5-14.5) Immature Granulocyte % (Auto) 0.7 % Immature Granulocyte # (Auto) 0.07 K/uL (0.00-0.02) Erythrocyte Sedimentation Rate 54 mm/hr (0-14) Anion Gap 9.0 mmol/L (3-11) Est Creatinine Clear Calc Drug Dose 38.5 ml/min Estimated GFR () 45.3 Estimated GFR (Non- 39.1 BUN/Creatinine Ratio 10.4 (10-20) Calcium Level 9.6 mg/dl (8.5-10.1) Total Bilirubin 0.3 mg/dl (0.2-1) Aspartate Amino Transf (AST/SGOT) 23 U/L (15-37) Alanine Aminotransferase (ALT/SGPT) 35 U/L (12-78) Alkaline Phosphatase 103 U/L (45-117) Total Creatine Kinase 30 U/L (39-308) Creatine Kinase MB 1.3 ng/ml (0.5-3.6) Creatine Kinase MB Ratio 4.3 (0-3.0) C-Reactive Protein 5.65 mg/dl (0-0.29) Total Protein 6.8 gm/dl (6.4-8.2) Albumin 3.2 gm/dl (3.4-5.0) Globulin 3.6 gm/dl (2.5-4.0) Albumin/Globulin Ratio 0.9 (0.9-2) Thyroid Stimulating Hormone (TSH) 1.490 uIu/ml (0.300-4.500) Bedside Glucose 111 mg/dl (70-99) Urine Color YELLOW Urine Appearance CLEAR (CLEAR) Urine pH 5.0 (4.5-7.5) Urine Specific Ace 1.016 (1.000-1.030) Urine Protein NEG (NEG) Urine Glucose (UA) NEG (NEG) Urine Ketones NEG (NEG) Urine Occult Blood NEG (NEG) Urine Nitrite NEG (NEG) Urine Bilirubin NEG (NEG) Urine Urobilinogen NEG (NEG) Urine Leukocyte Esterase TRACE (NEG) Urine WBC (Auto) 0 /hpf (0-5) Urine RBC (Auto) 0-4 /hpf (0-4) Urine Hyaline Casts (Auto) 0 /lpf (0-5) Urine Epithelial Cells (Auto) 0-5 /lpf (0-5) Urine Bacteria (Auto) NEG (NEG) Laboratory results per my review. Medications Administered Medications (Trade) Dose Ordered Sig/Parminder Route Start Time Stop Time Status Last Admin Dose Admin Sodium Chloride 1,000 ml @ 125 mls/hr Q8H STAT IV 03/13/17 12:31 03/13/17 20:30 03/13/17 12:31 125 MLS/HR Ampicillin Sodium/ Sulbactam Sodium 3000 mg/Sodium Chloride 108 ml @ 200 mls/hr ONE ONCE IV 03/13/17 14:15 03/13/17 14:47 DC 03/13/17 14:27 200 MLS/HR Methylprednisolone Sodium Succinate (Solu-Medrol IV) 125 mg NOW STAT IV 03/13/17 14:34 03/13/17 14:35 DC 03/13/17 14:53 125 MG ECG Indication: weakness Rate (beats per minute): 103 Rhythm: sinus tachycardia Findings: no acute ischemic change, no ectopy ED Course 1222: Past medical records reviewed. The patient was evaluated in room C10. A complete history and physical examination was performed. 1231: NSS 1000 ml @ 125 mls/hr IV 1415: Ampicillin Sodium/Sulbactam Sodium 3000 mg/Sodium Chloride 108 ml @ 200 mls/hr IV 1418: I reassessed the patient at this time. He is feeling better and resting comfortably. I discussed the results and treatment plan with the patient and his daughter. I answered all pertaining questions that they had. They expressed understanding and verbalized agreement. 1432: I spoke with Dr. Lehman. We discussed the patient's case. The patient will be evaluated by the [facility] for further management. 1434: Solu-Medrol 125 mg IV Medical Decision The patient is an 87 year old male who presents to the ED with complaints of weakness. Differentials include metabolic, infection, hypo/hyperglycemia, electrolyte abnormalities, cardiac sources, intracerebral event, toxicologic, neurologic, polymyalgia rheumatica flare as well as others were entertained. This patient was evaluated and appeared to be in no significant distress. IV access was obtained and laboratory work was drawn. Chest x-ray was performed and reveals chronic changes without acute process. CT scan abdomen and pelvis was performed as the patient complained of periodic sharp abdominal pain. This imaging is largely significant for evidence of aspiration. Patient was given 3 g of IV Unasyn and hydrated with normal saline solution. He was given cimetidine Medrol 125 mg IV for what I think is likely to be in exacerbation of his polymyalgia rheumatica. He does have an elevated sedimentation rate and CRP. Patient was discussed with the hospitalist service will evaluate the patient for further management. Medication Reconcilliation Current Medication List: was personally reviewed by me Blood Pressure Screening Patient's blood pressure: Normal blood pressure Consults Time Called: [phone] Consulting Physician: Dr. Lehman Returned Call: [address] Lehman. We discussed the patient's case. The patient will be evaluated by the [facility] for further management. Impression Primary Impression: Aspiration pneumonitis Additional Impression: Polymyalgia rheumatica syndrome Scribe Attestation The scribe's documentation has been prepared under my direction and personally reviewed by me in its entirety. I confirm that the note above accurately reflects all work, treatment, procedures, and medical decision making performed by me. Departure Information Dispostion Being Evaluated By Hospitalist Referrals Luis Miguel Liriano M.D. (PCP) Patient Instructions My [facility] Problem Qualifiers
[2017-03-13] MEDS ORDERED: AMPICILLIN/SULBACTAM SOD INJ 3,000 MG in SODIUM CHLORIDE 0.9% 100ML 100 ML IV ONE (14:15)
[2017-03-13] MEDS ORDERED: OMEP40CA41 PO (14:18)
[2017-03-13] MEDS ORDERED: FNTTP50 TD (14:18)
[2017-03-13] MEDS ORDERED: HYDR-4079 PO (14:18)
[2017-03-13] MEDS ORDERED: METHYLPREDNISOLONE 125 MG VIAL IV STA (14:34)
[2017-03-13] MEDS ORDERED: ALUMINUM/MAGNESIUM/SIMETH (MAALOX MAX) 30 ML UDC PO PRN (15:45)
[2017-03-13] MEDS ORDERED: ACETAMINOPHEN 325 MG TAB PO PRN (15:45)
[2017-03-13] MEDS ORDERED: HYDROCODONE/ACETAMI 10/325 TAB PO PRN (15:45)
[2017-03-13] MEDS ORDERED: MAGNESIUM HYDROXIDE SUSP 30 ML UDC PO PRN (15:45)
[2017-03-13 16:35] VITALS: Ht 180.3 cm; Wt 92.2 kg
[2017-03-13 17:16] VITALS: O2SAT 91
[2017-03-13 18:00] VITALS: BP 173/73; PULSE 102; TEMP 36.8; O2SAT 93
[2017-03-13 18:49] LABS: PARTIAL THROMBOPLASTIN RATIO 1.1; PROTHROMBIN TIME (PATIENT) 10.5 SECONDS (9.0-12.0)
[2017-03-13] MEDS: SODIUM CHLORIDE 0.9% 1000ML 1,000 ML IV SCH (19:19)
--- NOTE | 2017-03-13 20:43 | History and Physical ---
History & Physical Date & Time of Service: Mar 13, 2017 at 20:22 Chief Complaint: Aspiration Pneumonitis, Polymyalgia Rheumatica Primary Care Physician: Luis Miguel Liriano M.D. History of Present Illness Source: patient, family, clinic records, hospital records This is an 87 year old male with a PMH of polymyalgia rheumatic on chronic steroids, hx. of PE no longer on anticoagulation, chronic back pain from lumbar spinal stenosis, HTN, HLD, CKD stage 3 presents with a sudden weakness - as per patient's daughter - he became very weak. He has polymyalgia and difficulty moving his shoulders; yesterday he was in his usual state of health; actually ambulating with his walker. Today, he could not do much. As per daughter, she is concerned with his coughing and shortness of breath today. Has had evaluations by speech therapy in the past due to aspiration risk and was told to be on a slippery diet. Today, he denies fevers/chills, but has some shortness of breath with exertion, has a cough, intermittent production of sputum; +weakness. Back pain persists, but improves with rest. Past Medical/Surgical History Medical Problems: (1) Chronic anticoagulation Status: Chronic (2) Chronic steroid use Status: Chronic (3) CKD (chronic kidney disease), stage III Status: Chronic (4) Dyslipidemia Status: Chronic (5) Esophageal Reflux Status: Chronic (6) Fall Status: Resolved (7) History of pulmonary embolism Status: Resolved (8) Hydrocele, right Status: Chronic (9) Hyperlipidemia Nec/Nos Status: Chronic (10) Hypertension Status: Chronic (11) Hypertension Nos Status: Chronic (12) Hypertrophy (Benign) Of 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 Status: Chronic (13) Lumbar spinal stenosis Status: Chronic (14) Osteoarthritis Status: Chronic (15) PMR (polymyalgia rheumatica) Status: Chronic (16) PMR (polymyalgia rheumatica) Status: Chronic (17) Pulmonary embolism Status: Chronic (18) Spinal Stenosis-Lumbar Status: Chronic Surgical Problems: (1) H/O arthroscopic knee surgery Status: Chronic (2) H/O cataract extraction Status: Resolved (3) Hx of spinal surgery Permanent Comment: lumbar decompression/fusion in [address] Brown Status: Chronic (4) S/P lumbar fusion Status: Resolved Family History FH: heart disease Social History Smoking Status: Former Smoker Drug Use: none Marital Status: Housing status: lives with family Occupational Status: retired Immunizations History of Influenza Vaccine: N/A Influenza Vaccine Date: Feb 16, 2008 History of Tetanus Vaccine?: Yes History of Pneumococcal: Unknown Pneumococcal Date: Jun 18, 1998 History of Hepatitis B Vaccine: No Multi-Drug Resistant Organisms History of MDRO: No Allergies Coded Allergies: Oxycodone (Verified Allergy, Mild, ITCHINESS, 03/13/17) Lorazepam (Unverified Adverse Reaction, Severe, agitation, 03/13/17) Home Medications Scheduled Amitriptyline HCl (Amitriptyline HCl), 50 MG PO QPM Ascorbic Acid (Vitamin C), 500 MG PO DAILY Bee Pollen (Ra Bee Pollen), 1 TAB PO QAM Escitalopram Oxalate (Lexapro), 1 TAB PO DAILY Fentanyl (Duragesic), 1 PATCH TD [id number] Ferrous Sulfate (Kp Ferrous Sulfate), 1 TAB PO BID Finasteride (Proscar), 5 MG PO QAM Gabapentin (Neurontin), 800 MG PO BID Metformin Hcl (Glucophage), 500 MG PO BID Omeprazole (Prilosec), 1 CAP PO BID Prednisone (Prednisone), 10 MG PO QPM Probiotic Product (Align), 1 CAP PO HS Simvastatin (Zocor), 20 MG PO QPM Tamsulosin Hcl (Flomax), 0.4 MG PO BID Scheduled PRN Hydrocodone/Acetaminophen 10MG/325MG ([place] 10MG/325MG), 1-2 TABS PO Q4H PRN for Pain Review of Systems Constitutional: + weakness, + fatigue, No fever, No chills Eyes: No worsening of vision ENT: + trouble swallowing, No hearing loss Respiratory: + cough, + sputum, + shortness of breath, No wheezing, No dyspnea on exertion, No dyspnea at rest, No hemoptysis Cardiovascular: No chest pain, No orthopnea, No edema, No palpitations Abdomen: No pain, No nausea, No vomiting, No diarrhea, No constipation, No GI bleeding Musculoskeletal: No joint pain, No muscle pain Genitourinary - Male: No hematuria, No dysuria, No urinary frequency, No urinary urgency Neurologic: + weakness, + balance problems, No memory loss, No paralysis, No numbness/tingling, No vertigo Psychiatric: No depression symptoms, No anxiety, No insomnia Endocrine: + fatigue Hematologic / Lymphatic: No abnormal bleeding/bruising Integumentary: No rash, No itch Allergic / Immunologic: No environmental allergies, No seasonal allergies Physical Exam Vital Signs Date Time Temp Pulse Resp B/P (MAP) Pulse Ox O2 Delivery O2 Flow Rate FiO2 03/13/17 18:00 36.8 102 18 173/73 (106) 93 Room Air 03/13/17 17:16 98 20 134/72 91 03/13/17 17:10 98 134/72 91 Room Air 03/13/17 16:35 Room Air 03/13/17 14:56 103 131/59 93 Room Air 03/13/17 14:27 99 137/63 91 Room Air 03/13/17 13:55 100 148/94 94 Room Air 03/13/17 13:13 98 22 95 03/13/17 13:01 116/57 03/13/17 12:44 131/53 03/13/17 12:43 112 21 86 03/13/17 12:14 103 03/13/17 12:13 103 20 94 03/13/17 12:12 93 Room Air 03/13/17 12:10 36.9 107 123/56 92 Room Air 03/13/17 11:49 123/56 General Appearance: no apparent distress, + pertinent finding (+weakness, lethargy, difficulty with motor function of upper extremities) Head: normocephalic, atraumatic Eyes: normal inspection ENT: hearing grossly normal Neck: supple Respiratory/Chest: chest non-tender, lungs clear, normal breath sounds, no respiratory distress, no accessory muscle use Cardiovascular: regular rate, rhythm, no edema, no murmur Abdomen/GI: normal bowel sounds, non tender, soft Back: + decreased range of motion (painful ROM) Extremities/Musculoskelatal: normal inspection, no calf tenderness, normal capillary refill, no pedal edema, normal range of motion Neurologic/Psych: + motor weakness (of bilateral upper extremities), + pertinent finding Skin: normal color Diagnostics Laboratory Results Results Past 24 Hours Test 03/13/17 11:30 03/13/17 11:58 03/13/17 13:20 03/13/17 18:21 Range/Units White Blood Count 9.54 4.8-10.8 K/uL Red Blood Count 4.00 4.7-6.1 M/uL Hemoglobin 11.9 14.0-18.0 g/dL Hematocrit 37.7 42-52 % Mean Corpuscular Volume 94.3 80-100 fL Mean Corpuscular Hemoglobin 29.8 25-34 pg Mean Corpuscular Hemoglobin Concent 31.6 32-36 g/dl Platelet Count 235 130-400 K/uL Mean Platelet Volume 10.6 7.4-10.4 fL Neutrophils (%) (Auto) 72.5 % Lymphocytes (%) (Auto) 18.7 % Monocytes (%) (Auto) 5.9 % Eosinophils (%) (Auto) 1.9 % Basophils (%) (Auto) 0.3 % Neutrophils # (Auto) 6.92 1.4-6.5 K/uL Lymphocytes # (Auto) 1.78 1.2-3.4 K/uL Monocytes # (Auto) 0.56 0.11-0.59 K/uL Eosinophils # (Auto) 0.18 0-0.5 K/uL Basophils # (Auto) 0.03 0-0.2 K/uL RDW Standard Deviation 48.9 36.4-46.3 fL RDW Coefficient of Variation 14.3 11.5-14.5 % Immature Granulocyte % (Auto) 0.7 % Immature Granulocyte # (Auto) 0.07 0.00-0.02 K/uL Erythrocyte Sedimentation Rate 54 0-14 mm/hr Sodium Level 139 136-145 mmol/L Potassium Level 4.1 3.5-5.1 mmol/L Chloride Level 104 98-107 mmol/L Carbon Dioxide Level 26 21-32 mmol/L Anion Gap 9.0 3-11 mmol/L Blood Urea Nitrogen 16 7-18 mg/dl Creatinine 1.57 0.60-1.40 mg/dl Est Creatinine Clear Calc Drug Dose 38.5 ml/min Estimated GFR () 45.3 Estimated GFR (Non- 39.1 BUN/Creatinine Ratio 10.4 10-20 Random Glucose 106 70-99 mg/dl Calcium Level 9.6 8.5-10.1 mg/dl Total Bilirubin 0.3 0.2-1 mg/dl Aspartate Amino Transf (AST/SGOT) 23 15-37 U/L Alanine Aminotransferase (ALT/SGPT) 35 12-78 U/L Alkaline Phosphatase 103 45-117 U/L Total Creatine Kinase 30 39-308 U/L Creatine Kinase MB 1.3 0.5-3.6 ng/ml Creatine Kinase MB Ratio 4.3 0-3.0 C-Reactive Protein 5.65 0-0.29 mg/dl Total Protein 6.8 6.4-8.2 gm/dl Albumin 3.2 3.4-5.0 gm/dl Globulin 3.6 2.5-4.0 gm/dl Albumin/Globulin Ratio 0.9 0.9-2 Thyroid Stimulating Hormone (TSH) 1.490 0.300-4.500 uIu/ml Bedside Glucose 111 70-99 mg/dl Urine Color YELLOW Urine Appearance CLEAR CLEAR Urine pH 5.0 4.5-7.5 Urine Specific [place] 1.016 1.000-1.030 Urine Protein NEG NEG Urine Glucose (UA) NEG NEG Urine Ketones NEG NEG Urine Occult Blood NEG NEG Urine Nitrite NEG NEG Urine Bilirubin NEG NEG Urine Urobilinogen NEG NEG Urine Leukocyte Esterase TRACE NEG Urine WBC (Auto) 0 0-5 /hpf Urine RBC (Auto) 0-4 0-4 /hpf Urine Hyaline Casts (Auto) 0 0-5 /lpf Urine Epithelial Cells (Auto) 0-5 0-5 /lpf Urine Bacteria (Auto) NEG NEG Prothrombin Time 10.5 9.0-12.0 SECONDS Prothromb Time International Ratio 1.0 0.9-1.1 Activated Partial Thromboplast Time 29.4 21.0-31.0 SECONDS Partial Thromboplastin Ratio 1.1 Diagnostic Radiology CHEST ONE VIEW PORTABLE CLINICAL HISTORY: weakness mental status change COMPARISON STUDY: 08/04/2016 FINDINGS: Minimal chronic interstitial change left base. Slight peribronchial thickening also considered chronic. Upper lungs are clear. Diaphragms smooth. IMPRESSION: Chronic change. No acute process. ABD/PELVIS NO IV OR ORAL CONT CLINICAL HISTORY: 87 years-old Male presenting with abd pain, ventral/umbilical hernia, elevated labs, weakness. TECHNIQUE: Multidetector CT of the abdomen and pelvis was performed without the use of intravenous contrast. IV contrast: None. A dose lowering technique was used consistent with the principles of ALARA (as low as reasonably achievable). COMPARISON: 11/23/2015. CT DOSE (mGy.cm): The estimated cumulative dose is 1192.95 mGy.cm. 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 Lung bases: Extensive dependent changes possibly atelectasis and/or chronic aspiration. Minimal debris in several subsegmental lower lobe bronchi. Multichamber enlargement of the heart. Coronary artery and aortic valve calcification. No pericardial or pleural effusion. Liver: Normal morphology. Density consistent with hepatic steatosis. Biliary: No gross biliary ductal dilatation allowing for noncontrast technique. Normal gallbladder. Pancreas: Moderate parenchymal atrophy. Spleen: Normal noncontrast appearance. Adrenal glands: Normal noncontrast appearance. Kidneys and ureters: Well-defined hypodensity in the left kidney indeterminate but likely simple cyst. No hydronephrosis. No nephrolithiasis. Ureters normal. Bladder: Normal. Pelvic organs: Prostate and seminal vesicles normal. Bowel: Moderate stool burden throughout normal caliber colon. Diverticulosis of the sigmoid colon. No bowel obstruction. Peritoneal cavity: No free fluid or intraperitoneal gas. Lymph nodes: No gross lymphadenopathy allowing for noncontrast technique. Vasculature: Atherosclerosis of the abdominal aorta, which demonstrates mild multifocal ectasia, most prominent in the infrarenal portion with a maximal diameter of 2.7 cm. Abdominal wall: Diastasis of the rectus abdominis. No evidence of ventral abdominal defect to suggest hernia. Musculoskeletal: Posterior lumbar fusion hardware with laminectomy defects of L3-L5. Osteopenia. IMPRESSION: 1. Extensive dependent changes in the lungs with minimal debris in subsegmental bronchi could suggest chronic aspiration. 2. Hepatic steatosis. Correlate with function tests to exclude steatohepatitis, which can be a cause for abdominal pain. 3. Moderate stool burden could suggest constipation. EKG Sinus tachycardia Otherwise normal ECG Impression Assessment and Plan This is an 87 year old male with a PMH of polymyalgia rheumatic on chronic steroids, hx. of PE no longer on anticoagulation, chronic back pain from lumbar spinal stenosis, HLD, CKD stage 3 presents with a sudden weakness Exacerbation of Polymyalgia Rheumatica worsening weakness and shoulder decreased motor function uses 10mg of prednisone chronically, which was tapered from 20mg over the summer ESR elevated given solu-medrol in the ED will consult rheumatology for steroid taper and further input Possible Aspiration Pneumonitis patient with aspiration issues CT suggests some debris and chronic aspiration changes will start with slippery, moist foods started on Unasyn speech therapy placed Chronic Back Pain continue Fentanyl patch and hydrocodone home dose (cannot use oxycodone as per allergy list and patient's daughter) CKD stage 3 creatinine slightly bumped, possibly due to infection/weakness/decreased appetite will add gentle IV hydration DVT ppx subq heparin FULL CODE Advanced Directives Existing Living Will: No Existing Power of Business Change Manager: No VTE Prophylaxis VTE Risk Assessment Done? Y/N: Yes Risk Level: High
[2017-03-13] MEDS: FERROUS SULFATE 325 MG TAB PO SCH (20:54)
[2017-03-13] MEDS: AMPICILLIN/SULBACTAM SOD INJ 1,500 MG in SODIUM CHLORIDE 0.9% 100ML 100 ML IV SCH (20:54)
[2017-03-13] MEDS: TAMSULOSIN HCL 0.4 MG CAP PO SCH (20:55)
[2017-03-13] MEDS: GABAPENTIN 400 MG CAP PO SCH (20:56)
[2017-03-13] MEDS: PANTOprazole SOD 40 MG TAB PO SCH (21:07)
[2017-03-13] MEDS: AMITRIPTYLINE HCL 50 MG TAB PO SCH (21:08)
[2017-03-13] MEDS: SIMVASTATIN 20 MG TAB PO SCH (21:08)
[2017-03-13] MEDS: HEPARIN SOD 5000 UNIT/0.5 ML CARP SQ SCH (21:13)
[2017-03-13 23:59] VITALS: BP 153/74; PULSE 82; TEMP 36.5; O2SAT 95
[2017-03-14] MEDS: CHECK FENTANYL PATCH PLACEMENT SCH ×4 (00:30→23:18)
[2017-03-14] MEDS: AMPICILLIN/SULBACTAM SOD INJ 1,500 MG in SODIUM CHLORIDE 0.9% 100ML 100 ML IV SCH ×3 (02:25→13:34)
[2017-03-14] MEDS: HEPARIN SOD 5000 UNIT/0.5 ML CARP SQ SCH ×3 (05:48→21:39)
[2017-03-14 07:16] VITALS: BP 177/80; PULSE 74; TEMP 36.3; O2SAT 95
[2017-03-14] MEDS: FERROUS SULFATE 325 MG TAB PO SCH ×2 (09:23→16:43)
[2017-03-14] MEDS: TAMSULOSIN HCL 0.4 MG CAP PO SCH ×2 (09:23→19:34)
[2017-03-14] MEDS: ASCORBIC ACID 500 MG TAB PO SCH (09:24)
[2017-03-14] MEDS: PANTOprazole SOD 40 MG TAB PO SCH ×2 (09:24→19:34)
[2017-03-14] MEDS: ESCITALOPRAM OXALATE 10 MG TAB PO SCH (09:24)
[2017-03-14] MEDS: GABAPENTIN 400 MG CAP PO SCH ×2 (09:25→19:35)
[2017-03-14] MEDS: FINASTERIDE 5 MG TAB PO SCH (09:25)
[2017-03-14] MEDS: SODIUM CHLORIDE 0.9% 1000ML 1,000 ML IV SCH (09:29)
--- NOTE | 2017-03-14 14:35 | Progress Note ---
Internal Med Progress Note Date of Service: Mar 14, 2017. Provider Documentation: SUBJECTIVE: Seen and examined at bedside Feels well today Weakness and shoulder pain resolved Denies chest pain, SOB, cough, dysphagia, odynophagia, abd pain, dizziness Offers no complaints Family at bedside OBJECTIVE: Vital Signs-as noted below Physical Exam: General Appearance:Moderately built and nourished, no apparent distress Head: normocephalic, Atraumatic Eyes: normal inspection, EOMI, PERRL Neck: supple, Trachea midline Respiratory/Chest: Normal breath sounds, CTA Cardiovascular: S1, S2, No murmur Abdomen/GI:Soft, Non tender, Bowel sounds present Extremities/Musculoskelatal:normal inspection, no edema Neurologic/Psych:AAOX3, grossly no focal neurological deficits Skin: normal color, warm Lab data as noted below. ASSESSMENT & PLAN: Patient is an 87 yr old male with a PMH of polymyalgia rheumatic on chronic steroids, hx. of PE no longer on anticoagulation, chronic back pain from lumbar spinal stenosis, HLD, CKD stage 3 presents with a sudden weakness Upper Extremity Weakness and Pain Unclear etiology H/O Polymyalgia Rheumatica Presented with worsening weakness and shoulder decreased motor function Resolved No focal deficits on exam On chronic prednisone: 10mg of prednisone chronically, which was tapered from 20mg over the summer Continue Home dose of prednisone TSH, CK levels normal Await for rheumatology Input Chronic Aspiration Previously had swallow eval and suggested to follow up with GI as outpatient Denies cough, SOB, dysphagia, Odynophagia CXR: No acute process CT ABD suggests some debris and chronic aspiration changes Speech and Swallow eval Continue slippery, moist foods Continue Unasyn for now Chronic Back Pain continue Fentanyl patch and hydrocodone home dose (cannot use oxycodone as per allergy list and patient's daughter) CKD III creatinine slightly increased IV fluids monitor renal function DVT px sq heparin Code Status FULL CODE Vital Signs: Date Time Temp Pulse Resp B/P (MAP) Pulse Ox O2 Delivery O2 Flow Rate FiO2 03/14/17 09:20 Room Air 03/14/17 07:16 36.3 74 20 177/80 (112) 95 Room Air 03/14/17 00:25 Room Air 03/13/17 23:59 36.5 82 20 153/74 (100) 95 Room Air 03/13/17 18:00 36.8 102 18 173/73 (106) 93 Room Air 03/13/17 17:16 98 20 134/72 91 03/13/17 17:10 98 134/72 91 Room Air 03/13/17 16:35 Room Air 03/13/17 14:56 103 131/59 93 Room Air 03/13/17 14:27 99 137/63 91 Room Air Lab Results: Results Past 24 Hours Test 03/13/17 18:21 Range/Units Prothrombin Time 10.5 9.0-12.0 SECONDS Prothromb Time International Ratio 1.0 0.9-1.1 Activated Partial Thromboplast Time 29.4 21.0-31.0 SECONDS Partial Thromboplastin Ratio 1.1
[2017-03-14 14:58] VITALS: BP_SYST 177; BP_SYST 181; BP_DIAS 75; PULSE 81; TEMP 36.2; O2SAT 98
[2017-03-14 15:44] VITALS: BP 167/87
[2017-03-14] MEDS: AMOXICILLIN/CLAVULANATE TAB 500 MG TAB PO SCH (16:42)
--- NOTE | 2017-03-14 17:12 | Rheumatology Consultation ---
Rheumatology Consultation Date of Consultation: Mar 14, 2017. Reason for Consultation: Patient is with a history of polymyalgia rheumatica and had recent hospitalization for aspiration pneumonia and was found to have shoulder pain and weakness. With an elevated sedimentation rate and CRP. Please evaluate for polymyalgia rheumatica and steroid taper. History of Present Illness Patient is an 87-year-old male has longstanding chronic polymyalgia rheumatica. He has been placed on prednisone 20 milligrams p.o. q.day Patient was diagnosed 5 years ago and wasplaced on prednisone 20 mg po q day and was told to modify the dosage by 2.5 mg depending on how he felt. and over the summer time through now he has been slowly taper to prednisone 10 milligrams p.o. q.day. Unfortunately the adrenal gland was not able to produce enough cortizal for the stress of the aspiration and he decompensated. The dose of steroids on admission restored that. Now his sedimentation rate is markedly elevated. He also has chronic has been aspiration and is being mid and is currently on antibiotics. The aspiration could account for the elevated sedimentation rate but when he has the symptoms of the muscle weakness and discomfort it may be that the PMR is active as well. Past Medical/Surgical History Medical History: arthritis (generalized osteoarthritis), chronic back pain ( spinal stenosis), high cholesterol, lung disease (chronic aspiration), pulmonary embolism, renal disease (stage 3) Surgical History: orthopedic surgery (lumbar stabilization) Family History heart disease Social History Smoking Status: Former Smoker History of Alcohol Use: No Drug Use: none Marital Status: Housing Status: lives with family Occupation Status: retired Review of Systems Constitutional: + fever, + weakness (Initially had the weakness but this is better after he has had the high-dose steroids.), No see HPI, No chills, No sweats, No weight loss, No fatigue, No problem reported Eyes: No see HPI, No worsening of vision, No eye pain, No redness, No discharge , No diplopia, No problem reported ENT: No see HPI, No hearing loss, No unusual epistaxis, No nasal symptoms, No sore throat, No tinnitus, No dental problems, No trouble swallowing, No problem reported Respiratory: + cough, No see HPI, No sputum, No wheezing, No shortness of breath, No dyspnea on exertion, No dyspnea at rest, No hemoptysis, No problem reported Cardiac: No see HPI, No chest pain, No orthopnea, No PND, No edema, No claudication, No palpitations, No problem reported Abdomen: No see HPI, No pain, No nausea, No vomiting, No diarrhea, No constipation, No GI bleeding, No problem reported Musculoskeletal: + joint pain (Shoulder and hip girdle discomfort initially. No actual synovitis of the joints. The shoulder and hip girdle discomfort and sense of weakness is now improved after the steroids), + muscle pain (Proximal arms and thighs. This was initially and later on in the day after the steroids he feels better.), No see HPI, No swelling, No calf pain, No problem reported Male : No see HPI, No dysuria, No urinary frequency, No incontinence, No nocturia more than once/night, No slowing stream, No hematuria, No sexual dysfunction, No problem reported Neurologic: + balance problems (Normal he uses a walker but since this episode is happened he is weaker.), No see HPI, No memory loss, No paralysis, No weakness, No numbness/tingling, No vertigo, No problem reported Heme: No see HPI, No abnormal bleeding/bruising, No clotting problems, No swollen lymph nodes, No night sweats, No problem reported Endo: + fatigue (Especially prior to the steroids, and the fluids.), No see HPI , No excessive thirst, No excessive urination, No problem reported Skin: No see HPI, No rash, No itch, No new/changing skin lesions, No color change, No bleeding, No problem reported Allergies Coded Allergies: Oxycodone (Verified Allergy, Mild, ITCHINESS, 03/13/17) Lorazepam (Unverified Adverse Reaction, Severe, agitation, 03/13/17) Medications Current Inpatient Medications Medications (Trade) Dose Ordered Sig/Parminder Route Start Time Stop Time Status Last Admin Dose Admin Ioversol (Optiray 320) 125 ml UD PRN IV 03/13/17 12:45 03/17/17 12:44 Heparin Sodium (Porcine) (Heparin Sq 5000 Unit/0.5ml) 5,000 unit Q8 SQ 03/13/17 22:00 04/12/17 21:59 03/14/17 13:38 5,000 UNIT Acetaminophen (Tylenol Tab) 650 mg Q4H PRN PO 03/13/17 15:45 04/12/17 15:44 Al Hydrox/Mg Hydrox/Simethicone (Maalox Max Susp) 15 ml Q4H PRN PO 03/13/17 15:45 04/12/17 15:44 Magnesium Hydroxide (Milk Of Magnesia Susp) 30 ml Q6H PRN PO 03/13/17 15:45 04/12/17 15:44 Amitriptyline HCl (Elavil Tab) 50 mg QPM PO 03/13/17 21:00 04/12/17 20:59 03/13/17 21:08 50 MG Ascorbic Acid (Vitamin C Tab) 500 mg DAILY PO 03/14/17 08:00 04/13/17 08:59 03/14/17 09:24 500 MG Escitalopram Oxalate (Lexapro Tab) 10 mg DAILY PO 03/14/17 08:00 04/13/17 08:59 03/14/17 09:24 10 MG Fentanyl (Duragesic Patch) 50 mcg Q3D@1900 TD 03/15/17 19:00 03/29/17 18:59 Finasteride (Proscar Tab) 5 mg QAM PO 03/14/17 08:00 04/13/17 08:59 03/14/17 09:25 5 MG Gabapentin (Neurontin Cap) 800 mg BID PO 03/13/17 20:00 04/12/17 20:59 03/14/17 09:25 800 MG Acetaminophen/ Hydrocodone Bitart ([place] 10/325 Tab) 1 tab Q4H PRN PO 03/13/17 15:45 03/27/17 15:44 03/13/17 20:54 1 TAB Simvastatin (Zocor Tab) 20 mg QPM PO 03/13/17 21:00 04/12/17 20:59 03/13/17 21:08 20 MG Tamsulosin HCl (Flomax Cap) 0.4 mg BID PO 03/13/17 20:00 04/12/17 20:59 03/14/17 09:23 0.4 MG Ferrous Sulfate (Feosol Tab) 325 mg BIDM PO 03/13/17 17:41 04/12/17 17:59 03/14/17 09:23 325 MG Pantoprazole Sodium (Protonix Tab) 40 mg BID PO 03/13/17 20:00 04/12/17 20:59 03/14/17 09:24 40 MG Miscellaneous Information (Order Awaiting Action) 1 ea QS N/A 03/14/17 00:00 04/13/17 00:00 Ampicillin Sodium/ Sulbactam Sodium 1500 mg/Sodium Chloride 104 ml @ 200 mls/hr Q6H IV 03/13/17 20:00 03/20/17 15:44 03/14/17 13:34 200 MLS/HR Miscellaneous (Fentanyl Patch Remove & Waste) 1 ea Q3D@1859 N/A 03/15/17 18:59 04/14/17 18:58 Miscellaneous Information (Check Fentanyl Patch Placement) 1 ea QS N/A 03/14/17 00:00 04/13/17 00:00 03/14/17 09:29 1 EA Physical Exam Date Time Temp Pulse Resp B/P (MAP) Pulse Ox O2 Delivery O2 Flow Rate FiO2 03/14/17 09:20 Room Air 03/14/17 07:16 36.3 74 20 177/80 (112) 95 Room Air 03/14/17 00:25 Room Air 03/13/17 23:59 36.5 82 20 153/74 (100) 95 Room Air 03/13/17 18:00 36.8 102 18 173/73 (106) 93 Room Air 03/13/17 17:16 98 20 134/72 91 03/13/17 17:10 98 134/72 91 Room Air 03/13/17 16:35 Room Air 03/13/17 14:56 103 131/59 93 Room Air Eyes: bilateral eyes normal inspection ENT: normal ENT inspection, pharynx normal Neck: no adenopathy, no JVD Respiratory: chest non-tender, normal breath sounds (At the bases with small crackles), + crackles (bases) Cardiovascular: regular rate, rhythm, no gallop Abdomen: normal bowel sounds Musculoskeletal: patient has evidence of osteoarthritis of his hands but no synovitis. decrease in range of motion of his neck and lumbar spine. He has normal range of motion of his ankles ,knees and hips Motor strength is 5/5 through out Neurologic/Psychiatric: no motor/sensory deficits, alert, normal mood/affect, oriented x 3 Skin: normal color, + rash (on his face) Lymphatic: no adenopathy Laboratory Results Last 24 Hours Test 03/13/17 18:21 Prothrombin Time 10.5 SECONDS Prothromb Time International Ratio 1.0 Activated Partial Thromboplast Time 29.4 SECONDS Partial Thromboplastin Ratio 1.1 Assessment & Plan Assessment & Plan: Elevated ESR. :this is multi factorial . It is from an activation of his PMR and his aspiration pneumonia, Normal for his age would be around 36. His Level is mid 50 s.He needs another ESR before he is discharged. Adrenal insufficiency: This is due to the 5 years of steroids managed by the patient with recent decrease to 10 mg po q am. With the aspiration where there should have been a cortisol rise in response to the stress did not happen and the patient decompensated. The dose in the early hospitalization restored balance I recommend Prednisone 20 mg po q am starting tomorrow. Polymyalgia Rheumatica: restart the prednisone 20 mg po q am and I need to follow up with the patient as an out patient in 2 weeks/ He will need blood work q month and a follow up with me q 5 weeks until we have the PMR cured which usually is 1 1/2 years. The rheumatology consults will be managed by [facility] rheum starting tomorrow through the weekend
[2017-03-14] MEDS: AMITRIPTYLINE HCL 50 MG TAB PO SCH (19:34)
[2017-03-14] MEDS: SIMVASTATIN 20 MG TAB PO SCH (19:34)
[2017-03-14 23:45] VITALS: BP 162/51; PULSE 82; TEMP 36.7; O2SAT 96
[2017-03-15] MEDS: HEPARIN SOD 5000 UNIT/0.5 ML CARP SQ SCH ×2 (05:31→14:00)
[2017-03-15 06:44] LABS: BASO % 0.1 %; BASO ABS # 0.01 K/uL (0-0.2); COMPLETE YES; EOS % 0.1 %; HEMATOCRIT 33.4 % (42-52); IG% 0.5 %; LYMPH % 11.6 %; LYMPH ABS # 1.08 K/uL (1.2-3.4); MEAN CELL VOLUME 91.3 fL (80-100); MEAN CORPUSCULAR HGB CONC 31.7 g/dl (32-36); MEAN PLATELET VOLUME 9.8 fL (7.4-10.4); MONO % 5.2 %; NEUT % 82.5 %; PLATELET COUNT 221 K/uL (130-400); RED BLOOD COUNT 3.66 M/uL (4.7-6.1)
[2017-03-15 07:12] LABS: BUN/CREATININE RATIO 12.9 (10-20); CALCIUM 8.8 mg/dl (8.5-10.1); CREATININE 1.28 mg/dl (0.60-1.40)
[2017-03-15 07:15] LABS: C-REACTIVE PROTEIN 2.77 mg/dl (0-0.29)
[2017-03-15] MEDS: ASCORBIC ACID 500 MG TAB PO SCH (07:51)
[2017-03-15] MEDS: AMOXICILLIN/CLAVULANATE TAB 500 MG TAB PO SCH (07:52)
[2017-03-15] MEDS: FINASTERIDE 5 MG TAB PO SCH (07:52)
[2017-03-15] MEDS: FERROUS SULFATE 325 MG TAB PO SCH (07:52)
[2017-03-15] MEDS: PANTOprazole SOD 40 MG TAB PO SCH (07:52)
[2017-03-15] MEDS: TAMSULOSIN HCL 0.4 MG CAP PO SCH (07:52)
[2017-03-15] MEDS: ESCITALOPRAM OXALATE 10 MG TAB PO SCH (07:52)
[2017-03-15] MEDS: GABAPENTIN 400 MG CAP PO SCH (07:52)
[2017-03-15] MEDS: CHECK FENTANYL PATCH PLACEMENT SCH (07:55)
[2017-03-15 08:00] VITALS: BP_SYST 193; BP_SYST 195; BP_DIAS 71; PULSE 72; TEMP 36.4; O2SAT 96
[2017-03-15 11:56] VITALS: BP 187/75; PULSE 83
--- NOTE | 2017-03-15 13:45 | Progress Note ---
Internal Med Progress Note Date of Service: Mar 15, 2017. Provider Documentation: SUBJECTIVE: Seen and examined at bedside Doing well Weakness and shoulder pain resolved Denies chest pain, SOB, cough, dysphagia, odynophagia, abd pain, dizziness Offers no complaints Family at bedside OBJECTIVE: Vital Signs-as noted below Physical Exam: General Appearance:Moderately built and nourished, no apparent distress Head: normocephalic, Atraumatic Eyes: normal inspection, EOMI, PERRL Neck: supple, Trachea midline Respiratory/Chest: Normal breath sounds, CTA Cardiovascular: S1, S2, No murmur Abdomen/GI:Soft, Non tender, Bowel sounds present Extremities/Musculoskelatal:normal inspection, no edema Neurologic/Psych:AAOX3, grossly no focal neurological deficits Skin: normal color, warm Lab data as noted below. ASSESSMENT & PLAN: Patient is an 87 yr old male with a PMH of polymyalgia rheumatic on chronic steroids, hx. of PE no longer on anticoagulation, chronic back pain from lumbar spinal stenosis, HLD, CKD stage 3 presents with a sudden weakness Polymyalgia Rheumatica exacerbation Presented with worsening weakness and shoulder decreased motor function ESR, CRP trending down No focal deficits on exam On chronic prednisone: 10mg of prednisone chronically, which was tapered from 20mg over the summer Continue increased dose of prednisone 20mg daily as per Rheumatology TSH, CK levels normal Appreciate rheumatology Input, Needs follow up in 2 weeks Chronic Aspiration Previously had swallow eval and suggested to follow up with GI as outpatient Denies cough, SOB, dysphagia, Odynophagia CXR: No acute process CT ABD suggests some debris and chronic aspiration changes Speech and Swallow eval Continue slippery, moist foods Continue Unasyn >>>Augmentin HTN: Elevated Previously on Lisinopril per patient's daughter which was weaned off Restart lisinopril 5mg daily Monitor Chronic Back Pain continue Fentanyl patch and hydrocodone home dose (cannot use oxycodone as per allergy list and patient's daughter) CKD III creatinine slightly increased Cr back to baseline DC IV Fluids monitor renal function DVT px sq heparin Code Status FULL CODE Disposition: Plan to discharge home today Follow up with for Primary Care on 03/20/17 at 12:45pm Follow up with your Peanut Grader in 2 weeks as advised Complete the antibiotic course as prescribed Seek immediate medical attention if your symptoms reoccur or worsen Your Prednisone is increased from 10mg to 20mg daily You are started on Lisinopril 5mg daily for better blood pressure control Vital Signs: Date Time Temp Pulse Resp B/P (MAP) Pulse Ox O2 Delivery O2 Flow Rate FiO2 03/15/17 11:56 83 187/75 (112) 03/15/17 10:30 Room Air 03/15/17 08:00 36.4 72 18 193/71 (111) 96 Room Air 195/71 (112) 03/15/17 00:00 Room Air 03/14/17 23:45 36.7 82 20 162/51 (88) 96 Room Air 03/14/17 19:45 Room Air 03/14/17 15:13 Room Air 03/14/17 14:58 36.2 81 20 181/75 (110) 98 Room Air 177/75 (109) Lab Results: Results Past 24 Hours Test 03/15/17 06:13 Range/Units White Blood Count 9.30 4.8-10.8 K/uL Red Blood Count 3.66 4.7-6.1 M/uL Hemoglobin 10.6 14.0-18.0 g/dL Hematocrit 33.4 42-52 % Mean Corpuscular Volume 91.3 80-100 fL Mean Corpuscular Hemoglobin 29.0 25-34 pg Mean Corpuscular Hemoglobin Concent 31.7 32-36 g/dl Platelet Count 221 130-400 K/uL Mean Platelet Volume 9.8 7.4-10.4 fL Neutrophils (%) (Auto) 82.5 % Lymphocytes (%) (Auto) 11.6 % Monocytes (%) (Auto) 5.2 % Eosinophils (%) (Auto) 0.1 % Basophils (%) (Auto) 0.1 % Neutrophils # (Auto) 7.67 1.4-6.5 K/uL Lymphocytes # (Auto) 1.08 1.2-3.4 K/uL Monocytes # (Auto) 0.48 0.11-0.59 K/uL Eosinophils # (Auto) 0.01 0-0.5 K/uL Basophils # (Auto) 0.01 0-0.2 K/uL RDW Standard Deviation 46.2 36.4-46.3 fL RDW Coefficient of Variation 14.0 11.5-14.5 % Immature Granulocyte % (Auto) 0.5 % Immature Granulocyte # (Auto) 0.05 0.00-0.02 K/uL Erythrocyte Sedimentation Rate 41 0-14 mm/hr Sodium Level 143 136-145 mmol/L Potassium Level 4.0 3.5-5.1 mmol/L Chloride Level 112 98-107 mmol/L Carbon Dioxide Level 25 21-32 mmol/L Anion Gap 6.0 3-11 mmol/L Blood Urea Nitrogen 17 7-18 mg/dl Creatinine 1.28 0.60-1.40 mg/dl Est Creatinine Clear Calc Drug Dose 47.2 ml/min Estimated GFR () 57.9 Estimated GFR (Non- 50.0 BUN/Creatinine Ratio 12.9 10-20 Random Glucose 132 70-99 mg/dl Calcium Level 8.8 8.5-10.1 mg/dl Total Creatine Kinase 25 39-308 U/L C-Reactive Protein 2.77 0-0.29 mg/dl
[2017-03-15] MEDS ORDERED: LISINOPRIL 5 MG TAB PO ONE (14:00)
[2017-03-15] MEDS ORDERED: LSN5 PO (14:10)
[2017-03-15] MEDS ORDERED: AMOX1TAB42 PO (14:10)
[2017-03-15] MEDS ORDERED: PRD20 PO (14:10)
--- NOTE | 2017-03-15 14:13 | Discharge Summary ---
Discharge Summary Date of Service Mar 15, 2017. Discharge Summary Admission Date: Mar 13, 2017 at 15:57 Discharge Date: Mar 15, 2017 Discharge Disposition: Home with services Principal Diagnosis: Polymyalgia Rheumatica Procedures: CXR: Chronic change. No acute process. CT ABD: 1. Extensive dependent changes in the lungs with minimal debris in subsegmental bronchi could suggest chronic aspiration. 2. Hepatic steatosis. Correlate with function tests to exclude steatohepatitis, which can be a cause for abdominal pain. 3. Moderate stool burden could suggest constipation. Consultations: Rheumatology Pending Studies/Follow-Up: Follow up with for Primary Care on 03/20/17 at 12:45pm Follow up with your Histotechnologist Supervisor in 2 weeks as advised Complete the antibiotic course as prescribed Seek immediate medical attention if your symptoms reoccur or worsen Your Prednisone is increased from 10mg to 20mg daily You are started on Lisinopril 5mg daily for better blood pressure control Medication Reconciliation New Medications: Prednisone (Prednisone) 20 Mg Tab 20 MG PO DAILY for 30 Days, #30 TABS 1 Refill Amoxicillin & Pot Clavulanate (Amoxicillin/Clavulanate P) 1 Tab Tab 500 MG PO BIDM for 5 Days, #10 TAB Lisinopril (Lisinopril) 5 Mg Tab 5 MG PO QAM for 30 Days, #30 TAB Continued Medications: Amitriptyline HCl (Amitriptyline HCl) 50 Mg Tab 50 MG PO QPM Ascorbic Acid (Vitamin C) 500 Mg Tab 500 MG PO DAILY Bee Pollen (Ra Bee Pollen) 500 Mg Chw 1 TAB PO QAM Escitalopram Oxalate (Lexapro) 10 Mg Tab 1 TAB PO DAILY, TAB Fentanyl (Duragesic) 50 Mcg Tdsy 1 PATCH TD [id number] Ferrous Sulfate (Kp Ferrous Sulfate) 325 Mg Tab 1 TAB PO BID, TAB Finasteride (Proscar) 5 Mg Tab 5 MG PO QAM Gabapentin (Neurontin) 400 Mg Cap 800 MG PO BID, CAP 400MG AT NOON Hydrocodone/Acetaminophen 10MG/325MG (Brinson 10MG/325MG) Tab 1-2 TABS PO Q4H PRN for Pain, TAB PRN PAIN Metformin Hcl (Glucophage) 500 Mg Tab 500 MG PO BID, TAB Omeprazole (Prilosec) 40 Mg Cap 1 CAP PO BID Probiotic Product (Align) 4 Mg Cap 1 CAP PO HS Simvastatin (Zocor) 20 Mg Tab 20 MG PO QPM Tamsulosin Hcl (Flomax) 0.4 Mg Cap 0.4 MG PO BID, CAP Discontinued Medications: Prednisone (Prednisone) 5 Mg Tab 10 MG PO QPM, TAB Admission Information HPI (per Admitting provider): This is an 87 year old male with a PMH of polymyalgia rheumatic on chronic steroids, hx. of PE no longer on anticoagulation, chronic back pain from lumbar spinal stenosis, HTN, HLD, CKD stage 3 presents with a sudden weakness - as per patient's daughter - he became very weak. He has polymyalgia and difficulty moving his shoulders; yesterday he was in his usual state of health; actually ambulating with his walker. Today, he could not do much. As per daughter, she is concerned with his coughing and shortness of breath today. Has had evaluations by speech therapy in the past due to aspiration risk and was told to be on a slippery diet. Today, he denies fevers/chills, but has some shortness of breath with exertion, has a cough, intermittent production of sputum; +weakness. Back pain persists, but improves with rest. Physical Exam (per Admitting): General Appearance: no apparent distress, + pertinent finding (+weakness, lethargy, difficulty with motor function of upper extremities) Head: normocephalic, atraumatic Eyes: normal inspection ENT: hearing grossly normal Neck: supple Respiratory/Chest: chest non-tender, lungs clear, normal breath sounds, no respiratory distress, no accessory muscle use Cardiovascular: regular rate, rhythm, no edema, no murmur Abdomen/GI: normal bowel sounds, non tender, soft Back: + decreased range of motion (painful ROM) Extremities/Musculoskelatal: normal inspection, no calf tenderness, normal capillary refill, no pedal edema, normal range of motion Neurologic/Psych: + motor weakness (of bilateral upper extremities), + pertinent finding Skin: normal color Hospital Course Patient is an 87 yr old male with a PMH of polymyalgia rheumatic on chronic steroids, hx. of PE no longer on anticoagulation, chronic back pain from lumbar spinal stenosis, HLD, CKD stage 3 presents with a sudden weakness Polymyalgia Rheumatica exacerbation Presented with worsening weakness and shoulder decreased motor function ESR, CRP trending down No focal deficits on exam On chronic prednisone: 10mg of prednisone chronically, which was tapered from 20mg over the summer Continue increased dose of prednisone 20mg daily as per Rheumatology TSH, CK levels normal Appreciate rheumatology Input, Needs follow up in 2 weeks Chronic Aspiration Previously had swallow eval and suggested to follow up with GI as outpatient Denies cough, SOB, dysphagia, Odynophagia CXR: No acute process CT ABD suggests some debris and chronic aspiration changes Speech and Swallow eval Continue slippery, moist foods Continue Unasyn >>>Augmentin HTN: Elevated Previously on Lisinopril per patient's daughter which was weaned off Restart lisinopril 5mg daily Monitor Chronic Back Pain continue Fentanyl patch and hydrocodone home dose (cannot use oxycodone as per allergy list and patient's daughter) CKD III creatinine slightly increased Cr back to baseline DC IV Fluids monitor renal function DVT px sq heparin Code Status FULL CODE Disposition: Plan to discharge home today Follow up with for Primary Care on 03/20/17 at 12:45pm Follow up with your Histotechnologist Supervisor in 2 weeks as advised Complete the antibiotic course as prescribed Seek immediate medical attention if your symptoms reoccur or worsen Your Prednisone is increased from 10mg to 20mg daily You are started on Lisinopril 5mg daily for better blood pressure control Total time spent on discharge = 35 minutes This includes examination of the patient, discharge planning, medication reconciliation, and communication with other providers. Discharge Instructions Discharge Instructions Date of Service Mar 15, 2017. Admission Reason for Admission: Aspiration Pneumonitis, Polymyalgia Rheumatica Discharge Discharge Diagnosis / Problem: Polymyalgia Rheumatica Discharge Goals Goal(s): Decrease discomfort, Improve function Activity Recommendations Activity Limitations: resume your previous activity Exercise/Sports Limitations: as tolerated . Instructions / Follow-Up Instructions / Follow-Up Follow up with for Primary Care on 03/20/17 at 12:45pm Follow up with your Histotechnologist Supervisor in 2 weeks as advised Complete the antibiotic course as prescribed Seek immediate medical attention if your symptoms reoccur or worsen Your Prednisone is increased from 10mg to 20mg daily You are started on Lisinopril 5mg daily for better blood pressure control Current Hospital Diet Patient's current hospital diet: Diabetes Type 2 Diet, AHA Diet (Heart Healthy) Discharge Diet Recommended Diet: AHA Diet (Heart Healthy), Diabetes Type 2 Diet Pending Studies Studies pending at discharge: no Medical Emergencies . Who to Call and When: Medical Emergencies: If at any time you feel your situation is an emergency, please call 911 immediately. . Non-Emergent Contact Non-Emergency issues call your: Primary Care Provider, Specialist ( Histotechnologist Supervisor) Call Non-Emergent contact if: you have a fever, your pain is not controlled, your pain is worsening, your pain is unusual for you, your pain is concerning you, you have any medication questions Seek immediate medical attention if your symptoms reoccur or worsen . . "Provider Documentation" section prepared by Flo Lyn. . VTE Core Measure Inpt VTE Proph given/why not?: Unfractionated heparin SQ
[2017-03-15 14:22] VITALS: BP 187/75; PULSE 83; TEMP 36.4; O2SAT 96
[2017-03-15] MEDS ORDERED: FENTANYL PATCH REMOVE & WASTE SCH (18:59)
[2017-03-15] MEDS ORDERED: FENTANYL 50 MCG/HR TDSY TD SCH (19:00)
[2017-03-16] MEDS ORDERED: LISINOPRIL 5 MG TAB PO SCH (08:00)
--- NOTE | 2017-03-19 12:13 | EDITING REQUIRED CODING QUERY ---
CODING QUERY To promote full compliance with coding requirements relating to patient care, provider participation is requested in all cases of service car operator uncertainty. Please assist us with the question(s) below: Coding Question(s): Please clarify below, in your clinical opinion, regarding the possible aspiration pneumonitis. ( ) the patient was treated for possible aspiration pneumonitis ( ) the possible aspiration pneumonitis was ruled out ( x ) patient had chronic aspiration. No signs of pneumonitis Physician's Response(s): Thank you Priya Parkinson Principal Diagnosis: "_that condition established after study, to be chiefly responsible for occasioning the admission of the patient to the hospital for care." Co-Existing Principal Diagnosis: "_when two or more diagnoses equally meet the criteria for principal diagnosis as determined by the circumstances of admission, diagnostic work up, and/or therapy provided, and the Alphabetic Index, Tabular List, or another coding guideline does not provide sequencing direction, any one of the diagnoses may be sequenced first." "When the physician has documented what appears to be a current diagnosis in the body of the record, but has not included the diagnosis in the final diagnostic statement, the physician should be asked whether the diagnosis should be added." (Source Coding [facility] 2 QTR90. p3-4)
== END 2017-03-15 16:30 | disposition home health service (06) | DRG 546 ==
LOC: EDBD 11:43 → C.EDC 11:44 → C.4E 15:57 → ENRESERV 16:15
PROVIDERS: ADMIT Family Medicine; ATTEND Internal Medicine
DX: M35.3 Polymyalgia rheumatica (principal); E27.40 Unspecified adrenocortical insufficiency; N18.3 Chronic kidney disease, stage 3 (moderate); I12.9 Hypertensive chronic kidney disease with stage 1 through stage 4 chronic kidney disease, or unspecified chronic kidney disease; M48.061 Spinal stenosis, lumbar region without neurogenic claudication; R13.10 Dysphagia, unspecified; E78.5 Hyperlipidemia, unspecified; N40.0 Benign prostatic hyperplasia without lower urinary tract symptoms; K21.9 Gastro-esophageal reflux disease without esophagitis; Z51.81 Encounter for therapeutic drug level monitoring; Z79.899 Other long term (current) drug therapy; Z79.52 Long term (current) use of systemic steroids; Z79.891 Long term (current) use of opiate analgesic; Z86.711 Personal history of pulmonary embolism; Z87.891 Personal history of nicotine dependence

== ENCOUNTER → 2017-03-20 | Outpatient (CLI) | payer OTHER, MEDICARE ==
[~2017-03-20] MED LIST changes: +AMOX1TAB42 PO; +FNTTP50 TD; -LISI-729 PO; +LSN5 PO; +OMEP40CA41 PO; +PRD20 PO; -PRED-301 PO
== END | disposition home or self-care (01) ==
LOC: C.LAB1850 14:46
PROVIDERS: ATTEND Internal Medicine Rheumatology
DX: M35.3 Polymyalgia rheumatica (principal)

== ENCOUNTER → 2017-04-24 | Outpatient (CLI) | payer OTHER, MEDICARE ==
[~2017-04-24] MED LIST changes: +CMD5 PO; +CYAN1CAP4 PO; +DOCU-94 PO; +DXY100 PO; +GABA-1220 PO; -GABA1CAP5 PO; +LISI-726 PO; +LISI-730 PO; -LSN5 PO; +PRED20TA PO; +SENN-65 PO; +TMFUDL30 PO
--- NOTE | 2017-04-24 15:29 | DIAGNOSTIC IMAGING REPORT ---
L-SPINE MIN 4 VIEWS ROUTINE, THORACIC SPINE 3 VIEWS ROUTINE HISTORY: 87 years-old Male M35.3 Polymyalgia [id number] senior care (current) use of sy COMPARISON: CT abdomen and pelvis 03/13/2017 TECHNIQUE: 5 views of the lumbar spine and 3 views of the thoracic spine FINDINGS: THORACIC: Atherosclerosis of the aorta. Multilevel anterior endplate bridging osteophytosis and mostly mild intervertebral disc space narrowing. Bones appear moderately demineralized. No acute fracture or subluxation identified. LUMBAR: Posterior dougie and screw fusion of the lumbar spine is again seen at L2-S1. Prior removal of the posterior interbody screw on the left at L5-S1 with portions of the bilateral pedicle screws still present at these levels, unchanged from comparison. Prior discectomy at L3-L4, L4-L5 and L5-S1. Unchanged 1.4 cm anterolisthesis L5 on S1. Multilevel endplate spurring and facet arthropathy. 5 mm retrolisthesis L2 on L3 is also unchanged. The bones appear osteopenic. No acute fracture or subluxation. IMPRESSION: 1. No acute fracture or subluxation of the thoracic or lumbar spine. 2. Osteopenic appearance of the bones with multilevel degenerative changes as described above. 3. Postoperative changes of the lumbar spine as above. The above report was generated using voice recognition software. It may contain grammatical, syntax or spelling errors. Electronically signed by: Walter Zuniga M.D. 04/24/2017 3:27 PM Dictated Date/Time: 04/24/2017 3:22 PM
[2017-04-24 16:07] LABS: ALBUMIN 3.2 gm/dl (3.4-5.0); ALT/SGPT 25 U/L (12-78); AST/SGOT 10 U/L (15-37); BLOOD UREA NITROGEN 27 mg/dl (7-18); CARBON DIOXIDE 29 mmol/L (21-32); CREATININE 1.85 mg/dl (0.60-1.40); GLUCOSE 150 mg/dl (70-99); POTASSIUM 4.4 mmol/L (3.5-5.1); SODIUM 138 mmol/L (136-145)
[2017-04-24 16:09] LABS: ALKALINE PHOSPHATASE 61 U/L (45-117); TOTAL PROTEIN 6.8 gm/dl (6.4-8.2)
== END | disposition home or self-care (01) ==
LOC: C.RAD1850 14:28
PROVIDERS: ATTEND Internal Medicine Rheumatology
DX: M35.3 Polymyalgia rheumatica (principal); Z79.52 Long term (current) use of systemic steroids; E27.40 Unspecified adrenocortical insufficiency; M85.88 Other specified disorders of bone density and structure, other site; M47.9 Spondylosis, unspecified

== ENCOUNTER 2017-06-07 11:48 | Inpatient (IN) | payer OTHER, MEDICARE ==
[~2017-06-07] VITALS: Ht 180.3 cm; Wt 86.6 kg
[~2017-06-07 11:48] MED LIST changes: -CMD5 PO; -CYAN1CAP4 PO; -DOCU-94 PO; -DXY100 PO; -GABA-1220 PO; +GABA1CAP5 PO; -LISI-726 PO; -LISI-730 PO; +LSN5 PO; -PRED20TA PO; -SENN-65 PO; -TMFUDL30 PO
[2017-06-07] MEDS ORDERED: SODIUM CHLORIDE 0.9% 1000ML 1,000 ML IV STA (12:08)
[2017-06-07 12:45] LABS: BASO % 0.1 %; BASO ABS # 0.01 K/uL (0-0.2); EOS % 0.2 %; EOS ABS # 0.02 K/uL (0-0.5); HEMATOCRIT 43.6 % (42-52); HEMOGLOBIN 14.1 g/dL (14.0-18.0); IG# 0.09 K/uL (0.00-0.02); LYMPH % 6.5 %; LYMPH ABS # 0.53 K/uL (1.2-3.4); MEAN CELL VOLUME 91.4 fL (80-100); MEAN CORPUSCULAR HEMOGLOBIN 29.6 pg (25-34); MEAN CORPUSCULAR HGB CONC 32.3 g/dl (32-36); MEAN PLATELET VOLUME 9.4 fL (7.4-10.4); MONO % 3.7 %; NEUT % 88.4 %; NEUT ABS # 7.21 K/uL (1.4-6.5); PLATELET COUNT 139 K/uL (130-400); RED CELL DISTRIBUTION WIDTH CV 15.3 % (11.5-14.5); RED CELL DISTRIBUTION WIDTH SD 51.3 fL (36.4-46.3); WHITE BLOOD COUNT 8.16 K/uL (4.8-10.8)
--- NOTE | 2017-06-07 12:48 | EMERGENCY ROOM VISIT NOTE ---
History Report prepared by Jose: King Singh Under the Supervision of: Dr. Real Garay M.D. First contact with patient: 12:05 Chief Complaint: FLU LIKE SX Stated Complaint: FLU, SENT FROM History of Present Illness The patient is a 87 year old male who presents to the Emergency Room with complaints of flu-like symptoms that began last night. He has a past medical history of PMR, diabetes, and aspiration pneumonia. Per the patient's daughter, during the night she heard the patient begin to cough. When he woke up, he seemed to be "off" and not entirely himself. Two hours ago, the patient began to rapidly decline. He began to have generalized muscle aches, generalized weakness, shortness of breath, and chest congestion. He went to the [facility] and was referred to the ER for further evaluation. He has had contact with people who had a sinus infection and the flu. He is not normally on oxygen at home. Pt denies LOC, headache, fevers, chills, diaphoresis , visual changes, neck pain, chest pain, nausea, vomiting, abdominal pain, back pain, melena, hematochezia, urinary symptoms, numbness, lymphadenopathy, rash, or other complaints. Source of History: patient, family Onset: last night Position: other (global) Symptom Intensity: moderate Quality: other (Flu-like symptoms) Timing: worsening Associated Symptoms: + cough, + SOB, + weakness Note: He is experiencing muscle aches and chest congestion. Review of Systems See HPI for pertinent positives and negatives. A total of ten systems were reviewed and were otherwise negative. Past Medical & Surgical Medical Problems: (1) Aspiration pneumonia (2) Chronic steroid use (3) CKD (chronic kidney disease), stage III (4) Dyslipidemia (5) Hydrocele, right (6) Hypertension (7) Lumbar spinal stenosis (8) Osteoarthritis (9) PMR (polymyalgia rheumatica) (10) Pulmonary embolism Surgical Problems: (1) H/O arthroscopic knee surgery (2) H/O cataract extraction (3) Hx of spinal surgery (4) S/P lumbar fusion Family History FH: heart disease Social History Smoking Status: Never Smoker Drug Use: none Marital Status: Housing Status: lives with family Occupation Status: retired Current/Historical Medications Scheduled Amitriptyline HCl (Amitriptyline HCl), 50 MG PO HS Ascorbic Acid (Vitamin C), 500 MG PO DAILY Bee Pollen (Ra Bee Pollen), 500 MG PO UD Cyanocobalamin (B-12), 5,000 UNITS PO DAILY Docusate Sodium (Colace), 100 MG PO BID Escitalopram Oxalate (Lexapro), 10 MG PO DAILY Fentanyl (Duragesic), 1 PATCH TD [id number] Ferrous Sulfate (Kp Ferrous Sulfate), 325 MG PO BID Finasteride (Proscar), 5 MG PO QAM Gabapentin (Neurontin), 800 MG PO TID Metformin Hcl (Glucophage), 500 MG PO BIDM Omeprazole (Prilosec), 40 MG PO BID Prednisone (Prednisone), 17.5 MG PO DAILY Probiotic Product (Align), 4 MG PO DAILY Senna/Docusate Sod (Senokot S), 1 TAB PO DAILY Simvastatin (Zocor), 20 MG PO HS Tamsulosin Hcl (Flomax), 0.4 MG PO DAILY Scheduled PRN Hydrocodone/Acetaminophen 10MG/325MG ([place] 10MG/325MG), 1 TAB PO Q6 PRN for Pain Allergies Coded Allergies: Oxycodone (Verified Allergy, Mild, ITCHINESS, 06/07/17) Lorazepam (Unverified Adverse Reaction, Severe, agitation, 06/07/17) Physical Exam Vital Signs Date Time Temp Pulse Resp B/P (MAP) Pulse Ox O2 Delivery O2 Flow Rate FiO2 06/07/17 14:40 37.1 117 22 146/84 93 Nasal Cannula 5.0 06/07/17 13:30 36.9 06/07/17 13:22 108 26 232/99 96 Nasal Cannula 5.0 06/07/17 12:50 110 06/07/17 12:43 95 Nasal Cannula 3.0 06/07/17 12:42 95 Nasal Cannula 3.0 06/07/17 11:57 90 Nasal Cannula 3.0 06/07/17 11:52 37.2 116 22 217/86 85 Room Air Physical Exam GENERAL: Awake, alert, mildly ill-appearing, in no distress HENT: Normocephalic, atraumatic. Oropharynx unremarkable. EYES: Normal conjunctiva. Sclera non-icteric. NECK: Supple. No nuchal rigidity. FROM. No JVD. RESPIRATORY: Scattered rhonchi. CARDIAC: Regular rate, normal rhythm. Extremities warm and well perfused. Pulses equal. ABDOMEN: Soft, non-distended. No tenderness to palpation. No rebound or guarding. No masses. RECTAL: Deferred. MUSCULOSKELETAL: Chest examination reveals no tenderness. The back is symmetrical on inspection without obvious abnormality. There is no CVA tenderness to palpation. No joint edema. LOWER EXTREMITIES: Calves are equal size bilaterally and non-tender. No edema. No discoloration. NEURO: Normal sensorium. No sensory or motor deficits noted. SKIN: No rash or jaundice noted. Medical Decision & Procedures ER Provider Diagnostic Interpretation: Radiology results as stated below per my review and radiologist interpretation: CHEST ONE VIEW PORTABLE CLINICAL HISTORY: Weakness COMPARISON STUDY: 03/13/2017 FINDINGS: The cardiac and mediastinal contours remain stable. There is left basilar interstitial thickening, minimally progressive when compared the prior study. There is no acute lobar consolidation. There are no pleural effusions. There is no failure.[ IMPRESSION: Minimal progression of the left basal interstitial thickening Electronically signed by: Liam Hernández M.D. 06/07/2017 12:48 PM Dictated Date/Time: 06/07/2017 12:47 PM Laboratory Results 06/07/17 12:30 Red Blood Count 4.77, Mean Corpuscular Volume 91.4, Mean Corpuscular Hemoglobin 29.6, Mean Corpuscular Hemoglobin Concent 32.3, Mean Platelet Volume 9.4, Neutrophils (%) (Auto) 88.4, Lymphocytes (%) (Auto) 6.5, Monocytes (%) (Auto) 3.7, Eosinophils (%) (Auto) 0.2, Basophils (%) (Auto) 0.1, Neutrophils # (Auto) 7.21, Lymphocytes # (Auto) 0.53, Monocytes # (Auto) 0.30, Eosinophils # (Auto) 0.02, Basophils # (Auto) 0.01 06/07/17 12:30 06/07/17 13:40 Test 06/07/17 00:00 06/07/17 12:25 06/07/17 12:30 06/07/17 13:20 Influenza Type A (RT-PCR) POS for Influ A (NEG) Influenza Type B (RT-PCR) Neg for Influ B (NEG) Influenza Type A Antigen Neg for Influ A (NEG) Influenza Type B Antigen Neg for Influ B (NEG) White Blood Count 8.16 K/uL (4.8-10.8) Red Blood Count 4.77 M/uL (4.7-6.1) Hemoglobin 14.1 g/dL (14.0-18.0) Hematocrit 43.6 % (42-52) Mean Corpuscular Volume 91.4 fL (80-100) Mean Corpuscular Hemoglobin 29.6 pg (25-34) Mean Corpuscular Hemoglobin Concent 32.3 g/dl (32-36) Platelet Count 139 K/uL (130-400) Mean Platelet Volume 9.4 fL (7.4-10.4) Neutrophils (%) (Auto) 88.4 % Lymphocytes (%) (Auto) 6.5 % Monocytes (%) (Auto) 3.7 % Eosinophils (%) (Auto) 0.2 % Basophils (%) (Auto) 0.1 % Neutrophils # (Auto) 7.21 K/uL (1.4-6.5) Lymphocytes # (Auto) 0.53 K/uL (1.2-3.4) Monocytes # (Auto) 0.30 K/uL (0.11-0.59) Eosinophils # (Auto) 0.02 K/uL (0-0.5) Basophils # (Auto) 0.01 K/uL (0-0.2) RDW Standard Deviation 51.3 fL (36.4-46.3) RDW Coefficient of Variation 15.3 % (11.5-14.5) Immature Granulocyte % (Auto) 1.1 % Immature Granulocyte # (Auto) 0.09 K/uL (0.00-0.02) Prothrombin Time 10.1 SECONDS (9.0-12.0) Prothromb Time International Ratio 1.0 (0.9-1.1) Activated Partial Thromboplast Time 23.3 SECONDS (21.0-31.0) Partial Thromboplastin Ratio 0.9 Anion Gap 9.0 mmol/L (3-11) Est Creatinine Clear Calc Drug Dose 38.4 ml/min Estimated GFR () 45.6 Estimated GFR (Non- 39.4 BUN/Creatinine Ratio 13.3 (10-20) Calcium Level 9.3 mg/dl (8.5-10.1) Total Bilirubin 0.6 mg/dl (0.2-1) Alanine Aminotransferase (ALT/SGPT) 49 U/L (12-78) Alkaline Phosphatase 67 U/L (45-117) Creatine Kinase MB 1.4 ng/ml (0.5-3.6) Creatine Kinase MB Ratio (0-3.0) Troponin I < 0.015 ng/ml (0-0.045) Total Protein 7.2 gm/dl (6.4-8.2) Albumin 3.5 gm/dl (3.4-5.0) Lipase 107 U/L (73-393) Thyroid Stimulating Hormone (TSH) 0.869 uIu/ml (0.300-4.500) Urine Color YELLOW Urine Appearance CLEAR (CLEAR) Urine pH 5.0 (4.5-7.5) Urine Specific [place] 1.020 (1.000-1.030) Urine Protein NEG (NEG) Urine Glucose (UA) NEG (NEG) Urine Ketones NEG (NEG) Urine Occult Blood NEG (NEG) Urine Nitrite NEG (NEG) Urine Bilirubin NEG (NEG) Urine Urobilinogen NEG (NEG) Urine Leukocyte Esterase NEG (NEG) Test 06/07/17 13:40 06/07/17 14:39 Magnesium Level 1.7 mg/dl (1.8-2.4) Direct Bilirubin 0.1 mg/dl (0-0.2) Aspartate Amino Transf (AST/SGOT) 18 U/L (15-37) Total Creatine Kinase 26 U/L (39-308) Bedside Lactic Acid Venous 2.12 mmol/L (0.90-1.70) Laboratory results reviewed by me Medications Administered Medications (Trade) Dose Ordered Sig/Parminder Route Start Time Stop Time Status Last Admin Dose Admin Sodium Chloride 1,000 ml @ 125 mls/hr Q8H STAT IV 06/07/17 12:08 06/07/17 17:34 DC 06/07/17 12:08 125 MLS/HR Sodium Chloride 500 ml @ 999 mls/hr Q31M STAT IV 06/07/17 13:08 06/07/17 13:38 DC 06/07/17 13:08 999 MLS/HR Acetaminophen (Tylenol Tab) 1,000 mg NOW STAT PO 06/07/17 13:26 06/07/17 13:27 DC 06/07/17 13:29 1,000 MG Levofloxacin (Levaquin / D5W) 750 mg NOW STAT IV 06/07/17 14:09 06/07/17 14:10 DC 06/07/17 14:33 750 MG Sodium Chloride 1,000 ml @ 80 mls/hr [id number] IV 06/07/17 15:20 07/07/17 15:19 06/07/17 18:23 80 MLS/HR ECG Indication: SOB/dyspnea Rate (beats per minute): 108 Rhythm: sinus tachycardia Findings: no acute ischemic change, no ectopy Change: Patient's electrocardiogram was interpreted by me. ED Course 1205: The patient was evaluated in room C11B. A complete history and physical exam was performed. 1208: Ordered Sodium Chloride 1000 ml @ 125 mls/hr IV 1308: Ordered Sodium Chloride 500 ml @ 999 mls/hr IV 1326: Ordered Tylenol Tab 1000 mg PO 1409: Ordered Levofloxacin 750 mg IV 1436: Upon reexamination, the patient was resting. I discussed the test results and treatment plan with him. I discussed the patient's case with Jessica CRABTREE of the [facility] Hospitalist service. The patient will be evaluated for further management. Medical Decision Triage Nursing notes reviewed. The patient's presentation and history were concerning for flulike symptoms. Etiologies such as viral syndrome, influenza, otitis, pharyngitis, pneumonia, cardiac sources, urinary tract infection, sepsis, bacteremia, as well as others were entertained. The patient was evaluated. He was hypoxic. He required supplemental oxygen. Normal saline hydration was started. Imaging was ordered. Blood work including cultures and lactate were performed. The patient lactate was elevated. His blood work was rather unremarkable. Initial set testing was negative. Chest x-ray was concerning for increased markings in the left base. Given his pulmonary symptoms patient was started on IV Levaquin. A PCR flu test was sent. Repeat lactate was performed and was better. The initial elevation of his lactate was secondary to his hypoxia. The patient was hydrated. He was treated with Tylenol. His PCR flu testing came back positive for influenza. Tamiflu was ordered. Patient and daughter were informed. Consultation was made with the hospitalist service. The patient was evaluated in the Emergency Room for further management. Medication Reconcilliation Current Medication List: was personally reviewed by me Blood Pressure Screening Patient's blood pressure: Elevated blood pressure Referred to the hospitalist Consults Time Called: 1430 Consulting Physician: Jessica Gonzalez Hospitalist Returned Call: [phone] Discussed the patient's case. The patient will be evaluated for further treatment and disposition. Impression Primary Impression: Influenza A Additional Impressions: Hypoxia Pneumonia Scribe Attestation The scribe's documentation has been prepared under my direction and personally reviewed by me in its entirety. I confirm that the note above accurately reflects all work, treatment, procedures, and medical decision making performed by me. Departure Information Dispostion Being Evaluated By Hospitalist Referrals Luis Miguel Liriano M.D. (PCP) Patient Instructions My [facility] Problem Qualifiers
[2017-06-07] MEDS ORDERED: SENN-65 PO (12:49)
[2017-06-07] MEDS ORDERED: CYAN1CAP4 PO (12:49)
[2017-06-07] MEDS ORDERED: DOCU-94 PO (12:49)
[2017-06-07] MEDS ORDERED: PRED20TA PO (12:49)
[2017-06-07 13:02] LABS: PTT PATIENT 23.3 SECONDS (21.0-31.0)
[2017-06-07] MEDS ORDERED: SODIUM CHLORIDE 0.9% 500ML 500 ML IV STA (13:08)
[2017-06-07 13:14] LABS: INFLUENZA B ANTIGEN Neg for Influ B (NEG)
[2017-06-07 13:20] LABS: ALBUMIN 3.5 gm/dl (3.4-5.0); ALT/SGPT 49 U/L (12-78); BLOOD UREA NITROGEN 21 mg/dl (7-18); CALCIUM 9.3 mg/dl (8.5-10.1); CARBON DIOXIDE 27 mmol/L (21-32); CREATININE 1.56 mg/dl (0.60-1.40); GLUCOSE 79 mg/dl (70-99); LIPASE 107 U/L (73-393); SODIUM 139 mmol/L (136-145)
[2017-06-07 13:22] LABS: ALKALINE PHOSPHATASE 67 U/L (45-117); CKMB 1.4 ng/ml (0.5-3.6); TOTAL PROTEIN 7.2 gm/dl (6.4-8.2)
[2017-06-07] MEDS ORDERED: ACETAMINOPHEN 500 MG TAB PO STA (13:26)
[2017-06-07] MEDS ORDERED: LEVAQUIN 750MG / 150ML D5W IV STA (14:09)
[2017-06-07] MEDS ORDERED: MAGNESIUM SULFATE 1GM / D5W 1 GM in PREMIXED IN D5W 100 ML IV STA (15:23)
[2017-06-07] MEDS ORDERED: ONDANSETRON INJ 2 MG/ML 2 ML VIAL IV PRN (15:30)
[2017-06-07] MEDS ORDERED: ACETAMINOPHEN 325 MG TAB PO PRN (15:30)
[2017-06-07] MEDS ORDERED: GLUCOSE 10 TABS/TUBE PO PRN (15:45)
[2017-06-07] MEDS ORDERED: GLUCAGON FOR INJ 1 MG VIAL SQ PRN (15:45)
[2017-06-07] MEDS ORDERED: DEXTROSE 50% 50 ML SYR IV PRN (15:45)
[2017-06-07] MEDS ORDERED: GLUCOSE 40% GEL 15 GM TUBE PO PRN (15:45)
[2017-06-07] MEDS ORDERED: HYDROCODONE/ACETAMI 10/325 TAB PO PRN (15:45)
[2017-06-07] MEDS ORDERED: IBUPROFEN 600 MG TAB PO STA (15:56)
[2017-06-07] MEDS: INSULIN ASPART 100 UNITS/ML 3 ML PEN SC SCH ×2 (16:00→21:00)
[2017-06-07 16:03] LABS: INFLUENZA B PCR Neg for Influ B (NEG)
[2017-06-07 16:04] LABS: INFLUENZA A PCR POS for Influ A (NEG)
[2017-06-07] MEDS ORDERED: IBUPROFEN 600 MG TAB ONE (16:05)
[2017-06-07] MEDS ORDERED: MAGNESIUM SULFATE 1GM / D5W 1 GM BAG ONE (16:09)
[2017-06-07] MEDS ORDERED: OSELTAMIVIR PHOSPHATE 75 MG CAP PO STA (16:10)
[2017-06-07] MEDS ORDERED: LEVALBUTEROL/IPRATROPIUM NEB INH SCH (16:30)
[2017-06-07] MEDS ORDERED: IPRATROPIUM BROMIDE NEB SOLN 0.02% 2.5 ML VIAL INH PRN (16:45)
[2017-06-07] MEDS ORDERED: LEVALBUTEROL 1.25MG/0.5ML NEB INH PRN (16:45)
[2017-06-07 17:16] VITALS: BP 112/61; PULSE 102; TEMP 37; Ht 180.3 cm; Wt 86.6 kg
[2017-06-07 17:22] VITALS: O2SAT 92
--- NOTE | 2017-06-07 18:02 | History and Physical ---
History & Physical Date & Time of Service: Jun 07, 2017 ~ 15:00 Chief Complaint: Shortness of Breath, Cough Primary Care Physician: Luis Miguel Liriano M.D. History of Present Illness 87 year old male who presents to the ED with shortness of breath and cough. Patient reports he woke up in the middle of the night coughing. Cough has been productive for yellow and white sputum. He also has felt short of breath which has been progressing. He feels short of breath at rest and with minimal exertion. No chest pain. He denies lightheadedness, dizziness, diaphoresis, or syncopal events. He has felt chilled but did not take his temperature at home. No abdominal pain, nausea, vomiting, or diarrhea. He denies urinary symptoms. He has had sick contacts with others who have had flu-like symptoms. Patient was seen at his PCPs office and found to be hypoxic, tachycardic, and febrile. He was sent to the ED for further evaluation. He was hypoxic on room air at 85% . This improved with oxygen 3L. He is influenza A positive. CXR suggests a LLL pneumonia. He was given IVF, Tylenol, and IV Levaquin. Past Medical/Surgical History Medical Problems: (1) Aspiration pneumonia Status: Chronic (2) Chronic steroid use Status: Chronic (3) CKD (chronic kidney disease), stage III Status: Chronic (4) Dyslipidemia Status: Chronic (5) Hydrocele, right Status: Chronic (6) Hypertension Status: Chronic (7) Lumbar spinal stenosis Status: Chronic (8) Osteoarthritis Status: Chronic (9) PMR (polymyalgia rheumatica) Status: Chronic (10) Pulmonary embolism Permanent Comment: post op, completed Coumadin treatment Status: Chronic Surgical Problems: (1) H/O arthroscopic knee surgery Status: Chronic (2) H/O cataract extraction Status: Resolved (3) Hx of spinal surgery Permanent Comment: lumbar decompression/fusion Status: Chronic (4) S/P lumbar fusion Status: Resolved Family History non contributory due to patient's advanced age Social History Smoking Status: Never Smoker Alcohol Use: occasionally Marital Status: Housing status: lives with family Immunizations History of Influenza Vaccine: Yes Influenza Vaccine Date: Feb 01, 2017 History of Tetanus Vaccine?: Yes Tetanus Immunization Date: Jul 24, 2012 History of Pneumococcal: Yes Pneumococcal Date: September 20, 2015 Multi-Drug Resistant Organisms History of MDRO: No Allergies Coded Allergies: Oxycodone (Verified Allergy, Mild, ITCHINESS, 06/07/17) Lorazepam (Unverified Adverse Reaction, Severe, agitation, 06/07/17) Home Medications Scheduled Amitriptyline HCl (Amitriptyline HCl), 50 MG PO HS Ascorbic Acid (Vitamin C), 500 MG PO DAILY Bee Pollen (Ra Bee Pollen), 500 MG PO UD Cyanocobalamin (B-12), 5,000 UNITS PO DAILY Docusate Sodium (Colace), 100 MG PO BID Escitalopram Oxalate (Lexapro), 10 MG PO DAILY Fentanyl (Duragesic), 1 PATCH TD [id number] Ferrous Sulfate (Kp Ferrous Sulfate), 325 MG PO BID Finasteride (Proscar), 5 MG PO QAM Gabapentin (Neurontin), 800 MG PO TID Metformin Hcl (Glucophage), 500 MG PO BIDM Omeprazole (Prilosec), 40 MG PO BID Prednisone (Prednisone), 17.5 MG PO DAILY Probiotic Product (Align), 4 MG PO DAILY Senna/Docusate Sod (Senokot S), 1 TAB PO DAILY Simvastatin (Zocor), 20 MG PO HS Tamsulosin Hcl (Flomax), 0.4 MG PO DAILY Scheduled PRN Hydrocodone/Acetaminophen 10MG/325MG ([place] 10MG/325MG), 1 TAB PO Q6 PRN for Pain Review of Systems ROS per HPI, all other systems reviewed and negative Physical Exam Vital Signs Date Time Temp Pulse Resp B/P (MAP) Pulse Ox O2 Delivery O2 Flow Rate FiO2 06/07/17 15:45 90 Nasal Cannula 5.0 06/07/17 15:44 38.8 117 24 137/62 89 Nasal Cannula 3.0 06/07/17 14:40 37.1 117 22 146/84 93 Nasal Cannula 5.0 06/07/17 13:30 36.9 06/07/17 13:22 108 26 232/99 96 Nasal Cannula 5.0 06/07/17 12:50 110 06/07/17 12:43 95 Nasal Cannula 3.0 06/07/17 12:42 95 Nasal Cannula 3.0 06/07/17 11:57 90 Nasal Cannula 3.0 06/07/17 11:52 37.2 116 22 217/86 85 Room Air General Appearance: WD/WN, no apparent distress (ill appearing) Head: normocephalic, atraumatic Eyes: normal inspection, EOMI, sclerae normal ENT: hearing grossly normal, + pertinent finding (mucous membranes dry) Neck: supple, no JVD, trachea midline Respiratory/Chest: + decreased breath sounds, + pertinent finding (mild tachypnea, able to speak in full sentences) Cardiovascular: no edema, normal peripheral pulses, + tachycardia (regular rhythm) Abdomen/GI: normal bowel sounds, non tender, soft, no organomegaly Extremities/Musculoskelatal: normal inspection, no calf tenderness, normal capillary refill Neurologic/Psych: no motor/sensory deficits, alert, normal mood/affect, oriented x 3 Skin: warm/dry, + pertinent finding (cheeks flushed) Diagnostics Laboratory Results Results Past 24 Hours Test 06/07/17 00:00 06/07/17 12:25 06/07/17 12:30 06/07/17 13:20 Range/Units Influenza Type A Antigen Neg for Influ A NEG Influenza Type B Antigen Neg for Influ B NEG White Blood Count 8.16 4.8-10.8 K/uL Red Blood Count 4.77 4.7-6.1 M/uL Hemoglobin 14.1 14.0-18.0 g/dL Hematocrit 43.6 42-52 % Mean Corpuscular Volume 91.4 80-100 fL Mean Corpuscular Hemoglobin 29.6 25-34 pg Mean Corpuscular Hemoglobin Concent 32.3 32-36 g/dl Platelet Count 139 130-400 K/uL Mean Platelet Volume 9.4 7.4-10.4 fL Neutrophils (%) (Auto) 88.4 % Lymphocytes (%) (Auto) 6.5 % Monocytes (%) (Auto) 3.7 % Eosinophils (%) (Auto) 0.2 % Basophils (%) (Auto) 0.1 % Neutrophils # (Auto) 7.21 1.4-6.5 K/uL Lymphocytes # (Auto) 0.53 1.2-3.4 K/uL Monocytes # (Auto) 0.30 0.11-0.59 K/uL Eosinophils # (Auto) 0.02 0-0.5 K/uL Basophils # (Auto) 0.01 0-0.2 K/uL RDW Standard Deviation 51.3 36.4-46.3 fL RDW Coefficient of Variation 15.3 11.5-14.5 % Immature Granulocyte % (Auto) 1.1 % Immature Granulocyte # (Auto) 0.09 0.00-0.02 K/uL Prothrombin Time 10.1 9.0-12.0 SECONDS Prothromb Time International Ratio 1.0 0.9-1.1 Activated Partial Thromboplast Time 23.3 21.0-31.0 SECONDS Partial Thromboplastin Ratio 0.9 Sodium Level 139 136-145 mmol/L Potassium Level 3.5-5.1 mmol/L Chloride Level 103 98-107 mmol/L Carbon Dioxide Level 27 21-32 mmol/L Anion Gap 9.0 3-11 mmol/L Blood Urea Nitrogen 21 7-18 mg/dl Creatinine 1.56 0.60-1.40 mg/dl Est Creatinine Clear Calc Drug Dose 38.4 ml/min Estimated GFR () 45.6 Estimated GFR (Non- 39.4 BUN/Creatinine Ratio 13.3 10-20 Random Glucose 79 70-99 mg/dl Bedside Lactic Acid Venous 3.60 0.90-1.70 mmol/L Calcium Level 9.3 8.5-10.1 mg/dl Magnesium Level 1.8-2.4 mg/dl Total Bilirubin 0.6 0.2-1 mg/dl Direct Bilirubin 0-0.2 mg/dl Aspartate Amino Transf (AST/SGOT) 15-37 U/L Alanine Aminotransferase (ALT/SGPT) 49 12-78 U/L Alkaline Phosphatase 67 45-117 U/L Total Creatine Kinase 39-308 U/L Creatine Kinase MB 1.4 0.5-3.6 ng/ml Creatine Kinase MB Ratio 0-3.0 Troponin I < 0.015 0-0.045 ng/ml Total Protein 7.2 6.4-8.2 gm/dl Albumin 3.5 3.4-5.0 gm/dl Lipase 107 73-393 U/L Thyroid Stimulating Hormone (TSH) 0.869 0.300-4.500 uIu/ml Urine Color YELLOW Urine Appearance CLEAR CLEAR Urine pH 5.0 4.5-7.5 Urine Specific [place] 1.020 1.000-1.030 Urine Protein NEG NEG Urine Glucose (UA) NEG NEG Urine Ketones NEG NEG Urine Occult Blood NEG NEG Urine Nitrite NEG NEG Urine Bilirubin NEG NEG Urine Urobilinogen NEG NEG Urine Leukocyte Esterase NEG NEG Test 06/07/17 13:40 06/07/17 14:39 Range/Units Potassium Level 4.0 3.5-5.1 mmol/L Magnesium Level 1.7 1.8-2.4 mg/dl Direct Bilirubin 0.1 0-0.2 mg/dl Aspartate Amino Transf (AST/SGOT) 18 15-37 U/L Total Creatine Kinase 26 39-308 U/L Bedside Lactic Acid Venous 2.12 0.90-1.70 mmol/L Microbiology Results 06/07/17 Blood Culture, Received Pending 06/07/17 Blood Culture, Received Pending 06/07/17 Urine Culture, Received Pending Diagnostic Radiology CXR IMPRESSION: Minimal progression of the left basal interstitial thickening Impression Assessment and Plan ACUTE HYPOXIC RESPIRATORY FAILURE INFLUENZA A, SUPERIMPOSED PNEUMONIA SEPSIS - admit to tele - patient presenting with sudden onset of productive cough and shortness of breath; in the ED, found to be hypoxic on room air at 85%, improved with oxygen 3L, + influenza A on PCR testing, CXR suggests LLL pneumonia - on presentation: febrile, tachycardic, tachypneic, hypoxic, and elevated lactic acid; BP stable - s/p Levaquin in the ED, will continue with (renally dosed) - supportive care with Tamiflu (renally dosed), IVF, supplemental oxygen - hypoxia could be contributing to lactic acidosis - will continue IVF and trend lactic acid HX PMR - continue chronic Prednisone - BP stable, no role for stress dose steroids at this time STEROID INDUCED DIABETES - hgb a1c 6.8 12/2016 - hold oral agents and utilize SSI while hospitalized HTN - BP stable, continue Lisinopril CKD STAGE III - baseline creat runs in the mid 1'd - creat noted to be 1.5 today - continue to monitor, avoid nephrotoxic agents when able DVT PROPHYLAXIS - SQ Heparin CODE STATUS - Patient is a DNR as per my discussion with him. DISPO - In my clinical judgment this beneficiary meets acute admission criteria, established by [facility], that includes being hospitalized through two midnights. - PT/OT evals ADDENDUM: This is an 87 year old male with a PMH of polymyalgia rheumatic on chronic steroids, hx. of PE no longer on anticoagulation, chronic back pain from lumbar spinal stenosis, HTN, HLD, CKD stage 3 - presents with cough, chest congestion, shortness of breath, weakness. Presented to the ED, found to be hypoxic in the mid 80s. Had a CXR done in the ED, found to have L basal interstitial thickening. As per daughter, family members at home are sick and likely have the flu. He was checked for the flu and the PCR is now back positive for Influenza A. On exam: he is weak, lethargy, flush mild sonorous breath sounds, decreased Plan: Acute Hypoxic Respiratory Failure Sepsis secondary to Influenza A and superimposed Pneumonia Tamiflu for the Influenza A. fluids for the infection and sepsis. will recheck lactate in AM, it is trending down, likely worsened by his hypoxia. Levaquin for pneumonia plan to wean O2 as tolerated VTE Prophylaxis VTE Risk Assessment Done? Y/N: Yes Risk Level: Moderate
[2017-06-07] MEDS: SODIUM CHLORIDE 0.9% 1000ML 1,000 ML IV SCH (18:23)
[2017-06-07] MEDS: OSELTAMIVIR PHOSPHATE SUSP 30 MG/5 ML UDP PO SCH (18:31)
[2017-06-07 19:34] VITALS: BP 86/44; PULSE 92; TEMP 36.9; O2SAT 95
[2017-06-07 20:23] VITALS: PULSE 91; O2SAT 94
[2017-06-07] MEDS: LEVALBUTEROL 1.25MG/0.5ML NEB INH SCH (20:23)
[2017-06-07] MEDS: IPRATROPIUM BROMIDE NEB SOLN 0.02% 2.5 ML VIAL INH SCH (20:23)
[2017-06-07] MEDS: AMITRIPTYLINE HCL 50 MG TAB PO SCH (21:26)
[2017-06-07] MEDS: PANTOprazole SOD 40 MG TAB PO SCH (21:26)
[2017-06-07] MEDS: DOCUSATE SODIUM 100 MG CAP PO SCH (21:27)
[2017-06-07] MEDS: GABAPENTIN 800 MG TAB PO SCH (21:27)
[2017-06-07] MEDS: FERROUS SULFATE 325 MG TAB PO SCH (21:28)
[2017-06-07] MEDS: SIMVASTATIN 20 MG TAB PO SCH (21:28)
[2017-06-07] MEDS: HEPARIN SOD 5000 UNIT/0.5 ML CARP SQ SCH (21:29)
[2017-06-07] MEDS ORDERED: FENTANYL 50 MCG/HR TDSY TD ONE (23:45)
[2017-06-08] VITALS (12 sets, daily range): BP systolic 109–183; BP diastolic 55–86; PULSE 74–108; TEMP 36.4–38.6; O2SAT 90–100
[2017-06-08] MEDS: CHECK FENTANYL PATCH PLACEMENT SCH ×3 (00:28→16:08)
[2017-06-08] MEDS: LEVALBUTEROL 1.25MG/0.5ML NEB INH SCH ×4 (02:21→19:04)
[2017-06-08] MEDS: IPRATROPIUM BROMIDE NEB SOLN 0.02% 2.5 ML VIAL INH SCH ×4 (02:21→19:04)
[2017-06-08] MEDS: SODIUM CHLORIDE 0.9% 1000ML 1,000 ML IV SCH ×2 (04:09→17:03)
[2017-06-08] MEDS: HEPARIN SOD 5000 UNIT/0.5 ML CARP SQ SCH ×3 (06:22→21:38)
[2017-06-08] MEDS: FENTANYL PATCH REMOVE & WASTE SCH (08:02)
[2017-06-08] MEDS: INSULIN ASPART 100 UNITS/ML 3 ML PEN SC SCH ×4 (08:02→21:35)
[2017-06-08] MEDS: ASCORBIC ACID 500 MG TAB PO SCH (08:04)
[2017-06-08] MEDS: ESCITALOPRAM OXALATE 10 MG TAB PO SCH (08:05)
[2017-06-08] MEDS: FINASTERIDE 5 MG TAB PO SCH (08:05)
[2017-06-08] MEDS: FERROUS SULFATE 325 MG TAB PO SCH ×2 (08:05→21:28)
[2017-06-08] MEDS: GABAPENTIN 800 MG TAB PO SCH ×3 (08:05→21:28)
[2017-06-08] MEDS: TAMSULOSIN HCL 0.4 MG CAP PO SCH (08:05)
[2017-06-08] MEDS: DOCUSATE SODIUM 100 MG CAP PO SCH ×2 (08:05→21:28)
[2017-06-08] MEDS: PANTOprazole SOD 40 MG TAB PO SCH ×2 (08:06→21:29)
[2017-06-08] MEDS: DOCUSATE SODIUM/SENNA 50/8.6MG TAB PO SCH (08:06)
[2017-06-08] MEDS: CYANOCOBALAMIN 2,500 MCG SUBL TAB PO SCH (08:07)
[2017-06-08 08:42] LABS: HEMOGLOBIN 12.6 g/dL (14.0-18.0); MEAN CELL VOLUME 91.3 fL (80-100); MEAN CORPUSCULAR HEMOGLOBIN 29.5 pg (25-34); MEAN CORPUSCULAR HGB CONC 32.3 g/dl (32-36); MEAN PLATELET VOLUME 9.4 fL (7.4-10.4); PLATELET COUNT 109 K/uL (130-400); RED CELL DISTRIBUTION WIDTH CV 15.8 % (11.5-14.5); RED CELL DISTRIBUTION WIDTH SD 52.8 fL (36.4-46.3); WHITE BLOOD COUNT 6.07 K/uL (4.8-10.8)
[2017-06-08] MEDS: OSELTAMIVIR PHOSPHATE SUSP 30 MG/5 ML UDP PO SCH ×2 (08:53→21:32)
[2017-06-08] MEDS ORDERED: FENTANYL 50 MCG/HR TDSY TD SCH (09:00)
[2017-06-08] MEDS ORDERED: NON-FORMULARY MEDICATION (Probiotic Product (Align) 4 MG) PO SCH (09:00)
[2017-06-08 09:08] LABS: CALCIUM 8.5 mg/dl (8.5-10.1); CREATININE 1.55 mg/dl (0.60-1.40); POTASSIUM 3.5 mmol/L (3.5-5.1)
[2017-06-08] MEDS ORDERED: IBUPROFEN 200 MG TAB PO ONE (15:30)
[2017-06-08] MEDS: HYDROCORTISONE IV 50 MG in SYRINGE 0 ML IV SCH (16:09)
--- NOTE | 2017-06-08 17:13 | Progress Note ---
Medicine Progress Note Date & Time of Visit: Jun 08, 2017 at 11:30 . Subjective CC: Follow-up visit for influenza A and other problems. HPI: Persistent fevers. Congested nonproductive cough. No SOB. 3 loose stools today; no abdominal pain, nausea, vomiting. ROS: General- as noted above in HPI Resp- as noted above in HPI Cardiac- no chest pain, no edema GI- as noted above in HPI - no dysuria, no difficulty voiding . Objective Last 8 Hrs Date Time Temp Pulse Resp B/P (MAP) Pulse Ox O2 Delivery O2 Flow Rate FiO2 06/08/17 16:02 36.9 99 16 135/66 (89) 95 Nasal Cannula 2.0 06/08/17 16:00 Nasal Cannula 2.0 06/08/17 14:25 100 15 92 Nasal Cannula 2.0 06/08/17 13:55 108 94 06/08/17 12:20 38.6 103 18 155/68 (97) 91 Nasal Cannula 06/08/17 12:00 Nasal Cannula 2.0 Physical Exam: General- lying in bed; no distress Lungs- scattered rhonchi, diffuse wheezing; no respiratory distress Cardiovascular- RRR; no murmur; no gallop; no JVD; no pretibial edema Abdomen- + bowel sounds, soft, nontender Extremities- no cyanosis; no calf tenderness Neuro- alert, mild confusion, oriented Skin- warm & dry . Laboratory Results: Last 24 Hours Test 06/07/17 18:05 06/07/17 20:39 06/08/17 07:44 06/08/17 07:59 Lactic Acid Level 2.1 mmol/L Bedside Glucose 127 mg/dl 90 mg/dl Sodium Level 137 mmol/L Potassium Level 3.5 mmol/L Chloride Level 102 mmol/L Carbon Dioxide Level 27 mmol/L Anion Gap 9.0 mmol/L Blood Urea Nitrogen 16 mg/dl Creatinine 1.55 mg/dl Est Creatinine Clear Calc Drug Dose 35.7 ml/min Estimated GFR () 46.0 Estimated GFR (Non- 39.7 BUN/Creatinine Ratio 10.1 Random Glucose 93 mg/dl Calcium Level 8.5 mg/dl Magnesium Level 1.9 mg/dl Test 06/08/17 08:19 06/08/17 11:13 06/08/17 16:25 White Blood Count 6.07 K/uL Red Blood Count 4.27 M/uL Hemoglobin 12.6 g/dL Hematocrit 39.0 % Mean Corpuscular Volume 91.3 fL Mean Corpuscular Hemoglobin 29.5 pg Mean Corpuscular Hemoglobin Concent 32.3 g/dl RDW Standard Deviation 52.8 fL RDW Coefficient of Variation 15.8 % Platelet Count 109 K/uL Mean Platelet Volume 9.4 fL Lactic Acid Level 1.9 mmol/L Bedside Glucose 127 mg/dl 144 mg/dl Date/Time Source Procedure Growth Status 06/07/17 23:45 Sputum Expectorated Sputum Gram Stain - Final Resulted 06/07/17 23:45 Sputum Expectorated Sputum Sputum Culture Pending Resulted Assessment & Plan INFLUENZA A Continue oseltamivir, IV fluids. POSSIBLE PNEUMONIA Chest x-ray showed increased markings at left base, but no lobar consolidation. Continue doxycycline. LOOSE STOOLS 3 loose stools today. Check C diff PCR. CKD III Serum creatinine today = 1.55. Follow. DM TYPE 2 Hold metformin during acute illness. Lantus / NovoLog per protocol. FBS this morning = 90. 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 IV hydrocortisone while acutely ill, then taper to usual maintenance therapy. BPH Continue finasteride and tamsulosin. PMR IV hydrocortisone while acutely ill, then taper to usual maintenance dose. CHRONIC PAIN Continue usual analgesics. VTE PROPHYLAXIS SQ heparin. Ambulate. DISPOSITION Expected discharge to home. Family Medicine follow-up with Dr. Liriano. . Current Inpatient Medications: Current Inpatient Medications Medications (Trade) Dose Ordered Sig/Parminder Route Start Time Stop Time Status Last Admin Dose Admin Heparin Sodium (Porcine) (Heparin Sq 5000 Unit/0.5ml) 5,000 unit Q8 SQ 06/07/17 22:00 07/07/17 21:59 06/08/17 14:18 5,000 UNIT Sodium Chloride 1,000 ml @ 80 mls/hr [id number] IV 06/07/17 15:20 07/07/17 15:19 06/08/17 17:03 80 MLS/HR Acetaminophen (Tylenol Tab) 650 mg Q4H PRN PO 06/07/17 15:30 07/07/17 15:29 06/08/17 08:04 650 MG Ondansetron HCl (Zofran Inj) 4 mg Q6H PRN IV 06/07/17 15:30 07/07/17 15:29 Insulin Aspart (novoLOG ASPART) SLIDING SCALE If C... ACHS SC 06/07/17 16:00 07/07/17 15:59 06/08/17 17:06 4 UNITS Glucose (Glucose 40% Gel) 15-30 GRAMS 15 GRAMS... UD PRN PO 06/07/17 15:45 07/07/17 15:44 Glucose (Glucose Chew Tab) 4-8 Tablets 4 Tabl... UD PRN PO 06/07/17 15:45 07/07/17 15:44 Dextrose (Dextrose 50% 50ML Syringe) 25-50ML OF 50% DW IV FOR... UD PRN IV 06/07/17 15:45 07/07/17 15:44 Glucagon (Glucagon Inj) 1 mg UD PRN SQ 06/07/17 15:45 07/07/17 15:44 Amitriptyline HCl (Elavil Tab) 50 mg HS PO 06/07/17 21:00 07/07/17 20:59 06/07/17 21:26 50 MG Ascorbic Acid (Vitamin C Tab) 500 mg DAILY PO 06/08/17 09:00 07/08/17 08:59 06/08/17 08:04 500 MG Docusate Sodium (coLACE CAP) 100 mg BID PO 06/07/17 21:00 07/07/17 20:59 06/08/17 08:05 100 MG Escitalopram Oxalate (Lexapro Tab) 10 mg DAILY PO 06/08/17 09:00 07/08/17 08:59 06/08/17 08:05 10 MG Fentanyl (Duragesic Patch) 50 mcg Q3D@0900 TD 06/08/17 09:00 06/22/17 08:59 Future hold Finasteride (Proscar Tab) 5 mg QAM PO 06/08/17 09:00 07/08/17 08:59 06/08/17 08:05 5 MG Gabapentin (Neurontin Tab) 800 mg TID PO 06/07/17 21:00 07/07/17 20:59 06/08/17 14:19 800 MG Acetaminophen/ Hydrocodone Bitart ([place] 10/325 Tab) 1 tab Q6 PRN PO 06/07/17 15:45 06/21/17 15:44 Prednisone (PredniSONE TAB) 17.5 mg DAILY PO 06/08/17 09:00 07/08/17 08:59 Future Hold 06/08/17 08:06 17.5 MG Senna/Docusate Sodium (Senokot S Tab) 1 tab DAILY PO 06/08/17 09:00 07/08/17 08:59 06/08/17 08:06 1 TAB Simvastatin (Zocor Tab) 20 mg HS PO 06/07/17 21:00 07/07/17 20:59 06/07/17 21:28 20 MG Tamsulosin HCl (Flomax Cap) 0.4 mg DAILY PO 06/08/17 09:00 07/08/17 08:59 06/08/17 08:05 0.4 MG Cyanocobalamin (Vitamin B-12 Tab) 5,000 mcg DAILY PO 06/08/17 09:00 07/08/17 08:59 06/08/17 08:07 5,000 MCG Ferrous Sulfate (Feosol Tab) 325 mg BID PO 06/07/17 21:00 07/07/17 20:59 06/08/17 08:05 325 MG Pantoprazole Sodium (Protonix Tab) 40 mg BID PO 06/07/17 21:00 07/07/17 20:59 06/08/17 08:06 40 MG Oseltamivir Phosphate (Tamiflu Susp) 30 mg BID PO 06/07/17 18:00 06/12/17 17:59 06/08/17 08:53 30 MG Ipratropium [place] (Atrovent 0.02% 0.5MG/2.5ML Neb) 0.5 mg Q6R INH 06/07/17 21:00 07/07/17 20:59 06/08/17 14:25 0.5 MG Levalbuterol (Xopenex 1.25MG/ 0.5ML Neb) 1.25 mg Q6R INH 06/07/17 21:00 07/07/17 20:59 06/08/17 14:25 1.25 MG Ipratropium [place] (Atrovent 0.02% 0.5MG/2.5ML Neb) 0.5 mg Q2H PRN INH 06/07/17 16:45 3/4/18 16:44 Levalbuterol (Xopenex 1.25MG/ 0.5ML Neb) 1.25 mg Q2H PRN INH 06/07/17 16:45 07/07/17 16:44 Miscellaneous (Fentanyl Patch Remove & Waste) 1 ea Q3D@0859 N/A 06/08/17 08:59 07/08/17 08:58 06/08/17 08:02 1 EA Miscellaneous Information (Check Fentanyl Patch Placement) 1 ea QS N/A 06/08/17 00:00 07/08/17 00:00 06/08/17 16:08 1 EA Hydrocortisone Sodium Succinate 50 mg/Syringe 1 ml @ 4 mls/min Q8H IV 06/08/17 16:00 07/08/17 15:59 06/08/17 16:09 4 MLS/MIN Doxycycline Hyclate (Vibramycin Cap) 100 mg BID PO 06/08/17 21:00 06/15/17 20:59
[2017-06-08] MEDS ORDERED: NALOXONE HCL 0.4 MG/1 ML VIAL/CARP IV STA (20:39)
[2017-06-08] MEDS: AMITRIPTYLINE HCL 50 MG TAB PO SCH (21:27)
[2017-06-08] MEDS: SIMVASTATIN 20 MG TAB PO SCH (21:29)
[2017-06-08] MEDS: DOXYCYCLINE HYCLATE 100 MG CAP PO SCH (21:29)
[2017-06-08 22:48] LABS: CALCIUM 8.3 mg/dl (8.5-10.1); CREATININE 1.6 mg/dl (0.60-1.40)
[2017-06-09] VITALS (11 sets, daily range): BP systolic 173–197; BP diastolic 72–83; PULSE 70–89; TEMP 36.5–36.8; O2SAT 73–99
[2017-06-09] MEDS: HYDROCORTISONE IV 50 MG in SYRINGE 0 ML IV SCH ×2 (00:41→07:51)
[2017-06-09] MEDS: IPRATROPIUM BROMIDE NEB SOLN 0.02% 2.5 ML VIAL INH SCH ×4 (01:56→19:59)
[2017-06-09] MEDS: LEVALBUTEROL 1.25MG/0.5ML NEB INH SCH ×4 (01:56→19:59)
[2017-06-09] MEDS: SODIUM CHLORIDE 0.9% 1000ML 1,000 ML IV SCH ×2 (04:50→17:07)
[2017-06-09] MEDS: HEPARIN SOD 5000 UNIT/0.5 ML CARP SQ SCH ×3 (06:45→20:53)
[2017-06-09 07:23] LABS: CALCIUM 8.8 mg/dl (8.5-10.1); CREATININE 1.43 mg/dl (0.60-1.40)
[2017-06-09] MEDS: OSELTAMIVIR PHOSPHATE SUSP 30 MG/5 ML UDP PO SCH ×2 (07:51→20:49)
[2017-06-09] MEDS: FINASTERIDE 5 MG TAB PO SCH (07:51)
[2017-06-09] MEDS: CYANOCOBALAMIN 2,500 MCG SUBL TAB PO SCH (07:52)
[2017-06-09] MEDS: TAMSULOSIN HCL 0.4 MG CAP PO SCH (07:52)
[2017-06-09] MEDS: DOXYCYCLINE HYCLATE 100 MG CAP PO SCH ×2 (07:52→20:45)
[2017-06-09] MEDS: FERROUS SULFATE 325 MG TAB PO SCH ×2 (07:52→20:44)
[2017-06-09] MEDS: DOCUSATE SODIUM/SENNA 50/8.6MG TAB PO SCH (07:52)
[2017-06-09] MEDS: ASCORBIC ACID 500 MG TAB PO SCH (07:52)
[2017-06-09] MEDS: GABAPENTIN 800 MG TAB PO SCH ×3 (07:52→20:44)
[2017-06-09] MEDS: DOCUSATE SODIUM 100 MG CAP PO SCH ×2 (07:53→20:44)
[2017-06-09] MEDS: PANTOprazole SOD 40 MG TAB PO SCH ×2 (07:53→20:45)
[2017-06-09] MEDS: ESCITALOPRAM OXALATE 10 MG TAB PO SCH (07:53)
[2017-06-09] MEDS: CHECK FENTANYL PATCH PLACEMENT SCH ×3 (07:54→15:42)
[2017-06-09] MEDS: INSULIN ASPART 100 UNITS/ML 3 ML PEN SC SCH ×4 (07:59→20:46)
[2017-06-09] MEDS ORDERED: LEVOFLOXACIN / D5W 750 MG in PREMIXED IN D5W 150 ML IV SCH (14:00)
--- NOTE | 2017-06-09 19:50 | Progress Note ---
Medicine Progress Note Date & Time of Visit: Jun 09, 2017 at 15:00 . Subjective CC: Follow-up visit for influenza A and other problems. HPI: No fever last night. Cough improved. No SOB. Daughter Macy visiting. ROS: General- as noted above in HPI Resp- as noted above in HPI Cardiac- no chest pain, no edema GI- diarrhea improved - no dysuria, no difficulty voiding . Objective Last 8 Hrs Date Time Temp Pulse Resp B/P (MAP) Pulse Ox O2 Delivery O2 Flow Rate FiO2 06/09/17 19:44 36.8 77 16 173/75 (107) 99 Room Air 06/09/17 15:45 36.7 82 18 190/83 (118) 95 Room Air 06/09/17 15:45 Room Air 06/09/17 15:20 89 18 73 Room Air 06/09/17 12:08 36.5 82 22 197/73 (114) 99 Nasal Cannula 2.0 06/09/17 12:00 93 Room Air Physical Exam: General- lying in bed; no distress Lungs- scattered rhonchi, less wheezing; no respiratory distress Cardiovascular- RRR; no murmur; no gallop; no JVD; no pretibial edema Abdomen- + bowel sounds, soft, nontender Extremities- no cyanosis; no calf tenderness Neuro- alert, mild confusion, oriented Skin- warm & dry . Laboratory Results: Last 24 Hours Test 06/08/17 20:39 06/08/17 20:53 06/08/17 22:43 06/09/17 06:01 Bedside Glucose 175 mg/dl Sodium Level 141 mmol/L 141 mmol/L Potassium Level 4.0 mmol/L mmol/L Chloride Level 107 mmol/L 109 mmol/L Carbon Dioxide Level 24 mmol/L 26 mmol/L Anion Gap 10.0 mmol/L 7.0 mmol/L Blood Urea Nitrogen 17 mg/dl 15 mg/dl Creatinine 1.60 mg/dl 1.43 mg/dl Est Creatinine Clear Calc Drug Dose 34.6 ml/min 38.7 ml/min Estimated GFR () 44.2 50.7 Estimated GFR (Non- 38.2 43.7 BUN/Creatinine Ratio 10.6 10.7 Random Glucose 169 mg/dl 177 mg/dl Calcium Level 8.3 mg/dl 8.8 mg/dl Magnesium Level 1.9 mg/dl Ammonia < 10.0 umol/L Test 06/09/17 06:43 06/09/17 07:27 06/09/17 11:05 06/09/17 16:13 Bedside Glucose 166 mg/dl 130 mg/dl 127 mg/dl Potassium Level 4.2 mmol/L Date/Time Source Procedure Growth Status 06/09/17 07:10 Stool C.difficile Toxin B Gene (PCR) - Final No C. difficile toxin B gene detected Complete 06/09/17 15:30 Sputum Expectorated Sputum Gram Stain Pending Received 06/09/17 15:30 Sputum Expectorated Sputum Sputum Culture Pending Received Assessment & Plan INFLUENZA A Continue oseltamivir, IV fluids. POSSIBLE PNEUMONIA Chest x-ray showed increased markings at left base, but no lobar consolidation. Continue doxycycline. LOOSE STOOLS Stools negative for C diff. CKD III Serum creatinine today = 1.43. Follow. DM TYPE 2 Hold metformin during acute illness. Lantus / NovoLog per protocol. FBS this morning = 166. 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 IV hydrocortisone while acutely ill, then taper to usual maintenance therapy. BPH Continue finasteride and tamsulosin. PMR IV hydrocortisone while acutely ill, then taper to usual maintenance dose. CHRONIC PAIN Continue usual analgesics. VTE PROPHYLAXIS SQ heparin. Ambulate. DISPOSITION Expected discharge to daughter's home, perhaps with home health services. Family Medicine follow-up with Dr. Liriano. Daughter visiting and given update. . Current Inpatient Medications: Current Inpatient Medications Medications (Trade) Dose Ordered Sig/Parminder Route Start Time Stop Time Status Last Admin Dose Admin Heparin Sodium (Porcine) (Heparin Sq 5000 Unit/0.5ml) 5,000 unit Q8 SQ 06/07/17 22:00 07/07/17 21:59 06/09/17 12:34 5,000 UNIT Sodium Chloride 1,000 ml @ 80 mls/hr [id number] IV 06/07/17 15:20 07/07/17 15:19 06/09/17 17:07 80 MLS/HR Acetaminophen (Tylenol Tab) 650 mg Q4H PRN PO 06/07/17 15:30 07/07/17 15:29 06/08/17 08:04 650 MG Ondansetron HCl (Zofran Inj) 4 mg Q6H PRN IV 06/07/17 15:30 07/07/17 15:29 Insulin Aspart (novoLOG ASPART) SLIDING SCALE If C... ACHS SC 06/07/17 16:00 07/07/17 15:59 06/09/17 17:05 5 UNITS Glucose (Glucose 40% Gel) 15-30 GRAMS 15 GRAMS... UD PRN PO 06/07/17 15:45 07/07/17 15:44 Glucose (Glucose Chew Tab) 4-8 Tablets 4 Tabl... UD PRN PO 06/07/17 15:45 07/07/17 15:44 Dextrose (Dextrose 50% 50ML Syringe) 25-50ML OF 50% DW IV FOR... UD PRN IV 06/07/17 15:45 07/07/17 15:44 Glucagon (Glucagon Inj) 1 mg UD PRN SQ 06/07/17 15:45 07/07/17 15:44 Amitriptyline HCl (Elavil Tab) 50 mg HS PO 06/07/17 21:00 07/07/17 20:59 06/08/17 21:27 50 MG Ascorbic Acid (Vitamin C Tab) 500 mg DAILY PO 06/08/17 09:00 07/08/17 08:59 06/09/17 07:52 500 MG Docusate Sodium (coLACE CAP) 100 mg BID PO 06/07/17 21:00 07/07/17 20:59 06/09/17 07:53 100 MG Escitalopram Oxalate (Lexapro Tab) 10 mg DAILY PO 06/08/17 09:00 07/08/17 08:59 06/09/17 07:53 10 MG Finasteride (Proscar Tab) 5 mg QAM PO 06/08/17 09:00 07/08/17 08:59 06/09/17 07:51 5 MG Gabapentin (Neurontin Tab) 800 mg TID PO 06/07/17 21:00 07/07/17 20:59 06/09/17 12:31 800 MG Acetaminophen/ Hydrocodone Bitart ([place] 10/325 Tab) 1 tab Q6 PRN PO 06/07/17 15:45 06/21/17 15:44 Prednisone (PredniSONE TAB) 17.5 mg DAILY PO 06/08/17 09:00 07/08/17 08:59 Future hold 06/08/17 08:06 17.5 MG Senna/Docusate Sodium (Senokot S Tab) 1 tab DAILY PO 06/08/17 09:00 07/08/17 08:59 06/09/17 07:52 1 TAB Simvastatin (Zocor Tab) 20 mg HS PO 06/07/17 21:00 07/07/17 20:59 06/08/17 21:29 20 MG Tamsulosin HCl (Flomax Cap) 0.4 mg DAILY PO 06/08/17 09:00 07/08/17 08:59 06/09/17 07:52 0.4 MG Cyanocobalamin (Vitamin B-12 Tab) 5,000 mcg DAILY PO 06/08/17 09:00 07/08/17 08:59 06/09/17 07:52 5,000 MCG Ferrous Sulfate (Feosol Tab) 325 mg BID PO 06/07/17 21:00 07/07/17 20:59 06/09/17 07:52 325 MG Pantoprazole Sodium (Protonix Tab) 40 mg BID PO 06/07/17 21:00 07/07/17 20:59 06/09/17 07:53 40 MG Oseltamivir Phosphate (Tamiflu Susp) 30 mg BID PO 06/07/17 18:00 06/12/17 17:59 06/09/17 07:51 30 MG Ipratropium [place] (Atrovent 0.02% 0.5MG/2.5ML Neb) 0.5 mg Q6R INH 06/07/17 21:00 07/07/17 20:59 06/09/17 15:20 0.5 MG Levalbuterol (Xopenex 1.25MG/ 0.5ML Neb) 1.25 mg Q6R INH 06/07/17 21:00 07/07/17 20:59 06/09/17 15:20 1.25 MG Ipratropium [place] (Atrovent 0.02% 0.5MG/2.5ML Neb) 0.5 mg Q2H PRN INH 06/07/17 16:45 07/07/17 16:44 Levalbuterol (Xopenex 1.25MG/ 0.5ML Neb) 1.25 mg Q2H PRN INH 06/07/17 16:45 07/07/17 16:44 Miscellaneous (Fentanyl Patch Remove & Waste) 1 ea Q3D@0859 N/A 06/08/17 08:59 07/08/17 08:58 06/08/17 08:02 1 EA Miscellaneous Information (Check Fentanyl Patch Placement) 1 ea QS N/A 06/08/17 00:00 07/08/17 00:00 06/09/17 07:54 1 EA Doxycycline Hyclate (Vibramycin Cap) 100 mg BID PO 06/08/17 21:00 06/15/17 20:59 06/09/17 07:52 100 MG Fentanyl (Duragesic Patch) 50 mcg Q3D@0900 TD 06/11/17 09:00 06/22/17 08:59 Hydrocortisone Sodium Succinate 25 mg/Syringe 0.5 ml @ 4 mls/min Q8 IV 06/09/17 22:00 07/09/17 21:59
[2017-06-09] MEDS: AMITRIPTYLINE HCL 50 MG TAB PO SCH (20:44)
[2017-06-09] MEDS: SIMVASTATIN 20 MG TAB PO SCH (20:46)
[2017-06-09] MEDS: HYDROCORTISONE IV 25 MG in SYRINGE 0 ML IV SCH (20:50)
[2017-06-10] VITALS (9 sets, daily range): BP systolic 165–202; BP diastolic 68–80; PULSE 69–83; TEMP 36.4–36.8; O2SAT 92–98
[2017-06-10] MEDS: IPRATROPIUM BROMIDE NEB SOLN 0.02% 2.5 ML VIAL INH SCH ×4 (02:15→19:19)
[2017-06-10] MEDS: LEVALBUTEROL 1.25MG/0.5ML NEB INH SCH ×4 (02:15→19:19)
[2017-06-10] MEDS: HYDROCORTISONE IV 25 MG in SYRINGE 0 ML IV SCH (06:01)
[2017-06-10] MEDS: HEPARIN SOD 5000 UNIT/0.5 ML CARP SQ SCH ×3 (06:05→21:26)
[2017-06-10 06:14] LABS: HEMATOCRIT 34.8 % (42-52); HEMOGLOBIN 11.1 g/dL (14.0-18.0); MEAN CELL VOLUME 90.4 fL (80-100); MEAN CORPUSCULAR HEMOGLOBIN 28.8 pg (25-34); MEAN CORPUSCULAR HGB CONC 31.9 g/dl (32-36); MEAN PLATELET VOLUME 9.3 fL (7.4-10.4); PLATELET COUNT 128 K/uL (130-400); RED CELL DISTRIBUTION WIDTH CV 15.5 % (11.5-14.5); RED CELL DISTRIBUTION WIDTH SD 50.9 fL (36.4-46.3); WHITE BLOOD COUNT 5.13 K/uL (4.8-10.8)
[2017-06-10 06:53] LABS: CALCIUM 8.4 mg/dl (8.5-10.1); CREATININE 1.5 mg/dl (0.60-1.40)
[2017-06-10 07:57] LABS: HEMOGLOBIN A1C 6.9 % (4.5-5.6)
[2017-06-10] MEDS: ASCORBIC ACID 500 MG TAB PO SCH (08:04)
[2017-06-10] MEDS: OSELTAMIVIR PHOSPHATE SUSP 30 MG/5 ML UDP PO SCH ×2 (08:09→21:21)
[2017-06-10] MEDS: FINASTERIDE 5 MG TAB PO SCH (08:09)
[2017-06-10] MEDS: DOCUSATE SODIUM/SENNA 50/8.6MG TAB PO SCH (08:09)
[2017-06-10] MEDS: TAMSULOSIN HCL 0.4 MG CAP PO SCH ×2 (08:09→21:22)
[2017-06-10] MEDS: DOXYCYCLINE HYCLATE 100 MG CAP PO SCH ×2 (08:09→21:23)
[2017-06-10] MEDS: FERROUS SULFATE 325 MG TAB PO SCH ×2 (08:09→21:23)
[2017-06-10] MEDS: ESCITALOPRAM OXALATE 10 MG TAB PO SCH (08:09)
[2017-06-10] MEDS: PANTOprazole SOD 40 MG TAB PO SCH ×2 (08:09→21:21)
[2017-06-10] MEDS: DOCUSATE SODIUM 100 MG CAP PO SCH ×2 (08:09→21:21)
[2017-06-10] MEDS: GABAPENTIN 800 MG TAB PO SCH ×3 (08:11→21:21)
[2017-06-10] MEDS: CHECK FENTANYL PATCH PLACEMENT SCH ×4 (08:11→23:42)
[2017-06-10] MEDS: INSULIN ASPART 100 UNITS/ML 3 ML PEN SC SCH ×4 (08:14→21:00)
[2017-06-10] MEDS: CYANOCOBALAMIN 2,500 MCG SUBL TAB PO SCH (08:46)
[2017-06-10] MEDS ORDERED: LISINOPRIL 2.5 MG TAB PO ONE (13:15)
[2017-06-10] MEDS: ENALAPRILAT IV 0.625 MG in DEXTROSE 5% 25ML 25 ML IV PRN (16:14)
--- NOTE | 2017-06-10 20:38 | Progress Note ---
Medicine Progress Note Date & Time of Visit: Jun 10, 2017 at 20:37. Subjective CC: Follow-up visit for influenza A and other problems. HPI: Cough improved. No fever or chills. No SOB. ROS: General- as noted above in HPI Resp- as noted above in HPI Cardiac- no chest pain, no edema GI- no nausea, vomiting, diarrhea - no dysuria, no difficulty voiding . Objective Last 8 Hrs Date Time Temp Pulse Resp B/P (MAP) Pulse Ox O2 Delivery O2 Flow Rate FiO2 06/10/17 19:40 36.6 69 16 165/75 (105) 97 Room Air 06/10/17 16:00 Room Air 06/10/17 15:05 36.6 80 16 185/80 (115) 92 Room Air 06/10/17 14:22 83 18 98 Room Air Physical Exam: General- no distress Lungs- few scattered rhonchi, mild wheezing; no respiratory distress Cardiovascular- RRR; no murmur; no gallop; no JVD; no pretibial edema Abdomen- + bowel sounds, soft, nontender Extremities- no cyanosis; no calf tenderness Neuro- alert, mild confusion, oriented Skin- warm & dry . Laboratory Results: Last 24 Hours Test 06/10/17 05:55 06/10/17 06:09 06/10/17 11:14 06/10/17 16:16 White Blood Count 5.13 K/uL Red Blood Count 3.85 M/uL Hemoglobin 11.1 g/dL Hematocrit 34.8 % Mean Corpuscular Volume 90.4 fL Mean Corpuscular Hemoglobin 28.8 pg Mean Corpuscular Hemoglobin Concent 31.9 g/dl RDW Standard Deviation 50.9 fL RDW Coefficient of Variation 15.5 % Platelet Count 128 K/uL Mean Platelet Volume 9.3 fL Sodium Level 143 mmol/L Potassium Level 4.0 mmol/L Chloride Level 111 mmol/L Carbon Dioxide Level 27 mmol/L Anion Gap 5.0 mmol/L Blood Urea Nitrogen 16 mg/dl Creatinine 1.50 mg/dl Est Creatinine Clear Calc Drug Dose 36.9 ml/min Estimated GFR () 47.8 Estimated GFR (Non- 41.3 BUN/Creatinine Ratio 10.9 Random Glucose 116 mg/dl Calcium Level 8.4 mg/dl Bedside Glucose 136 mg/dl 120 mg/dl Test 06/10/17 20:27 Bedside Glucose 124 mg/dl Assessment & Plan INFLUENZA A Continue oseltamivir, IV fluids. POSSIBLE PNEUMONIA Chest x-ray showed increased markings at left base, but no lobar consolidation. Continue doxycycline. LOOSE STOOLS Stools negative for C diff. HYPERTENSION Taper steroids. Resume lisinopril. CKD III Serum creatinine today = 1.5. Follow. DM TYPE 2 Hold metformin during acute illness. Lantus / NovoLog per protocol. FBS this morning = 116. 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 IV hydrocortisone while acutely ill, then taper to usual maintenance therapy. BPH Continue finasteride and tamsulosin. PMR IV hydrocortisone while acutely ill, then taper to usual maintenance dose. CHRONIC PAIN Continue usual analgesics. VTE PROPHYLAXIS SQ heparin. Ambulate. DISPOSITION Expected discharge to daughter's home, perhaps with home health services. Family Medicine follow-up with Dr. Liriano. . Current Inpatient Medications: Current Inpatient Medications Medications (Trade) Dose Ordered Sig/Parminder Route Start Time Stop Time Status Last Admin Dose Admin Heparin Sodium (Porcine) (Heparin Sq 5000 Unit/0.5ml) 5,000 unit Q8 SQ 06/07/17 22:00 07/07/17 21:59 06/10/17 13:52 5,000 UNIT Acetaminophen (Tylenol Tab) 650 mg Q4H PRN PO 06/07/17 15:30 07/07/17 15:29 06/08/17 08:04 650 MG Ondansetron HCl (Zofran Inj) 4 mg Q6H PRN IV 06/07/17 15:30 07/07/17 15:29 Insulin Aspart (novoLOG ASPART) SLIDING SCALE If C... ACHS SC 06/07/17 16:00 07/07/17 15:59 06/10/17 17:01 3 UNITS Glucose (Glucose 40% Gel) 15-30 GRAMS 15 GRAMS... UD PRN PO 06/07/17 15:45 07/07/17 15:44 Glucose (Glucose Chew Tab) 4-8 Tablets 4 Tabl... UD PRN PO 06/07/17 15:45 07/07/17 15:44 Dextrose (Dextrose 50% 50ML Syringe) 25-50ML OF 50% DW IV FOR... UD PRN IV 06/07/17 15:45 07/07/17 15:44 Glucagon (Glucagon Inj) 1 mg UD PRN SQ 06/07/17 15:45 07/07/17 15:44 Amitriptyline HCl (Elavil Tab) 50 mg HS PO 06/07/17 21:00 07/07/17 20:59 06/09/17 20:44 50 MG Ascorbic Acid (Vitamin C Tab) 500 mg DAILY PO 06/08/17 09:00 07/08/17 08:59 06/10/17 08:04 500 MG Docusate Sodium (coLACE CAP) 100 mg BID PO 06/07/17 21:00 07/07/17 20:59 06/10/17 08:09 100 MG Escitalopram Oxalate (Lexapro Tab) 10 mg DAILY PO 06/08/17 09:00 07/08/17 08:59 06/10/17 08:09 10 MG Finasteride (Proscar Tab) 5 mg QAM PO 06/08/17 09:00 07/08/17 08:59 06/10/17 08:09 5 MG Gabapentin (Neurontin Tab) 800 mg TID PO 06/07/17 21:00 07/07/17 20:59 06/10/17 13:47 800 MG Acetaminophen/ Hydrocodone Bitart ([place] 10/325 Tab) 1 tab Q6 PRN PO 06/07/17 15:45 06/21/17 15:44 Prednisone (PredniSONE TAB) 17.5 mg DAILY PO 06/08/17 09:00 07/08/17 08:59 Future hold 06/10/17 08:10 17.5 MG Senna/Docusate Sodium (Senokot S Tab) 1 tab DAILY PO 06/08/17 09:00 07/08/17 08:59 06/10/17 08:09 1 TAB Simvastatin (Zocor Tab) 20 mg HS PO 06/07/17 21:00 07/07/17 20:59 06/09/17 20:46 20 MG Cyanocobalamin (Vitamin B-12 Tab) 5,000 mcg DAILY PO 06/08/17 09:00 07/08/17 08:59 06/10/17 08:46 5,000 MCG Ferrous Sulfate (Feosol Tab) 325 mg BID PO 06/07/17 21:00 07/07/17 20:59 06/10/17 08:09 325 MG Pantoprazole Sodium (Protonix Tab) 40 mg BID PO 06/07/17 21:00 07/07/17 20:59 06/10/17 08:09 40 MG Oseltamivir Phosphate (Tamiflu Susp) 30 mg BID PO 06/07/17 18:00 06/12/17 17:59 06/10/17 08:09 30 MG Ipratropium [place] (Atrovent 0.02% 0.5MG/2.5ML Neb) 0.5 mg Q6R INH 06/07/17 21:00 07/07/17 20:59 06/10/17 19:19 0.5 MG Levalbuterol (Xopenex 1.25MG/ 0.5ML Neb) 1.25 mg Q6R INH 06/07/17 21:00 07/07/17 20:59 06/10/17 19:19 1.25 MG Ipratropium [place] (Atrovent 0.02% 0.5MG/2.5ML Neb) 0.5 mg Q2H PRN INH 06/07/17 16:45 07/07/17 16:44 Levalbuterol (Xopenex 1.25MG/ 0.5ML Neb) 1.25 mg Q2H PRN INH 06/07/17 16:45 07/07/17 16:44 Miscellaneous (Fentanyl Patch Remove & Waste) 1 ea Q3D@0859 N/A 06/08/17 08:59 07/08/17 08:58 06/08/17 08:02 1 EA Miscellaneous Information (Check Fentanyl Patch Placement) 1 ea QS N/A 06/08/17 00:00 07/08/17 00:00 06/10/17 08:11 1 EA Doxycycline Hyclate (Vibramycin Cap) 100 mg BID PO 06/08/17 21:00 06/15/17 20:59 06/10/17 08:09 100 MG Fentanyl (Duragesic Patch) 50 mcg Q3D@0900 TD 06/11/17 09:00 06/22/17 08:59 Tamsulosin HCl (Flomax Cap) 0.4 mg BID PO 06/10/17 21:00 07/08/17 08:59 Lisinopril (Zestril Tab) 2.5 mg QAM PO 06/11/17 09:00 07/11/17 08:59 Enalaprilat 0.625 mg/Dextrose 25.5 ml @ 100 mls/hr Q6H PRN IV 06/10/17 12:00 07/10/17 11:59 06/10/17 16:14 100 MLS/HR
[2017-06-10] MEDS: SIMVASTATIN 20 MG TAB PO SCH (21:23)
[2017-06-10] MEDS: AMITRIPTYLINE HCL 50 MG TAB PO SCH (21:23)
[2017-06-11] VITALS (8 sets, daily range): BP systolic 169–181; BP diastolic 64–70; PULSE 3–91; TEMP 36.5–36.7; O2SAT 93–98
[2017-06-11] MEDS: IPRATROPIUM BROMIDE NEB SOLN 0.02% 2.5 ML VIAL INH SCH ×3 (02:31→14:30)
[2017-06-11] MEDS: LEVALBUTEROL 1.25MG/0.5ML NEB INH SCH ×3 (02:31→14:30)
[2017-06-11] MEDS: ENALAPRILAT IV 0.625 MG in DEXTROSE 5% 25ML 25 ML IV PRN ×2 (04:09→11:58)
[2017-06-11] MEDS: HEPARIN SOD 5000 UNIT/0.5 ML CARP SQ SCH ×2 (06:15→13:51)
[2017-06-11 06:49] LABS: HEMATOCRIT 34.1 % (42-52); HEMOGLOBIN 11.1 g/dL (14.0-18.0); MEAN CELL VOLUME 90.9 fL (80-100); MEAN CORPUSCULAR HEMOGLOBIN 29.6 pg (25-34); MEAN CORPUSCULAR HGB CONC 32.6 g/dl (32-36); MEAN PLATELET VOLUME 9.3 fL (7.4-10.4); PLATELET COUNT 135 K/uL (130-400); RED CELL DISTRIBUTION WIDTH CV 15.5 % (11.5-14.5); RED CELL DISTRIBUTION WIDTH SD 51.1 fL (36.4-46.3); WHITE BLOOD COUNT 5.54 K/uL (4.8-10.8)
[2017-06-11 07:38] LABS: CALCIUM 8.4 mg/dl (8.5-10.1); CREATININE 1.58 mg/dl (0.60-1.40); POTASSIUM 3.5 mmol/L (3.5-5.1)
[2017-06-11] MEDS: CHECK FENTANYL PATCH PLACEMENT SCH (08:00)
[2017-06-11] MEDS: FENTANYL PATCH REMOVE & WASTE SCH (08:02)
[2017-06-11] MEDS: CYANOCOBALAMIN 2,500 MCG SUBL TAB PO SCH (08:04)
[2017-06-11] MEDS: ESCITALOPRAM OXALATE 10 MG TAB PO SCH (08:04)
[2017-06-11] MEDS: DOXYCYCLINE HYCLATE 100 MG CAP PO SCH (08:04)
[2017-06-11] MEDS: ASCORBIC ACID 500 MG TAB PO SCH (08:04)
[2017-06-11] MEDS: DOCUSATE SODIUM 100 MG CAP PO SCH (08:05)
[2017-06-11] MEDS: DOCUSATE SODIUM/SENNA 50/8.6MG TAB PO SCH (08:05)
[2017-06-11] MEDS: TAMSULOSIN HCL 0.4 MG CAP PO SCH (08:05)
[2017-06-11] MEDS: GABAPENTIN 800 MG TAB PO SCH ×2 (08:05→13:50)
[2017-06-11] MEDS: OSELTAMIVIR PHOSPHATE SUSP 30 MG/5 ML UDP PO SCH (08:05)
[2017-06-11] MEDS: PANTOprazole SOD 40 MG TAB PO SCH (08:05)
[2017-06-11] MEDS: FERROUS SULFATE 325 MG TAB PO SCH (08:05)
[2017-06-11] MEDS: FINASTERIDE 5 MG TAB PO SCH (08:07)
[2017-06-11] MEDS: INSULIN ASPART 100 UNITS/ML 3 ML PEN SC SCH ×2 (08:17→11:48)
[2017-06-11] MEDS ORDERED: LISINOPRIL 5 MG TAB PO SCH (09:00)
[2017-06-11] MEDS ORDERED: FENTANYL 50 MCG/HR TDSY TD SCH (09:00)
[2017-06-11] MEDS ORDERED: LISINOPRIL 2.5 MG TAB PO SCH (09:00)
--- NOTE | 2017-06-11 14:57 | Progress Note ---
Medicine Progress Note Date & Time of Visit: Jun 11, 2017 at 14:57 . Subjective Doing well. No fever. Cough improved Ambulating. Patient and daughter feel that he is getting back to baseline and ready to go home. . Objective Last 8 Hrs Date Time Temp Pulse Resp B/P (MAP) Pulse Ox O2 Delivery O2 Flow Rate FiO2 06/11/17 12:00 Room Air 06/11/17 11:42 36.5 84 19 179/70 (106) 97 Room Air 06/11/17 08:00 Room Air 06/11/17 07:49 36.6 87 19 169/69 (102) 96 Room Air 06/11/17 07:32 91 18 94 Room Air Physical Exam: General- no distress Lungs- essentially clear; no respiratory distress Cardiovascular- RRR; no murmur; no gallop; no JVD; no pretibial edema Abdomen- + bowel sounds, soft, nontender Extremities- no cyanosis; no calf tenderness Neuro- alert Skin- warm & dry . Laboratory Results: Last 24 Hours Test 06/10/17 16:16 06/10/17 20:27 06/11/17 06:20 06/11/17 06:31 Bedside Glucose 120 mg/dl 124 mg/dl 95 mg/dl White Blood Count 5.54 K/uL Red Blood Count 3.75 M/uL Hemoglobin 11.1 g/dL Hematocrit 34.1 % Mean Corpuscular Volume 90.9 fL Mean Corpuscular Hemoglobin 29.6 pg Mean Corpuscular Hemoglobin Concent 32.6 g/dl RDW Standard Deviation 51.1 fL RDW Coefficient of Variation 15.5 % Platelet Count 135 K/uL Mean Platelet Volume 9.3 fL Sodium Level 144 mmol/L Potassium Level 3.5 mmol/L Chloride Level 110 mmol/L Carbon Dioxide Level 26 mmol/L Anion Gap 8.0 mmol/L Blood Urea Nitrogen 15 mg/dl Creatinine 1.58 mg/dl Est Creatinine Clear Calc Drug Dose 35.1 ml/min Estimated GFR () 44.9 Estimated GFR (Non- 38.8 BUN/Creatinine Ratio 9.7 Random Glucose 87 mg/dl Calcium Level 8.4 mg/dl Test 06/11/17 11:24 Bedside Glucose 91 mg/dl Assessment & Plan INFLUENZA A Treated with oseltamivir, IV fluids. Respiratory symptoms improved. POSSIBLE PNEUMONIA Chest x-ray showed increased markings at left base, but no lobar consolidation. Treated with doxycycline. LOOSE STOOLS Stools negative for C diff. HYPERTENSION Resumed lisinopril. CKD III Serum creatinine today = 1.58. Follow. DM TYPE 2 Hold metformin during acute illness. Lantus / NovoLog per protocol. FBS this morning = 91. Discharge on usual regimen. 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 IV hydrocortisone while acutely ill, then taper to usual maintenance therapy. BPH Continue finasteride and tamsulosin. PMR IV hydrocortisone while acutely ill, then taper to usual maintenance dose. CHRONIC PAIN Continue usual analgesics. VTE PROPHYLAXIS SQ heparin. Ambulate. DISPOSITION Discharge to daughter's home with home health services. Family Medicine follow-up with Dr. Liriano. . Current Inpatient Medications: Current Inpatient Medications Medications (Trade) Dose Ordered Sig/Parminder Route Start Time Stop Time Status Last Admin Dose Admin Heparin Sodium (Porcine) (Heparin Sq 5000 Unit/0.5ml) 5,000 unit Q8 SQ 06/07/17 22:00 07/07/17 21:59 06/11/17 13:51 5,000 UNIT Acetaminophen (Tylenol Tab) 650 mg Q4H PRN PO 06/07/17 15:30 07/07/17 15:29 06/08/17 08:04 650 MG Ondansetron HCl (Zofran Inj) 4 mg Q6H PRN IV 06/07/17 15:30 07/07/17 15:29 Insulin Aspart (novoLOG ASPART) SLIDING SCALE If C... ACHS SC 06/07/17 16:00 07/07/17 15:59 06/11/17 11:48 3 UNITS Glucose (Glucose 40% Gel) 15-30 GRAMS 15 GRAMS... UD PRN PO 06/07/17 15:45 07/07/17 15:44 Glucose (Glucose Chew Tab) 4-8 Tablets 4 Tabl... UD PRN PO 06/07/17 15:45 07/07/17 15:44 Dextrose (Dextrose 50% 50ML Syringe) 25-50ML OF 50% DW IV FOR... UD PRN IV 06/07/17 15:45 07/07/17 15:44 Glucagon (Glucagon Inj) 1 mg UD PRN SQ 06/07/17 15:45 07/07/17 15:44 Amitriptyline HCl (Elavil Tab) 50 mg HS PO 06/07/17 21:00 07/07/17 20:59 06/10/17 21:23 50 MG Ascorbic Acid (Vitamin C Tab) 500 mg DAILY PO 06/08/17 09:00 07/08/17 08:59 06/11/17 08:04 500 MG Docusate Sodium (coLACE CAP) 100 mg BID PO 06/07/17 21:00 07/07/17 20:59 06/11/17 08:05 100 MG Escitalopram Oxalate (Lexapro Tab) 10 mg DAILY PO 06/08/17 09:00 07/08/17 08:59 06/11/17 08:04 10 MG Finasteride (Proscar Tab) 5 mg QAM PO 06/08/17 09:00 07/08/17 08:59 06/11/17 08:07 5 MG Gabapentin (Neurontin Tab) 800 mg TID PO 06/07/17 21:00 07/07/17 20:59 06/11/17 13:50 800 MG Acetaminophen/ Hydrocodone Bitart (Semora 10/325 Tab) 1 tab Q6 PRN PO 06/07/17 15:45 06/21/17 15:44 Prednisone (PredniSONE TAB) 17.5 mg DAILY PO 06/08/17 09:00 07/08/17 08:59 Future hold 06/11/17 08:05 17.5 MG Senna/Docusate Sodium (Senokot S Tab) 1 tab DAILY PO 06/08/17 09:00 07/08/17 08:59 06/11/17 08:05 1 TAB Simvastatin (Zocor Tab) 20 mg HS PO 06/07/17 21:00 07/07/17 20:59 06/10/17 21:23 20 MG Cyanocobalamin (Vitamin B-12 Tab) 5,000 mcg DAILY PO 06/08/17 09:00 07/08/17 08:59 06/11/17 08:04 5,000 MCG Ferrous Sulfate (Feosol Tab) 325 mg BID PO 06/07/17 21:00 07/07/17 20:59 06/11/17 08:05 325 MG Pantoprazole Sodium (Protonix Tab) 40 mg BID PO 06/07/17 21:00 07/07/17 20:59 06/11/17 08:05 40 MG Oseltamivir Phosphate (Tamiflu Susp) 30 mg BID PO 06/07/17 18:00 06/12/17 17:59 06/11/17 08:05 30 MG Ipratropium [place] (Atrovent 0.02% 0.5MG/2.5ML Neb) 0.5 mg Q6R INH 06/07/17 21:00 07/07/17 20:59 06/11/17 07:32 0.5 MG Levalbuterol (Xopenex 1.25MG/ 0.5ML Neb) 1.25 mg Q6R INH 06/07/17 21:00 07/07/17 20:59 06/11/17 07:32 1.25 MG Ipratropium [place] (Atrovent 0.02% 0.5MG/2.5ML Neb) 0.5 mg Q2H PRN INH 06/07/17 16:45 07/07/17 16:44 Levalbuterol (Xopenex 1.25MG/ 0.5ML Neb) 1.25 mg Q2H PRN INH 06/07/17 16:45 07/07/17 16:44 Miscellaneous (Fentanyl Patch Remove & Waste) 1 ea Q3D@0859 N/A 06/08/17 08:59 07/08/17 08:58 06/08/17 08:02 1 EA Miscellaneous Information (Check Fentanyl Patch Placement) 1 ea QS N/A 06/08/17 00:00 07/08/17 00:00 06/10/17 08:11 1 EA Doxycycline Hyclate (Vibramycin Cap) 100 mg BID PO 06/08/17 21:00 06/15/17 20:59 06/11/17 08:04 100 MG Fentanyl (Duragesic Patch) 50 mcg Q3D@0900 TD 06/11/17 09:00 06/22/17 08:59 Tamsulosin HCl (Flomax Cap) 0.4 mg BID PO 06/10/17 21:00 07/08/17 08:59 06/11/17 08:05 0.4 MG Enalaprilat 0.625 mg/Dextrose 25.5 ml @ 100 mls/hr Q6H PRN IV 06/10/17 12:00 07/10/17 11:59 06/11/17 11:58 100 MLS/HR Lisinopril (Zestril Tab) 5 mg QAM PO 06/11/17 09:00 07/11/17 08:59 06/11/17 08:13 5 MG
[2017-06-11] MEDS ORDERED: DXY100 PO (15:01)
[2017-06-11] MEDS ORDERED: TMFUDL30 PO (15:01)
--- NOTE | 2017-06-11 15:08 | Discharge Instructions ---
Discharge Instructions Date of Service Jun 11, 2017. Admission Reason for Admission: cough . Discharge Discharge Diagnosis / Problem: influenza A and possible pneumonia Discharge Goals Goal(s): Improve disease control Activity Recommendations Activity Limitations: resume your previous activity . Instructions / Follow-Up Instructions / Follow-Up APPOINTMENTS: FAMILY MEDICINE 06/14/2017 1:00 PM Luis Miguel Liriano MD OTHER INSTRUCTIONS: You had the flu and possible pneumonia. Take oseltamivir (Tamiflu) twice a day for 2 more doses. Hospital will give you 2 doses to take home. Take doxycycline 100 mg twice a day until gone. Prescription sent to [facility]. Ask Dr. Liriano to check a chest x-ray in 4-6 weeks to make sure that everything clears up. Seek medical attention if you have: * temperature above 101 * chest pain or trouble breathing * abdominal pain, nausea, vomiting * diarrhea, dark stools or bloody stools * any unanswered questions or concerns Call 911 if symptoms are severe. Call if you have any questions or problems. My cell # is [phone]. You can also reach a [facility] hospitalist on duty at [facility] 24 hours a day by calling [phone]. Please take good care of yourself. Real Swain . Current Hospital Diet Patient's current hospital diet: Diabetes Type 2 Diet, AHA Diet (Heart Healthy) Discharge Diet Recommended Diet: AHA Diet (Heart Healthy) Pending Studies Studies pending at discharge: no Laboratory Results Hemoglobin A1c Test 06/09/17 06:01 Range/Units Estimated Average Glucose 151 mg/dl Hemoglobin A1c 6.9 H 4.5-5.6 % Medical Emergencies . Who to Call and When: Medical Emergencies: If at any time you feel your situation is an emergency, please call 911 immediately. . Non-Emergent Contact Non-Emergency issues call your: Primary Care Provider, Hospital Doctor . . "Provider Documentation" section prepared by Real Swain. . VTE Core Measure Inpt VTE Proph given/why not?: Unfractionated heparin SQ
[2017-06-11] MEDS ORDERED: OSELTAMIVIR PHOSPHATE SUSP 30 MG/5 ML UDP PO SCH ×2 (15:30→21:00)
--- NOTE | 2017-06-14 05:44 | Discharge Summary ---
Discharge Summary Date of Service Jun 14, 2017. Discharge Summary Admission Date: Jun 07, 2017 at 15:23 Discharge Date: Jun 11, 2017 Discharge Disposition: Home with services Principal Diagnosis: influenza A possible pneumonia . Secondary Diagnoses/Problems: Chronic and Resolved Medical Problems: (2) Chronic steroid use Status: Chronic (3) CKD (chronic kidney disease), stage III Status: Chronic (4) Dyslipidemia Status: Chronic (5) Hydrocele, right Status: Chronic (6) Hypertension Status: Chronic (7) Lumbar spinal stenosis Status: Chronic (8) Osteoarthritis Status: Chronic (9) PMR (polymyalgia rheumatica) Status: Chronic (10) Pulmonary embolism, history of Permanent Comment: post op, completed Coumadin treatment Status: Chronic Surgical Problems: (1) H/O arthroscopic knee surgery Status: Chronic (2) H/O cataract extraction Status: Resolved (3) Hx of spinal surgery Permanent Comment: lumbar decompression/fusion Status: Chronic (4) S/P lumbar fusi .on Status: Resolved Medication Reconciliation New Medications: Doxycycline Hyclate (Doxycycline Hyclate) 100 Mg Cap 100 MG PO BID, #8 CAP Oseltamivir Phosphate (Tamiflu) 6 Mg/Ml Comfort 30 MG PO BID, #2 DOSE Dispensed by [facility]. Continued Medications: Amitriptyline HCl (Amitriptyline HCl) 50 Mg Tab 50 MG PO HS Ascorbic Acid (Vitamin C) 500 Mg Tab 500 MG PO DAILY Bee Pollen (Ra Bee Pollen) 500 Mg Chw 500 MG PO UD Cyanocobalamin (B-12) 5,000 Mcg Cap 5000 UNITS PO DAILY Docusate Sodium (Colace) 100 Mg Cap 100 MG PO BID for 30 Days, #60 CAP Escitalopram Oxalate (Lexapro) 10 Mg Tab 10 MG PO DAILY Fentanyl (Duragesic) 50 Mcg Tdsy 1 PATCH TD [id number] Ferrous Sulfate (Kp Ferrous Sulfate) 325 Mg Tab 325 MG PO BID Finasteride (Proscar) 5 Mg Tab 5 MG PO QAM Gabapentin (Neurontin) 400 Mg Cap 800 MG PO TID TWO 400 MG CAPSULES 3 TIMES DAILY Hydrocodone/Acetaminophen 10MG/325MG (Bell 10MG/325MG) Tab 1 TAB PO Q6 PRN for Pain PRN PAIN Metformin Hcl (Glucophage) 500 Mg Tab 500 MG PO BIDM WITH MORNING AND EVENING MEALS Omeprazole (Prilosec) 40 Mg Cap 40 MG PO BID 1 HOUR BEFORE THE FIRST MEAL OF THE DAY Prednisone (Prednisone) 20 Mg Tab 17.5 MG PO DAILY, #5 TAB Probiotic Product (Align) 4 Mg Cap 4 MG PO DAILY Senna/Docusate Sod (Senokot S) 1 Tab Tab 1 TAB PO DAILY @ NOON Simvastatin (Zocor) 20 Mg Tab 20 MG PO HS Tamsulosin Hcl (Flomax) 0.4 Mg Cap 0.4 MG PO BID Admission Information HPI (per Admitting provider): 87 year old male who presents to the ED with shortness of breath and cough. Patient reports he woke up in the middle of the night coughing. Cough has been productive for yellow and white sputum. He also has felt short of breath which has been progressing. He feels short of breath at rest and with minimal exertion. No chest pain. He denies lightheadedness, dizziness, diaphoresis, or syncopal events. He has felt chilled but did not take his temperature at home. No abdominal pain, nausea, vomiting, or diarrhea. He denies urinary symptoms. He has had sick contacts with others who have had flu-like symptoms. Patient was seen at his PCPs office and found to be hypoxic, tachycardic, and febrile. He was sent to the ED for further evaluation. He was hypoxic on room air at 85% . This improved with oxygen 3L. He is influenza A positive. CXR suggests a LLL pneumonia. He was given IVF, Tylenol, and IV Levaquin. . Physical Exam (per Admitting): General Appearance: WD/WN, no apparent distress (ill appearing) Head: normocephalic, atraumatic Eyes: normal inspection, EOMI, sclerae normal ENT: hearing grossly normal, + pertinent finding (mucous membranes dry) Neck: supple, no JVD, trachea midline Respiratory/Chest: + decreased breath sounds, + pertinent finding (mild tachypnea, able to speak in full sentences) Cardiovascular: no edema, normal peripheral pulses, + tachycardia (regular rhythm) Abdomen/GI: normal bowel sounds, non tender, soft, no organomegaly Extremities/Musculoskelatal: normal inspection, no calf tenderness, normal capillary refill Neurologic/Psych: no motor/sensory deficits, alert, normal mood/affect, oriented x 3 Skin: warm/dry, + pertinent finding (cheeks flushed) Hospital Course INFLUENZA A Treated with oseltamivir, IV fluids. Respiratory symptoms improved. POSSIBLE PNEUMONIA Chest x-ray showed increased markings at left base, but no lobar consolidation. Treated with doxycycline. Check f/u chest x-ray in 4-6 weeks. LOOSE STOOLS Stools negative for C diff. HYPERTENSION Resumed lisinopril. CKD III Serum creatinine today = 1.58. Follow. DM TYPE 2 Hold metformin during acute illness. Lantus / NovoLog per protocol. FBS day of discharge = 91. Discharge on usual regimen. 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 IV hydrocortisone while acutely ill, then taper to usual maintenance therapy. BPH Continue finasteride and tamsulosin. PMR IV hydrocortisone while acutely ill, then taper to usual maintenance dose. CHRONIC PAIN Continue usual analgesics. VTE PROPHYLAXIS SQ heparin. Ambulate. DISPOSITION Discharge to daughter's home with home health services. Family Medicine follow-up with Dr. Liriano. . Total time spent on discharge = 40 min. This includes examination of the patient, discharge planning, medication reconciliation, and communication with other providers. . Discharge Instructions Date of Service Jun 11, 2017. Admission Reason for Admission: cough . Discharge Discharge Diagnosis / Problem: influenza A and possible pneumonia Discharge Goals Goal(s): Improve disease control Activity Recommendations Activity Limitations: resume your previous activity . Instructions / Follow-Up Instructions / Follow-Up APPOINTMENTS: FAMILY MEDICINE 06/14/2017 1:00 PM Luis Mgiuel Liriano MD OTHER INSTRUCTIONS: You had the flu and possible pneumonia. Take oseltamivir (Tamiflu) twice a day for 2 more doses. Hospital will give you 2 doses to take home. Take doxycycline 100 mg twice a day until gone. Prescription sent to [facility]. Ask Dr. Liriano to check a chest x-ray in 4-6 weeks to make sure that everything clears up. Seek medical attention if you have: * temperature above 101 * chest pain or trouble breathing * abdominal pain, nausea, vomiting * diarrhea, dark stools or bloody stools * any unanswered questions or concerns Call 569 if symptoms are severe. Call if you have any questions or problems. My cell # is [phone]. You can also reach a [facility] hospitalist on duty at [facility] 24 hours a day by calling [phone]. Please take good care of yourself. Real Swain . Current Hospital Diet Patient's current hospital diet: Diabetes Type 2 Diet, AHA Diet (Heart Healthy) Discharge Diet Recommended Diet: AHA Diet (Heart Healthy) Pending Studies Studies pending at discharge: no Laboratory Results Hemoglobin A1c Test 06/09/17 06:01 Range/Units Estimated Average Glucose 151 mg/dl Hemoglobin A1c 6.9 H 4.5-5.6 % Medical Emergencies . Who to Call and When: Medical Emergencies: If at any time you feel your situation is an emergency, please call 911 immediately. . Non-Emergent Contact Non-Emergency issues call your: Primary Care Provider, Hospital Doctor . . "Provider Documentation" section prepared by Real Swain. . VTE Core Measure Inpt VTE Proph given/why not?: Unfractionated heparin SQ .
== END 2017-06-11 16:07 | disposition home health service (06) | DRG 193 ==
LOC: C.EDB 11:49 → C.2T 15:23 → CANRESERV 15:39 → ENRESERV 15:39
PROVIDERS: ADMIT Family Medicine; ATTEND Hospitalist
DX: J10.00 Influenza due to other identified influenza virus with unspecified type of pneumonia (principal); J96.01 Acute respiratory failure with hypoxia; J18.9 Pneumonia, unspecified organism; M35.3 Polymyalgia rheumatica; T38.0X5A Adverse effect of glucocorticoids and synthetic analogues, initial encounter; E11.21 Type 2 diabetes mellitus with diabetic nephropathy; N18.3 Chronic kidney disease, stage 3 (moderate); E78.5 Hyperlipidemia, unspecified; N40.0 Benign prostatic hyperplasia without lower urinary tract symptoms; I12.9 Hypertensive chronic kidney disease with stage 1 through stage 4 chronic kidney disease, or unspecified chronic kidney disease; M48.061 Spinal stenosis, lumbar region without neurogenic claudication; Z86.711 Personal history of pulmonary embolism; Z98.1 Arthrodesis status; Z79.84 Long term (current) use of oral hypoglycemic drugs; Z88.5 Allergy status to narcotic agent; Z79.52 Long term (current) use of systemic steroids; Y92.019 Unspecified place in single-family (private) house as the place of occurrence of the external cause

== ENCOUNTER 2017-09-17 20:19 | Inpatient (IN) | payer OTHER, MEDICARE ==
[~2017-09-17] VITALS: Ht 180.3 cm; Wt 85.7 kg
[~2017-09-17 20:19] MED LIST changes: -AMOX1TAB42 PO; +CYAN1CAP4 PO; +DOCU-94 PO; +DXY100 PO; +GABA-1220 PO; -GABA1CAP5 PO; -LSN5 PO; -PRD20 PO; +PRED20TA PO; +SENN-65 PO; +TMFUDL30 PO
[2017-09-17] MEDS ORDERED: SODIUM CHLORIDE 0.9% 1000ML 1,000 ML IV STA (20:45)
[2017-09-17] MEDS ORDERED: ONDANSETRON INJ 2 MG/ML 2 ML VIAL IV STA (20:45)
[2017-09-17] MEDS ORDERED: MoRPHine SULFATE 4 MG/ML 1 ML CARP\\VIAL IV PRN (20:45)
[2017-09-17 21:16] LABS: BASO % 0.1 %; BASO ABS # 0.01 K/uL (0-0.2); EOS % 0.1 %; EOS ABS # 0.01 K/uL (0-0.5); HEMATOCRIT 38.1 % (42-52); HEMOGLOBIN 12.4 g/dL (14.0-18.0); IG# 0.12 K/uL (0.00-0.02); LYMPH % 6.9 %; LYMPH ABS # 0.82 K/uL (1.2-3.4); MEAN CELL VOLUME 91.1 fL (80-100); MEAN CORPUSCULAR HEMOGLOBIN 29.7 pg (25-34); MEAN CORPUSCULAR HGB CONC 32.5 g/dl (32-36); MEAN PLATELET VOLUME 9.3 fL (7.4-10.4); MONO % 4.7 %; MONO ABS # 0.56 K/uL (0.11-0.59); NEUT % 87.2 %; NEUT ABS # 10.44 K/uL (1.4-6.5); PLATELET COUNT 168 K/uL (130-400); RED CELL DISTRIBUTION WIDTH CV 14.9 % (11.5-14.5); RED CELL DISTRIBUTION WIDTH SD 49.7 fL (36.4-46.3); WHITE BLOOD COUNT 11.96 K/uL (4.8-10.8)
[2017-09-17 21:32] LABS: PTT PATIENT 27.5 SECONDS (21.0-31.0)
[2017-09-17 21:36] LABS: ALBUMIN 2.9 gm/dl (3.4-5.0); ALT/SGPT 37 U/L (12-78); AST/SGOT 27 U/L (15-37); BLOOD UREA NITROGEN 19 mg/dl (7-18); CALCIUM 9.1 mg/dl (8.5-10.1); CARBON DIOXIDE 26 mmol/L (21-32); CREATININE 1.64 mg/dl (0.60-1.40); GLUCOSE 169 mg/dl (70-99); LIPASE 62 U/L (73-393); POTASSIUM 4.1 mmol/L (3.5-5.1); SODIUM 139 mmol/L (136-145)
[2017-09-17 21:46] LABS: ALKALINE PHOSPHATASE 63 U/L (45-117); TOTAL PROTEIN 6.6 gm/dl (6.4-8.2)
--- NOTE | 2017-09-17 22:00 | DIAGNOSTIC IMAGING REPORT ---
ABDOMEN AND PELVIS CT WITHOUT CONTRAST CT DOSE: 515.67 mGy.cm HISTORY: Acute left lower quadrant abdominal pain LLQ paion TECHNIQUE: Multiaxial CT images of the abdomen and pelvis were performed without contrast. A dose lowering technique was utilized adhering to the principles of ALARA. COMPARISON STUDY: CT abdomen and pelvis 03/13/2017 FINDINGS: Subsegmental groundglass and consolidative opacities about the lung bases, left greater than right. No pneumatosis or pneumoperitoneum. Imaged inferior cardiac chambers are mildly enlarged with trace pericardial effusion. Coronary arterial calcifications also noted. Evaluation of the solid abdominal organs is limited without the use of IV contrast. Severe hepatic steatosis. No intrahepatic biliary ductal dilation. The gallbladder, spleen and adrenal glands are unremarkable. At least moderate generalized pancreatic atrophy. Mild nonspecific bilateral perinephric stranding. Cyst of the inferior pole left kidney measures 4.9 cm. Cortical thinning is noted within the bilateral kidneys. No renal calculi or hydronephrosis. Normal size of the prostate. Extensive calcification of the aorta with mild infrarenal ectasia measuring 2.5 x 2.6 cm. No aneurysm. No bulky adenopathy identified. There is no bowel obstruction identified. Colonic diverticulosis without diverticulitis. Moderate stool volume is noted throughout the colon. The appendix is not definitively seen. No secondary signs to suggest acute appendicitis. No ascites or mesenteric inflammatory changes. Soft tissues are unremarkable. The bones appear mildly demineralized. Prior posterior decompression with posterior interbody dougie and screw fusion at L2-S1 with discectomy changes at L3-L4, L4-L5 and L5-S1. Grade 1 anterolisthesis L5 on S1 appears chronic. IMPRESSION: 1. Suggested constipation without acute intra-abdominal or intrapelvic abnormality identified. 2. Colonic diverticulosis without diverticulitis. 3. Hepatic steatosis. 4. Subsegmental groundglass and patchy consolidative opacities about the bilateral lung bases, left greater than right redemonstrated, possibly reflecting aspiration pneumonitis and/or atelectasis with chronic scarring. 5. Additional findings as above. Electronically signed by: Walter Zuniga M.D. 09/17/2017 9:59 PM Dictated Date/Time: 09/17/2017 9:51 PM
[2017-09-17] MEDS ORDERED: KETOROLAC TROMETHAMINE 30 MG/ML VIAL IV STA (22:07)
--- NOTE | 2017-09-17 22:07 | DIAGNOSTIC IMAGING REPORT ---
CHEST ONE VIEW PORTABLE HISTORY: 87 years-old Male EVALUATE ALTERED MENTAL STATUS/WEAKNESS acute weakness with altered mental status COMPARISON: Chest radiograph 06/07/2017 TECHNIQUE: Portable AP view of the chest FINDINGS: Cardiac silhouette is mildly enlarged, unchanged. Atherosclerosis of the aorta. No pneumothorax or pleural effusion. Left greater than right subsegmental bibasilar opacities appear unchanged. Bones of the chest appear grossly intact with degenerative changes of the shoulders and spine. IMPRESSION: Unchanged subsegmental bibasilar opacities, left greater than right suggest atelectasis or pneumonitis. The above report was generated using voice recognition software. It may contain grammatical, syntax or spelling errors. Electronically signed by: Walter Zuniga M.D. 09/17/2017 10:06 PM Dictated Date/Time: 09/17/2017 10:05 PM
[2017-09-17] MEDS ORDERED: LSN5 PO (22:10)
[2017-09-17] MEDS ORDERED: OPTIRAY 320 IV PRN (23:30)
--- NOTE | 2017-09-17 23:46 | EMERGENCY ROOM VISIT NOTE ---
History Report prepared by Jose: Belinda Cisneros Under the Supervision of: Dr. Jesus Westfall D.O. First contact with patient: 20:39 Chief Complaint: ABDOMINAL PAIN Stated Complaint: SEVERE PAIN IN STOMACH History of Present Illness The patient is an 87 year old male who presents to the Emergency Room with complaints of constant abdominal pain starting this morning. The patient states that he thought the pain would go away, but it did not. He reports that the pain is worse with a deep breath. The patient complains of loss of appetite. The patient's daughter notes that the patient had diarrhea on Saturday and took 2 Imodium for it. She notes that he has not had a bowel movement since. She states that she had the patient to his PCP on Saturday because he was complaining of back pain. The patient denies vomiting, chest pain, shortness of breath, hematochezia, diarrhea with C-Diff smell, abdominal surgeries, cardiac history, use of blood thinners, ever having a colonoscopy, ever having Diverticulitis, ever having this pain before, and seeing anyone for this pain. Source of History: patient Onset: this morning Position: abdomen Timing: constant Modifying Factors (Worsening): breathing (deep) Associated Symptoms: + back pain, No chest pain, No SOB, No vomiting, No hematochezia, No diarrhea Note: The patient complains of loss of appetite and not having a bowel movement in 2 days. The patient denies diarrhea smelling like C-Diff. Review of Systems See HPI for pertinent positives & negatives. A total of 10 systems reviewed and were otherwise negative. Past Medical & Surgical Medical Problems: (1) Aspiration pneumonia (2) Chronic steroid use (3) CKD (chronic kidney disease), stage III (4) Dyslipidemia (5) Hydrocele, right (6) Hypertension (7) Lumbar spinal stenosis (8) Osteoarthritis (9) PMR (polymyalgia rheumatica) (10) Pulmonary embolism Surgical Problems: (1) H/O arthroscopic knee surgery (2) H/O cataract extraction (3) Hx of spinal surgery (4) S/P lumbar fusion Family History FH: heart disease Social History Smoking Status: Former Smoker Marital Status: Housing Status: lives with family Current/Historical Medications Scheduled Amitriptyline HCl (Amitriptyline HCl), 50 MG PO HS Ascorbic Acid (Vitamin C), 500 MG PO DAILY Bee Pollen (Ra Bee Pollen), 500 MG PO UD Cyanocobalamin (B-12), 5,000 MCG PO DAILY Docusate Sodium (Colace), 100 MG PO BID Escitalopram Oxalate (Lexapro), 10 MG PO DAILY Ferrous Sulfate (Kp Ferrous Sulfate), 325 MG PO BID Finasteride (Proscar), 5 MG PO QAM Gabapentin (Neurontin), 800 MG PO TID Lisinopril (Lisinopril), 5 MG PO DAILY Metformin Hcl (Glucophage), 500 MG PO BIDM Omeprazole (Prilosec), 40 MG PO BID Prednisone (Prednisone), 15-20 MG PO DAILY Senna/Docusate Sod (Senokot S), 1 TAB PO DAILY Simvastatin (Zocor), 20 MG PO HS Tamsulosin Hcl (Flomax), 0.4 MG PO BID Scheduled PRN Hydrocodone/Acetaminophen 10MG/325MG ([place] 10MG/325MG), 1 TAB PO Q6 PRN for Pain Allergies Coded Allergies: Oxycodone (Verified Allergy, Mild, ITCHINESS, 06/07/17) Lorazepam (Unverified Adverse Reaction, Severe, agitation, 06/07/17) Physical Exam Vital Signs Date Time Temp Pulse Resp B/P (MAP) Pulse Ox O2 Delivery O2 Flow Rate FiO2 09/17/17 22:27 89 20 137/69 94 Room Air 09/17/17 21:35 92 Room Air 09/17/17 21:35 92 Room Air 09/17/17 20:50 96 09/17/17 20:45 103 09/17/17 20:35 36.8 124 18 120/57 92 Room Air Physical Exam GENERAL: Patient is awake and alert. The patient is very anxious and appears uncomfortable. EYES: The conjunctivae are clear. The pupils are round and reactive. EARS, NOSE, MOUTH AND THROAT: The nose is without any evidence of any deformity. Mucous membranes are moist tongue is midline NECK: The neck is nontender and supple. RESPIRATORY: Normal respiratory effort is noted there is no evidence of wheezing rhonchi or rales CARDIOVASCULAR: Regular rate and rhythm noted there no murmurs rubs or gallops normal S1 normal S2 GASTROINTESTINAL: The abdomen moderately distended with LLQ tenderness to palpation. No guarding or rigidity appreciated. Bowel sounds are present in all quadrants. BACK: No midline tenderness or or step-off noted range of motion in flexion extension as well as rotation no signs of muscle spasm noted MUSCULOSKELETAL/EXTREMITIES: There is no evidence of gross deformity full range of motion is noted in the hips and shoulders SKIN: There is no obvious evidence of any rash. There are no petechiae, pallor or cyanosis noted. Trace pedal edema bilaterally. NEUROLOGIC: Patient is awake alert and oriented x3. Medical Decision & Procedures ER Provider Diagnostic Interpretation: Radiology results as stated below per my review and radiologist interpretation: CHEST ONE VIEW PORTABLE HISTORY: 87 years-old Male EVALUATE ALTERED MENTAL STATUS/WEAKNESS acute weakness with altered mental status COMPARISON: Chest radiograph 06/07/2017 TECHNIQUE: Portable AP view of the chest FINDINGS: Cardiac silhouette is mildly enlarged, unchanged. Atherosclerosis of the aorta. No pneumothorax or pleural effusion. Left greater than right subsegmental bibasilar opacities appear unchanged. Bones of the chest appear grossly intact with degenerative changes of the shoulders and spine. IMPRESSION: Unchanged subsegmental bibasilar opacities, left greater than right suggest atelectasis or pneumonitis. The above report was generated using voice recognition software. It may contain grammatical, syntax or spelling errors. Electronically signed by: Walter Zuniga M.D. 09/17/2017 10:06 PM Dictated Date/Time: 09/17/2017 10:05 PM ABDOMEN AND PELVIS CT WITHOUT CONTRAST CT DOSE: 515.67 mGy.cm HISTORY: Acute left lower quadrant abdominal pain LLQ paion TECHNIQUE: Multiaxial CT images of the abdomen and pelvis were performed without contrast. A dose lowering technique was utilized adhering to the principles of ALARA. COMPARISON STUDY: CT abdomen and pelvis 03/13/2017 FINDINGS: Subsegmental groundglass and consolidative opacities about the lung bases, left greater than right. No pneumatosis or pneumoperitoneum. Imaged inferior cardiac chambers are mildly enlarged with trace pericardial effusion. Coronary arterial calcifications also noted. Evaluation of the solid abdominal organs is limited without the use of IV contrast. Severe hepatic steatosis. No intrahepatic biliary ductal dilation. The gallbladder, spleen and adrenal glands are unremarkable. At least moderate generalized pancreatic atrophy. Mild nonspecific bilateral perinephric stranding. Cyst of the inferior pole left kidney measures 4.9 cm. Cortical thinning is noted within the bilateral kidneys. No renal calculi or hydronephrosis. Normal size of the prostate. Extensive calcification of the aorta with mild infrarenal ectasia measuring 2.5 x 2.6 cm. No aneurysm. No bulky adenopathy identified. There is no bowel obstruction identified. Colonic diverticulosis without diverticulitis. Moderate stool volume is noted throughout the colon. The appendix is not definitively seen. No secondary signs to suggest acute appendicitis. No ascites or mesenteric inflammatory changes. Soft tissues are unremarkable. The bones appear mildly demineralized. Prior posterior decompression with posterior interbody odugie and screw fusion at L2-S1 with discectomy changes at L3-L4, L4-L5 and L5-S1. Grade 1 anterolisthesis L5 on S1 appears chronic. IMPRESSION: 1. Suggested constipation without acute intra-abdominal or intrapelvic abnormality identified. 2. Colonic diverticulosis without diverticulitis. 3. Hepatic steatosis. 4. Subsegmental groundglass and patchy consolidative opacities about the bilateral lung bases, left greater than right redemonstrated, possibly reflecting aspiration pneumonitis and/or atelectasis with chronic scarring. 5. Additional findings as above. Electronically signed by: Walter Zuniga M.D. 09/17/2017 9:59 PM Dictated Date/Time: 09/17/2017 9:51 PM Preliminary Findings Only See Final Report For Complete Findings CTA CHEST: Compared to 11/23/15 PE, most extensive in the left lower lobe, where there is near total occlusion of most of the basilar segments. Multifocal infiltrates and/or parenchymal infarction. Coronary atherosclerosis. Radiologist: Rob Chicas M.D. Study ready at 23:21 and initial results transmitted at 23:45 Clear Time Type Notes 09/17/17 23:38 Call Doctor Regarding Pulmonary Embolism, called Dr. Westfall on 23:38 (-04:00) Laboratory Results 09/17/17 21:04 Red Blood Count 4.18, Mean Corpuscular Volume 91.1, Mean Corpuscular Hemoglobin 29.7, Mean Corpuscular Hemoglobin Concent 32.5, Mean Platelet Volume 9.3, Neutrophils (%) (Auto) 87.2, Lymphocytes (%) (Auto) 6.9, Monocytes (%) (Auto) 4.7, Eosinophils (%) (Auto) 0.1, Basophils (%) (Auto) 0.1, Neutrophils # (Auto) 10.44, Lymphocytes # (Auto) 0.82, Monocytes # (Auto) 0.56, Eosinophils # (Auto) 0.01, Basophils # (Auto) 0.01 09/17/17 21:04 Test 09/17/17 21:04 09/17/17 22:26 White Blood Count 11.96 K/uL (4.8-10.8) Red Blood Count 4.18 M/uL (4.7-6.1) Hemoglobin 12.4 g/dL (14.0-18.0) Hematocrit 38.1 % (42-52) Mean Corpuscular Volume 91.1 fL (80-100) Mean Corpuscular Hemoglobin 29.7 pg (25-34) Mean Corpuscular Hemoglobin Concent 32.5 g/dl (32-36) Platelet Count 168 K/uL (130-400) Mean Platelet Volume 9.3 fL (7.4-10.4) Neutrophils (%) (Auto) 87.2 % Lymphocytes (%) (Auto) 6.9 % Monocytes (%) (Auto) 4.7 % Eosinophils (%) (Auto) 0.1 % Basophils (%) (Auto) 0.1 % Neutrophils # (Auto) 10.44 K/uL (1.4-6.5) Lymphocytes # (Auto) 0.82 K/uL (1.2-3.4) Monocytes # (Auto) 0.56 K/uL (0.11-0.59) Eosinophils # (Auto) 0.01 K/uL (0-0.5) Basophils # (Auto) 0.01 K/uL (0-0.2) RDW Standard Deviation 49.7 fL (36.4-46.3) RDW Coefficient of Variation 14.9 % (11.5-14.5) Immature Granulocyte % (Auto) 1.0 % Immature Granulocyte # (Auto) 0.12 K/uL (0.00-0.02) Prothrombin Time 10.2 SECONDS (9.0-12.0) Prothromb Time International Ratio 1.0 (0.9-1.1) Activated Partial Thromboplast Time 27.5 SECONDS (21.0-31.0) Partial Thromboplastin Ratio 1.1 Anion Gap 8.0 mmol/L (3-11) Est Creatinine Clear Calc Drug Dose 33.8 ml/min Estimated GFR () 42.9 Estimated GFR (Non- 37.0 BUN/Creatinine Ratio 11.6 (10-20) Calcium Level 9.1 mg/dl (8.5-10.1) Magnesium Level 1.9 mg/dl (1.8-2.4) Total Bilirubin 0.5 mg/dl (0.2-1) Direct Bilirubin 0.1 mg/dl (0-0.2) Aspartate Amino Transf (AST/SGOT) 27 U/L (15-37) Alanine Aminotransferase (ALT/SGPT) 37 U/L (12-78) Alkaline Phosphatase 63 U/L (45-117) Troponin I < 0.015 ng/ml (0-0.045) Total Protein 6.6 gm/dl (6.4-8.2) Albumin 2.9 gm/dl (3.4-5.0) Lipase 62 U/L (73-393) Thyroid Stimulating Hormone (TSH) 0.671 uIu/ml (0.300-4.500) Urine Color YELLOW Urine Appearance CLEAR (CLEAR) Urine pH 5.0 (4.5-7.5) Urine Specific [place] 1.014 (1.000-1.030) Urine Protein NEG (NEG) Urine Glucose (UA) NEG (NEG) Urine Ketones NEG (NEG) Urine Occult Blood NEG (NEG) Urine Nitrite NEG (NEG) Urine Bilirubin NEG (NEG) Urine Urobilinogen NEG (NEG) Urine Leukocyte Esterase NEG (NEG) Laboratory results per my review. Medications Administered Medications (Trade) Dose Ordered Sig/Parminder Route Start Time Stop Time Status Last Admin Dose Admin Sodium Chloride 1,000 ml @ 999 mls/hr Q1H1M STAT IV 09/17/17 20:45 09/17/17 21:45 DC 09/17/17 20:45 999 MLS/HR Ketorolac Tromethamine (Toradol Inj) 10 mg NOW STAT IV 09/17/17 22:07 09/17/17 22:09 DC 09/17/17 23:02 10 MG ECG Per My Interpretation Indication: abdominal pain Rate (beats per minute): 95 Rhythm: normal sinus Findings: no ectopy, other (no acute ST segment change) Comparison ECG Date: 06/07/2017 Change: no significant change ED Course 2041: The patient was evaluated in room C7. A complete history and physical examination were performed. 2044: Ordered Zofran Inj 4 mg IV, Morphine Sulfate 4 mg PRN UV pain, NSS 1000 ml @ 999 mls/hr IV. Patient refused Zofran and Morphine. 2206: Ordered Toradol Inj 10 mg IV . 2239: I reevaluated the patient and discussed his test results. We decided due to the patient's past history of PE, we will do a chest CT. 2336: I spoke to radiology about the results of the patient's CT of his chest. 2344: I discussed the patient's case with Dr. Caro Bui. He will choose what anticoagulation to start the patient on. The patient will be evaluated for further management. Medical Decision Differential diagnosis: Etiologies such as appendicitis, diverticulitis, PUD, biliary pathology, UTI, pancreatitis, obstruction, mesenteric ischemia, aortic pathology, infections, inflammatory bowel disease, renal colic, as well as others were entertained. Nursing notes reviewed. Additional history is obtained from the patient's daughter. The patient is an 87-year-old male who presented to the emergency department with left lower quadrant abdominal pain. The patient had reproducible left- sided abdominal pain but also had some pleuritic pain on history. The patient' s CT did not reveal any acute cause for the pain abdomen constipation. I discussed patient's laboratory and radiographic studies with him and his daughter. 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 The CT did reveal signs of acute pulmonary embolism. I discussed the patient's CT report with him and his family. Because of his findings I discussed his case with the on-call [facility] hospitalist. They have agreed to evaluate the patient in the emergency department for further management and disposition. He also asked that I defer anticoagulation choice to the admitting team. I discussed the plan with the patient and his daughter. Medication Reconcilliation Current Medication List: was personally reviewed by me Blood Pressure Screening Patient's blood pressure: Normal blood pressure Will be further monitored by the hospitalist. Consults Time Called: 2339 Consulting Physician: Dr. Caro Bui Returned Call: 2344 I discussed the patient's case with Dr. Caro Bui. He will choose what anticoagulation to start the patient on. The patient will be evaluated for further management. Impression Primary Impression: Pulmonary embolism Additional Impressions: Constipation Left lower quadrant pain Scribe Attestation The scribe's documentation has been prepared under my direction and personally reviewed by me in its entirety. I confirm that the note above accurately reflects all work, treatment, procedures, and medical decision making performed by me. Departure Information Dispostion Being Evaluated By Hospitalist Luis Miguel Khan M.D. (PCP) Patient Instructions My [facility] Problem Qualifiers Primary Impression: Pulmonary embolism Pulmonary embolism type: other Chronicity: acute Acute cor pulmonale presence: without acute cor pulmonale Qualified Codes: I26.99 - Other pulmonary embolism without acute cor pulmonale Additional Impressions: Constipation Constipation type: unspecified constipation type Qualified Codes: K59.00 - Constipation, unspecified
[2017-09-18] VITALS (9 sets, daily range): BP systolic 128–183; BP diastolic 67–81; PULSE 72–83; TEMP 35.7–36.5; O2SAT 93–97; Ht 180.3 cm; Wt 85.7 kg
[2017-09-18] MEDS ORDERED: HEPARIN 25000 UNIT/500 ML D5W ONE (01:10)
[2017-09-18] MEDS ORDERED: INSULIN GLARGINE SOLOSTAR 100 UNITS/ML 3 ML PEN SC ONE (02:23)
[2017-09-18] MEDS ORDERED: LISINOPRIL 5 MG TAB PO ONE (02:23)
[2017-09-18] MEDS ORDERED: INSULIN ASPART 100 UNITS/ML 3 ML PEN SC ONE (02:23)
[2017-09-18] MEDS ORDERED: DOCUSATE SODIUM/SENNA 50/8.6MG TAB PO ONE (02:23)
[2017-09-18] MEDS ORDERED: POLYETHYLENE (MIRALAX) 17 GM PACK PO ONE (02:23)
[2017-09-18] MEDS ORDERED: DEXTROSE 50% 50 ML SYR IV PRN (02:30)
[2017-09-18] MEDS ORDERED: POLYETHYLENE (MIRALAX) 17 GM PACK PO PRN (02:30)
[2017-09-18] MEDS ORDERED: GLUCOSE 40% GEL 15 GM TUBE PO PRN (02:30)
[2017-09-18] MEDS ORDERED: PROCHLORPERAZINE INJ 5 MG in SYRINGE 4 ML IV PRN (02:30)
[2017-09-18] MEDS ORDERED: GLUCAGON FOR INJ 1 MG VIAL SQ PRN (02:30)
[2017-09-18] MEDS ORDERED: CARBOHYDRATES FOR HYPOGLYCEMIA PO PRN (02:30)
[2017-09-18] MEDS ORDERED: HYDROmorphone INJ 0.5 MG/0.5 ML SYR IV PRN (02:30)
[2017-09-18] MEDS ORDERED: NITROGLYCERIN 0.4 MG SL PER TAB CHARGE SL PRN (02:30)
[2017-09-18] MEDS ORDERED: GLUCOSE 10 TABS/TUBE PO PRN (02:30)
[2017-09-18] MEDS ORDERED: HYDROCODONE/ACETAMI 10/325 TAB PO PRN (02:30)
[2017-09-18] MEDS ORDERED: ACETAMINOPHEN 325 MG TAB PO PRN (02:30)
[2017-09-18] MEDS: HEPARIN 25,000 UNIT/500ML D5W 500 ML IV SCH ×2 (03:21→19:37)
[2017-09-18] MEDS ORDERED: SODIUM CHLORIDE 0.9% 1000ML 1,000 ML IV ONE (03:30)
[2017-09-18] MEDS: INSULIN ASPART 100 UNITS/ML 3 ML PEN SC SCH ×4 (07:00→20:48)
[2017-09-18 07:25] LABS: BASO % 0.1 %; BASO ABS # 0.01 K/uL (0-0.2); HEMATOCRIT 35.7 % (42-52); HEMOGLOBIN 11.7 g/dL (14.0-18.0); IG# 0.06 K/uL (0.00-0.02); LYMPH % 9.5 %; MEAN CELL VOLUME 90.8 fL (80-100); MEAN CORPUSCULAR HEMOGLOBIN 29.8 pg (25-34); MEAN CORPUSCULAR HGB CONC 32.8 g/dl (32-36); MEAN PLATELET VOLUME 9.2 fL (7.4-10.4); MONO % 5.6 %; MONO ABS # 0.53 K/uL (0.11-0.59); NEUT % 84.2 %; NEUT ABS # 7.94 K/uL (1.4-6.5); PLATELET COUNT 165 K/uL (130-400); RED CELL DISTRIBUTION WIDTH CV 14.6 % (11.5-14.5); RED CELL DISTRIBUTION WIDTH SD 48.5 fL (36.4-46.3); WHITE BLOOD COUNT 9.44 K/uL (4.8-10.8)
--- NOTE | 2017-09-18 07:32 | DIAGNOSTIC IMAGING REPORT ---
CT ANGIOGRAM OF THE CHEST CLINICAL HISTORY: Atypical chest pain. COMPARISON STUDY: Chest x-ray dated 09/17/2017. Chest CT dated 11/23/2015. TECHNIQUE: Following the IV administration of 99 cc of Optiray 320, CT angiogram of the chest was performed from the upper abdomen to the thoracic inlet utilizing the pulmonary embolus protocol. Images are reviewed in the axial, sagittal, and coronal planes. 3-D MIPS images are created and assessed. IV contrast was administered without complication. A dose lowering technique was utilized adhering to the principles of ALARA. CT DOSE: 815.35 mGy.cm FINDINGS: Thyroid: Imaged portions of the thyroid gland are normal in size and attenuation. Thoracic aorta: There is atherosclerotic calcification of the thoracic aorta, which is normal in caliber and demonstrates standard 3-vessel arch anatomy. No dissection is seen. Pulmonary vasculature: The pulmonary trunk is normal in caliber. There is pulmonary embolus identified within the distal left main pulmonary artery. Thrombus fills the left lower lobar pulmonary artery and extends into segmental and subsegmental branches. There is pulmonary embolus within the left lower lobar pulmonary artery which extends into segmental and subsegmental branches. There is also trace thrombus within the right middle lobe pulmonary artery. Heart: The heart is enlarged and without pericardial effusion. The coronary arteries are densely calcified. Lungs and pleural spaces: Evaluation of the lung parenchyma is modestly degraded by motion artifact. There are trace pleural effusions. Emphysematous change is noted. Consolidative changes identified at both lung bases, left greater than right. A 10 mm nodule is identified in the right middle lobe along the minor fissure seen on image #141. There is an enlarging irregular right apical opacity seen on image #248 which measures 2.2 x 2.1 cm. A 7 mm irregular nodule containing a calcification is seen in the right upper lobe on image #217. Mediastinum: There is no mediastinal lymphadenopathy. Iman: Clear. Axillae: There is no axillary lymphadenopathy. Upper abdomen: There is evidence of hepatic steatosis. The visualized pancreas is atrophic. A tiny hiatal hernia is identified. Skeletal structures: The skeletal structures are osteopenic. Degenerative change, DISH, and hyperkyphosis are noted in the thoracic spine. No lytic or blastic bony lesions are seen. IMPRESSION: 1. Bilateral pulmonary emboli as above. 2. Cardiomegaly and emphysema. 3. Consolidative change is seen at both lung bases, left greater than right. This likely represents developing infarcts secondary to extensive lower lobe pulmonary emboli. Correlate clinically for evidence of a superimposed infectious/inflammatory pneumonitis. 4. There is an enlarging and increasingly confluent 2.2 cm irregular density at the right apex. Although pathologically indeterminant this is highly concerning for pulmonary neoplasm. Thoracic surgical follow-up is recommended. 5. Additional lesions in the right upper and right middle lobes are seen as above. These are similar to the seventh 2016 examination. 6. Trace pleural effusions. 7. Hepatic steatosis. 8. Additional findings as above. Electronically signed by: Wilfredo Bueno M.D. 09/18/2017 7:31 AM Dictated Date/Time: 09/18/2017 7:22 AM
[2017-09-18 07:41] LABS: PTT PATIENT 59.9 SECONDS (21.0-31.0)
[2017-09-18 07:54] LABS: CALCIUM 8.3 mg/dl (8.5-10.1); CREATININE 1.55 mg/dl (0.60-1.40)
--- NOTE | 2017-09-18 07:57 | HISTORY & PHYSICAL EXAMINATION ---
DATE OF ADMISSION: 09/18/2017 PRIMARY CARE DOCTOR: Dr. Liriano CHIEF COMPLAINT: Abdominal pain. HISTORY OF PRESENT ILLNESS: History obtained from the patient, daughter, and records. Limited history from patient secondary to hearing impairment. Medical history is significant for hypertension, PMR on chronic steroid therapy, steroid-induced diabetes, BPH, history of postop PE sp Coumadin. Mood disorder, chronic renal insufficiency (baseline creatinine 1.6), chronic anemia (baseline hemoglobin of 12), past tobacco abuse. known aspiration risk. Patient admitted November, for acute PE attributed to back surgery. Patient completed Coumadin course for 6 months. Recent confinement in last June 2017 for hypoxemia secondary to flu. The last few days, the patient noted achy lower abdominal pain going to the low back, worse with motion, nonradiating. Patient was seen at PCP's office a few days ago. Outpatient back x-rays recommended. Patient noted to be more constipated in the last few days. No chest pain, no shortness of breath. No unusual cough symptoms. No fever no chills. Brought to the Emergency Room. MEDICAL HISTORY: As above. Refused colonoscopies in the past. SURGERIES: Knee surgery, back surgery, cataract surgery. HOME MEDICATIONS: Include Prilosec, prednisone, Senokot, Zocor, Flomax, ferrous sulfate, Proscar, Neurontin, Vicodin, lisinopril, Glucophage, amitriptyline, vitamin C, Colace, Lexapro. ALLERGIES: ALLERGIC TO LORAZEPAM, OXYCODONE. FAMILY HISTORY: There is no family history of blood clots as per the patient's knowledge. Family history of heart disease, breast cancer, brain cancer. PERSONAL AND SOCIAL HISTORY: Past tobacco abuse. No chronic intake of alcoholic beverages. 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 REVIEW OF SYSTEMS: As per HPI. Occasional dark stools. All 10 systems reviewed, all other ROS negative. PHYSICAL EXAMINATION: VITAL SIGNS: Blood pressure was noted to be 163/78, pulse rate 88, RR 16, temperature 36.3, sats 98 on room air. GENERAL: Noted to be cushingoid. Dysphonic SKIN: Flushed skin. warm HEENT: Alopecia. pale palpebral conjuctivae. No ptosis. Dry mucosa. NECK: Short neck, supple. CHEST: Decreased effort. No tenderness. HEART: RRR, No murmur. ABDOMEN: Some distention. Minimal hypogastric tenderness. RECTAL EXAMINATION: Intact sphincter, yellow stool, heme negative. EXTREMITIES: No LE edema, no tenderness. No gross deformities. NEUROLOGIC EXAMINATION: Coherent. No facial asymmetry. Dysphonia. Gait and stance not assessed. LABORATORIES: Hemoglobin was noted to be 12.4, hematocrit 34, white blood cell count 11.6, platelets 168. Sodium 138, potassium 3.5, chloride 104, CO2 26, BUN 90, creatinine 1.46, glucose 169. Chest x-ray, atelectasis versus pneumonitis. CT abdomen and pelvis showed constipation, diverticulosis, hepatic steatosis. CTA initial read, PE most extensive in left lower lobe, hepatic steatosis. ASSESSMENT AND PLAN: 1. Recurrent pulmonary embolism possible hypercoagulable state. 2. Hypertension, slightly elevated. 3. PMR on chronic steroid Rx p 4. past tobacco abuse. 5. Chronic kidney disease. Kidney function at baseline 6. chronic anemia secondary to chronic kidney disease, hemoglobin at baseline. 7. Steroid-induced DM, well-controlled as of recent outpatient HgA1c of 6.9 last June 2017. 8. Constipation. PCU hypercoagulable workup. IV heparin for now. Defer discussion regarding oral agent for long-term anticoagulation between patient's family and AM provider ISS BG goal of 140, may need basal insulin to attain goal. Bowel regimen DVT prophylaxis, Heparin. DNR. Patient's daughter requesting updates from provider. Ms. Macy Chowdhury thru [phone]. MTDD
[2017-09-18] MEDS: GABAPENTIN 400 MG CAP PO SCH ×3 (08:15→20:44)
[2017-09-18] MEDS: PANTOprazole SOD 40 MG TAB PO SCH ×2 (08:15→20:43)
[2017-09-18] MEDS: TAMSULOSIN HCL 0.4 MG CAP PO SCH ×2 (08:16→20:44)
[2017-09-18] MEDS: FINASTERIDE 5 MG TAB PO SCH (08:16)
[2017-09-18] MEDS: ESCITALOPRAM OXALATE 10 MG TAB PO SCH (08:16)
[2017-09-18] MEDS: FERROUS SULFATE 325 MG TAB PO SCH ×2 (08:17→20:46)
--- NOTE | 2017-09-18 08:17 | DIAGNOSTIC IMAGING REPORT ---
ULTRASOUND VENOUS DOPPLER LWR EXT BILA CLINICAL HISTORY: Pulmonary embolism COMPARISON STUDY: 11/23/2015 FINDINGS: On the right, there is a greater saphenous vein thrombus with extension into the common femoral vein. No thrombus is visualized in the right superficial femoral vein popliteal vein or proximal trifurcation veins of the right calf. There are multiple right leg thrombosed superficial varicosities. On the left, no DVT was visualized. IMPRESSION: 1. Acute right lower extremity DVT. There is thrombus within the greater saphenous vein which extends into the common femoral vein. 2. No evidence of left lower extremity DVT Electronically signed by: Liam Hernández M.D. 09/18/2017 8:16 AM Dictated Date/Time: 09/18/2017 8:14 AM
--- NOTE | 2017-09-18 14:56 | SURGICAL CONSULTATION ---
DATE OF CONSULTATION: 09/18/2017 REASON FOR CONSULTATION: Right lung nodules. HISTORY OF PRESENT ILLNESS: This is a remarkably active 87-year-old male who presents with left-sided lower abdominal pain starting yesterday morning. Interestingly enough a few years ago, he had back surgery and then developed a pulmonary embolism, and these were his exact complaints. It did have a respiratory component to it. At any rate, he came in and got a CTA of the chest, was found to have an acute pulmonary embolus. He also had a left lower extremity deep vein thrombosis. I was asked to see him as a CT scan had shown some lung masses in the right, particularly in the right upper lobe. I was asked to evaluate him from the thoracic surgery standpoint. The patient really has no hemoptysis or productive cough. He is slowing down at age 87 of course but has had no acute decompensation. I have been asked to evaluate him from thoracic surgery standpoint. PAST MEDICAL HISTORY: 1. History of aspiration pneumonia. 2. Chronic renal insufficiency. 3. Hyperlipidemia. 4. Hypertension. 5. Spinal stenosis, lumbosacral area. 6. History of pulmonary embolism in the past. 7. Polymyalgia rheumatica. 8. Remote history of cigarette smoking. PAST SURGICAL HISTORY: 1. Lumbar fusion. 2. Cataract extraction. 3. Arthroscopic knee surgery. HOME MEDICATIONS: 1. Flomax. 2. Amitriptyline. 3. Colace. 4. Lexapro. 5. Zocor. 6. Ferrous sulfate. 7. Senokot. 8. Proscar. 9. Lisinopril. 10. Neurontin 800 mg t.i.d. 11. Glucophage. 12. Prilosec. 13. Prednisone. ALLERGIES: 1. OXYCODONE CAUSES ITCHINESS. 2. LORAZEPAM CAUSES SEVERE AGITATION. SOCIAL HISTORY: The patient lives with his daughter and his . The patient and his have been for 69 years. He smoked in the distant past. He was in the [employer] for 4 years. 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 He lives at home with his daughter and his . He actually lives with his daughter in a [place] [address] [place] and has good support system with his granddaughter and all of her children nearby. REVIEW OF SYSTEMS: The patient has actually been doing fairly well. He does not smoke. He does not drink. His daughter states that he does get around well for an 87-year-old. In fact, he was riding lawnmower and cutting the lawn, which was rather sizeable at their house last week. He has had no fever, no chills. He denies productive cough or dyspnea. He denies any GI or problems even though he has been on Proscar and Flomax. He has had no visual or auditory changes. He has no skin breakdown. He denies palpitations or chest pain other than that described in the history of present illness. PHYSICAL EXAMINATION: GENERAL: This is a 5 feet 11 inches and 186 pounds white male who is awake, alert, oriented, sitting up in a chair. He wears glasses. HEENT: His extraocular movements are small but intact. He has bilateral arcus senilis. His pupils are anicteric. His tongue is midline. He has no carotid bruits, neck vein distention, lymphadenopathy, or thyromegaly. LUNGS: He has decreased breath sounds in his lungs, but he is moving air well. CARDIOVASCULAR: He has a regular rate and rhythm of his heart. GASTROINTESTINAL: His abdomen is a bit protuberant, soft, and nontender. MUSCULOSKELETAL: He has very thin lower extremities with no joint effusions, no peripheral edema. He has faintly palpable posterior tibialis pulses. NEUROLOGICAL: He is awake, alert, and oriented. He has no focal deficits. ASSESSMENT AND PLAN: 1. Acute pulmonary emboli. 2. Right lung masses. IMAGING: I reviewed his CT scan which was performed on 09/17/2017 and compared it to one done in November 2015. There is a right upper lobe mass, and it is suspicious in nature; however, it has not grown much. There has been very little change in the last 22 months although it is a bit larger. There is a 10 mm nodule along the minor fissure in the middle lobe and that really has not changed much either. I detect no adenopathy. I had a long talk with the patient and his daughter at the bedside. I did let him get over his current reason for admission, and I will see him in the office. My feeling is we would probably continue to watch this, but I would like to see how he does.
[2017-09-18] MEDS ORDERED: WARFARIN SOD 5 MG TAB PO ONE (17:15)
--- NOTE | 2017-09-18 18:56 | Progress Note ---
Internal Med Progress Note Date of Service: September 18, 2017. Provider Documentation: SUBJECTIVE: resting comfortably afebrile denies chest pain or abdominal pain no sob no cough daughter in room and says patient is very active and actually came to [facility] for lower abdominal pain and found to have PE OBJECTIVE: Vital Signs-as noted below Exam: General-alert and oriented. Not in distress ENT-Normal hearing Neck-no neck masses Lungs-cta b/l no wheezing no crackles Heart-s1 and s2 heard regular rate and rhythm no murmurs Abdomen-soft bowel sounds present non tender, no distension Extremities-no edema no erythema Neuro-alert and awake 'moves extremities Lab data as noted below. ASSESSMENT & PLAN: 1. Recurrent pulmonary embolism Acute DVT on presentation Hx of PE after surgery this time unprovoked hypercoagulable workup on iv heparin started on Coumadin f/u with pcp and possibly heme/onco 2. Hypertension, on lisinopril. Will monitor. 3. PMR on chronic steroid Rx p 4. past tobacco abuse. 5. Chronic kidney disease stage 3. Cr 1.5 at baseline . 6. chronic anemia secondary to chronic kidney disease, hemoglobin at baseline. 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 Will monitor. 8. Constipation.stool softners 9. Sleep apnea Daughter thinks patient may have sleep apnea as he has apneic episodes during sleep.. Will do nocturnal pulse ox study DVT PROPHYLAXIS iv heparin DISPOSITION to be determined Vital Signs: Date Time Temp Pulse Resp B/P (MAP) Pulse Ox O2 Delivery O2 Flow Rate FiO2 09/18/17 16:03 96 Room Air 09/18/17 15:01 36.3 72 16 183/81 (115) 96 Room Air 09/18/17 12:00 Room Air 09/18/17 11:42 36.3 73 16 152/67 (95) 97 Room Air 09/18/17 08:00 Room Air 09/18/17 07:19 35.7 75 18 173/77 (109) 96 Room Air 09/18/17 05:07 Room Air 09/18/17 03:45 36.4 72 18 170/78 (108) 97 Room Air 09/18/17 01:45 36.3 79 20 159/72 95 Room Air 09/18/17 01:33 77 16 185/86 97 Room Air 09/18/17 00:20 80 16 163/75 95 Room Air 09/17/17 22:27 89 20 137/69 94 Room Air 09/17/17 21:35 92 Room Air 09/17/17 21:35 92 Room Air 09/17/17 20:50 96 09/17/17 20:45 103 09/17/17 20:35 36.8 124 18 120/57 92 Room Air Lab Results: Results Past 24 Hours Test 09/17/17 21:04 09/17/17 22:26 09/18/17 00:39 09/18/17 03:09 Range/Units White Blood Count 11.96 4.8-10.8 K/uL Red Blood Count 4.18 4.7-6.1 M/uL Hemoglobin 12.4 14.0-18.0 g/dL Hematocrit 38.1 42-52 % Mean Corpuscular Volume 91.1 80-100 fL Mean Corpuscular Hemoglobin 29.7 25-34 pg Mean Corpuscular Hemoglobin Concent 32.5 32-36 g/dl Platelet Count 168 130-400 K/uL Mean Platelet Volume 9.3 7.4-10.4 fL Neutrophils (%) (Auto) 87.2 % Lymphocytes (%) (Auto) 6.9 % Monocytes (%) (Auto) 4.7 % Eosinophils (%) (Auto) 0.1 % Basophils (%) (Auto) 0.1 % Neutrophils # (Auto) 10.44 1.4-6.5 K/uL Lymphocytes # (Auto) 0.82 1.2-3.4 K/uL Monocytes # (Auto) 0.56 0.11-0.59 K/uL Eosinophils # (Auto) 0.01 0-0.5 K/uL Basophils # (Auto) 0.01 0-0.2 K/uL RDW Standard Deviation 49.7 36.4-46.3 fL RDW Coefficient of Variation 14.9 11.5-14.5 % Immature Granulocyte % (Auto) 1.0 % Immature Granulocyte # (Auto) 0.12 0.00-0.02 K/uL Prothrombin Time 10.2 9.0-12.0 SECONDS Prothromb Time International Ratio 1.0 0.9-1.1 Activated Partial Thromboplast Time 27.5 21.0-31.0 SECONDS Partial Thromboplastin Ratio 1.1 Sodium Level 139 136-145 mmol/L Potassium Level 4.1 3.5-5.1 mmol/L Chloride Level 104 98-107 mmol/L Carbon Dioxide Level 26 21-32 mmol/L Anion Gap 8.0 3-11 mmol/L Blood Urea Nitrogen 19 7-18 mg/dl Creatinine 1.64 0.60-1.40 mg/dl Est Creatinine Clear Calc Drug Dose 33.8 ml/min Estimated GFR () 42.9 Estimated GFR (Non- 37.0 BUN/Creatinine Ratio 11.6 10-20 Random Glucose 169 70-99 mg/dl Calcium Level 9.1 8.5-10.1 mg/dl Magnesium Level 1.9 1.8-2.4 mg/dl Total Bilirubin 0.5 0.2-1 mg/dl Direct Bilirubin 0.1 0-0.2 mg/dl Aspartate Amino Transf (AST/SGOT) 27 15-37 U/L Alanine Aminotransferase (ALT/SGPT) 37 12-78 U/L Alkaline Phosphatase 63 45-117 U/L Total Creatine Kinase 121 39-308 U/L Troponin I < 0.015 0-0.045 ng/ml Total Protein 6.6 6.4-8.2 gm/dl Albumin 2.9 3.4-5.0 gm/dl Lipase 62 73-393 U/L Thyroid Stimulating Hormone (TSH) 0.671 0.300-4.500 uIu/ml Urine Color YELLOW Urine Appearance CLEAR CLEAR Urine pH 5.0 4.5-7.5 Urine Specific Happy 1.014 1.000-1.030 Urine Protein NEG NEG Urine Glucose (UA) NEG NEG Urine Ketones NEG NEG Urine Occult Blood NEG NEG Urine Nitrite NEG NEG Urine Bilirubin NEG NEG Urine Urobilinogen NEG NEG Urine Leukocyte Esterase NEG NEG Bedside Glucose 194 70-99 mg/dl Test 09/18/17 07:15 09/18/17 07:24 09/18/17 11:22 09/18/17 17:34 Range/Units White Blood Count 9.44 4.8-10.8 K/uL Red Blood Count 3.93 4.7-6.1 M/uL Hemoglobin 11.7 14.0-18.0 g/dL Hematocrit 35.7 42-52 % Mean Corpuscular Volume 90.8 80-100 fL Mean Corpuscular Hemoglobin 29.8 25-34 pg Mean Corpuscular Hemoglobin Concent 32.8 32-36 g/dl Platelet Count 165 130-400 K/uL Mean Platelet Volume 9.2 7.4-10.4 fL Neutrophils (%) (Auto) 84.2 % Lymphocytes (%) (Auto) 9.5 % Monocytes (%) (Auto) 5.6 % Eosinophils (%) (Auto) 0.0 % Basophils (%) (Auto) 0.1 % Neutrophils # (Auto) 7.94 1.4-6.5 K/uL Lymphocytes # (Auto) 0.90 1.2-3.4 K/uL Monocytes # (Auto) 0.53 0.11-0.59 K/uL Eosinophils # (Auto) 0.00 0-0.5 K/uL Basophils # (Auto) 0.01 0-0.2 K/uL RDW Standard Deviation 48.5 36.4-46.3 fL RDW Coefficient of Variation 14.6 11.5-14.5 % Immature Granulocyte % (Auto) 0.6 % Immature Granulocyte # (Auto) 0.06 0.00-0.02 K/uL Activated Partial Thromboplast Time 59.9 21.0-31.0 SECONDS Partial Thromboplastin Ratio 2.3 Sodium Level 139 136-145 mmol/L Potassium Level 4.0 3.5-5.1 mmol/L Chloride Level 106 98-107 mmol/L Carbon Dioxide Level 27 21-32 mmol/L Anion Gap 6.0 3-11 mmol/L Blood Urea Nitrogen 19 7-18 mg/dl Creatinine 1.55 0.60-1.40 mg/dl Est Creatinine Clear Calc Drug Dose 35.7 ml/min Estimated GFR () 46.0 Estimated GFR (Non- 39.7 BUN/Creatinine Ratio 12.3 10-20 Random Glucose 141 70-99 mg/dl Calcium Level 8.3 8.5-10.1 mg/dl Bedside Glucose 137 144 189 70-99 mg/dl
[2017-09-18] MEDS: SIMVASTATIN 20 MG TAB PO SCH (20:46)
[2017-09-18] MEDS: DOCUSATE SODIUM/SENNA 50/8.6MG TAB PO SCH (20:46)
[2017-09-18] MEDS: AMITRIPTYLINE HCL 50 MG TAB PO SCH (20:47)
[2017-09-19] VITALS (9 sets, daily range): BP systolic 131–199; BP diastolic 53–82; PULSE 72–93; TEMP 36.3–36.9; O2SAT 93–98
[2017-09-19] MEDS: INSULIN ASPART 100 UNITS/ML 3 ML PEN SC SCH ×4 (06:30→20:26)
[2017-09-19 06:59] LABS: BASO % 0.1 %; BASO ABS # 0.01 K/uL (0-0.2); EOS % 0.5 %; EOS ABS # 0.04 K/uL (0-0.5); HEMATOCRIT 38.3 % (42-52); HEMOGLOBIN 12.6 g/dL (14.0-18.0); IG# 0.07 K/uL (0.00-0.02); LYMPH % 15.4 %; LYMPH ABS # 1.17 K/uL (1.2-3.4); MEAN CORPUSCULAR HEMOGLOBIN 29.9 pg (25-34); MEAN CORPUSCULAR HGB CONC 32.9 g/dl (32-36); MEAN PLATELET VOLUME 10.2 fL (7.4-10.4); MONO % 5.5 %; MONO ABS # 0.42 K/uL (0.11-0.59); NEUT % 77.6 %; NEUT ABS # 5.89 K/uL (1.4-6.5); PLATELET COUNT 169 K/uL (130-400); RED CELL DISTRIBUTION WIDTH CV 14.6 % (11.5-14.5); RED CELL DISTRIBUTION WIDTH SD 48.7 fL (36.4-46.3)
[2017-09-19 07:22] LABS: PTT PATIENT 76.9 SECONDS (21.0-31.0)
[2017-09-19] MEDS: HEPARIN 25,000 UNIT/500ML D5W 500 ML IV SCH ×2 (07:27→14:24)
[2017-09-19 07:28] LABS: CALCIUM 8.8 mg/dl (8.5-10.1); CREATININE 1.49 mg/dl (0.60-1.40); POTASSIUM 3.9 mmol/L (3.5-5.1)
[2017-09-19] MEDS: INSULIN GLARGINE SOLOSTAR 100 UNITS/ML 3 ML PEN SC SCH (08:10)
[2017-09-19] MEDS: LISINOPRIL 5 MG TAB PO SCH (08:12)
[2017-09-19] MEDS: FINASTERIDE 5 MG TAB PO SCH (08:13)
[2017-09-19] MEDS: ESCITALOPRAM OXALATE 10 MG TAB PO SCH (08:13)
[2017-09-19] MEDS: GABAPENTIN 400 MG CAP PO SCH ×3 (08:13→20:49)
[2017-09-19] MEDS: TAMSULOSIN HCL 0.4 MG CAP PO SCH ×2 (08:13→20:49)
[2017-09-19] MEDS: DOCUSATE SODIUM/SENNA 50/8.6MG TAB PO SCH ×2 (08:13→20:50)
[2017-09-19] MEDS: PANTOprazole SOD 40 MG TAB PO SCH ×2 (08:13→20:50)
[2017-09-19] MEDS: FERROUS SULFATE 325 MG TAB PO SCH ×2 (08:13→20:48)
--- NOTE | 2017-09-19 09:40 | SURGERY PROGRESS NOTE ---
DATE: 09/19/2017 Mr. Kan is seen today on 09/19/2017. He looks fine. He has no complaints. He has just finished his breakfast. He is on room air with 95% saturations. He did have an overnight pulse oximetry performed last night. He does have some episodes of desaturation. From my standpoint, we are going to let him recover from his acute pulmonary embolism. I will see him back in the office in a month or so. I will have a long discussion with the patient's daughter prior to determining whether we would consider offering him anything. My feeling is this has grown so slowly, and he is going to be 88 this year, and this tempers is my enthusiasm for being aggressive. We will see how he looks in the office in a month.
[2017-09-19 14:02] LABS: PTT PATIENT 56.2 SECONDS (21.0-31.0)
[2017-09-19] MEDS ORDERED: WARFARIN SOD 5 MG TAB PO SCH (16:00)
[2017-09-19] MEDS: CLONIDINE HCL 0.1 MG TAB PO PRN ×2 (16:05→23:11)
--- NOTE | 2017-09-19 17:51 | Progress Note ---
Internal Med Progress Note Date of Service: September 19, 2017. Provider Documentation: SUBJECTIVE: resting comfortably on the bed afebrile denies any chest pain or sob no nausea eating ok denies any complaints OBJECTIVE: Vital Signs-as noted below Exam: General-alert and oriented. Not in distress ENT-Normal hearing Neck-no neck masses Lungs-cta b/l no wheezing no crackles Heart-s1 and s2 heard regular rate and rhythm no murmurs Abdomen-soft bowel sounds present non tender, no distension Extremities-no edema no erythema Neuro-alert and awake 'moves extremities Lab data as noted below. ASSESSMENT & PLAN: 1. Recurrent pulmonary embolism Acute DVT on presentation Hx of PE after surgery this time unprovoked f/u hypercoagulable workup on iv heparin started on Coumadin f/u with pcp and possibly heme/onco monitor inr 2. Hypertension, on lisinopril. Will monitor. 3. PMR on chronic steroid Rx p 4. past tobacco abuse. 5. Chronic kidney disease stage 3. Cr 1.5 at baseline . cr 1.4 today 6. chronic anemia secondary to chronic kidney disease, hemoglobin at baseline.hb 12.6 today. 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 Will monitor. 8. Constipation.stool softeners 9. Sleep apnea Daughter thinks patient may have sleep apnea as he has apneic episodes during sleep..Nocturnal pulse ox study ok 10. Lung mass. appreciate Ct surgery inputs DVT PROPHYLAXIS iv heparin and Coumadin DISPOSITION to be determined pt/ot Vital Signs: Date Time Temp Pulse Resp B/P (MAP) Pulse Ox O2 Delivery O2 Flow Rate FiO2 09/19/17 16:00 Room Air 09/19/17 15:55 36.9 73 18 168/73 (104) 96 Room Air 09/19/17 12:00 Room Air 09/19/17 11:14 36.5 85 16 160/53 (88) 97 Room Air 09/19/17 09:23 168/72 (104) 09/19/17 08:00 Room Air 09/19/17 07:10 36.3 74 18 189/80 (116) 95 Room Air 09/19/17 05:25 199/82 (121) 09/19/17 05:20 36.3 93 16 186/78 (114) 93 Room Air 09/19/17 04:00 Room Air 09/19/17 00:00 Room Air 09/18/17 23:59 36.5 75 18 155/69 (97) 95 Room Air 09/18/17 21:55 Room Air 09/18/17 20:27 36.5 77 20 137/67 (90) 93 Room Air 09/18/17 20:00 Room Air Lab Results: Results Past 24 Hours Test 09/18/17 20:44 09/19/17 06:17 09/19/17 07:34 09/19/17 11:22 Range/Units Bedside Glucose 138 119 208 70-99 mg/dl White Blood Count 7.60 4.8-10.8 K/uL Red Blood Count 4.21 4.7-6.1 M/uL Hemoglobin 12.6 14.0-18.0 g/dL Hematocrit 38.3 42-52 % Mean Corpuscular Volume 91.0 80-100 fL Mean Corpuscular Hemoglobin 29.9 25-34 pg Mean Corpuscular Hemoglobin Concent 32.9 32-36 g/dl Platelet Count 169 130-400 K/uL Mean Platelet Volume 10.2 7.4-10.4 fL Neutrophils (%) (Auto) 77.6 % Lymphocytes (%) (Auto) 15.4 % Monocytes (%) (Auto) 5.5 % Eosinophils (%) (Auto) 0.5 % Basophils (%) (Auto) 0.1 % Neutrophils # (Auto) 5.89 1.4-6.5 K/uL Lymphocytes # (Auto) 1.17 1.2-3.4 K/uL Monocytes # (Auto) 0.42 0.11-0.59 K/uL Eosinophils # (Auto) 0.04 0-0.5 K/uL Basophils # (Auto) 0.01 0-0.2 K/uL RDW Standard Deviation 48.7 36.4-46.3 fL RDW Coefficient of Variation 14.6 11.5-14.5 % Immature Granulocyte % (Auto) 0.9 % Immature Granulocyte # (Auto) 0.07 0.00-0.02 K/uL Prothrombin Time 10.2 9.0-12.0 SECONDS Prothromb Time International Ratio 1.0 0.9-1.1 Activated Partial Thromboplast Time 76.9 21.0-31.0 SECONDS Partial Thromboplastin Ratio 3.0 Sodium Level 143 136-145 mmol/L Potassium Level 3.9 3.5-5.1 mmol/L Chloride Level 110 98-107 mmol/L Carbon Dioxide Level 27 21-32 mmol/L Anion Gap 6.0 3-11 mmol/L Blood Urea Nitrogen 17 7-18 mg/dl Creatinine 1.49 0.60-1.40 mg/dl Est Creatinine Clear Calc Drug Dose 37.2 ml/min Estimated GFR () 48.2 Estimated GFR (Non- 41.6 BUN/Creatinine Ratio 11.1 10-20 Random Glucose 134 70-99 mg/dl Calcium Level 8.8 8.5-10.1 mg/dl Test 09/19/17 13:40 09/19/17 16:14 Range/Units Activated Partial Thromboplast Time 56.2 21.0-31.0 SECONDS Partial Thromboplastin Ratio 2.2 Bedside Glucose 134 70-99 mg/dl
[2017-09-19] MEDS: AMITRIPTYLINE HCL 50 MG TAB PO SCH (20:49)
[2017-09-19] MEDS: SIMVASTATIN 20 MG TAB PO SCH (20:50)
[2017-09-20 04:12] VITALS: BP 164/75; PULSE 67; TEMP 36.4; O2SAT 95
[2017-09-20] MEDS: CLONIDINE HCL 0.1 MG TAB PO PRN (04:14)
[2017-09-20 06:20] LABS: BASO % 0.3 %; BASO ABS # 0.02 K/uL (0-0.2); EOS % 0.4 %; EOS ABS # 0.03 K/uL (0-0.5); HEMOGLOBIN 10.7 g/dL (14.0-18.0); LYMPH % 18.7 %; LYMPH ABS # 1.34 K/uL (1.2-3.4); MEAN CELL VOLUME 90.4 fL (80-100); MEAN CORPUSCULAR HEMOGLOBIN 29.3 pg (25-34); MEAN CORPUSCULAR HGB CONC 32.4 g/dl (32-36); MEAN PLATELET VOLUME 9.4 fL (7.4-10.4); MONO % 4.7 %; MONO ABS # 0.34 K/uL (0.11-0.59); NEUT % 74.5 %; NEUT ABS # 5.34 K/uL (1.4-6.5); PLATELET COUNT 165 K/uL (130-400); RED CELL DISTRIBUTION WIDTH CV 14.4 % (11.5-14.5); RED CELL DISTRIBUTION WIDTH SD 47.8 fL (36.4-46.3); WHITE BLOOD COUNT 7.17 K/uL (4.8-10.8)
[2017-09-20] MEDS: INSULIN ASPART 100 UNITS/ML 3 ML PEN SC SCH ×4 (06:30→20:44)
[2017-09-20 06:44] LABS: INR 1.1 (0.9-1.1)
[2017-09-20 06:51] LABS: PTT PATIENT 69.3 SECONDS (21.0-31.0)
[2017-09-20 07:03] LABS: CALCIUM 8.4 mg/dl (8.5-10.1); CREATININE 1.64 mg/dl (0.60-1.40); POTASSIUM 3.8 mmol/L (3.5-5.1)
[2017-09-20 07:16] VITALS: BP 137/67; PULSE 61; TEMP 36.4; O2SAT 93
[2017-09-20] MEDS: FINASTERIDE 5 MG TAB PO SCH (07:23)
[2017-09-20] MEDS: DOCUSATE SODIUM/SENNA 50/8.6MG TAB PO SCH ×2 (07:23→20:18)
[2017-09-20] MEDS: ESCITALOPRAM OXALATE 10 MG TAB PO SCH (07:24)
[2017-09-20] MEDS: LISINOPRIL 5 MG TAB PO SCH (07:24)
[2017-09-20] MEDS: PANTOprazole SOD 40 MG TAB PO SCH ×2 (07:24→20:18)
[2017-09-20] MEDS: TAMSULOSIN HCL 0.4 MG CAP PO SCH ×2 (07:24→20:18)
[2017-09-20] MEDS: GABAPENTIN 400 MG CAP PO SCH ×3 (07:24→20:18)
[2017-09-20] MEDS: FERROUS SULFATE 325 MG TAB PO SCH ×2 (07:43→20:19)
[2017-09-20] MEDS: INSULIN GLARGINE SOLOSTAR 100 UNITS/ML 3 ML PEN SC SCH (08:01)
[2017-09-20] MEDS: HEPARIN 25,000 UNIT/500ML D5W 500 ML IV SCH (10:49)
[2017-09-20 12:10] VITALS: BP 148/53; PULSE 79; TEMP 36.7; O2SAT 97
[2017-09-20 15:05] VITALS: BP 147/71; PULSE 69; TEMP 36.8; O2SAT 98
[2017-09-20] MEDS ORDERED: WARFARIN SOD 5 MG TAB PO SCH (16:00)
[2017-09-20] MEDS ORDERED: WARFARIN TAB 5 MG, WARFARIN TAB 2 MG PO SCH ×2 (16:00)
[2017-09-20 19:29] VITALS: BP 153/75; PULSE 70; TEMP 36.6; O2SAT 95
--- NOTE | 2017-09-20 20:06 | Progress Note ---
Internal Med Progress Note Date of Service: September 20, 2017. Provider Documentation: SUBJECTIVE: resting comfortably on the chair no chest pain or sob ambulating ok eating ok no complaints OBJECTIVE: Vital Signs-as noted below Exam: General-alert and oriented. Not in distress ENT-Normal hearing Neck-no neck masses Lungs-cta b/l no wheezing no crackles Heart-s1 and s2 heard regular rate and rhythm no murmurs Abdomen-soft bowel sounds present non tender, no distension Extremities-no edema no erythema Neuro-alert and awake 'moves extremities Lab data as noted below. ASSESSMENT & PLAN: 1. Recurrent pulmonary embolism Acute DVT on presentation Hx of PE after surgery this time unprovoked f/u hypercoagulable workup on iv heparin started on Coumadin f/u with pcp and possibly heme/onco monitor inr increased Coumadin to 7mg daily 2. Hypertension, on lisinopril. Will monitor. 3. PMR on chronic steroid Rx p 4. past tobacco abuse. 5. Chronic kidney disease stage 3. Cr 1.5 at baseline . cr 1.6 today 6. chronic anemia secondary to chronic kidney disease, hemoglobin at baseline.hb 10.7 today. 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 Will monitor. 8. Constipation.stool softeners 9. Sleep apnea Daughter thinks patient may have sleep apnea as he has apneic episodes during sleep..Nocturnal pulse ox study ok 10. Lung mass. appreciate Ct surgery inputs DVT PROPHYLAXIS iv heparin and Coumadin DISPOSITION to be determined pt/ot possible d/c on saturday Vital Signs: Date Time Temp Pulse Resp B/P (MAP) Pulse Ox O2 Delivery O2 Flow Rate FiO2 09/20/17 20:00 Room Air 09/20/17 19:29 36.6 70 18 153/75 (101) 95 Room Air 09/20/17 16:00 Room Air 09/20/17 15:05 36.8 69 18 147/71 (96) 98 Room Air 09/20/17 12:10 36.7 79 18 148/53 (84) 97 Room Air 09/20/17 12:00 Room Air 09/20/17 08:00 Room Air 09/20/17 07:16 36.4 61 16 137/67 (90) 93 Room Air 09/20/17 04:12 36.4 67 16 164/75 (104) 95 Room Air 09/20/17 04:00 Room Air 09/20/17 00:00 Room Air 09/19/17 23:30 36.4 72 16 189/82 (117) 98 Room Air Lab Results: Results Past 24 Hours Test 09/19/17 20:18 09/20/17 05:59 09/20/17 07:10 09/20/17 11:47 Range/Units Bedside Glucose 162 124 173 70-99 mg/dl White Blood Count 7.17 4.8-10.8 K/uL Red Blood Count 3.65 4.7-6.1 M/uL Hemoglobin 10.7 14.0-18.0 g/dL Hematocrit 33.0 42-52 % Mean Corpuscular Volume 90.4 80-100 fL Mean Corpuscular Hemoglobin 29.3 25-34 pg Mean Corpuscular Hemoglobin Concent 32.4 32-36 g/dl Platelet Count 165 130-400 K/uL Mean Platelet Volume 9.4 7.4-10.4 fL Neutrophils (%) (Auto) 74.5 % Lymphocytes (%) (Auto) 18.7 % Monocytes (%) (Auto) 4.7 % Eosinophils (%) (Auto) 0.4 % Basophils (%) (Auto) 0.3 % Neutrophils # (Auto) 5.34 1.4-6.5 K/uL Lymphocytes # (Auto) 1.34 1.2-3.4 K/uL Monocytes # (Auto) 0.34 0.11-0.59 K/uL Eosinophils # (Auto) 0.03 0-0.5 K/uL Basophils # (Auto) 0.02 0-0.2 K/uL RDW Standard Deviation 47.8 36.4-46.3 fL RDW Coefficient of Variation 14.4 11.5-14.5 % Immature Granulocyte % (Auto) 1.4 % Immature Granulocyte # (Auto) 0.10 0.00-0.02 K/uL Prothrombin Time 12.0 9.0-12.0 SECONDS Prothromb Time International Ratio 1.1 0.9-1.1 Activated Partial Thromboplast Time 69.3 21.0-31.0 SECONDS Partial Thromboplastin Ratio 2.7 Sodium Level 142 136-145 mmol/L Potassium Level 3.8 3.5-5.1 mmol/L Chloride Level 109 98-107 mmol/L Carbon Dioxide Level 27 21-32 mmol/L Anion Gap 6.0 3-11 mmol/L Blood Urea Nitrogen 15 7-18 mg/dl Creatinine 1.64 0.60-1.40 mg/dl Est Creatinine Clear Calc Drug Dose 33.8 ml/min Estimated GFR () 42.9 Estimated GFR (Non- 37.0 BUN/Creatinine Ratio 8.9 10-20 Random Glucose 135 70-99 mg/dl Calcium Level 8.4 8.5-10.1 mg/dl Test 09/20/17 16:04 Range/Units Bedside Glucose 203 70-99 mg/dl
[2017-09-20] MEDS: SIMVASTATIN 20 MG TAB PO SCH (20:18)
[2017-09-20] MEDS: AMITRIPTYLINE HCL 50 MG TAB PO SCH (20:18)
[2017-09-21] VITALS (9 sets, daily range): BP systolic 153–188; BP diastolic 68–82; PULSE 65–85; TEMP 36.4–36.7; O2SAT 94–96
[2017-09-21] MEDS: INSULIN ASPART 100 UNITS/ML 3 ML PEN SC SCH ×4 (06:30→21:38)
[2017-09-21 06:31] LABS: BASO % 0.1 %; BASO ABS # 0.01 K/uL (0-0.2); EOS % 0.5 %; EOS ABS # 0.04 K/uL (0-0.5); HEMATOCRIT 36.1 % (42-52); HEMOGLOBIN 11.9 g/dL (14.0-18.0); IG# 0.11 K/uL (0.00-0.02); LYMPH ABS # 1.32 K/uL (1.2-3.4); MEAN CELL VOLUME 90.3 fL (80-100); MEAN CORPUSCULAR HEMOGLOBIN 29.8 pg (25-34); MEAN PLATELET VOLUME 9.8 fL (7.4-10.4); MONO % 5.4 %; NEUT % 74.5 %; NEUT ABS # 5.46 K/uL (1.4-6.5); PLATELET COUNT 190 K/uL (130-400); RED CELL DISTRIBUTION WIDTH CV 14.5 % (11.5-14.5); RED CELL DISTRIBUTION WIDTH SD 47.9 fL (36.4-46.3); WHITE BLOOD COUNT 7.34 K/uL (4.8-10.8)
[2017-09-21 07:08] LABS: INR 1.7 (0.9-1.1)
[2017-09-21 07:10] LABS: CALCIUM 8.8 mg/dl (8.5-10.1); CREATININE 1.39 mg/dl (0.60-1.40); POTASSIUM 3.7 mmol/L (3.5-5.1)
[2017-09-21 07:13] LABS: PTT PATIENT 79.7 SECONDS (21.0-31.0)
[2017-09-21] MEDS ORDERED: NURSING VERBAL MED ORDER ONE (07:45)
[2017-09-21] MEDS: HEPARIN 25,000 UNIT/500ML D5W 500 ML IV SCH (07:55)
[2017-09-21] MEDS: FERROUS SULFATE 325 MG TAB PO SCH ×2 (08:58→21:40)
[2017-09-21] MEDS: ESCITALOPRAM OXALATE 10 MG TAB PO SCH (08:58)
[2017-09-21] MEDS: FINASTERIDE 5 MG TAB PO SCH (08:58)
[2017-09-21] MEDS: GABAPENTIN 400 MG CAP PO SCH ×3 (08:58→21:39)
[2017-09-21] MEDS: PANTOprazole SOD 40 MG TAB PO SCH ×2 (08:58→21:39)
[2017-09-21] MEDS: TAMSULOSIN HCL 0.4 MG CAP PO SCH ×2 (08:58→21:40)
[2017-09-21] MEDS: LISINOPRIL 5 MG TAB PO SCH (08:58)
[2017-09-21] MEDS: DOCUSATE SODIUM/SENNA 50/8.6MG TAB PO SCH ×2 (08:59→21:39)
[2017-09-21] MEDS: INSULIN GLARGINE SOLOSTAR 100 UNITS/ML 3 ML PEN SC SCH (09:02)
[2017-09-21] MEDS ORDERED: LISINOPRIL 5 MG TAB PO ONE (11:15)
--- NOTE | 2017-09-21 12:19 | Progress Note ---
Subjective Date of Service: September 21, 2017. Subjective Pt evaluation today including: conversation w/ patient, physical exam, lab review, review of studies, review of inpatient medication list Saw/examined the patient in room 275 He's doing well, denies shortness of breath, chest pain, no palpitations Denies any other issues, ambulating well Problem List Medical Problems: (1) Constipation Status: Acute (2) Influenza A Status: Acute (3) Pneumonia Status: Acute (4) Pulmonary embolism Permanent Comment: post op, completed Coumadin treatment Status: Chronic Review of Systems Constitutional: No fever, No chills, No weakness Respiratory: No cough, No sputum, No wheezing, No shortness of breath, No dyspnea on exertion, No dyspnea at rest, No hemoptysis Cardiac: No chest pain, No orthopnea, No edema, No palpitations Abdomen: No pain, No nausea, No vomiting, No diarrhea, No constipation, No GI bleeding Medications Current Inpatient Medications Medications (Trade) Dose Ordered Sig/Parminder Route Start Time Stop Time Status Last Admin Dose Admin Ioversol (Optiray 320) 100 ml UD PRN IV 09/17/17 23:30 09/21/17 23:29 Acetaminophen (Tylenol Tab) 650 mg Q4H PRN PO 09/18/17 02:30 10/18/17 02:29 Nitroglycerin (Nitrostat Tab) 0.4 mg UD PRN SL 09/18/17 02:30 10/18/17 02:29 Insulin Aspart (novoLOG ASPART) SLIDING SCALE If C... ACHS SC 09/18/17 07:00 10/18/17 06:59 09/20/17 16:56 1 UNITS Glucose (Glucose 40% Gel) 15-30 GRAMS 15 GRAMS... UD PRN PO 09/18/17 02:30 10/18/17 02:29 Glucose (Glucose Chew Tab) 4-8 Tablets 4 Tabl... UD PRN PO 09/18/17 02:30 10/18/17 02:29 Dextrose (Dextrose 50% 50ML Syringe) 25-50ML 25ML FOR ... UD PRN IV 09/18/17 02:30 10/18/17 02:29 Glucagon (Glucagon Inj) 1 mg UD PRN SQ 09/18/17 02:30 10/18/17 02:29 Carbohydrates (Carbohydrates For Hypoglycemia) 15-30 GRAMS 15 grams if BSG 54-69... UD PRN PO 09/18/17 02:30 10/18/17 02:29 Hydromorphone HCl (Dilaudid Inj) 0.5 mg Q3H PRN IV 09/18/17 02:30 10/02/17 02:29 Prochlorperazine Edisylate 5 mg/ Syringe 5 ml @ 5 mls/min Q6H PRN IV 09/18/17 02:30 10/18/17 02:29 Senna/Docusate Sodium (Senokot S Tab) 2 tab BID PO 09/18/17 21:00 10/18/17 20:59 09/20/17 20:18 2 TAB Polyethylene (Miralax Powder Packet) 17 gm DAILY PRN PO 09/18/17 02:30 10/18/17 02:29 09/18/17 08:15 17 GM Amitriptyline HCl (Elavil Tab) 50 mg HS PO 09/18/17 21:00 10/18/17 20:59 09/20/17 20:18 50 MG Escitalopram Oxalate (Lexapro Tab) 10 mg DAILY PO 09/18/17 09:00 10/18/17 08:59 09/21/17 08:58 10 MG Finasteride (Proscar Tab) 5 mg QAM PO 09/18/17 09:00 10/18/17 08:59 09/21/17 08:58 5 MG Gabapentin (Neurontin Cap) 800 mg TID PO 09/18/17 09:00 10/18/17 08:59 09/21/17 08:58 800 MG Acetaminophen/ Hydrocodone Bitart ([place] 10/325 Tab) 1 tab Q6 PRN PO 09/18/17 02:30 10/02/17 02:29 Prednisone (PredniSONE TAB) 15 mg DAILY PO 09/18/17 09:00 10/18/17 08:59 09/21/17 08:57 15 MG Simvastatin (Zocor Tab) 20 mg HS PO 09/18/17 21:00 10/18/17 20:59 09/20/17 20:18 20 MG Tamsulosin HCl (Flomax Cap) 0.4 mg BID PO 09/18/17 09:00 10/18/17 08:59 09/21/17 08:58 0.4 MG Ferrous Sulfate (Feosol Tab) 325 mg BID PO 09/18/17 09:00 10/18/17 08:59 09/21/17 08:58 325 MG Pantoprazole Sodium (Protonix Tab) 40 mg BID PO 09/18/17 09:00 10/18/17 08:59 09/21/17 08:58 40 MG Insulin Glargine (Lantus Solostar Pen) 5 units DAILY SC 09/19/17 09:00 10/19/17 08:59 09/21/17 09:02 5 UNITS Heparin Sodium/ Dextrose 500 ml @ 22 mls/hr [id number] IV 09/18/17 03:00 10/18/17 02:59 09/21/17 07:55 25 MLS/HR Clonidine HCl (Catapres Tab) 0.1 mg Q4 PRN PO 09/19/17 11:15 10/19/17 11:14 09/20/17 04:14 0.1 MG Lisinopril (Zestril Tab) 10 mg DAILY PO 09/22/17 09:00 10/19/17 08:59 Warfarin Sodium (Coumadin Tab) 5 mg DAILY@16 PO 09/21/17 16:00 10/21/17 15:59 UNV Objective Vital Signs Date Time Temp Pulse Resp B/P (MAP) Pulse Ox O2 Delivery O2 Flow Rate FiO2 09/21/17 08:01 95 Room Air 09/21/17 07:06 36.5 69 17 181/68 (105) 95 Room Air 09/21/17 04:34 36.5 65 18 173/72 (105) 94 Room Air 09/21/17 04:00 Room Air 09/21/17 01:05 36.4 68 17 188/82 (117) 96 Room Air 180/71 (107) 09/21/17 00:00 Room Air 09/20/17 20:00 Room Air 09/20/17 19:29 36.6 70 18 153/75 (101) 95 Room Air 09/20/17 16:00 Room Air 09/20/17 15:05 36.8 69 18 147/71 (96) 98 Room Air 09/20/17 12:10 36.7 79 18 148/53 (84) 97 Room Air 09/20/17 12:00 Room Air Physical Exam General Appearance: WD/WN, no apparent distress Respiratory/Chest: chest non-tender, lungs clear, normal breath sounds, no respiratory distress, no accessory muscle use Cardiovascular: regular rate, rhythm, no edema, no gallop, no JVD, no murmur Extremities: normal range of motion, non-tender, normal inspection, no pedal edema, no calf tenderness Neurologic/Psychiatric: no motor/sensory deficits, alert, normal mood/affect Laboratory Results Last 24 Hours Test 09/20/17 11:47 09/20/17 16:04 09/20/17 20:26 09/21/17 05:43 Bedside Glucose 173 mg/dl 203 mg/dl 113 mg/dl White Blood Count 7.34 K/uL Red Blood Count 4.00 M/uL Hemoglobin 11.9 g/dL Hematocrit 36.1 % Mean Corpuscular Volume 90.3 fL Mean Corpuscular Hemoglobin 29.8 pg Mean Corpuscular Hemoglobin Concent 33.0 g/dl Platelet Count 190 K/uL Mean Platelet Volume 9.8 fL Neutrophils (%) (Auto) 74.5 % Lymphocytes (%) (Auto) 18.0 % Monocytes (%) (Auto) 5.4 % Eosinophils (%) (Auto) 0.5 % Basophils (%) (Auto) 0.1 % Neutrophils # (Auto) 5.46 K/uL Lymphocytes # (Auto) 1.32 K/uL Monocytes # (Auto) 0.40 K/uL Eosinophils # (Auto) 0.04 K/uL Basophils # (Auto) 0.01 K/uL RDW Standard Deviation 47.9 fL RDW Coefficient of Variation 14.5 % Immature Granulocyte % (Auto) 1.5 % Immature Granulocyte # (Auto) 0.11 K/uL Prothrombin Time 17.2 SECONDS Prothromb Time International Ratio 1.7 Activated Partial Thromboplast Time 79.7 SECONDS Partial Thromboplastin Ratio 3.1 Sodium Level 143 mmol/L Potassium Level 3.7 mmol/L Chloride Level 108 mmol/L Carbon Dioxide Level 29 mmol/L Anion Gap 6.0 mmol/L Blood Urea Nitrogen 14 mg/dl Creatinine 1.39 mg/dl Est Creatinine Clear Calc Drug Dose 39.9 ml/min Estimated GFR () 52.4 Estimated GFR (Non- 45.2 BUN/Creatinine Ratio 10.1 Random Glucose 121 mg/dl Calcium Level 8.8 mg/dl Test 09/21/17 07:28 Bedside Glucose 112 mg/dl Assessment and Plan This is an 87 year old male with a PMH of polymyalgia rheumatic on chronic steroids, hx. of PE no longer on anticoagulation, chronic back pain from lumbar spinal stenosis, HTN, HLD, CKD stage 3 presents with shortness of breath and subsequently found to have acute bilateral PE and acute R LE DVT Acute Bilateral PE Acute R LE DVT - patient presents with shortness of breath, found to have acute bilateral PE and acute R LE DVT - was started on IV heparin - will bridge with Coumadin - plan to continue heparin-Coumadin bridge; will need two day overlap once therapeutic - will likely need a lifetime Coumadin dose due to previous pulmonary embolism R Apical Mass - CT suggests a 2.2cm R apical mass - appreciate thoracic surgery input - outpatient follow-up, likely conservative management with observation HTN - blood pressure elevated - increasing Lisinopril to 10mg, monitor Lumbar Spinal Stenosis Chronic Back Pain - continue [place] PRN - continue Gabapentin CKD stage 3 - baseline creatinine close to 1.5 - currently down to 1.4, monitor for fluid overload issues DVT ppx - IV heparin to Coumadin bridge DNR
[2017-09-21 14:57] LABS: PTT PATIENT 53.7 SECONDS (21.0-31.0)
[2017-09-21] MEDS: WARFARIN SOD 5 MG TAB PO SCH (16:35)
[2017-09-21] MEDS: SIMVASTATIN 20 MG TAB PO SCH (21:40)
[2017-09-21] MEDS: AMITRIPTYLINE HCL 50 MG TAB PO SCH (21:40)
[2017-09-22] VITALS (9 sets, daily range): BP systolic 147–194; BP diastolic 52–85; PULSE 69–79; TEMP 36.3–36.7; O2SAT 93–97
[2017-09-22 04:55] LABS: BASO % 0.3 %; BASO ABS # 0.02 K/uL (0-0.2); EOS % 0.7 %; EOS ABS # 0.05 K/uL (0-0.5); HEMATOCRIT 34.5 % (42-52); HEMOGLOBIN 11.2 g/dL (14.0-18.0); IG# 0.16 K/uL (0.00-0.02); LYMPH % 20.3 %; LYMPH ABS # 1.42 K/uL (1.2-3.4); MEAN CELL VOLUME 90.1 fL (80-100); MEAN CORPUSCULAR HEMOGLOBIN 29.2 pg (25-34); MEAN CORPUSCULAR HGB CONC 32.5 g/dl (32-36); MEAN PLATELET VOLUME 9.4 fL (7.4-10.4); MONO % 5.4 %; MONO ABS # 0.38 K/uL (0.11-0.59); NEUT ABS # 4.95 K/uL (1.4-6.5); PLATELET COUNT 181 K/uL (130-400); RED CELL DISTRIBUTION WIDTH CV 14.5 % (11.5-14.5); RED CELL DISTRIBUTION WIDTH SD 47.6 fL (36.4-46.3); WHITE BLOOD COUNT 6.98 K/uL (4.8-10.8)
[2017-09-22 05:14] LABS: CALCIUM 8.7 mg/dl (8.5-10.1); CREATININE 1.55 mg/dl (0.60-1.40); POTASSIUM 4.1 mmol/L (3.5-5.1)
[2017-09-22 05:21] LABS: INR 2.1 (0.9-1.1)
[2017-09-22 05:22] LABS: PTT PATIENT 68.2 SECONDS (21.0-31.0)
[2017-09-22] MEDS: INSULIN ASPART 100 UNITS/ML 3 ML PEN SC SCH ×4 (06:30→20:34)
--- NOTE | 2017-09-22 07:29 | DIAGNOSTIC IMAGING REPORT ---
CHEST ONE VIEW PORTABLE CLINICAL HISTORY: pleural effusion COMPARISON STUDY: 09/17/2017 FINDINGS: The cardiac and mediastinal contours remain stable. There are persistent left bibasilar airspace opacities, left greater than right.. There is minor blunting of the left lateral costophrenic angle.[ IMPRESSION: No significant change. Persistent bibasilar airspace opacities left greater than right. Electronically signed by: Liam Hernández M.D. 09/22/2017 7:28 AM Dictated Date/Time: 09/22/2017 7:26 AM
[2017-09-22] MEDS: TAMSULOSIN HCL 0.4 MG CAP PO SCH ×2 (07:36→21:32)
[2017-09-22] MEDS: FINASTERIDE 5 MG TAB PO SCH (07:36)
[2017-09-22] MEDS: GABAPENTIN 400 MG CAP PO SCH ×3 (07:37→20:32)
[2017-09-22] MEDS: FERROUS SULFATE 325 MG TAB PO SCH ×2 (07:37→20:32)
[2017-09-22] MEDS: PANTOprazole SOD 40 MG TAB PO SCH ×2 (07:37→20:32)
[2017-09-22] MEDS: ESCITALOPRAM OXALATE 10 MG TAB PO SCH (07:37)
[2017-09-22] MEDS: DOCUSATE SODIUM/SENNA 50/8.6MG TAB PO SCH ×2 (07:38→20:32)
[2017-09-22] MEDS: INSULIN GLARGINE SOLOSTAR 100 UNITS/ML 3 ML PEN SC SCH (07:47)
[2017-09-22] MEDS: LISINOPRIL 20 MG TAB PO SCH (08:38)
[2017-09-22] MEDS: HEPARIN 25,000 UNIT/500ML D5W 500 ML IV SCH (08:41)
[2017-09-22] MEDS ORDERED: LISINOPRIL 10 MG TAB PO SCH (09:00)
--- NOTE | 2017-09-22 10:42 | Progress Note ---
Subjective Date of Service: September 22, 2017. Subjective Pt evaluation today including: conversation w/ patient, physical exam, lab review, review of studies, review of inpatient medication list Saw/examined the patient in room 275 He's feeling fine; no shortness of breath/chest pain No lower extremity pain, ambulating well, eager to go home Problem List Medical Problems: (1) Constipation Status: Acute (2) Influenza A Status: Acute (3) Pneumonia Status: Acute (4) Pulmonary embolism Permanent Comment: post op, completed Coumadin treatment Status: Chronic Review of Systems Constitutional: No fever, No chills Respiratory: No cough, No sputum, No shortness of breath Cardiac: No chest pain, No edema, No palpitations Abdomen: No pain, No nausea, No vomiting, No diarrhea Medications Current Inpatient Medications Medications (Trade) Dose Ordered Sig/Parminder Route Start Time Stop Time Status Last Admin Dose Admin Acetaminophen (Tylenol Tab) 650 mg Q4H PRN PO 09/18/17 02:30 10/18/17 02:29 Nitroglycerin (Nitrostat Tab) 0.4 mg UD PRN SL 09/18/17 02:30 10/18/17 02:29 Insulin Aspart (novoLOG ASPART) SLIDING SCALE If C... ACHS SC 09/18/17 07:00 10/18/17 06:59 09/21/17 17:21 1 UNITS Glucose (Glucose 40% Gel) 15-30 GRAMS 15 GRAMS... UD PRN PO 09/18/17 02:30 10/18/17 02:29 Glucose (Glucose Chew Tab) 4-8 Tablets 4 Tabl... UD PRN PO 09/18/17 02:30 10/18/17 02:29 Dextrose (Dextrose 50% 50ML Syringe) 25-50ML 25ML FOR ... UD PRN IV 09/18/17 02:30 10/18/17 02:29 Glucagon (Glucagon Inj) 1 mg UD PRN SQ 09/18/17 02:30 10/18/17 02:29 Carbohydrates (Carbohydrates For Hypoglycemia) 15-30 GRAMS 15 grams if BSG 54-69... UD PRN PO 09/18/17 02:30 10/18/17 02:29 Hydromorphone HCl (Dilaudid Inj) 0.5 mg Q3H PRN IV 09/18/17 02:30 10/02/17 02:29 Prochlorperazine Edisylate 5 mg/ Syringe 5 ml @ 5 mls/min Q6H PRN IV 09/18/17 02:30 10/18/17 02:29 Senna/Docusate Sodium (Senokot S Tab) 2 tab BID PO 09/18/17 21:00 10/18/17 20:59 09/22/17 07:38 2 TAB Polyethylene (Miralax Powder Packet) 17 gm DAILY PRN PO 09/18/17 02:30 10/18/17 02:29 09/18/17 08:15 17 GM Amitriptyline HCl (Elavil Tab) 50 mg HS PO 09/18/17 21:00 10/18/17 20:59 09/21/17 21:40 50 MG Escitalopram Oxalate (Lexapro Tab) 10 mg DAILY PO 09/18/17 09:00 10/18/17 08:59 09/22/17 07:37 10 MG Finasteride (Proscar Tab) 5 mg QAM PO 09/18/17 09:00 10/18/17 08:59 09/22/17 07:36 5 MG Gabapentin (Neurontin Cap) 800 mg TID PO 09/18/17 09:00 10/18/17 08:59 09/22/17 07:37 800 MG Acetaminophen/ Hydrocodone Bitart ([place] 10/325 Tab) 1 tab Q6 PRN PO 09/18/17 02:30 10/02/17 02:29 09/21/17 16:41 1 TAB Prednisone (PredniSONE TAB) 15 mg DAILY PO 09/18/17 09:00 10/18/17 08:59 09/22/17 07:37 15 MG Simvastatin (Zocor Tab) 20 mg HS PO 09/18/17 21:00 10/18/17 20:59 09/21/17 21:40 20 MG Tamsulosin HCl (Flomax Cap) 0.4 mg BID PO 09/18/17 09:00 10/18/17 08:59 09/22/17 07:36 0.4 MG Ferrous Sulfate (Feosol Tab) 325 mg BID PO 09/18/17 09:00 10/18/17 08:59 09/22/17 07:37 325 MG Pantoprazole Sodium (Protonix Tab) 40 mg BID PO 09/18/17 09:00 10/18/17 08:59 09/22/17 07:37 40 MG Insulin Glargine (Lantus Solostar Pen) 5 units DAILY SC 09/19/17 09:00 10/19/17 08:59 09/22/17 07:47 5 UNITS Heparin Sodium/ Dextrose 500 ml @ 22 mls/hr [id number] IV 09/18/17 03:00 10/18/17 02:59 09/22/17 08:41 22 MLS/HR Clonidine HCl (Catapres Tab) 0.1 mg Q4 PRN PO 09/19/17 11:15 10/19/17 11:14 09/20/17 04:14 0.1 MG Warfarin Sodium (Coumadin Tab) 5 mg DAILY@16 PO 09/21/17 16:00 10/21/17 15:59 09/21/17 16:35 5 MG Lisinopril (Zestril Tab) 20 mg DAILY PO 09/22/17 09:00 10/19/17 08:59 09/22/17 08:38 20 MG Objective Vital Signs Date Time Temp Pulse Resp B/P (MAP) Pulse Ox O2 Delivery O2 Flow Rate FiO2 09/22/17 08:00 Room Air 09/22/17 07:03 36.3 75 16 179/85 (116) 95 09/22/17 04:00 Room Air 09/22/17 03:32 36.3 69 18 189/74 (112) 95 Room Air 09/22/17 00:29 36.7 71 17 194/76 (115) 94 Room Air 09/22/17 00:00 Room Air 09/21/17 20:00 Room Air 09/21/17 19:20 36.6 85 18 153/69 (97) 94 Room Air 09/21/17 16:20 36.7 80 18 168/68 (101) 96 Room Air 09/21/17 16:00 96 Room Air 09/21/17 12:01 95 Room Air 09/21/17 12:00 36.6 72 18 164/70 (101) 96 Room Air Physical Exam General Appearance: no apparent distress Respiratory/Chest: chest non-tender, lungs clear, normal breath sounds, no respiratory distress, no accessory muscle use Cardiovascular: regular rate, rhythm, no edema, no murmur Extremities: normal range of motion, non-tender, normal inspection, no pedal edema, no calf tenderness Neurologic/Psychiatric: no motor/sensory deficits, alert, normal mood/affect Laboratory Results Last 24 Hours Test 09/21/17 11:21 09/21/17 14:15 09/21/17 16:23 09/21/17 20:52 Bedside Glucose 156 mg/dl 195 mg/dl 112 mg/dl Activated Partial Thromboplast Time 53.7 SECONDS Partial Thromboplastin Ratio 2.1 Test 09/22/17 04:45 09/22/17 07:21 White Blood Count 6.98 K/uL Red Blood Count 3.83 M/uL Hemoglobin 11.2 g/dL Hematocrit 34.5 % Mean Corpuscular Volume 90.1 fL Mean Corpuscular Hemoglobin 29.2 pg Mean Corpuscular Hemoglobin Concent 32.5 g/dl Platelet Count 181 K/uL Mean Platelet Volume 9.4 fL Neutrophils (%) (Auto) 71.0 % Lymphocytes (%) (Auto) 20.3 % Monocytes (%) (Auto) 5.4 % Eosinophils (%) (Auto) 0.7 % Basophils (%) (Auto) 0.3 % Neutrophils # (Auto) 4.95 K/uL Lymphocytes # (Auto) 1.42 K/uL Monocytes # (Auto) 0.38 K/uL Eosinophils # (Auto) 0.05 K/uL Basophils # (Auto) 0.02 K/uL RDW Standard Deviation 47.6 fL RDW Coefficient of Variation 14.5 % Immature Granulocyte % (Auto) 2.3 % Immature Granulocyte # (Auto) 0.16 K/uL Prothrombin Time 21.8 SECONDS Prothromb Time International Ratio 2.1 Activated Partial Thromboplast Time 68.2 SECONDS Partial Thromboplastin Ratio 2.6 Sodium Level 142 mmol/L Potassium Level 4.1 mmol/L Chloride Level 108 mmol/L Carbon Dioxide Level 29 mmol/L Anion Gap 5.0 mmol/L Blood Urea Nitrogen 17 mg/dl Creatinine 1.55 mg/dl Est Creatinine Clear Calc Drug Dose 35.7 ml/min Estimated GFR () 46.0 Estimated GFR (Non- 39.7 BUN/Creatinine Ratio 10.7 Random Glucose 128 mg/dl Calcium Level 8.7 mg/dl Bedside Glucose 106 mg/dl Assessment and Plan This is an 87 year old male with a PMH of polymyalgia rheumatic on chronic steroids, hx. of PE no longer on anticoagulation, chronic back pain from lumbar spinal stenosis, HTN, HLD, CKD stage 3 presents with shortness of breath and subsequently found to have acute bilateral PE and acute R LE DVT Acute Bilateral PE Acute R LE DVT 09/22 - continue IV heparin - Coumadin 5mg - INR is 2.1; will need overlap for another day - d/c IV heparin on 09/23 and likely d/c home in AM 09/21 - patient presents with shortness of breath, found to have acute bilateral PE and acute R LE DVT - was started on IV heparin - will bridge with Coumadin - plan to continue heparin-Coumadin bridge; will need two day overlap once therapeutic - will likely need a lifetime Coumadin dose due to previous pulmonary embolism R Apical Mass - CT suggests a 2.2cm R apical mass - appreciate thoracic surgery input - outpatient follow-up, likely conservative management with observation HTN - increasing Lisinopril again to 20mg and monitor BP Lumbar Spinal Stenosis Chronic Back Pain - continue [place] PRN - continue Gabapentin CKD stage 3 - baseline creatinine close to 1.5 - currently down to 1.4, monitor for fluid overload issues DVT ppx - IV heparin to Coumadin bridge DNR
[2017-09-22 14:35] LABS: ANTICARDIOLIPID AB IGA <11 APL (< = 11)
[2017-09-22] MEDS: WARFARIN SOD 5 MG TAB PO SCH (15:42)
[2017-09-22] MEDS: AMITRIPTYLINE HCL 50 MG TAB PO SCH (20:32)
[2017-09-22] MEDS: SIMVASTATIN 20 MG TAB PO SCH (20:33)
[2017-09-23] MEDS: CLONIDINE HCL 0.1 MG TAB PO PRN (03:31)
[2017-09-23 04:13] VITALS: BP 186/77; PULSE 74; TEMP 36.5; O2SAT 74
[2017-09-23 04:49] VITALS: BP 159/68; PULSE 74
[2017-09-23 06:03] LABS: MEAN CELL VOLUME 90.7 fL (80-100); MEAN CORPUSCULAR HEMOGLOBIN 30.2 pg (25-34); MEAN CORPUSCULAR HGB CONC 33.3 g/dl (32-36); MEAN PLATELET VOLUME 9.4 fL (7.4-10.4); NUCLEATED RED BLOOD CELL ABS 0.03 K/uL (0-0); PLATELET COUNT 196 K/uL (130-400); RED CELL DISTRIBUTION WIDTH CV 14.5 % (11.5-14.5); RED CELL DISTRIBUTION WIDTH SD 48.1 fL (36.4-46.3)
[2017-09-23 06:18] LABS: INR 2.7 (0.9-1.1)
[2017-09-23] MEDS: INSULIN ASPART 100 UNITS/ML 3 ML PEN SC SCH ×2 (06:30→11:00)
[2017-09-23 06:34] LABS: CALCIUM 8.6 mg/dl (8.5-10.1); CREATININE 1.47 mg/dl (0.60-1.40); POTASSIUM 3.8 mmol/L (3.5-5.1)
[2017-09-23 07:11] VITALS: BP 104/61; PULSE 88; TEMP 36.3; O2SAT 97
[2017-09-23 07:27] LABS: PTT PATIENT 77.7 SECONDS (21.0-31.0)
[2017-09-23] MEDS: INSULIN GLARGINE SOLOSTAR 100 UNITS/ML 3 ML PEN SC SCH (07:50)
[2017-09-23] MEDS: HEPARIN 25,000 UNIT/500ML D5W 500 ML IV SCH (07:50)
[2017-09-23] MEDS: LISINOPRIL 20 MG TAB PO SCH (07:55)
[2017-09-23] MEDS: GABAPENTIN 400 MG CAP PO SCH (07:55)
[2017-09-23] MEDS: DOCUSATE SODIUM/SENNA 50/8.6MG TAB PO SCH (07:55)
[2017-09-23] MEDS: FINASTERIDE 5 MG TAB PO SCH (07:55)
[2017-09-23] MEDS: ESCITALOPRAM OXALATE 10 MG TAB PO SCH (07:56)
[2017-09-23] MEDS: FERROUS SULFATE 325 MG TAB PO SCH (07:56)
[2017-09-23] MEDS: PANTOprazole SOD 40 MG TAB PO SCH (07:56)
[2017-09-23] MEDS: TAMSULOSIN HCL 0.4 MG CAP PO SCH (07:56)
--- NOTE | 2017-09-23 08:26 | Progress Note ---
Subjective Date of Service: September 23, 2017. Subjective Pt evaluation today including: conversation w/ patient, physical exam, lab review, review of studies, review of inpatient medication list Saw/examined the patient in room 275 He's doing well, no chest pain/shortness of breath No lower extremity pain/swelling Problem List Medical Problems: (1) Constipation Status: Acute (2) Influenza A Status: Acute (3) Pneumonia Status: Acute (4) Pulmonary embolism Permanent Comment: post op, completed Coumadin treatment Status: Chronic Review of Systems Constitutional: No fever, No chills Respiratory: No shortness of breath Cardiac: No chest pain Abdomen: No pain, No nausea, No vomiting, No diarrhea Musculoskeletal: No joint pain Heme: No abnormal bleeding/bruising Medications Current Inpatient Medications Medications (Trade) Dose Ordered Sig/Parminder Route Start Time Stop Time Status Last Admin Dose Admin Acetaminophen (Tylenol Tab) 650 mg Q4H PRN PO 09/18/17 02:30 10/18/17 02:29 Nitroglycerin (Nitrostat Tab) 0.4 mg UD PRN SL 09/18/17 02:30 10/18/17 02:29 Insulin Aspart (novoLOG ASPART) SLIDING SCALE If C... ACHS SC 09/18/17 07:00 10/18/17 06:59 09/22/17 20:34 1 UNITS Glucose (Glucose 40% Gel) 15-30 GRAMS 15 GRAMS... UD PRN PO 09/18/17 02:30 10/18/17 02:29 Glucose (Glucose Chew Tab) 4-8 Tablets 4 Tabl... UD PRN PO 09/18/17 02:30 10/18/17 02:29 Dextrose (Dextrose 50% 50ML Syringe) 25-50ML 25ML FOR ... UD PRN IV 09/18/17 02:30 10/18/17 02:29 Glucagon (Glucagon Inj) 1 mg UD PRN SQ 09/18/17 02:30 10/18/17 02:29 Carbohydrates (Carbohydrates For Hypoglycemia) 15-30 GRAMS 15 grams if BSG 54-69... UD PRN PO 09/18/17 02:30 10/18/17 02:29 Hydromorphone HCl (Dilaudid Inj) 0.5 mg Q3H PRN IV 09/18/17 02:30 10/02/17 02:29 Prochlorperazine Edisylate 5 mg/ Syringe 5 ml @ 5 mls/min Q6H PRN IV 09/18/17 02:30 10/18/17 02:29 Senna/Docusate Sodium (Senokot S Tab) 2 tab BID PO 09/18/17 21:00 10/18/17 20:59 09/23/17 07:55 2 TAB Polyethylene (Miralax Powder Packet) 17 gm DAILY PRN PO 09/18/17 02:30 10/18/17 02:29 09/18/17 08:15 17 GM Amitriptyline HCl (Elavil Tab) 50 mg HS PO 09/18/17 21:00 10/18/17 20:59 09/22/17 20:32 50 MG Escitalopram Oxalate (Lexapro Tab) 10 mg DAILY PO 09/18/17 09:00 10/18/17 08:59 09/23/17 07:56 10 MG Finasteride (Proscar Tab) 5 mg QAM PO 09/18/17 09:00 10/18/17 08:59 09/23/17 07:55 5 MG Gabapentin (Neurontin Cap) 800 mg TID PO 09/18/17 09:00 10/18/17 08:59 09/23/17 07:55 800 MG Acetaminophen/ Hydrocodone Bitart ([place] 10/325 Tab) 1 tab Q6 PRN PO 09/18/17 02:30 10/02/17 02:29 09/21/17 16:41 1 TAB Prednisone (PredniSONE TAB) 15 mg DAILY PO 09/18/17 09:00 10/18/17 08:59 09/23/17 07:56 15 MG Simvastatin (Zocor Tab) 20 mg HS PO 09/18/17 21:00 10/18/17 20:59 09/22/17 20:33 20 MG Tamsulosin HCl (Flomax Cap) 0.4 mg BID PO 09/18/17 09:00 10/18/17 08:59 09/23/17 07:56 0.4 MG Ferrous Sulfate (Feosol Tab) 325 mg BID PO 09/18/17 09:00 10/18/17 08:59 09/23/17 07:56 325 MG Pantoprazole Sodium (Protonix Tab) 40 mg BID PO 09/18/17 09:00 10/18/17 08:59 09/23/17 07:56 40 MG Insulin Glargine (Lantus Solostar Pen) 5 units DAILY SC 09/19/17 09:00 10/19/17 08:59 09/23/17 07:50 5 UNITS Warfarin Sodium (Coumadin Tab) 5 mg DAILY@16 PO 09/21/17 16:00 10/21/17 15:59 09/22/17 15:42 5 MG Lisinopril (Zestril Tab) 20 mg DAILY PO 09/22/17 09:00 10/19/17 08:59 09/23/17 07:55 20 MG Objective Vital Signs Date Time Temp Pulse Resp B/P (MAP) Pulse Ox O2 Delivery O2 Flow Rate FiO2 09/23/17 07:11 36.3 88 17 104/61 (75) 97 Room Air 09/23/17 04:49 74 159/68 (98) 09/23/17 04:13 36.5 74 18 186/77 (113) 74 Room Air 09/23/17 03:50 Room Air 09/23/17 00:00 Room Air 09/22/17 23:10 36.7 73 17 175/82 (113) 93 Room Air 09/22/17 20:00 Room Air 09/22/17 19:34 36.5 77 17 180/52 (94) 97 Room Air 09/22/17 16:01 95 Room Air 09/22/17 15:00 36.6 79 18 157/69 (98) 96 Room Air 09/22/17 12:01 95 Room Air 09/22/17 11:37 36.5 76 18 147/70 (95) 95 Room Air Physical Exam General Appearance: no apparent distress Respiratory/Chest: lungs clear, normal breath sounds, no respiratory distress, no accessory muscle use Cardiovascular: regular rate, rhythm, no edema, no murmur Extremities: normal range of motion, non-tender, normal inspection, no pedal edema, no calf tenderness Neurologic/Psychiatric: no motor/sensory deficits, alert, normal mood/affect Laboratory Results Last 24 Hours Test 09/22/17 11:27 09/22/17 16:16 09/22/17 19:50 09/23/17 05:45 Bedside Glucose 147 mg/dl 184 mg/dl 211 mg/dl White Blood Count 7.40 K/uL Red Blood Count 3.97 M/uL Hemoglobin 12.0 g/dL Hematocrit 36.0 % Mean Corpuscular Volume 90.7 fL Mean Corpuscular Hemoglobin 30.2 pg Mean Corpuscular Hemoglobin Concent 33.3 g/dl RDW Standard Deviation 48.1 fL RDW Coefficient of Variation 14.5 % Platelet Count 196 K/uL Mean Platelet Volume 9.4 fL Nucleated RBC Absolute Count (auto) 0.03 K/uL Nucleated Red Blood Cells % 0.4 % Prothrombin Time 27.4 SECONDS Prothromb Time International Ratio 2.7 Activated Partial Thromboplast Time 77.7 SECONDS Partial Thromboplastin Ratio 3.0 Sodium Level 144 mmol/L Potassium Level 3.8 mmol/L Chloride Level 109 mmol/L Carbon Dioxide Level 29 mmol/L Anion Gap 6.0 mmol/L Blood Urea Nitrogen 16 mg/dl Creatinine 1.47 mg/dl Est Creatinine Clear Calc Drug Dose 37.7 ml/min Estimated GFR () 49.0 Estimated GFR (Non- 42.3 BUN/Creatinine Ratio 10.8 Random Glucose 118 mg/dl Calcium Level 8.6 mg/dl Test 09/23/17 07:09 Bedside Glucose 111 mg/dl Assessment and Plan This is an 87 year old male with a PMH of polymyalgia rheumatic on chronic steroids, hx. of PE no longer on anticoagulation, chronic back pain from lumbar spinal stenosis, HTN, HLD, CKD stage 3 presents with shortness of breath and subsequently found to have acute bilateral PE and acute R LE DVT Acute Bilateral PE Acute R LE DVT 09/23 - INR is therapeutic again today - will d/c IV heparin today - continue Coumadin 5mg - outpatient f/u with PCP and Coumadin clinic 09/22 - continue IV heparin - Coumadin 5mg - INR is 2.1; will need overlap for another day - d/c IV heparin on 09/23 and likely d/c home in AM 09/21 - patient presents with shortness of breath, found to have acute bilateral PE and acute R LE DVT - was started on IV heparin - will bridge with Coumadin - plan to continue heparin-Coumadin bridge; will need two day overlap once therapeutic - will likely need a lifetime Coumadin dose due to previous pulmonary embolism R Apical Mass - CT suggests a 2.2cm R apical mass - appreciate thoracic surgery input - outpatient follow-up, likely conservative management with observation HTN - increasing Lisinopril again to 20mg and monitor BP Lumbar Spinal Stenosis Chronic Back Pain - continue [place] PRN - continue Gabapentin CKD stage 3 - baseline creatinine close to 1.5 - currently down to 1.4, monitor for fluid overload issues DVT ppx - IV heparin to Coumadin bridge DNR
[2017-09-23] MEDS ORDERED: CMD5 PO (08:30)
[2017-09-23] MEDS ORDERED: LSN20 PO (08:30)
--- NOTE | 2017-09-23 08:37 | Discharge Instructions ---
Discharge Instructions Date of Service September 23, 2017. Admission Reason for Admission: Pulmonary Embolism Discharge Discharge Diagnosis / Problem: Blood clot in lungs and right leg Discharge Goals Goal(s): Decrease discomfort, Improve function, Diagnostic testing, Therapeutic intervention Activity Recommendations Activity Limitations: resume your previous activity . Instructions / Follow-Up Instructions / Follow-Up Please follow-up with Dr. Liriano on September 27 at 12:45PM Please follow-up with the Coumadin clinic, ideally around Saturday or (September 25) to check an INR * You will be on Coumadin 5mg with a goal INR of 2-3 - to be adjusted by the Coumadin clinic * Your dose of Lisinopril is increased to 20mg for your blood pressure * Should have B12 and folate levels checked as an outpatient routinely Current Hospital Diet Patient's current hospital diet: Diabetes Type 2 Diet, AHA Diet (Heart Healthy) Discharge Diet Recommended Diet: AHA Diet (Heart Healthy), Diabetes Type 2 Diet Pending Studies Studies pending at discharge: no Medical Emergencies . Who to Call and When: Medical Emergencies: If at any time you feel your situation is an emergency, please call 911 immediately. . Non-Emergent Contact Non-Emergency issues call your: Primary Care Provider . . "Provider Documentation" section prepared by Skyla Lehman. .
--- NOTE | 2017-09-23 08:40 | Discharge Summary ---
Discharge Summary Date of Service September 23, 2017. Discharge Summary Admission Date: September 18, 2017 at 01:18 Discharge Date: September 23, 2017 Discharge Disposition: Home Principal Diagnosis: Acute Bilateral PE Acute R LE DVT R Apical Lung Nodule Hypertension CKD stage 3 Medication Reconciliation New Medications: Warfarin Sod (Coumadin) 5 Mg Tab 5 MG PO DAILY for 30 Days, #30 TAB Changed Medications: Lisinopril (Lisinopril) 20 Mg Tab 20 MG PO DAILY for 30 Days, #30 TABS (Changed from: Lisinopril 5 Mg Tab 5 Mg PO DAILY) Continued Medications: Amitriptyline HCl (Amitriptyline HCl) 50 Mg Tab 50 MG PO HS Ascorbic Acid (Vitamin C) 500 Mg Tab 500 MG PO DAILY Bee Pollen (Ra Bee Pollen) 500 Mg Chw 500 MG PO UD Cyanocobalamin (B-12) 5,000 Mcg Cap 5000 MCG PO DAILY Docusate Sodium (Colace) 100 Mg Cap 100 MG PO BID for 30 Days, #60 CAP Escitalopram Oxalate (Lexapro) 10 Mg Tab 10 MG PO DAILY Ferrous Sulfate (Kp Ferrous Sulfate) 325 Mg Tab 325 MG PO BID Finasteride (Proscar) 5 Mg Tab 5 MG PO QAM Gabapentin (Neurontin) 400 Mg Cap 800 MG PO TID TWO 400 MG CAPSULES 3 TIMES DAILY Hydrocodone/Acetaminophen 10MG/325MG ([place] 10MG/325MG) Tab 1 TAB PO Q6 PRN for Pain PRN PAIN Metformin Hcl (Glucophage) 500 Mg Tab 500 MG PO BIDM WITH MORNING AND EVENING MEALS Omeprazole (Prilosec) 40 Mg Cap 40 MG PO BID 1 HOUR BEFORE THE FIRST MEAL OF THE DAY Prednisone (Prednisone) 20 Mg Tab 15-20 MG PO DAILY, #5 TAB Senna/Docusate Sod (Senokot S) 1 Tab Tab 1 TAB PO DAILY @ NOON Simvastatin (Zocor) 20 Mg Tab 20 MG PO HS Tamsulosin Hcl (Flomax) 0.4 Mg Cap 0.4 MG PO BID Admission Information HPI (per Admitting provider): DATE OF ADMISSION: 09/18/2017 PRIMARY CARE DOCTOR: Dr. Liriano CHIEF COMPLAINT: Abdominal pain. HISTORY OF PRESENT ILLNESS: History obtained from the patient, daughter, and records. Limited history from patient secondary to hearing impairment. Medical history is significant for hypertension, PMR on chronic steroid therapy, steroid-induced diabetes, BPH, history of postop PE sp Coumadin. Mood disorder, chronic renal insufficiency (baseline creatinine 1.6), chronic anemia (baseline hemoglobin of 12), past tobacco abuse. known aspiration risk. Patient admitted November, for acute PE attributed to back surgery. Patient completed Coumadin course for 6 months. Recent confinement in last June 2017 for hypoxemia secondary to flu. The last few days, the patient noted achy lower abdominal pain going to the low back, worse with motion, nonradiating. Patient was seen at PCP's office a few days ago. Outpatient back x-rays recommended. Patient noted to be more constipated in the last few days. No chest pain, no shortness of breath. No unusual cough symptoms. No fever no chills. Brought to the Emergency Room. MEDICAL HISTORY: As above. Refused colonoscopies in the past. SURGERIES: Knee surgery, back surgery, cataract surgery. HOME MEDICATIONS: Include Prilosec, prednisone, Senokot, Zocor, Flomax, ferrous sulfate, Proscar, Neurontin, Vicodin, lisinopril, Glucophage, amitriptyline, vitamin C, Colace, Lexapro. ALLERGIES: ALLERGIC TO LORAZEPAM, OXYCODONE. FAMILY HISTORY: There is no family history of blood clots as per the patient's knowledge. Family history of heart disease, breast cancer, brain cancer. PERSONAL AND SOCIAL HISTORY: Past tobacco abuse. No chronic intake of alcoholic beverages. 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 REVIEW OF SYSTEMS: As per HPI. Occasional dark stools. All 10 systems reviewed, all other ROS negative. PHYSICAL EXAMINATION: VITAL SIGNS: Blood pressure was noted to be 163/78, pulse rate 88, RR 16, temperature 36.3, sats 98 on room air. GENERAL: Noted to be cushingoid. Dysphonic SKIN: Flushed skin. warm HEENT: Alopecia. pale palpebral conjuctivae. No ptosis. Dry mucosa. NECK: Short neck, supple. CHEST: Decreased effort. No tenderness. HEART: RRR, No murmur. ABDOMEN: Some distention. Minimal hypogastric tenderness. RECTAL EXAMINATION: Intact sphincter, yellow stool, heme negative. EXTREMITIES: No LE edema, no tenderness. No gross deformities. NEUROLOGIC EXAMINATION: Coherent. No facial asymmetry. Dysphonia. Gait and stance not assessed. LABORATORIES: Hemoglobin was noted to be 12.4, hematocrit 34, white blood cell count 11.6, platelets 168. Sodium 138, potassium 3.5, chloride 104, CO2 26, BUN 90, creatinine 1.46, glucose 169. Chest x-ray, atelectasis versus pneumonitis. CT abdomen and pelvis showed constipation, diverticulosis, hepatic steatosis. CTA initial read, PE most extensive in left lower lobe, hepatic steatosis. ASSESSMENT AND PLAN: 1. Recurrent pulmonary embolism possible hypercoagulable state. 2. Hypertension, slightly elevated. 3. PMR on chronic steroid Rx p 4. past tobacco abuse. 5. Chronic kidney disease. Kidney function at baseline 6. chronic anemia secondary to chronic kidney disease, hemoglobin at baseline. 7. Steroid-induced DM, well-controlled as of recent outpatient HgA1c of 6.9 last June 2017. 8. Constipation. PCU hypercoagulable workup. IV heparin for now. Defer discussion regarding oral agent for long-term anticoagulation between patient's family and AM provider ISS BG goal of 140, may need basal insulin to attain goal. Bowel regimen DVT prophylaxis, Heparin. DNR. Patient's daughter requesting updates from provider. Ms. Macy Chowdhury thru [phone] Hospital Course This is an 87 year old male with a PMH of polymyalgia rheumatic on chronic steroids, hx. of PE no longer on anticoagulation, chronic back pain from lumbar spinal stenosis, HTN, HLD, CKD stage 3 presents with shortness of breath and subsequently found to have acute bilateral PE and acute R LE DVT Acute Bilateral PE Acute R LE DVT 09/23 - INR is therapeutic again today - will d/c IV heparin today - continue Coumadin 5mg - outpatient f/u with PCP and Coumadin clinic 09/22 - continue IV heparin - Coumadin 5mg - INR is 2.1; will need overlap for another day - d/c IV heparin on 09/23 and likely d/c home in AM 09/21 - patient presents with shortness of breath, found to have acute bilateral PE and acute R LE DVT - was started on IV heparin - will bridge with Coumadin - plan to continue heparin-Coumadin bridge; will need two day overlap once therapeutic - will likely need a lifetime Coumadin dose due to previous pulmonary embolism R Apical Nodule - CT suggests a 2.2cm R apical mass - appreciate thoracic surgery input - outpatient follow-up, likely conservative management with observation HTN - increasing Lisinopril again to 20mg and monitor BP Lumbar Spinal Stenosis Chronic Back Pain - continue [place] PRN - continue Gabapentin CKD stage 3 - baseline creatinine close to 1.5 - currently down to 1.4, monitor for fluid overload issues DVT ppx - IV heparin to Coumadin bridge DNR Total time spent on discharge = 40 minutes This includes examination of the patient, discharge planning, medication reconciliation, and communication with other providers. Discharge Instructions Please follow-up with Dr. Liriano on September 27 at 12:45PM Please follow-up with the Coumadin clinic, ideally around Saturday or (September 25-) to check an INR * You will be on Coumadin 5mg with a goal INR of 2-3 - to be adjusted by the Coumadin clinic * Your dose of Lisinopril is increased to 20mg for your blood pressure * Should have B12 and folate levels checked as an outpatient routinely
[2017-09-23 09:00] VITALS: BP 104/61; PULSE 88; TEMP 36.3; O2SAT 97
--- NOTE | 2017-09-23 14:10 | SURGERY PROGRESS NOTE ---
DATE: 09/23/2017 Mr. Kan was seen today on 09/23/2017. His PT/INR finally be responding. He looks quite good to me. He is on room air at 97% saturation. He has lung nodules, however, I have a fairly low index of suspicion, but he does deserve to be followed up. I will see him back in a month or so in the office with a chest x-ray. I will discuss this with his daughter in detail at that time about our plan for followup.
== END 2017-09-23 11:24 | disposition home or self-care (01) | DRG 176 ==
LOC: C.EDB 20:19 → C.MED 09-18 01:18 → ENRESERV 09-18 01:43 → C.MED 09-19 02:24
PROVIDERS: ADMIT Internal Medicine; ATTEND Family Medicine
DX: I26.99 Other pulmonary embolism without acute cor pulmonale (principal); I82.4Z1 Acute embolism and thrombosis of unspecified deep veins of right distal lower extremity; K59.00 Constipation, unspecified; I12.9 Hypertensive chronic kidney disease with stage 1 through stage 4 chronic kidney disease, or unspecified chronic kidney disease; M35.3 Polymyalgia rheumatica; E09.9 Drug or chemical induced diabetes mellitus without complications; Z79.52 Long term (current) use of systemic steroids; Z86.718 Personal history of other venous thrombosis and embolism; N18.3 Chronic kidney disease, stage 3 (moderate); R91.8 Other nonspecific abnormal finding of lung field; M48.061 Spinal stenosis, lumbar region without neurogenic claudication; Z66 Do not resuscitate

== ENCOUNTER 2018-06-22 10:23 | Inpatient (IN) ==
[2018-06-22] MEDS ORDERED: SODIUM CHLORIDE 0.9% 1000ML 1,000 ML IV ONE (11:18)
[2018-06-22] MEDS ORDERED: KETOROLAC TROMETHAMINE 15 MG/ML VIAL IV STA (11:18)
[2018-06-22] MEDS ORDERED: ACETAMINOPHEN 1,000 MG/100 ML VIAL IV STA (11:18)
[2018-06-22] MEDS ORDERED: CEFEPIME 2,000 MG in SYRINGE 7.5 ML IV STA (11:20)
[2018-06-22 11:37] LABS: Basophils # (auto) 0.03 K/uL (0-0.2); Basophils % (auto) 0.2 %; Eosinophils # (auto) 0.14 K/uL (0-0.5); Hematocrit (blood only) 42.9 % (42-52); Hemoglobin 13.8 g/dL (14.0-18.0); Immature Granulocytes % (auto) 0.7 %; Lymphocytes # (auto) 1.57 K/uL (1.2-3.4); Lymphocytes % (auto) 11.3 %; Mean Corpuscular Hgb Conc 32.2 g/dL (32-36); Mean Corpuscular Volume 95.1 fL (80-100); Mean Platelet Volume 10.5 fL (7.4-10.4); Monocytes # (auto) 0.44 K/uL (0.11-0.59); Monocytes % (auto) 3.2 %; Neutrophils # (auto) 11.57 K/uL (1.4-6.5); Neutrophils % (auto) 83.6 %; Platelet Count 178 K/uL (130-400); RDW Coefficient of Variation 14.6 % (11.5-14.5); RDW Standard Deviation 50.7 fL (36.4-46.3); Red Blood Count 4.51 M/uL (4.7-6.1); White Blood Count 13.85 K/uL (4.8-10.8)
[2018-06-22 11:45] LABS: INR 2.1 (0.9-1.1); Partial Thromboplastin Ratio 1.3; Partial Thromboplastin Time 33.1 Seconds (21.0-31.0); Prothrombin Time 19.9 Seconds (9.0-12.0)
[2018-06-22 12:02] LABS: Alanine Aminotransferase 61 U/L (12-78); Albumin Level 3.2 gm/dl (3.4-5.0); Aspartate Aminotransferase 42 U/L (15-37); BUN Creatinine Ratio 9.5 (10-20); Blood Urea Nitrogen 17 mg/dl (7-18); Calcium 8.4 mg/dl (8.5-10.1); Carbon Dioxide 27 mmol/L (21-32); Chloride 105 mmol/L (98-107); Creatinine Clr Calc Pharmacy 30.2 ml/min; Est GFR (African American) 38.1; Est GFR (Non-African American) 32.9; Glucose 123 mg/dl (70-99); Magnesium 1.8 mg/dl (1.8-2.4); Sodium 141 mmol/L (136-145)
[2018-06-22 12:06] LABS: Albumin Globulin Ratio 0.9 (0.9-2); Alkaline Phosphatase 96 U/L (45-117); Bilirubin,Total 0.4 mg/dl (0.2-1); Globulin 3.6 gm/dl (2.5-4.0); Total Protein 6.8 gm/dl (6.4-8.2); Troponin I < 0.015 ng/ml (0-0.045)
--- NOTE | 2018-06-22 12:09 | XRay Report ---
XR chest 1V portable CLINICAL HISTORY: Sepsis COMPARISON STUDY: 03/15/2018 FINDINGS: The cardiac and mediastinal contours remain stable. There is no failure. There is no lobar consolidation. There is minor left basilar atelectasis.[ No pleural effusions are visualized. IMPRESSION: No active disease in the chest. Electronically signed by: Liam Hernández M.D. 06/22/2018 12:07 PM
[2018-06-22 12:22] LABS: Appearance Urine Clear (Clear); Bilirubin Urine Negative (Negative); Color Urine Yellow; Glucose Urine UA Negative (Negative); Ketones Urine Negative (Negative); Leukocyte Esterase Urine Negative (Negative); Nitrite Urine Negative (Negative); Protein Urine Negative (Negative); Specific Gravity Urine 1.016 (1.000-1.030); Urobilinogen Urine Negative (Negative)
[2018-06-22] MEDS ORDERED: LACTATED RINGER'S 1,000 ML IV STA (12:34)
[2018-06-22 13:00] LABS: Influenza A virus by PCR Neg for Influ A (Neg); Influenza B virus by PCR Neg for Influ B (Neg)
--- NOTE | 2018-06-22 14:01 | History & Physical Report ---
Date of Service June 22, 2018 Assessment & Plan (1) Sepsis: Present on admission with shaking and generalized weakness SIRS possible sepsis Elevated WBC, tachycardia, lactic acid and procalcitonin with unknown etiology Possible related to cellulitis due to erythema in LE on exam CXR showed no acute finding Influenza PCR negative for flu. UA negative Received cefepime in the ER Blood cx pending Will start on Zosyn IV and Vanco If MRSA screen negative will d/c Vanco Repeat Lactic acid Continue IVF (2) Lactic acid increased: Due to sepsis Elevated WBC and Procalcitonin Received IV cefepime Will monitor Lactic acid Continue IVF (3) Generalized weakness/Tremor Likely secondary to underlying infection fall precautions PT/OT eval (4) Chronic kidney disease type 3 Cr: 1.8 on admission, baseline Cr ~1.6-1.7 Received IVF Monitor renal functions Will hold Lisinopril for now avoid nephrotoxic agents when possible (5) Pulmonary embolism: H/O PE after surgery. Hx recurrent PE 09/2017 and on chronic coumadin On coumadin with INR 2.3 today monitor INR (6) Diabetes mellitus, type II: HA1c: 7.2 in 03/2018 monitor BSGs, diabetic diet On Lovenox sliding scale (7) Lung mass: Known R lung mass. Pt and family have chosen no further workup (8) PMR (polymyalgia rheumatica): Continue prednisone 20mg daily Continue fentanyl patch Will add hydrocone prn (9) Hypertension: BP stable hold lisinopril for now Monitor BP (10) BPH (benign prostatic hyperplasia): Continue flomax, finasteride (11) GERD (gastroesophageal reflux disease): continue PPI (14) Dyslipidemia: Continue statin (15) Chronic anemia: Hgb: 13.8. baseline ~11-12 Continue ferrous sulfate Stable (14) Depression: Stable DVT Prophylaxis On Coumadin with INR 2.3 DNR/DNI as per discussion with pt and pt's daughter Disposition Follows with Dr Liriano for routine care History of Present Illness Chief Complaint: Generalized weakness/Tremor Primary Care Provider: Luis Miguel Liriano 88 y/o M with PMH DM II, HTN, dyslipidemia, BPH, GERD, depression, CKD III, PMR , PE on Coumadin (most recent PE in 09/2017, was off Coumadin prior), known lung nodule presented to ER with complaint of generalized weakness and tremor. Daughter said that this morning pt woke up with shakes associated with weakness. Daughter said that pt was seen at PCP office about 1 week and half ago for abdominal pain and was given avelox that he only had 2 days left. Daughter said that pt usually shakes and feels weak when he developed infection. He was admitted back in Nov for aspiration PNA and presented at that time with weakness and shaking. Daughter said that he did not check his temp today. Daughter said that she noticed his breathing a worst today. He also developed mild erythema in his lower extremities that started this morning. Pt has a known right upper lobe mass, that they have chosen to not investigate further or seek further treatment. Denies diaphoresis, N/V/D/C, MORENO, dizziness, syncope, vision changes, neck pain, CP, palpitations, hemoptysis, sore throat, otalgia, rhinorrhea, abdominal pain. Allergies Allergy/AdvReac Type Severity Reaction Status Date / Time oxycodone Allergy SD ITCHINESS Verified 06/22/18 11:12 lorazepam AdvReac SV agitation Unverified 06/22/18 11:12 Home Medications Home Medications Medication Instructions Recorded Confirmed Type amitriptyline 50 mg PO HS 03/15/18 06/22/18 History docusate sodium 100 mg PO BID 03/15/18 06/22/18 History escitalopram oxalate 10 mg PO QAM 03/15/18 06/22/18 History ferrous sulfate 325 mg PO BID 03/15/18 06/22/18 History finasteride 5 mg PO QAM 03/15/18 06/22/18 History gabapentin 800 mg PO TID 03/15/18 06/22/18 History hydrocodone-acetaminophen 1 tab PO Q6 PRN 03/15/18 06/22/18 History omeprazole 40 mg PO BID 03/15/18 06/22/18 History simvastatin 20 mg PO HS 03/15/18 06/22/18 History tamsulosin 0.8 mg PO HS 03/15/18 06/22/18 History warfarin 5 mg PO DAILY@1800 03/15/18 06/22/18 History fentanyl 25 mcg TRANSDERMAL Q72H 06/22/18 06/22/18 History lisinopril 2.5 mg PO QAM 06/22/18 06/22/18 History moxifloxacin 400 mg PO QAM 06/22/18 06/22/18 History prednisone 20 mg PO PM 06/22/18 06/22/18 History timolol maleate 1 drp OPB HS 06/22/18 06/22/18 History Past Med/Surg History Social History Current Living Situation: Family Other Information That Helps Us Care for You: No Feels Safe at Home: Yes Safety Concerns: Feels Safe At This Time Smoking Status: Former smoker Do You Dip or Chew Tobacco: No Smoking End Date: 10/05/1971 Second Hand Exposure: No Tobacco Cessation Education Requested by Patient: No Hx Alcohol Use: No Hx Substance Use: No Beliefs That Will Affect Care: None Preferred Language: Togolese Communication Ability: Effective Stock Preparation Operator Required: No Review of Systems All systems reviewed & are unremarkable except as noted in HPI & below Physical Exam 2 Vital Signs (Past 24 Hours): Last Vital Signs Temp 37 C 06/22/18 12:26 Pulse 112 H 06/22/18 12:26 Resp 18 06/22/18 12:26 BP 138/59 L 06/22/18 12:26 Pulse Ox 97 06/22/18 12:26 Physical Exam: General: no distress, WDWN Head: normocephalic, atraumatic Eyes: PERRL, EOMI ENT: normal inspection external ears, nose, mucous membranes dry Neck: supple, trachea midline Lungs: clear, no respiratory distress, poor air entry CV: +tachycardia Abd: normal BS, soft, non-tender Ext: no cyanosis, no calf tenderness Neuro: A&O x 3, no focal deficits noted, normal affect Skin: warm, dry, +erythema in LE Results & Data Diagnostic Findings XR chest 1V portable CLINICAL HISTORY: Sepsis COMPARISON STUDY: 03/15/2018 FINDINGS: The cardiac and mediastinal contours remain stable. There is no failure. There is no lobar consolidation. There is minor left basilar atelectasis.[ No pleural effusions are visualized. IMPRESSION: No active disease in the chest. Electronically signed by: Liam Hernández M.D. 06/22/2018 12:07 PM Dictated: 06/22/18 1207 _ (1) Sepsis Sepsis type: sepsis due to unspecified organism Qualified Code(s): A41.9 - Sepsis, unspecified organism
[2018-06-22] MEDS ORDERED: VANCOMYCIN CONSULT ACTIVE PRN (15:13)
[2018-06-22] MEDS ORDERED: PIPERACILL/TAZOBAC CONSULT ACTIVE PRN (15:13)
[2018-06-22] MEDS ORDERED: VANCOMYCIN HCL 1,000 MG in SODIUM CHLORIDE 0.9% 250 ML IV SCH (15:15)
[2018-06-22] MEDS ORDERED: PIPERACILLIN/TAZOBACTAM 3.375 GM in DEXTROSE 5% 100 ML IV SCH (15:15)
[2018-06-22] MEDS ORDERED: GLUCAGON FOR INJ 1 MG VIAL SQ PRN (15:26)
[2018-06-22] MEDS ORDERED: GLUCOSE 40% GEL 15 GM TUBE PO PRN (15:26)
[2018-06-22] MEDS ORDERED: DEXTROSE 50% 50 ML SYRINGE IV PRN (15:26)
[2018-06-22] MEDS ORDERED: GLUCOSE 10 TABS/TUBE PO PRN (15:26)
[2018-06-22] MEDS ORDERED: CARBOHYDRATES FOR HYPOGLYCEMIA PO PRN (15:26)
[2018-06-22] MEDS ORDERED: VANCOMYCIN HCL 1,750 MG in SODIUM CHLORIDE 0.9% 500 ML IV ONE (16:00)
[2018-06-22] MEDS ORDERED: PIPERACILLIN/TAZOBACTAM 3.375 GM in DEXTROSE 5% 100 ML IV ONE (16:00)
[2018-06-22] MEDS: SODIUM CHLORIDE 0.9% 1000ML 1,000 ML IV SCH (16:03)
--- NOTE | 2018-06-22 16:05 | Pharmacy Report ---
Pharmacy Abx Initial Consult - Date of Service June 22, 2018 - Pharmacy Dosing Scope Date of Consult: 06/22/18 Consultation requested by: Dr. Noe Pharmacy is consulted to initiate vancomycin and Zosyn IV dosing therapy, order appropriate labs and adjust drug dose/frequency. - Subjective The patient is a 88 year old M admitted on 06/22/18 13:54. - Objective Height: 5 ft 11 in Weight: 90 kg Vital Signs (Past 12hrs): Vital Signs Temp Pulse Pulse Resp BP BP Pulse Ox 06/22/18 15:49 36.6 C 96 H 18 113/64 94 06/22/18 14:00 36.8 C 102 H 18 109/74 98 06/22/18 12:26 37 C 112 H 18 138/59 L 97 06/22/18 12:09 96 06/22/18 10:41 37.3 C 119 H 18 203/93 H 93 Lab Results (24hrs): Laboratory Tests (24 Hours) 06/22/18 06/22/18 06/22/18 10:04 10:04 10:04 WBC 13.85 H Neut # (Auto) 11.57 H Creatinine 1.80 H Est Cr Clr Drug Dosing 30.2 Procalcitonin 1.57 H Micro Results: 06/22/18 11:40 Blood Culture - Pending Blood 06/22/18 11:47 Blood Culture - Pending Blood - Risk Factors for Resistance * Hospitalization for 48 hours or more within the past 90 days- pt was admitted in March for aspiration PNA - Assessment & Plan Assessment * 88 year old M admitted on 06/22 with sepsis, possibly related to LE cellulitis Plan Vancomycin IV * Estimated PK Parameters: Vd 0.7 L/kg, Harry 0.025 hr-1, t1/2 27 hr * Loading dose: 1750 mg (~20 mg/kg) * Subsequent dose(s) will be based off random levels due to patient's poor kidney function * Goal trough level: 15 to 20 mcg/mL * Random level ordered for tomorrow with AM labs Piperacillin/tazobactam * 3.375 g bolus administered over 30 minutes, then 3.375 g IV extended infusion every 8 hours for CrCl greater than 20 mL/min Pharmacy will continue to follow and will adjust dose/frequency as necessary. Thank you.
[2018-06-22] MEDS: PIPERACILLIN/TAZOBACTAM 3.375 GM in DEXTROSE 5% 100 ML IV SCH (16:06)
[2018-06-22] MEDS: CHECK FENTANYL PATCH PLACEMENT SCH (16:43)
[2018-06-22] MEDS: fentaNYL 25 MCG/HR TDSY TD SCH (16:49)
--- NOTE | 2018-06-22 16:49 | Emergency Department Note ---
Entered by Zach Barksdale acting as a scribe for Wilfredo Santiago MD History of Present Illness General Chief complaint: Illness Stated complaint: body tremors Time Seen by Provider: 06/22/18 11:10 Source: patient and family (daughter) History of Present Illness Onset (ago): hour(s) (3.5) Location: upper extremity and lower extremity Pain Consistency: + other (persistent) Quality: + other (tremors) Associated symptoms: + other (fever; new redness of both legs) The patient is an 88 year old male who presents to the Emergency Room via EMS with persistent tremors beginning around 08:00 this morning, about 3.5 hours ago. The daughter reports that the patient was doing very well two days ago and was out shopping with no difficulties. Yesterday the patient slept a lot, but he had dinner and seemed to become more awake toward the evening, and he had his usual tea in the middle of the night. The daughter states that this morning she found him sitting on the edge of his bed with tremors. She notes that she was told by EMS that the patient had a fever, and he was not given Tylenol or ibuprofen this morning. She does report that the patient has the tendency to dehydrate quickly and has not been drinking as much in the past couple of days. She notes new redness of both legs. She denies any known sick contact and notes that the patient received a flu shot. She states that the patient does not have a history of tremors. She reports chronic pain with movement, history of UTI, and states that he was diagnosed with lung cancer in September 2017. She states that the patient takes Coumadin for a history of blood clots. Home Medications Home Medications Medication Instructions Recorded Confirmed Type amitriptyline 50 mg PO HS 03/15/18 06/22/18 History docusate sodium 100 mg PO BID 03/15/18 06/22/18 History escitalopram oxalate 10 mg PO QAM 03/15/18 06/22/18 History ferrous sulfate 325 mg PO BID 03/15/18 06/22/18 History finasteride 5 mg PO QAM 03/15/18 06/22/18 History gabapentin 800 mg PO TID 03/15/18 06/22/18 History hydrocodone-acetaminophen 1 tab PO Q6 PRN 03/15/18 06/22/18 History omeprazole 40 mg PO BID 03/15/18 06/22/18 History simvastatin 20 mg PO HS 03/15/18 06/22/18 History tamsulosin 0.8 mg PO HS 03/15/18 06/22/18 History warfarin 5 mg PO DAILY@1800 03/15/18 06/22/18 History fentanyl 25 mcg TRANSDERMAL Q72H 06/22/18 06/22/18 History lisinopril 2.5 mg PO QAM 06/22/18 06/22/18 History moxifloxacin 400 mg PO QAM 06/22/18 06/22/18 History prednisone 20 mg PO PM 06/22/18 06/22/18 History timolol maleate 1 drp OPB HS 06/22/18 06/22/18 History Allergies Allergy/AdvReac Type Severity Reaction Status Date / Time oxycodone Allergy AK ITCHINESS Verified 06/22/18 11:12 lorazepam AdvReac SV agitation Unverified 06/22/18 11:12 Past Med/Surg History Medical History Chronic anemia (Chronic) BPH (benign prostatic hyperplasia) (Chronic) Diabetes mellitus, type II (Chronic) Lung mass (Chronic) Depression (Chronic) GERD (gastroesophageal reflux disease) (Chronic) Hypertension (Chronic) Osteoarthritis (Chronic) PMR (polymyalgia rheumatica) (Chronic) Pulmonary embolism (Chronic) on Coumadin Dyslipidemia (Chronic) CKD (chronic kidney disease), stage III (Chronic) Hydrocele, right (Chronic) Surgical History H/O arthroscopic knee surgery (Chronic) Hx of spinal surgery (Chronic) "lumbar decompression/fusion" On 11/09/15 17:16 Ayde Weinberg wrote "lumbar decompression/fusion in [address] Brown" Family History Other Brain cancer CAD (coronary artery disease) Social History Current Living Situation: Family Other Information That Helps Us Care for You: No Feels Safe at Home: Yes Safety Concerns: Feels Safe At This Time Smoking Status: Former smoker Do You Dip or Chew Tobacco: No Smoking End Date: 10/05/1971 Second Hand Exposure: No Tobacco Cessation Education Requested by Patient: No Hx Alcohol Use: No Hx Substance Use: No Beliefs That Will Affect Care: None Preferred Language: Afghan Communication Ability: Effective Coremaking Supervisor Required: No Review of Systems See HPI for pertinent positives & negatives. and A total of 10 systems reviewed and were otherwise negative Physical Exam Vital Signs Vital Signs - 24 hr 06/22/18 10:41 06/22/18 12:09 06/22/18 12:26 Temperature 37.3 C 37 C Temperature Source Oral Oral Sepsis Recent Fever Within 48 Hours Yes Sepsis New/Unexplained Change in Mental Status No Sepsis Action Taken by Nursing No Action Required Pulse Rate 119 H Pulse Rate [Left] 112 H Pulse Rhythm Regular Pulse Rhythm [Left] Regular Pulse Strength Normal Pulse Strength [Left] Normal Respiratory Rate 18 18 Respiratory Effort / Characteristics Non-Labored Spontaneous Non-Labored Spontaneous Respiratory Depth Normal Normal Respiratory Pattern Regular Regular Blood Pressure 203/93 H Blood Pressure [Left Arm] 138/59 L Blood Pressure Mean 129 Blood Pressure Mean [Left Arm] 85 Blood Pressure Position Lying Blood Pressure Position [Left Arm] Lying Pulse Oximetry 93 96 97 Oxygen Delivery Method Room Air Nasal Cannula Nasal Cannula Oxygen Flow Rate 2 2 06/22/18 13:05 06/22/18 14:00 06/22/18 15:49 Temperature 36.8 C 36.6 C Temperature Source Oral Oral Sepsis Recent Fever Within 48 Hours Sepsis New/Unexplained Change in Mental Status Sepsis Action Taken by Nursing Pulse Rate Pulse Rate [Left] 102 H 96 H Pulse Rhythm Pulse Rhythm [Left] Regular Pulse Strength Pulse Strength [Left] Normal Respiratory Rate 18 18 Respiratory Effort / Characteristics Non-Labored Spontaneous SOB on Exertion Non-Labored Spontaneous Respiratory Depth Normal Normal Respiratory Pattern Regular Regular Blood Pressure Blood Pressure [Left Arm] 109/74 113/64 Blood Pressure Mean Blood Pressure Mean [Left Arm] 85 80 Blood Pressure Position Blood Pressure Position [Left Arm] Lying Lying Pulse Oximetry 98 94 Oxygen Delivery Method Nasal Cannula Nasal Cannula Nasal Cannula Oxygen Flow Rate 2 2 1 GENERAL: Patient is in no acute distress. HEENT: No acute trauma, normocephalic atraumatic, mucous membranes moist, no nasal congestion, no scleral icterus. NECK: No stridor, no adenopathy, no meningismus, trachea is midline. LUNGS: Scattered crackles of both bases. No wheezing. Equal breath sounds, no respiratory distress. HEART: Tachycardic rate, regular rhythm, without murmurs. ABDOMEN: Soft, nontender, bowel sounds positive, no hernias, no peritonitis. EXTREMITIES: No cyanosis or edema, full range of motion of all the joints without pain or difficulty, no signs for acute trauma. NEUROLOGIC: Oriented x 3, no acute motor or sensory deficits, no focal weakness. Tremor of the extremites noted. SKIN: Erythema and warmth around both ankles. No drainage. No pedal edema. Course 1114: Past medical records reviewed. The patient was evaluated in room A10, and a complete history and physical examination were performed. 1240: I consulted Dr. Hasmukh Gonzalez Hospitalist. He will reevaluate the patient for hospitalization. 1242: I spoke to the patients family and updated them on current results and the plan for hospitalization. Consultations Consultation #1: I consulted Dr. Hasmukh Gonzalez Hospitalist. He will reevaluate the patient for hospitalization. Time: 12:40 Administered Medications Fentanyl (Duragesic) 25 mcg TD Q72H [facility] Stop: 07/06/18 16:59 Last Admin: 06/22/18 16:49 Dose: 25 mcg Sodium Chloride (Nss 1000ml) 1,000 mls @ 70 mls/hr IV .[id number] [facility] Stop: 06/23/18 20:04 Last Admin: 06/22/18 16:03 Dose: 70 mls/hr Piperacillin Sod/Tazobactam (Sod 3.375 gm/ Dextrose) 115 mls @ 28.75 mls/hr IV Q8H [facility]; Protocol Stop: 07/02/18 21:59 Last Admin: 06/22/18 16:06 Dose: 28.8 mls/hr Vancomycin HCl 1,750 mg/ (Sodium Chloride) 535 mls @ 200 mls/hr IV ONE ONE Stop: 06/22/18 18:40 Last Admin: 06/22/18 16:43 Dose: 200 mls/hr Miscellaneous (Fentanyl Patch Check Placement) 1 ea N/A QS [facility] Stop: 07/22/18 15:59 Last Admin: 06/22/18 16:43 Dose: Not Given Discontinued Medications Acetaminophen (Ofirmev) 1,000 mg in 100 mls @ 400 mls/hr IV NOW STA Stop: 06/22/18 11:32 Last Infusion: 06/22/18 12:42 Dose: 0 mls/hr Admin: 06/22/18 12:20 Dose: 400 mls/hr Sodium Chloride (Nss 1000ml) 1,000 mls @ 999 mls/hr IV .Q1H1M ONE Stop: 06/22/18 12:18 Last Infusion: 06/22/18 14:06 Dose: 0 mls/hr Admin: 06/22/18 12:19 Dose: 999 mls/hr Cefepime HCl 2,000 mg/ Syringe 20 mls @ 5.5 mls/min IV NOW STA Stop: 06/22/18 11:23 Last Admin: 06/22/18 12:20 Dose: 5.5 mls/min Lactated Ringer's (Lr) 1,000 mls @ 999 mls/hr IV .Q1H1M STA Stop: 06/22/18 13:34 Last Infusion: 06/22/18 15:33 Dose: Admin: 06/22/18 14:05 Dose: 999 mls/hr Piperacillin Sod/Tazobactam (Sod 3.375 gm/ Dextrose) 115 mls @ 230 mls/hr IV NOW ONE; Protocol Stop: 06/22/18 16:29 Last Infusion: 06/22/18 17:03 Dose: Admin: 06/22/18 16:00 Dose: 230 mls/hr Ketorolac Tromethamine (Toradol) 15 mg IV NOW STA Stop: 06/22/18 11:19 Last Admin: 06/22/18 12:20 Dose: 15 mg Medical Decision Making Differential Diagnosis Differential diagnosis: sepsis or bacteremia, influenza, UTI, pneumonia, cellulitis, dehydration, electrolyte imbalance, anemia Medical Records Attestation: I reviewed the patient's medical records. Home Medications Current Medication List: was personally reviewed by me Laboratory Data Attestation: I reviewed the patient's lab results. Result diagrams: 06/22/18 10:04 06/22/18 10:04 Lab Results 06/22/18 06/22/18 06/22/18 Range/Units 10:04 10:04 10:04 WBC 13.85 H (4.8-10.8) K/uL RBC 4.51 L (4.7-6.1) M/uL Hgb 13.8 L (14.0-18.0) g/dL Hct 42.9 (42-52) % MCV 95.1 (80-100) fL MCH 30.6 (25-34) pg MCHC 32.2 (32-36) g/dL RDW Std Deviation 50.7 H (36.4-46.3) fL RDW Coeff of [place] 14.6 H (11.5-14.5) % Plt Count 178 (130-400) K/uL MPV 10.5 H (7.4-10.4) fL Immature Gran % (Auto) 0.7 % Neut % (Auto) 83.6 % Lymph % (Auto) 11.3 % [place] % (Auto) 3.2 % Eos % (Auto) 1.0 % Baso % (Auto) 0.2 % Immature Gran # (Auto) 0.10 H (0.00-0.02) K/uL Neut # (Auto) 11.57 H (1.4-6.5) K/uL Lymph # (Auto) 1.57 (1.2-3.4) K/uL [place] # (Auto) 0.44 (0.11-0.59) K/uL Eos # (Auto) 0.14 (0-0.5) K/uL Baso # (Auto) 0.03 (0-0.2) K/uL PT 19.9 H (9.0-12.0) Seconds INR 2.1 H (0.9-1.1) APTT 33.1 H (21.0-31.0) Seconds PTT Ratio 1.3 Sodium 141 (136-145) mmol/L Potassium 4.0 (3.5-5.1) mmol/L Chloride 105 (98-107) mmol/L Carbon Dioxide 27 (21-32) mmol/L Anion Gap 9.0 (3-11) BUN 17 (7-18) mg/dl Creatinine 1.80 H (0.6-1.4) mg/dl Est Cr Clr Drug Dosing 30.2 ml/min Est GFR ( Amer) 38.1 Est GFR (Non-Af Amer) 32.9 BUN/Creatinine Ratio 9.5 L (10-20) Glucose 123 H (70-99) mg/dl POC Glucose (70-99) Lactate (0.4-2.0) mmol/L Calcium 8.4 L (8.5-10.1) mg/dl Magnesium 1.8 (1.8-2.4) mg/dl Total Bilirubin 0.4 (0.2-1) mg/dl AST 42 H (15-37) U/L ALT 61 (12-78) U/L Alkaline Phosphatase 96 (45-117) U/L Troponin I < 0.015 (0-0.045) ng/ml Total Protein 6.8 (6.4-8.2) gm/dl Albumin 3.2 L (3.4-5.0) gm/dl Globulin 3.6 (2.5-4.0) gm/dl Albumin/Globulin Ratio 0.9 (0.9-2) Procalcitonin (0-0.5) ng/ml Urine Color Urine Appearance (Clear) Urine pH (4.5-7.5) Ur Specific [place] (1.000-1.030) Urine Protein (Negative) Urine Glucose (UA) (Negative) Urine Ketones (Negative) Urine Blood (Negative) Urine Nitrite (Negative) Urine Bilirubin (Negative) Urine Urobilinogen (Negative) Ur Leukocyte Esterase (Negative) Influenza Type A (PCR) (Neg) Influenza Type B (PCR) (Neg) 06/22/18 06/22/18 06/22/18 Range/Units 10:04 10:04 11:40 WBC (4.8-10.8) K/uL RBC (4.7-6.1) M/uL Hgb (14.0-18.0) g/dL Hct (42-52) % MCV (80-100) fL MCH (25-34) pg MCHC (32-36) g/dL RDW Std Deviation (36.4-46.3) fL RDW Coeff of [place] (11.5-14.5) % Plt Count (130-400) K/uL MPV (7.4-10.4) fL Immature Gran % (Auto) % Neut % (Auto) % Lymph % (Auto) % [place] % (Auto) % Eos % (Auto) % Baso % (Auto) % Immature Gran # (Auto) (0.00-0.02) K/uL Neut # (Auto) (1.4-6.5) K/uL Lymph # (Auto) (1.2-3.4) K/uL [place] # (Auto) (0.11-0.59) K/uL Eos # (Auto) (0-0.5) K/uL Baso # (Auto) (0-0.2) K/uL PT (9.0-12.0) Seconds INR (0.9-1.1) APTT (21.0-31.0) Seconds PTT Ratio Sodium (136-145) mmol/L Potassium (3.5-5.1) mmol/L Chloride (98-107) mmol/L Carbon Dioxide (21-32) mmol/L Anion Gap (3-11) BUN (7-18) mg/dl Creatinine (0.6-1.4) mg/dl Est Cr Clr Drug Dosing ml/min Est GFR ( Amer) Est GFR (Non-Af Amer) BUN/Creatinine Ratio (10-20) Glucose (70-99) mg/dl POC Glucose (70-99) Lactate (0.4-2.0) mmol/L Calcium (8.5-10.1) mg/dl Magnesium (1.8-2.4) mg/dl Total Bilirubin (0.2-1) mg/dl AST (15-37) U/L ALT (12-78) U/L Alkaline Phosphatase (45-117) U/L Troponin I Cancelled (0-0.045) ng/ml Total Protein (6.4-8.2) gm/dl Albumin (3.4-5.0) gm/dl Globulin (2.5-4.0) gm/dl Albumin/Globulin Ratio (0.9-2) Procalcitonin 1.57 H (0-0.5) ng/ml Urine Color Yellow Urine Appearance Clear (Clear) Urine pH 5.0 (4.5-7.5) Ur Specific [place] 1.016 (1.000-1.030) Urine Protein Negative (Negative) Urine Glucose (UA) Negative (Negative) Urine Ketones Negative (Negative) Urine Blood Negative (Negative) Urine Nitrite Negative (Negative) Urine Bilirubin Negative (Negative) Urine Urobilinogen Negative (Negative) Ur Leukocyte Esterase Negative (Negative) Influenza Type A (PCR) (Neg) Influenza Type B (PCR) (Neg) 06/22/18 06/22/1819 Range/Units 11:47 12:15 15:28 WBC (4.8-10.8) K/uL RBC (4.7-6.1) M/uL Hgb (14.0-18.0) g/dL Hct (42-52) % MCV (80-100) fL MCH (25-34) pg MCHC (32-36) g/dL RDW Std Deviation (36.4-46.3) fL RDW Coeff of [place] (11.5-14.5) % Plt Count (130-400) K/uL MPV (7.4-10.4) fL Immature Gran % (Auto) % Neut % (Auto) % Lymph % (Auto) % [place] % (Auto) % Eos % (Auto) % Baso % (Auto) % Immature Gran # (Auto) (0.00-0.02) K/uL Neut # (Auto) (1.4-6.5) K/uL Lymph # (Auto) (1.2-3.4) K/uL [place] # (Auto) (0.11-0.59) K/uL Eos # (Auto) (0-0.5) K/uL Baso # (Auto) (0-0.2) K/uL PT (9.0-12.0) Seconds INR (0.9-1.1) APTT (21.0-31.0) Seconds PTT Ratio Sodium (136-145) mmol/L Potassium (3.5-5.1) mmol/L Chloride (98-107) mmol/L Carbon Dioxide (21-32) mmol/L Anion Gap (3-11) BUN (7-18) mg/dl Creatinine (0.6-1.4) mg/dl Est Cr Clr Drug Dosing ml/min Est GFR ( Amer) Est GFR (Non-Af Amer) BUN/Creatinine Ratio (10-20) Glucose (70-99) mg/dl POC Glucose 126 H (70-99) Lactate 3.8 H* (0.4-2.0) mmol/L Calcium (8.5-10.1) mg/dl Magnesium (1.8-2.4) mg/dl Total Bilirubin (0.2-1) mg/dl AST (15-37) U/L ALT (12-78) U/L Alkaline Phosphatase (45-117) U/L Troponin I (0-0.045) ng/ml Total Protein (6.4-8.2) gm/dl Albumin (3.4-5.0) gm/dl Globulin (2.5-4.0) gm/dl Albumin/Globulin Ratio (0.9-2) Procalcitonin (0-0.5) ng/ml Urine Color Urine Appearance (Clear) Urine pH (4.5-7.5) Ur Specific [place] (1.000-1.030) Urine Protein (Negative) Urine Glucose (UA) (Negative) Urine Ketones (Negative) Urine Blood (Negative) Urine Nitrite (Negative) Urine Bilirubin (Negative) Urine Urobilinogen (Negative) Ur Leukocyte Esterase (Negative) Influenza Type A (PCR) Neg for Influ A (Neg) Influenza Type B (PCR) Neg for Influ B (Neg) Imaging Data Radiologist's Impression: Radiology results as stated below per my review and the radiologist's interpretation: XR chest 1V portable CLINICAL HISTORY: Sepsis COMPARISON STUDY: 03/15/2018 FINDINGS: The cardiac and mediastinal contours remain stable. There is no failure. There is no lobar consolidation. There is minor left basilar atelectasis.[ No pleural effusions are visualized. IMPRESSION: No active disease in the chest. Electronically signed by: Liam Hernández M.D. 06/22/2018 12:07 PM ECG Data Attestation: I personally reviewed and interpreted this ECG as follows: Indication: other (tremors) Rate (beats per minute): 111 Rhythm: sinus tachycardia Findings: + nonspecific-ST abn (diffuse); no PVC Blood Pressure Blood Pressure Findings: Elevated blood pressure Blood Pressure Disposition: further management by hospitalist [facility] Narrative There is a mild leukocytosis, this could be consistent with infection. No concerning anemia. INR is elevated consistent with his Coumadin use. No significant electrolyte abnormality. Creatinine was elevated at 1.8, this is baseline looking back at previous testing. There was no hepatitis. EKG showed a sinus rhythm with artifact, no acute ischemia. Cardiac enzyme testing x1 was not consistent with acute cardiac injury. Lactic acid level and pro-calcitonin levels were both elevated, this could be consistent with sepsis and/or bacteremia. Urinalysis did not show infection. Influenza testing was negative. Chest film did not show any obvious pneumonia. The patient received IV Tylenol, IV saline and then a liter of lactated Ringer' s. He received IV Toradol and IV cefepime. The patient appears to have a lower extremity cellulitis. He does meet criteria for sepsis. I do think a hospital stay is warranted. I spoke to the patient and his daughter. I spoke to the case sealer. The on-call hospitalist was consulted. With the treatment provided, the patient does seem to be improved. Impression & Plan Sepsis, Fever, Cellulitis, Tremor Discharge Plan Visit Data *Final* Discharge Date/Time: 06/22/18 14:20 Chief Complaint: Illness Stated Complaint: body tremors ED Provider: Wilfredo Santiago Discharge Problem: Sepsis, Fever, Cellulitis, Tremor Patient Disposition: Admitted As Inpatient Discharge Instructions Interventions: ED Discharge Assessment Last Done: 06/22/18 14:20 The scribe's documentation has been prepared under my direction and personally reviewed by me in its entirety. I confirm that the note above accurately reflects all work, treatment, procedures, and medical decision making performed by me.
[2018-06-22] MEDS: ACETAMINOPHEN 65 ML IV ONE ×2 (17:39→18:30)
[2018-06-22] MEDS: WARFARIN SOD 5 MG TAB PO SCH (17:39)
[2018-06-22] MEDS: INSULIN ASPART 100 UNITS/ML 3 ML PEN SC SCH ×2 (18:26→21:05)
[2018-06-22] MEDS: TIMOLOL MALEATE 0.25% OP SOLN 5 ML BTL OPB SCH (21:06)
[2018-06-22] MEDS: FERROUS SULFATE 325 MG TAB PO SCH (21:06)
[2018-06-22] MEDS: TAMSULOSIN HCL 0.4 MG CAP PO SCH (21:06)
[2018-06-22] MEDS: predniSONE 10 MG TABLET PO SCH (21:07)
[2018-06-22] MEDS: GABAPENTIN 400 MG CAP PO SCH (21:07)
[2018-06-22] MEDS: AMITRIPTYLINE HCL 50 MG TAB PO SCH (21:07)
[2018-06-22] MEDS: PANTOprazole 40 MG TAB PO SCH (21:07)
[2018-06-23] MEDS: CHECK FENTANYL PATCH PLACEMENT SCH ×4 (00:43→23:56)
[2018-06-23] MEDS: PIPERACILLIN/TAZOBACTAM 3.375 GM in DEXTROSE 5% 100 ML IV SCH ×3 (04:28→21:23)
[2018-06-23] MEDS: SODIUM CHLORIDE 0.9% 1000ML 1,000 ML IV SCH (06:24)
[2018-06-23 06:44] LABS: Hematocrit (blood only) 39.1 % (42-52); Hemoglobin 12.6 g/dL (14.0-18.0); Mean Corpuscular Hgb Conc 32.2 g/dL (32-36); Mean Corpuscular Volume 93.8 fL (80-100); Mean Platelet Volume 10.3 fL (7.4-10.4); Platelet Count 150 K/uL (130-400); RDW Coefficient of Variation 14.6 % (11.5-14.5); RDW Standard Deviation 49.4 fL (36.4-46.3); Red Blood Count 4.17 M/uL (4.7-6.1)
[2018-06-23 07:22] LABS: INR 1.6 (0.9-1.1); Prothrombin Time 15.7 Seconds (9.0-12.0)
[2018-06-23 07:32] LABS: BUN Creatinine Ratio 8.9 (10-20); Calcium 8.1 mg/dl (8.5-10.1); Creatinine Clr Calc Pharmacy 30.6 ml/min; Est GFR (African American) 38.6; Est GFR (Non-African American) 33.3; Potassium 4.4 mmol/L (3.5-5.1)
--- NOTE | 2018-06-23 08:06 | Pharmacy Report ---
Pharmacy Abx Dose Short Note - Date of Service June 23, 2018 - Assessment & Plan Assessment 88 year old M receiving vancomycin for treatment of possible pulmonary infection / skin infection Day # 2 of antimicrobial therapy. Plan Vancomycin * Random level of 10.2 mcg/mL is subtherapeutic for pulmonary infection * Start dose of 1250 mg IV every 18 hours * Goal trough level for pulmonary infection : 15 to 20 mcg/mL * Trough ordered for: 06/24/18 prior to third dose which will NOT be a true trough but will indicate the way the patient is going Pharmacy will continue to follow and will adjust dose/frequency as necessary. Thank you.
[2018-06-23] MEDS: INSULIN ASPART 100 UNITS/ML 3 ML PEN SC SCH ×4 (08:31→21:26)
[2018-06-23] MEDS: PANTOprazole 40 MG TAB PO SCH ×2 (08:33→21:26)
[2018-06-23] MEDS: FINASTERIDE 5 MG TAB PO SCH (08:33)
[2018-06-23] MEDS: ESCITALOPRAM OXALATE 10 MG TAB PO SCH (08:33)
[2018-06-23] MEDS: FERROUS SULFATE 325 MG TAB PO SCH ×2 (08:33→21:24)
[2018-06-23] MEDS: GABAPENTIN 400 MG CAP PO SCH ×3 (08:33→21:25)
[2018-06-23] MEDS ORDERED: fentaNYL 25 MCG/HR TDSY TD SCH (09:00)
--- NOTE | 2018-06-23 10:41 | Hospitalist Progress Note ---
Date of Service June 23, 2018 Assessment & Plan (1) Sepsis: Present on admission with shaking and generalized weakness Meeting sepsis criteria POA Elevated WBC, tachycardia, lactic acid and procalcitonin with unknown etiology Possible related to cellulitis due to erythema in LE on exam CXR showed no acute finding Influenza PCR negative for flu. UA negative Received cefepime in the ER Blood cx pending Continue on Zosyn IV and Vanco If MRSA screen negative will d/c Vanco Repeat Lactic acid Continue IVF (2) Lactic acid increased: Due to sepsis Elevated WBC and Procalcitonin Will monitor Lactic acid Continue IVF (3) Generalized weakness/Tremor Likely secondary to underlying infection fall precautions PT/OT eval (4) Chronic kidney disease type 3 Cr: 1.8 on admission, baseline Cr ~1.6-1.7 Received IVF Monitor renal functions Will hold Lisinopril for now avoid nephrotoxic agents when possible (5) Pulmonary embolism: H/O PE after surgery. 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 Pt and family have chosen no further workup (8) PMR (polymyalgia rheumatica): Continue prednisone 20mg daily Continue fentanyl patch Will add hydrocone prn (9) Hypertension: BP stable hold lisinopril for now Monitor BP (10) BPH (benign prostatic hyperplasia): Continue flomax, finasteride (11) GERD (gastroesophageal reflux disease): continue PPI (14) Dyslipidemia: Continue statin (15) Chronic anemia: Hgb: 13.8. baseline ~11-12 Continue ferrous sulfate Stable (14) Depression: Stable DVT Prophylaxis On Coumadin with INR 2.3 DNR/DNI as per discussion with pt and pt's daughter Disposition Follows with Dr Liriano for routine care Subjective 88 y/o M with PMH DM II, HTN, dyslipidemia, BPH, GERD, depression, CKD III, PMR , PE on Coumadin (most recent PE in 09/2017, was off Coumadin prior), known lung nodule presented to ER with complaint of generalized weakness and tremor. Daughter said that this morning pt woke up with shakes associated with weakness. Daughter said that pt was seen at PCP office about 1 week and half ago for abdominal pain and was given avelox that he only had 2 days left. Daughter said that pt usually shakes and feels weak when he developed infection. He was admitted back in Nov for aspiration PNA and presented at that time with weakness and shaking. Daughter said that he did not check his temp today. Daughter said that she noticed his breathing a worst today. He also developed mild erythema in his lower extremities that started this morning. Pt has a known right upper lobe mass, that they have chosen to not investigate further or seek further treatment. Denies diaphoresis, N/V/D/C, MORENO, dizziness, syncope, vision changes, neck pain, CP, palpitations, hemoptysis, sore throat, otalgia, rhinorrhea, abdominal pain. ROS-No Headache, No Visual Changes, No Nausea, No Vomiting, No Fever, No Chills , No Neck Pain or Stiffness, No Chest Pain, No Palpitations, No SOB, No SEVILLA, No Cough, No Sputum, No Wheezing, No Abdominal Pain, No Diarrhea, No Hematemesis, No Hemoptysis, No Unexpected Weight Loss, No Flank pain, No Melena, No Hematochezia, No Frequency, No Urgency, No Burning, No Hematuria, No Rashes, No Diaphoresis. Appetite is Normal, says his shakes are gone, feels a little better. Physical Exam Gen-AAO x 3, NAD, Afebrile Head-NCAT, EOMI, PERRLA, Anicteric Sclera, No Posterior Pharyngeal Erythema Neck-Supple, No JVD, No Thyromegaly, No Masses, No LAD, No Bruits Lungs-Clear to Auscultation Bilaterally, No Rales, No Rhonchi, No Wheezing, No Crepitus Chest-No S4, +S1, +S2, No S3, No Murmurs, No Rubs, No Gallops, No Ectopy Abdomen-Soft, Bowel Sounds Present, Non Tender, Non Distended, No Hepatomegaly, No Splenomegaly, No Palpable Masses, No Rebound, No Rigidity, No Guarding Musculoskeletal-Full Range of Motion Bilaterally, No CVAT Extremities-No Cyanosis, No Clubbing, No Edema Nuero-Cranial Nerves II-XII grossly intact, Motor WNL, DTRs WNL, Strength WNL, Non Focal Psych-Normal Mood Physical Exam 2 Vital Signs (Past 24 Hours): Last Vital Signs Temp 36.9 C 06/23/18 04:36 Pulse 68 06/23/18 04:36 Resp 19 06/23/18 04:36 BP 115/68 06/23/18 04:36 Pulse Ox 96 06/23/18 04:36 Results & Data Laboratory Results Allergies oxycodone Allergy ([place], Verified 06/22/18 11:12) ITCHINESS lorazepam Adverse Reaction (SV, Unverified 06/22/18 11:12) agitation Height/Weight/Isolation Height 5 ft 11 in Weight 90.2 kg Chemistry 06/22/18 06/23/18 10:04 06:20 Sodium 141 141 Potassium 4.0 4.4 Chloride 105 109 H Carbon Dioxide 27 25 Anion Gap 9.0 7.0 BUN 17 16 Creatinine 1.80 H 1.78 H Glucose 123 H 196 H Urinalysis 06/22/18 11:40 Urine Color Yellow Urine Appearance Clear Urine pH 5.0 Ur Specific [place] 1.016 Urine Protein Negative Urine Glucose (UA) Negative Urine Ketones Negative Urine Blood Negative Urine Nitrite Negative Urine Bilirubin Negative Microbiology 06/22/18 11:40 Blood Blood Culture - Pending 06/22/18 11:47 Blood Blood Culture - Pending _ (1) Sepsis Sepsis type: sepsis due to unspecified organism Qualified Code(s): A41.9 - Sepsis, unspecified organism
[2018-06-23] MEDS ORDERED: FUROSEMIDE 100 MG in SYRINGE 0 ML IV ONE (16:20)
[2018-06-23] MEDS: NITROGLYCERIN 2% OINTMENT 30GM TUBE EXT SCH ×2 (18:04→22:43)
[2018-06-23] MEDS: WARFARIN SOD 5 MG TAB PO SCH (18:08)
[2018-06-23] MEDS: AMITRIPTYLINE HCL 50 MG TAB PO SCH (21:24)
[2018-06-23] MEDS: TAMSULOSIN HCL 0.4 MG CAP PO SCH (21:24)
[2018-06-23] MEDS: predniSONE 10 MG TABLET PO SCH (21:26)
[2018-06-23] MEDS: TIMOLOL MALEATE 0.25% OP SOLN 5 ML BTL OPB SCH (21:27)
[2018-06-24] MEDS: PIPERACILLIN/TAZOBACTAM 3.375 GM in DEXTROSE 5% 100 ML IV SCH ×3 (03:47→20:09)
[2018-06-24] MEDS: NITROGLYCERIN 2% OINTMENT 30GM TUBE EXT SCH ×3 (05:18→16:43)
[2018-06-24 06:40] LABS: Hemoglobin 12.3 g/dL (14.0-18.0); Mean Corpuscular Hgb Conc 32.4 g/dL (32-36); Mean Corpuscular Volume 91.1 fL (80-100); Mean Platelet Volume 9.8 fL (7.4-10.4); Platelet Count 161 K/uL (130-400); RDW Coefficient of Variation 14.4 % (11.5-14.5); RDW Standard Deviation 48.1 fL (36.4-46.3); Red Blood Count 4.17 M/uL (4.7-6.1); White Blood Count 9.15 K/uL (4.8-10.8)
[2018-06-24 07:01] LABS: INR 1.8 (0.9-1.1); Prothrombin Time 17.7 Seconds (9.0-12.0)
[2018-06-24 07:12] LABS: BUN Creatinine Ratio 9.3 (10-20); Calcium 8.3 mg/dl (8.5-10.1); Creatinine Clr Calc Pharmacy 28.8 ml/min; Est GFR (African American) 35.9; Potassium 3.9 mmol/L (3.5-5.1)
[2018-06-24] MEDS: CHECK FENTANYL PATCH PLACEMENT SCH ×3 (07:27→23:25)
[2018-06-24] MEDS: INSULIN ASPART 100 UNITS/ML 3 ML PEN SC SCH ×4 (08:35→20:24)
[2018-06-24] MEDS: PANTOprazole 40 MG TAB PO SCH ×2 (08:36→20:12)
[2018-06-24] MEDS: GABAPENTIN 400 MG CAP PO SCH ×3 (08:36→20:12)
[2018-06-24] MEDS: FINASTERIDE 5 MG TAB PO SCH (08:40)
[2018-06-24] MEDS: FERROUS SULFATE 325 MG TAB PO SCH ×2 (08:40→20:12)
[2018-06-24] MEDS: ESCITALOPRAM OXALATE 10 MG TAB PO SCH (08:40)
--- NOTE | 2018-06-24 09:10 | Hospitalist Progress Note ---
Date of Service June 24, 2018 Assessment & Plan (1) Sepsis: Present on admission with shaking and generalized weakness Meeting sepsis criteria POA Elevated WBC, tachycardia, lactic acid and procalcitonin with unknown etiology Possible related to cellulitis due to erythema in LE on exam CXR showed no acute finding Influenza PCR negative for flu. UA negative Received cefepime in the ER Blood cx neg so far Continue on Zosyn IV off Vanco sec to neg MRSA screen Repeat Lactic acid neg off IVF, Lasix and NTP given for vol overload (2) Lactic acid increased: Due to sepsis Elevated WBC and Procalcitonin (3) Generalized weakness/Tremor Likely secondary to underlying infection fall precautions PT/OT eval (4) Chronic kidney disease type 3 Cr: 1.8 on admission, baseline Cr ~1.6-1.7 Received IVF Monitor renal functions Will hold Lisinopril for now avoid nephrotoxic agents when possible (5) Pulmonary embolism: H/O PE after surgery. 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 Pt and family have chosen no further workup (8) PMR (polymyalgia rheumatica): Continue prednisone 20mg daily Continue fentanyl patch Will add hydrocone prn (9) Hypertension: BP stable hold lisinopril for now Monitor BP (10) BPH (benign prostatic hyperplasia): Continue flomax, finasteride (11) GERD (gastroesophageal reflux disease): continue PPI (14) Dyslipidemia: Continue statin (15) Chronic anemia: Hgb: 13.8. baseline ~11-12 Continue ferrous sulfate Stable (14) Depression: Stable DVT Prophylaxis On Coumadin with INR 2.3 DNR/DNI as per discussion with pt and pt's daughter Disposition Follows with Dr Liriano for routine care Subjective 88 y/o M with PMH DM II, HTN, dyslipidemia, BPH, GERD, depression, CKD III, PMR , PE on Coumadin (most recent PE in 09/2017, was off Coumadin prior), known lung nodule presented to ER with complaint of generalized weakness and tremor. Daughter said that this morning pt woke up with shakes associated with weakness. Daughter said that pt was seen at PCP office about 1 week and half ago for abdominal pain and was given avelox that he only had 2 days left. Daughter said that pt usually shakes and feels weak when he developed infection. He was admitted back in Nov for aspiration PNA and presented at that time with weakness and shaking. Daughter said that he did not check his temp today. Daughter said that she noticed his breathing a worst today. He also developed mild erythema in his lower extremities that started this morning. Pt has a known right upper lobe mass, that they have chosen to not investigate further or seek further treatment. Denies diaphoresis, N/V/D/C, MORENO, dizziness, syncope, vision changes, neck pain, CP, palpitations, hemoptysis, sore throat, otalgia, rhinorrhea, abdominal pain. ROS-No Headache, No Visual Changes, No Nausea, No Vomiting, No Fever, No Chills , No Neck Pain or Stiffness, No Chest Pain, No Palpitations, No SOB, No SEVILLA, No Cough, No Sputum, No Wheezing, No Abdominal Pain, No Diarrhea, No Hematemesis, No Hemoptysis, No Unexpected Weight Loss, No Flank pain, No Melena, No Hematochezia, No Frequency, No Urgency, No Burning, No Hematuria, No Rashes, No Diaphoresis. Appetite is Normal, says his shakes are gone, feels a little better. RN reported he's now in AFIB at 89 Physical Exam Gen-AAO x 3, NAD, Afebrile Head-NCAT, EOMI, PERRLA, Anicteric Sclera, No Posterior Pharyngeal Erythema Neck-Supple, No JVD, No Thyromegaly, No Masses, No LAD, No Bruits Lungs-Clear to Auscultation Bilaterally, No Rales, No Rhonchi, No Wheezing, No Crepitus Chest-No S4, +S1, +S2, No S3, No Murmurs, No Rubs, No Gallops, No Ectopy Abdomen-Soft, Bowel Sounds Present, Non Tender, Non Distended, No Hepatomegaly, No Splenomegaly, No Palpable Masses, No Rebound, No Rigidity, No Guarding Musculoskeletal-Full Range of Motion Bilaterally, No CVAT Extremities-No Cyanosis, No Clubbing, No Edema Nuero-Cranial Nerves II-XII grossly intact, Motor WNL, DTRs WNL, Strength WNL, Non Focal Psych-Normal Mood Physical Exam 2 Vital Signs (Past 24 Hours): Last Vital Signs Temp 36.6 C 06/24/18 07:31 Pulse 100 H 06/24/18 07:31 Resp 18 06/24/18 07:31 BP 157/88 H 06/24/18 07:31 Pulse Ox 98 06/24/18 07:31 Results & Data Laboratory Results Current Diagnoses Sepsis, unspecified organism (06/22/18) Acidosis (06/22/18) Allergies oxycodone Allergy ([place], Verified 06/22/18 11:12) ITCHINESS lorazepam Adverse Reaction (SV, Unverified 06/22/18 11:12) agitation Height/Weight/Isolation Height 5 ft 11 in Weight 86.8 kg Chemistry 06/22/18 06/23/18 06/24/18 10:04 06:20 06:31 Sodium 141 141 141 Potassium 4.0 4.4 3.9 Chloride 105 109 H 105 Carbon Dioxide 27 25 29 Anion Gap 9.0 7.0 7.0 BUN 17 16 18 Creatinine 1.80 H 1.78 H 1.89 H Glucose 123 H 196 H 209 H Urinalysis 06/22/18 11:40 Urine Color Yellow Urine Appearance Clear Urine pH 5.0 Ur Specific [place] 1.016 Urine Protein Negative Urine Glucose (UA) Negative Urine Ketones Negative Urine Blood Negative Urine Nitrite Negative Urine Bilirubin Negative Microbiology 06/22/18 11:47 Blood Blood Culture - Preliminary No growth to date. 06/22/18 11:40 Blood Blood Culture - Preliminary No growth to date. _ (1) Sepsis Sepsis type: sepsis due to unspecified organism Qualified Code(s): A41.9 - Sepsis, unspecified organism
--- NOTE | 2018-06-24 11:30 | Ultrasound Report ---
US venous doppler LE CLINICAL HISTORY: 88 years-old Male presenting with Tachy, new onset AFIB, Possible PE, history of ri ght lower extremity DVT. TECHNIQUE: Real-time grayscale and color and spectral Doppler ultrasound imaging of the veins of the bilateral lower extremities was performed. Compression and augmentation were also utilized. COMPARISON: 09/18/2017. FINDINGS: RIGHT: Common femoral vein: Patent. Greater saphenous vein (superficial): Patent. Deep femoral vein: Patent. Femoral vein: Small focus of hyperechogenicity along the wall of the proximal right superficial femor al vein, likely chronic sequela from prior thrombus. No other evidence of a filling defect to suggest thrombus on the current exam. Remainder of the vein normal. Popliteal vein: Patent. Calf veins: Patent. LEFT: Common femoral vein: Patent. Greater saphenous vein (superficial): Patent. Deep femoral vein: Patent. Femoral vein: Patent. Popliteal vein: Patent. Calf veins: Limited visualization. Other: None. IMPRESSION: 1. No evidence of acute deep venous thrombosis. 2. Limited chronic sequela of prior thrombus in the proximal right superficial femoral vein. Electronically signed by: Caleb Hill M.D. 06/24/2018 11:28 AM
--- NOTE | 2018-06-24 11:44 | Nuclear Medicine Report ---
NM pul vent and perfuse CLINICAL HISTORY: 88 years-old Male presenting with AFIB, Hx of PE. TECHNIQUE: Immediately following the inhalation of 33.2 mCi of technetium 99 M DTPA for the ventilati on scan and the intravenous administration of 5.4 mCi of technetium 99 M MAA for the perfusion scan, anterior, oblique, lateral, and posterior views of the chest were obtained. Modified PIOPED II criter ia were utilized for assessment. COMPARISON: Chest x-ray from 06/22/[address] from 03/11/2018. FINDINGS: No mismatched defects are identified on this examination. Heterogeneity and relative photopenia on pe rfusion imaging in the superior and posterior basal segments of the right lower lobe and minimally in the anterior segment of the right upper lobe. Relative photopenia is also evident on ventilation lucas ging in these regions though to a slightly lesser degree. The appearance is felt to most likely repre sent underlying emphysema. Photopenia on perfusion imaging in a fissural distribution also indicative of emphysematous changes. Perfusion and ventilation to both lungs is otherwise preserved. Reference: Modified PIOPED II criteria Normal: No perfusion defects. Very low likelihood ratio: Nonsegmental, perfusion defect < chest x-ray lesion, 1-3 small segmental d efects, solitary triple matched defect (< or = 1 segment) in mid or upper lung, stripe sign, solitary large pleural effusion, > or = to 2 matched defects with regionally normal chest x-ray. High likelihood ratio: > or = 2 large mismatch segmental defects. Nondiagnostic: All other findings. IMPRESSION: Very low likelihood for pulmonary embolus. Electronically signed by: Caleb Hill M.D. 06/24/2018 11:42 AM
[2018-06-24 12:07] LABS: Cdiff Antigen Negative; Cdiff Toxin A+B Negative (Negative)
--- NOTE | 2018-06-24 13:50 | Cardiology Consultation ---
Date of Consultation June 24, 2018 Assessment & Plan (1) Sepsis: (2) Cellulitis: (3) Diabetes mellitus, type II: (4) Lung mass: (5) PAF (paroxysmal atrial fibrillation): I would recommend conservative management for this elderly patient with multiple medical problems. He has paroxysmal atrial fibrillation which is most likely due to his current illness, age and other medical problems. He is on long-term anticoagulation due to his previous history of a PE. I will start him on low-dose metoprolol to try and help maintain normal sinus rhythm but also rate control when he goes into the atrial fibrillation. I would not recommend any additional cardiac testing at this time. His last hospital echocardiogram was in August 2016 and failed to show any significant valvular pathology and his LV function was normal. History of Present Illness Attending Physician: Teofilo Ramirez DO History of Present Illness This is an 88-year-old male patient who is hard of hearing and also has a history of dementia information is taken from the medical record and from nursing staff. He has multiple medical problems. He was admitted with cellulitis and sepsis type syndrome. He was started on antibiotics. He has history of diabetes and also a right lung mass which is most likely cancer. His daughter was in the room today while I was performing my exam. She informed me that he has never had a history of heart disease and does not follow with a solution analyst normally. After admission he was placed on the telemetry unit. Last evening he went into atrial fibrillation with heart rates in the low 100s to 120 bpm. It was asymptomatic. Today he converted spontaneously to normal sinus rhythm where he currently remains. He has been on long-term anticoagulation due to prior history of pulmonary emboli following surgery last year. Allergies Allergy/AdvReac Type Severity Reaction Status Date / Time oxycodone Allergy SC ITCHINESS Verified 06/22/18 11:12 lorazepam AdvReac SV agitation Unverified 06/22/18 11:12 Home Medications Home Medications Medication Instructions Recorded Confirmed Type amitriptyline 50 mg PO HS 03/15/18 06/22/18 History docusate sodium 100 mg PO BID 03/15/18 06/22/18 History escitalopram oxalate 10 mg PO QAM 03/15/18 06/22/18 History ferrous sulfate 325 mg PO BID 03/15/18 06/22/18 History finasteride 5 mg PO QAM 03/15/18 06/22/18 History gabapentin 800 mg PO TID 03/15/18 06/22/18 History hydrocodone-acetaminophen 1 tab PO Q6 PRN 03/15/18 06/22/18 History omeprazole 40 mg PO BID 03/15/18 06/22/18 History simvastatin 20 mg PO HS 03/15/18 06/22/18 History tamsulosin 0.8 mg PO HS 03/15/18 06/22/18 History warfarin 5 mg PO DAILY@1800 03/15/18 06/22/18 History fentanyl 25 mcg TRANSDERMAL Q72H 06/22/18 06/22/18 History lisinopril 2.5 mg PO QAM 06/22/18 06/22/18 History moxifloxacin 400 mg PO QAM 06/22/18 06/22/18 History prednisone 20 mg PO PM 06/22/18 06/22/18 History timolol maleate 1 drp OPB HS 06/22/18 06/22/18 History Patient History Medical History Chronic anemia (Chronic) BPH (benign prostatic hyperplasia) (Chronic) Diabetes mellitus, type II (Chronic) Lung mass (Chronic) Depression (Chronic) GERD (gastroesophageal reflux disease) (Chronic) Hypertension (Chronic) Osteoarthritis (Chronic) PMR (polymyalgia rheumatica) (Chronic) Pulmonary embolism (Chronic) on Coumadin Dyslipidemia (Chronic) CKD (chronic kidney disease), stage III (Chronic) Hydrocele, right (Chronic) Surgical History H/O arthroscopic knee surgery (Chronic) Hx of spinal surgery (Chronic) "lumbar decompression/fusion" On 11/09/15 17:16 Ayde Weinberg wrote "lumbar decompression/fusion in [address] Brown" Family History Other Brain cancer CAD (coronary artery disease) Social History Current Living Situation: Family Other Information That Helps Us Care for You: No Feels Safe at Home: Yes Safety Concerns: Feels Safe At This Time Smoking Status: Former smoker Do You Dip or Chew Tobacco: No Smoking End Date: 10/05/1971 Second Hand Exposure: No Tobacco Cessation Education Requested by Patient: No Hx Alcohol Use: No Hx Substance Use: No Beliefs That Will Affect Care: None Preferred Language: Turkmen Communication Ability: Effective Plasma Processing Technician Required: No Review of Systems Review of Systems: See HPI for pertinent positives. All other 10 point review of systems are negative. Physical Exam 2 Vital Signs (Past 24 Hours): Last Vital Signs Temp 36.7 C 06/24/18 11:30 Pulse 110 H 06/24/18 11:30 Resp 18 06/24/18 11:30 BP 100/61 06/24/18 11:30 Pulse Ox 98 06/24/18 07:31 Physical Exam: General: no acute distress and stated age Head: normocephalic, no masses, lesions, tenderness or abnormalities Eyes: conjunctiva are pink and non-injected, sclera clear Neck: supple, no adenopathy, no bruits, normal jugular venous pulse, no hepatojugular reflux Chest: normal shape and normal respiratory effort Lungs: clear to auscultation and percussion Cardiac Exam: - regular rate & rhythm, no murmurs gallops or rubs - normal S1, normal S2 Pulses: 2(+) throughout Abdomen: abdomen soft, non-tender, no abnormal masses and no hepatosplenomegaly Musculoskeletal: no gait disturbance, no joint inflammation, no deforming arthritis Extremities: no edema and no cyanosis Neuro: grossly normal exam Results & Data Laboratory Results Laboratory Results - last 24 hr 06/23/18 06/23/18 06/23/18 16:34 17:08 20:43 WBC RBC Hgb Hct MCV MCH MCHC RDW Std Deviation RDW Coeff of [place] Plt Count MPV PT INR Sodium Potassium Chloride Carbon Dioxide Anion Gap BUN Creatinine Est Cr Clr Drug Dosing Est GFR ( Amer) Est GFR (Non-Af Amer) BUN/Creatinine Ratio Glucose POC Glucose 114 H 106 H 122 H Calcium TSH Stl C. diff Tox B Gene Stl C.difficile Tox A&B 06/24/18 06/24/18 06/24/18 06:31 06:31 06:31 WBC 9.15 RBC 4.17 L Hgb 12.3 L Hct 38.0 L MCV 91.1 MCH 29.5 MCHC 32.4 RDW Std Deviation 48.1 H RDW Coeff of [place] 14.4 Plt Count 161 MPV 9.8 PT 17.7 H INR 1.8 H Sodium 141 Potassium 3.9 Chloride 105 Carbon Dioxide 29 Anion Gap 7.0 BUN 18 Creatinine 1.89 H Est Cr Clr Drug Dosing 28.8 Est GFR ( Amer) 35.9 Est GFR (Non-Af Amer) 31.0 BUN/Creatinine Ratio 9.3 L Glucose 209 H POC Glucose Calcium 8.3 L TSH Stl C. diff Tox B Gene Stl C.difficile Tox A&B 06/24/18 06/24/18 06/24/18 06:31 07:02 08:00 WBC RBC Hgb Hct MCV MCH MCHC RDW Std Deviation RDW Coeff of [place] Plt Count MPV PT INR Sodium Potassium Chloride Carbon Dioxide Anion Gap BUN Creatinine Est Cr Clr Drug Dosing Est GFR ( Amer) Est GFR (Non-Af Amer) BUN/Creatinine Ratio Glucose POC Glucose 196 H Calcium TSH 0.395 Stl C. diff Tox B Gene Pos C.diff Toxin B A Stl C.difficile Tox A&B Negative 06/24/18 11:25 WBC RBC Hgb Hct MCV MCH MCHC RDW Std Deviation RDW Coeff of [place] Plt Count MPV PT INR Sodium Potassium Chloride Carbon Dioxide Anion Gap BUN Creatinine Est Cr Clr Drug Dosing Est GFR ( Amer) Est GFR (Non-Af Amer) BUN/Creatinine Ratio Glucose POC Glucose 137 H Calcium TSH Stl C. diff Tox B Gene Stl C.difficile Tox A&B Medications Administered Current Inpatient Medications Amitriptyline HCl (Elavil) 50 mg PO HS AMANDA Stop: 07/22/18 20:59 Last Admin: 06/23/18 21:24 Dose: 50 mg Dextrose (Dextrose 50%) 25 - 50 ml IV UD PRN; Protocol PRN Reason: Hypoglycemia Protocol Stop: 07/22/18 15:25 Escitalopram Oxalate (Lexapro) 10 mg PO QAM AMANDA Stop: 07/23/18 08:59 Last Admin: 06/24/18 08:40 Dose: 10 mg Fentanyl (Duragesic) 25 mcg TD Q72H AMANDA Stop: 07/06/18 16:59 Last Admin: 06/22/18 16:49 Dose: 25 mcg Ferrous Sulfate (Feosol) 325 mg PO BID AMANDA Stop: 07/22/18 20:59 Last Admin: 06/24/18 08:40 Dose: 325 mg Finasteride (Proscar) 5 mg PO QAM AMANDA Stop: 07/23/18 08:59 Last Admin: 06/24/18 08:40 Dose: 5 mg Gabapentin (Neurontin) 800 mg PO TID AMANDA Stop: 07/22/18 20:59 Last Admin: 06/24/18 08:36 Dose: 800 mg Glucagon (Glucagen) 1 mg SQ UD PRN; Protocol PRN Reason: Hypoglycemia Protocol Stop: 07/22/18 15:25 Glucose (Glucose 40%) 15 - 30 gm PO UD PRN; Protocol PRN Reason: Hypoglycemia Protocol Stop: 07/22/18 15:25 Glucose (Dex4 Glucose) 4 - 8 tabs PO UD PRN; Protocol PRN Reason: Hypoglycemia Protocol Stop: 07/22/18 15:25 Piperacillin Sod/Tazobactam (Sod 3.375 gm/ Dextrose) 115 mls @ 28.75 mls/hr IV Q8H AMANDA; Protocol Stop: 07/02/18 21:59 Last Admin: 06/24/18 12:39 Dose: 28.8 mls/hr Insulin Aspart (Novolog Flexpen) 0 units SC ACHS AMANDA Stop: 07/22/18 16:29 Last Admin: 06/24/18 12:29 Dose: 2 units Metoprolol Tartrate (Lopressor) 12.5 mg PO BID [facility] Stop: 07/24/18 20:59 Miscellaneous (Fentanyl Patch Check Placement) 1 ea N/A QS [facility] Stop: 07/22/18 15:59 Last Admin: 06/24/18 07:27 Dose: 1 ea Miscellaneous (Carbohydrates For Hypoglycemia) 15 - 30 gm PO UD PRN PRN Reason: Hypoglycemia Treatment Stop: 07/22/18 15:25 Miscellaneous (Fentanyl Patch Remove & Waste) 1 ea N/A Q72H [facility] Stop: 07/25/18 16:58 Miscellaneous Information (Consult) 1 ea N/A UD PRN PRN Reason: Consult Stop: 07/22/18 15:12 Nitroglycerin (Nitro-Bid 2%) 1 inch EXT Q6H [facility] Stop: 07/23/18 16:29 Last Admin: 06/24/18 11:43 Dose: Not Given Pantoprazole Sodium (Protonix) 40 mg PO BID AMANDA Stop: 07/22/18 20:59 Last Admin: 06/24/18 08:36 Dose: 40 mg Prednisone (Prednisone) 20 mg PO PM [facility] Stop: 07/22/18 20:59 Last Admin: 06/23/18 21:26 Dose: 20 mg Raspberry (Raspberry) 5 ml PO Q6 [facility] Stop: 07/08/18 17:59 Tamsulosin HCl (Flomax) 0.8 mg PO [facility] Stop: 07/22/18 20:59 Last Admin: 06/23/18 21:24 Dose: 0.8 mg Timolol Maleate (Timoptic 0.25% Oph) 1 drops OPB [facility] Stop: 07/22/18 20:59 Last Admin: 06/23/18 21:27 Dose: 1 drops Vancomycin HCl (Vancomycin Hcl) 125 mg PO Q6 [facility] Stop: 06/24/18 13:42 Warfarin Sodium (Coumadin) 5 mg PO DAILY@1800 [facility] Stop: 07/22/18 17:59 Last Admin: 06/23/18 18:08 Dose: 5 mg _ (1) Cellulitis Laterality: unspecified laterality Site of cellulitis: extremity Site of cellulitis of extremity: lower extremity Site of cellulitis of trunk: Qualified Code(s): L03.119 - Cellulitis of unspecified part of limb (2) Sepsis Sepsis type: sepsis due to unspecified organism Qualified Code(s): A41.9 - Sepsis, unspecified organism
[2018-06-24] MEDS: RASPBERRY SYRUP 5 ML UDP PO SCH ×2 (14:19→20:09)
[2018-06-24] MEDS: VANCOMYCIN HCL 125 MG/2.5ML SOLN PO SCH ×2 (14:19→20:10)
[2018-06-24] MEDS: WARFARIN SOD 5 MG TAB PO SCH (17:51)
[2018-06-24] MEDS: METOPROLOL TARTRATE 25 MG TAB PO SCH (20:11)
[2018-06-24] MEDS: AMITRIPTYLINE HCL 50 MG TAB PO SCH (20:11)
[2018-06-24] MEDS: TAMSULOSIN HCL 0.4 MG CAP PO SCH (20:12)
[2018-06-24] MEDS: predniSONE 10 MG TABLET PO SCH (20:12)
[2018-06-24] MEDS: TIMOLOL MALEATE 0.25% OP SOLN 5 ML BTL OPB SCH (20:13)
[2018-06-25] MEDS: RASPBERRY SYRUP 5 ML UDP PO SCH ×4 (02:15→20:04)
[2018-06-25] MEDS: VANCOMYCIN HCL 125 MG/2.5ML SOLN PO SCH ×4 (02:15→20:04)
[2018-06-25] MEDS: PIPERACILLIN/TAZOBACTAM 3.375 GM in DEXTROSE 5% 100 ML IV SCH ×3 (03:47→20:04)
[2018-06-25 07:16] LABS: Hematocrit (blood only) 36.9 % (42-52); Hemoglobin 12.1 g/dL (14.0-18.0); Mean Corpuscular Hgb Conc 32.8 g/dL (32-36); Mean Corpuscular Volume 91.8 fL (80-100); Mean Platelet Volume 9.7 fL (7.4-10.4); Platelet Count 167 K/uL (130-400); RDW Coefficient of Variation 14.4 % (11.5-14.5); RDW Standard Deviation 48.7 fL (36.4-46.3); Red Blood Count 4.02 M/uL (4.7-6.1); White Blood Count 7.93 K/uL (4.8-10.8)
[2018-06-25 07:27] LABS: INR 1.9 (0.9-1.1); Prothrombin Time 18.6 Seconds (9.0-12.0)
[2018-06-25 07:55] LABS: Albumin Level 2.7 gm/dl (3.4-5.0); BUN Creatinine Ratio 10.4 (10-20); Calcium 8.5 mg/dl (8.5-10.1); Creatinine Clr Calc Pharmacy 30.6 ml/min; Est GFR (African American) 38.6; Est GFR (Non-African American) 33.3
[2018-06-25 07:58] LABS: Albumin Globulin Ratio 0.7 (0.9-2); Bilirubin,Total 0.4 mg/dl (0.2-1); Globulin 3.6 gm/dl (2.5-4.0); Total Protein 6.3 gm/dl (6.4-8.2)
[2018-06-25] MEDS: GABAPENTIN 400 MG CAP PO SCH ×3 (08:43→20:06)
[2018-06-25] MEDS: PANTOprazole 40 MG TAB PO SCH ×2 (08:43→20:07)
[2018-06-25] MEDS: METOPROLOL TARTRATE 25 MG TAB PO SCH ×2 (08:44→20:16)
[2018-06-25] MEDS: ESCITALOPRAM OXALATE 10 MG TAB PO SCH (08:44)
[2018-06-25] MEDS: FINASTERIDE 5 MG TAB PO SCH (08:49)
[2018-06-25] MEDS: FERROUS SULFATE 325 MG TAB PO SCH ×2 (08:49→20:06)
[2018-06-25] MEDS: CHECK FENTANYL PATCH PLACEMENT SCH ×3 (08:51→23:43)
[2018-06-25] MEDS: INSULIN ASPART 100 UNITS/ML 3 ML PEN SC SCH ×4 (08:53→20:54)
--- NOTE | 2018-06-25 14:15 | Hospitalist Progress Note ---
Date of Service June 25, 2018 Assessment & Plan (1) Sepsis: Present on admission with shaking and generalized weakness Elevated WBC, tachycardia, lactic acid and procalcitonin with unknown etiology Possible related to cellulitis of lower extremity CXR showed no acute finding Influenza PCR negative for flu. UA negative Received cefepime in the ER Blood cx neg so far Continue on Zosyn IV off Vanco sec to neg MRSA screen We will continue Zosyn for 5 days, received Avelox as an outpatient prior to admission Clinically a lot better (2) Lactic acid increased: Due to sepsis Elevated WBC and Procalcitonin (3) Generalized weakness/Tremor Likely secondary to underlying infection fall precautions PT/OT eval (4) Chronic kidney disease type 3 Cr: 1.8 on admission, baseline Cr ~1.6-1.7 Received IVF Creatinine remains elevated at 1.7 Likely going to be at his baseline (5) Pulmonary embolism: H/O PE after surgery. 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 Pt and family have chosen no further workup (8) PMR (polymyalgia rheumatica): Continue prednisone 20mg daily Continue fentanyl patch Will add hydrocone prn (9) Hypertension: BP stable hold lisinopril for now Monitor BP (10) BPH (benign prostatic hyperplasia): Continue flomax, finasteride (11) GERD (gastroesophageal reflux disease): continue PPI (14) Dyslipidemia: Continue statin (15) Chronic anemia: Hgb: 13.8. baseline ~11-12 Continue ferrous sulfate Stable (14) Depression: Stable DVT Prophylaxis On Coumadin DNR/DNI as per discussion with pt and pt's daughter Disposition Follows with Dr Liriano for routine care Subjective 88 y/o M with PMH DM II, HTN, dyslipidemia, BPH, GERD, depression, CKD III, PMR , PE on Coumadin (most recent PE in 09/2017, was off Coumadin prior), known lung nodule presented to ER with complaint of generalized weakness and tremor. 06/25 The patient was seen and examined in medical telemetry He complains to have generalized weakness but denies any other symptoms Physical Exam 2 Vital Signs (Past 24 Hours): Last Vital Signs Temp 36.4 C L 06/25/18 12:09 Pulse 62 06/25/18 12:09 Resp 18 06/25/18 12:09 BP 175/78 H 06/25/18 12:09 Pulse Ox 97 06/25/18 12:09 Physical Exam: Lying in bed comfortably Constitutional: WD/WN, vitals as above + ill appearing; no acute distress Eyes: PERRL, conjunctivae normal, anicteric sclerae ENMT: external ear and nose normal, oropharynx normal Respiratory: normal respiratory effort Auscultation: + diminished lung sounds Cardiovascular: Rate/Rhythm: regular rate and regular rhythm Heart Sounds: normal S1 and normal S2 Gastrointestinal (Abdomen): normal bowel sounds, soft, nontender, no hepatosplenomegaly Neurologic: Alert, awake, pleasantly confused. Generally weak and lethargy Results & Data Laboratory Results Short CBC 06/25/18 Range/Units 07:03 WBC 7.93 (4.8-10.8) K/uL Hgb 12.1 L (14.0-18.0) g/dL Hct 36.9 L (42-52) % Plt Count 167 (130-400) K/uL BMP 06/25/18 07:03 Sodium 140 Potassium 4.0 Chloride 106 Carbon Dioxide 27 BUN 19 H Creatinine 1.78 H Glucose 198 H Calcium 8.5 Liver Function 06/25/18 Range/Units 07:03 Total Bilirubin 0.4 (0.2-1) mg/dl AST 19 (15-37) U/L ALT 45 (12-78) U/L Alkaline Phosphatase 74 (45-117) U/L Albumin 2.7 L (3.4-5.0) gm/dl Medications Administered Current Inpatient Medications Amitriptyline HCl (Elavil) 50 mg PO HS AMANDA Stop: 07/22/18 20:59 Last Admin: 06/24/18 20:11 Dose: 50 mg Dextrose (Dextrose 50%) 25 - 50 ml IV UD PRN; Protocol PRN Reason: Hypoglycemia Protocol Stop: 07/22/18 15:25 Escitalopram Oxalate (Lexapro) 10 mg PO QAM [facility] Stop: 07/23/18 08:59 Last Admin: 06/25/18 08:44 Dose: 10 mg Fentanyl (Duragesic) 25 mcg TD Q72H [facility] Stop: 07/06/18 16:59 Last Admin: 06/22/18 16:49 Dose: 25 mcg Ferrous Sulfate (Feosol) 325 mg PO BID AMANDA Stop: 07/22/18 20:59 Last Admin: 06/25/18 08:49 Dose: 325 mg Finasteride (Proscar) 5 mg PO QAM [facility] Stop: 07/23/18 08:59 Last Admin: 06/25/18 08:49 Dose: 5 mg Gabapentin (Neurontin) 800 mg PO TID [facility] Stop: 07/22/18 20:59 Last Admin: 06/25/18 14:08 Dose: 800 mg Glucagon (Glucagen) 1 mg SQ UD PRN; Protocol PRN Reason: Hypoglycemia Protocol Stop: 07/22/18 15:25 Glucose (Glucose 40%) 15 - 30 gm PO UD PRN; Protocol PRN Reason: Hypoglycemia Protocol Stop: 07/22/18 15:25 Glucose (Dex4 Glucose) 4 - 8 tabs PO UD PRN; Protocol PRN Reason: Hypoglycemia Protocol Stop: 07/22/18 15:25 Piperacillin Sod/Tazobactam (Sod 3.375 gm/ Dextrose) 115 mls @ 28.75 mls/hr IV Q8H [facility]; Protocol Stop: 06/26/18 23:59 Last Admin: 06/25/18 12:58 Dose: 28.8 mls/hr Insulin Aspart (Novolog Flexpen) 0 units SC ACHS [facility]ANDA Stop: 07/22/18 16:29 Last Admin: 06/25/18 12:58 Dose: 3 units Metoprolol Tartrate (Lopressor) 12.5 mg PO BID [facility] Stop: 07/24/18 20:59 Last Admin: 06/25/18 08:44 Dose: 12.5 mg Miscellaneous (Fentanyl Patch Check Placement) 1 ea N/A QS [facility]ANDA Stop: 07/22/18 15:59 Last Admin: 06/25/18 08:51 Dose: 1 ea Miscellaneous (Carbohydrates For Hypoglycemia) 15 - 30 gm PO UD PRN PRN Reason: Hypoglycemia Treatment Stop: 07/22/18 15:25 Miscellaneous (Fentanyl Patch Remove & Waste) 1 ea N/A Q72H [facility] Stop: 07/25/18 16:58 Miscellaneous Information (Consult) 1 ea N/A UD PRN PRN Reason: Consult Stop: 06/26/18 23:59 Pantoprazole Sodium (Protonix) 40 mg PO BID [facility] Stop: 07/22/18 20:59 Last Admin: 06/25/18 08:43 Dose: 40 mg Prednisone (Prednisone) 20 mg PO PM [facility] Stop: 07/22/18 20:59 Last Admin: 06/24/18 20:12 Dose: 20 mg Raspberry (Raspberry) 5 ml PO Q6H [facility] Stop: 07/08/18 13:59 Last Admin: 06/25/18 14:08 Dose: 5 ml Tamsulosin HCl (Flomax) 0.8 mg PO HS [facility] Stop: 07/22/18 20:59 Last Admin: 06/24/18 20:12 Dose: 0.8 mg Timolol Maleate (Timoptic 0.25% Oph) 1 drops OPB [facility] Stop: 07/22/18 20:59 Last Admin: 06/24/18 20:13 Dose: 1 drops Vancomycin HCl (Vancomycin Hcl) 125 mg PO Q6H [facility] Stop: 07/04/18 13:59 Last Admin: 06/25/18 14:07 Dose: 125 mg Warfarin Sodium (Coumadin) 5 mg PO DAILY@1800 [facility] Stop: 07/22/18 17:59 Last Admin: 06/24/18 17:51 Dose: 5 mg _ (1) Sepsis Sepsis type: sepsis due to unspecified organism Qualified Code(s): A41.9 - Sepsis, unspecified organism
[2018-06-25] MEDS: fentaNYL 25 MCG/HR TDSY TD SCH (17:45)
[2018-06-25] MEDS: WARFARIN SOD 5 MG TAB PO SCH (17:52)
[2018-06-25] MEDS: AMITRIPTYLINE HCL 50 MG TAB PO SCH (20:06)
[2018-06-25] MEDS: predniSONE 10 MG TABLET PO SCH (20:07)
[2018-06-25] MEDS: TIMOLOL MALEATE 0.25% OP SOLN 5 ML BTL OPB SCH (20:12)
[2018-06-25] MEDS: TAMSULOSIN HCL 0.4 MG CAP PO SCH (20:15)
[2018-06-26] MEDS ORDERED: AMLODIPINE BESYLATE 5 MG TAB PO SCH (01:55)
--- NOTE | 2018-06-26 01:55 | Hospitalist Progress Note ---
Date of Service June 26, 2018 Subjective Made aware by RN of uncontrolled BP the last 24 hours. SBP 170-190s. Cardiac rate 60s Patient comfortable as per RN. AP Hypertensive urgency Add Norvasc to current Lopressor Rx while home TONIO inhibitor on hold due to kidney dysfunction. Will relay to AM provider. Physical Exam 2 Vital Signs (Past 24 Hours): Last Vital Signs Temp 36.7 C 06/25/18 23:13 Pulse 65 06/25/18 23:13 Resp 18 06/25/18 23:13 BP 177/72 H 06/25/18 23:13 Pulse Ox 95 06/25/18 23:13
[2018-06-26] MEDS: VANCOMYCIN HCL 125 MG/2.5ML SOLN PO SCH ×3 (01:57→13:12)
[2018-06-26] MEDS: RASPBERRY SYRUP 5 ML UDP PO SCH ×3 (01:58→13:11)
[2018-06-26] MEDS: PIPERACILLIN/TAZOBACTAM 3.375 GM in DEXTROSE 5% 100 ML IV SCH ×2 (03:46→13:11)
[2018-06-26] MEDS ORDERED: METOPROLOL TARTRATE 25 MG TAB PO SCH (04:45)
[2018-06-26] MEDS: GABAPENTIN 400 MG CAP PO SCH ×2 (07:33→13:09)
[2018-06-26] MEDS: FERROUS SULFATE 325 MG TAB PO SCH (07:34)
[2018-06-26] MEDS: ESCITALOPRAM OXALATE 10 MG TAB PO SCH (07:34)
[2018-06-26] MEDS: CHECK FENTANYL PATCH PLACEMENT SCH (07:35)
[2018-06-26] MEDS: PANTOprazole 40 MG TAB PO SCH (07:35)
[2018-06-26] MEDS: FINASTERIDE 5 MG TAB PO SCH (07:35)
[2018-06-26] MEDS: INSULIN ASPART 100 UNITS/ML 3 ML PEN SC SCH ×2 (08:59→13:03)
[2018-06-26] MEDS ORDERED: AMLODIPINE BESYLATE 5 MG TAB PO ONE (12:23)
--- NOTE | 2018-06-26 14:02 | Hospitalist Progress Note ---
Date of Service June 26, 2018 Assessment & Plan (1) Sepsis: Present on admission with shaking and generalized weakness Elevated WBC, tachycardia, lactic acid and procalcitonin with unknown etiology Possible related to cellulitis of lower extremity CXR showed no acute finding Influenza PCR negative for flu. UA negative Received cefepime in the ER Blood cx neg so far Continue on Zosyn IV off Vanco sec to neg MRSA screen We will continue Zosyn for 5 days, received Avelox as an outpatient prior to admission Clinically a lot better Finish the course of antibiotic No signs of infection We will discharge home today (2) Lactic acid increased: Due to sepsis Elevated WBC and Procalcitonin Treated while in the hospital (3) Generalized weakness/Tremor Likely secondary to underlying infection fall precautions PT/OT eval-recommended home with home health (4) Chronic kidney disease type 3 Cr: 1.8 on admission, baseline Cr ~1.6-1.7 Received IVF Creatinine remains elevated at 1.7 Likely going to be at his baseline Remains around 1.7 (5) Pulmonary embolism: H/O PE after surgery. 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 Pt and family have chosen no further workup (8) PMR (polymyalgia rheumatica): Continue prednisone 20mg daily Continue fentanyl patch Will add hydrocone prn (9) Hypertension: BP stable hold lisinopril for now Monitor BP (10) BPH (benign prostatic hyperplasia): Continue flomax, finasteride (11) GERD (gastroesophageal reflux disease): continue PPI (14) Dyslipidemia: Continue statin (15) Chronic anemia: Hgb: 13.8. baseline ~11-12 Continue ferrous sulfate Stable (14) Depression: Stable DVT Prophylaxis On Coumadin DNR/DNI as per discussion with pt and pt's daughter Disposition Follows with Dr Liriano for routine care Discussed with the daughter in detail Will discharge the patient today Subjective 88 y/o M with PMH DM II, HTN, dyslipidemia, BPH, GERD, depression, CKD III, PMR , PE on Coumadin (most recent PE in 09/2017, was off Coumadin prior), known lung nodule presented to ER with complaint of generalized weakness and tremor. 06/25 The patient was seen and examined in medical telemetry He complains to have generalized weakness but denies any other symptoms 06/26 Noted to have high blood pressure last night Given additional dose of amlodipine Denies any symptoms as of this morning Discussed with daughter Physical Exam 2 Vital Signs (Past 24 Hours): Last Vital Signs Temp 36.4 C L 06/26/18 07:44 Pulse 63 06/26/18 11:13 Resp 18 06/26/18 11:13 BP 192/73 H 06/26/18 11:13 Pulse Ox 97 06/26/18 11:13 Constitutional: WD/WN, vitals as above + ill appearing; no acute distress Eyes: PERRL, conjunctivae normal, anicteric sclerae ENMT: external ear and nose normal, oropharynx normal Respiratory: normal respiratory effort Auscultation: + diminished lung sounds Cardiovascular: Rate/Rhythm: regular rate and regular rhythm Heart Sounds: normal S1 and normal S2 Gastrointestinal (Abdomen): normal bowel sounds, soft, nontender, no hepatosplenomegaly Neurologic: Alert, awake and oriented x3. Generally weak and lethargic _ (1) Sepsis Sepsis type: sepsis due to unspecified organism Qualified Code(s): A41.9 - Sepsis, unspecified organism
[2018-06-27] MEDS ORDERED: AMLODIPINE BESYLATE 5 MG TAB PO SCH (09:00)
--- NOTE | 2018-06-27 14:47 | Discharge Summary ---
Date of Service June 27, 2018 Admission HPI Per Admitting Provider 88 y/o M with PMH DM II, HTN, dyslipidemia, BPH, GERD, depression, CKD III, PMR , PE on Coumadin (most recent PE in 09/2017, was off Coumadin prior), known lung nodule presented to ER with complaint of generalized weakness and tremor. Daughter said that this morning pt woke up with shakes associated with weakness. Daughter said that pt was seen at PCP office about 1 week and half ago for abdominal pain and was given avelox that he only had 2 days left. Daughter said that pt usually shakes and feels weak when he developed infection. He was admitted back in Nov for aspiration PNA and presented at that time with weakness and shaking. Daughter said that he did not check his temp today. Daughter said that she noticed his breathing a worst today. He also developed mild erythema in his lower extremities that started this morning. Pt has a known right upper lobe mass, that they have chosen to not investigate further or seek further treatment. Denies diaphoresis, N/V/D/C, MORENO, dizziness, syncope, vision changes, neck pain, CP, palpitations, hemoptysis, sore throat, otalgia, rhinorrhea, abdominal pain. Admission Exam Per Admitting Provider Vital Signs (Past 24 Hours): Last Vital Signs Temp 37 C 06/22/18 12:26 Pulse 112 H 06/22/18 12:26 Resp 18 06/22/18 12:26 BP 138/59 L 06/22/18 12:26 Pulse Ox 97 06/22/18 12:26 Physical Exam: General: no distress, WDWN Head: normocephalic, atraumatic Eyes: PERRL, EOMI ENT: normal inspection external ears, nose, mucous membranes dry Neck: supple, trachea midline Lungs: clear, no respiratory distress, poor air entry CV: +tachycardia Abd: normal BS, soft, non-tender Ext: no cyanosis, no calf tenderness Neuro: A&O x 3, no focal deficits noted, normal affect Skin: warm, dry, +erythema in LE Principal Diagnosis Sepsis secondary to Cellulitis of left leg, atrial fibrillation, diabetes Discharge Exam Constitutional WD/WN, vitals as above + ill appearing; no acute distress Eyes PERRL, conjunctivae normal, anicteric sclerae ENMT external ear and nose normal, oropharynx normal Respiratory normal respiratory effort Auscultation: + diminished lung sounds Cardiovascular Rate/Rhythm: regular rate and regular rhythm Heart Sounds: normal S1 and normal S2 Gastrointestinal (Abdomen) normal bowel sounds, soft, nontender, no hepatosplenomegaly Discharge Data Allergies Allergy/AdvReac Type Severity Reaction Status Date / Time oxycodone Allergy [place] ITCHINESS Verified 06/22/18 11:12 lorazepam AdvReac SV agitation Unverified 06/22/18 11:12 Consultations 06/22/18 12:41 ED Decision to Admit Stat 06/24/18 07:16 Consult Cardiology Routine Ordered Studies 06/24/18 07:20 US venous doppler LALY Urgent Hospital Course (1) Sepsis: Present on admission with shaking and generalized weakness Elevated WBC, tachycardia, lactic acid and procalcitonin with unknown etiology Possible related to cellulitis of lower extremity CXR showed no acute finding Influenza PCR negative for flu. UA negative Received cefepime in the ER Blood cx neg so far Continue on Zosyn IV off Vanco sec to neg MRSA screen We will continue Zosyn for 5 days, received Avelox as an outpatient prior to admission Clinically a lot better Finish the course of antibiotic No signs of infection We will discharge home today (2) Lactic acid increased: Due to sepsis Elevated WBC and Procalcitonin Treated while in the hospital (3) Generalized weakness/Tremor Likely secondary to underlying infection fall precautions PT/OT eval-recommended home with home health (4) Chronic kidney disease type 3 Cr: 1.8 on admission, baseline Cr ~1.6-1.7 Received IVF Creatinine remains elevated at 1.7 Likely going to be at his baseline Remains around 1.7 (5) Pulmonary embolism: H/O PE after surgery. 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 Pt and family have chosen no further workup (8) PMR (polymyalgia rheumatica): Continue prednisone 20mg daily Continue fentanyl patch Will add hydrocone prn (9) Hypertension: BP stable hold lisinopril for now Monitor BP (10) BPH (benign prostatic hyperplasia): Continue flomax, finasteride (11) GERD (gastroesophageal reflux disease): continue PPI (14) Dyslipidemia: Continue statin (15) Chronic anemia: Hgb: 13.8. baseline ~11-12 Continue ferrous sulfate Stable (14) Depression: Stable DVT Prophylaxis On Coumadin DNR/DNI as per discussion with pt and pt's daughter Disposition Follows with Dr Liriano for routine care Discussed with the daughter in detail Will discharge the patient today Total Time Total Time Spent Total Time Spent (In Minutes): 35 minutes Total Time Includes: Examination of the Patient, Discharge Planning, Medication Reconciliation and Communication With Other Providers Discharge Plan Discharge Items Patient Disposition: Home - Home Health Services Reason For Visit: GENERALIZED WEAKNESS/TREMORS Discharge Diagnosis: Sepsis secondary to Cellulitis of left leg, atrial fibrillation, diabetes Condition: Fair Discharge Goals: Decrease discomfort, Improve disease control and Improve function Activity: Resume your previous activity Non-emergency contact: Primary Care Provider Call non-emergency contact if: you have any medication questions and your symptoms worsen Follow-up/Referrals: Luis Miguel Liriano [Primary Care Provider] - 07/02/18 11:05 am (Please have regular follow-up with coagulation clinic) Diet: Carb Consistent or DM2, Heart Healthy and Low Sodium (2gm) Addtl Provider Instructions: Please take precaution to avoid falls. Keep regular appointment with your coagulation clinic Prescriptions: New vancomycin 1,000 mg Recon Soln 125 mg PO Q6H 10 Days Qty: 40 RF: 0 amlodipine [Norvasc] 5 mg Tablet 5 mg PO QAM 30 Days Qty: 30 RF: 0 metoprolol tartrate 25 mg Tablet 12.5 mg PO BID 30 Days Qty: 30 RF: 0 Continue gabapentin 400 mg capsule 800 mg PO TID RF: 0 omeprazole 40 mg capsule,delayed release(DR/EC) 40 mg PO BID RF: 0 amitriptyline 50 mg tablet 50 mg PO HS RF: 0 tamsulosin 0.4 mg capsule 0.8 mg PO HS RF: 0 simvastatin 20 mg tablet 20 mg PO HS RF: 0 ferrous sulfate 325 mg (65 mg iron) Tablet 325 mg PO BID RF: 0 warfarin 5 mg tablet 5 mg PO DAILY@1800 RF: 0 finasteride 5 mg tablet 5 mg PO QAM RF: 0 escitalopram oxalate 10 mg tablet 10 mg PO QAM RF: 0 docusate sodium 100 mg Capsule 100 mg PO BID RF: 0 fentanyl 25 mcg/hr patch 72 hour 25 mcg Transdermal Q72H RF: 0 timolol maleate 0.5 % drops 1 drp OPB HS RF: 0 lisinopril 2.5 mg tablet 2.5 mg PO QAM RF: 0 prednisone 10 mg tablet 20 mg PO PM RF: 0 Discontinued hydrocodone-acetaminophen 10-325 mg tablet 1 tab PO Q6 PRN (Reason: Pain) RF: 0 moxifloxacin 400 mg tablet 400 mg PO QAM RF: 0 Stand-Alone Forms: [facility] Discharge Orders: Discharge Order (Routine); Ordered 06/26/18 Ordered By: Farooq Meyer Admission Data Admit Date/Time: 06/22/18 13:54 Attending Provider: Farooq Meyer Admit Provider: Juana Noe Primary Care Provider: Luis Miguel Liriano Other Providers: Juana Noe ; Espinoza Cadena Gary Service: Telemetry Other Interventions: Discharge Summary Assessment (RN) Last Done: 06/26/18 14:19 DC Date/Time DO NOT enter until pt leaves facility: 06/26/18 14:44
== END 2018-06-26 14:44 | disposition home health service (06) | DRG 872 ==
LOC: ED 10:23 → 2N 13:54 → SUATTDRO 13:54 → 2N 14:20

== ENCOUNTER 2018-08-18 08:19 | Inpatient (IN) ==
--- NOTE | 2018-08-18 09:07 | XRay Report ---
XR chest 1V portable HISTORY: Shortness of breath. COMPARISON: Chest 217/19. FINDINGS: The heart remains borderline enlarged. No pleural effusions. No pneumothorax. No new focal lung consolidations to suggest pneumonia. No evidence for pulmonary edema. IMPRESSION: No significant change compared to the prior study. No acute process. Electronically signed by: Gregor Chanel M.D. 08/18/2018 9:06 AM
[2018-08-18 09:25] LABS: Hematocrit (blood only) 40.1 % (42-52); Hemoglobin 13.2 g/dL (14.0-18.0); Immature Granulocytes # (auto) 0.14 K/uL (0.00-0.02); Immature Granulocytes % (auto) 1.7 %; Lymphocytes # (auto) 0.71 K/uL (1.2-3.4); Lymphocytes % (auto) 8.5 %; Mean Corpuscular Hgb Conc 32.9 g/dL (32-36); Mean Corpuscular Volume 90.5 fL (80-100); Mean Platelet Volume 10.1 fL (7.4-10.4); Monocytes # (auto) 0.49 K/uL (0.11-0.59); Monocytes % (auto) 5.9 %; Neutrophils # (auto) 6.98 K/uL (1.4-6.5); Neutrophils % (auto) 83.9 %; Platelet Count 161 K/uL (130-400); RDW Coefficient of Variation 14.6 % (11.5-14.5); RDW Standard Deviation 47.6 fL (36.4-46.3); Red Blood Count 4.43 M/uL (4.7-6.1); White Blood Count 8.32 K/uL (4.8-10.8)
[2018-08-18 09:44] LABS: Alanine Aminotransferase 59 U/L (12-78); Albumin Level 2.9 gm/dl (3.4-5.0); Aspartate Aminotransferase 22 U/L (15-37); BUN Creatinine Ratio 21.7 (10-20); Blood Urea Nitrogen 30 mg/dl (7-18); Calcium 8.5 mg/dl (8.5-10.1); Carbon Dioxide 29 mmol/L (21-32); Chloride 104 mmol/L (98-107); Creatinine Clr Calc Pharmacy 39.1 ml/min; Est GFR (African American) 52.1; Est GFR (Non-African American) 44.9; Glucose 221 mg/dl (70-99); Magnesium 2.3 mg/dl (1.8-2.4); Potassium 4.2 mmol/L (3.5-5.1); Sodium 137 mmol/L (136-145)
[2018-08-18 09:49] LABS: Alkaline Phosphatase 74 U/L (45-117); Bilirubin Direct 0.1 mg/dl (0-0.2); Bilirubin,Total 0.3 mg/dl (0.2-1); Total Protein 6.3 gm/dl (6.4-8.2); Troponin I < 0.015 ng/ml (0-0.045)
[2018-08-18 09:53] LABS: Partial Thromboplastin Ratio 1.5; Partial Thromboplastin Time 40.8 Seconds (21.0-31.0); Prothrombin Time 37.8 Seconds (9.0-12.0)
[2018-08-18 10:05] LABS: INR 4.1 (0.9-1.1)
[2018-08-18 10:17] LABS: Appearance Urine Clear (Clear); Bilirubin Urine Negative (Negative); Blood Urine Negative (Negative); Color Urine Yellow; Glucose Urine UA 1+ (Negative); Ketones Urine Negative (Negative); Leukocyte Esterase Urine Negative (Negative); Nitrite Urine Negative (Negative); Protein Urine Negative (Negative); Specific Gravity Urine 1.017 (1.000-1.030); Urobilinogen Urine Negative (Negative); pH Urine 5.5 (4.5-7.5)
--- NOTE | 2018-08-18 10:20 | CT Scan Report ---
CT SCAN OF THE CHEST WITHOUT IV CONTRAST CLINICAL HISTORY: Dyspnea. COMPARISON STUDY: Chest x-ray dated 08/18/2018. Chest CT scans dated 03/11/2018 and 11/23/2015. TECHNIQUE: CT scan of the thorax was performed from the thoracic inlet to the upper abdomen. Images are reviewed in the axial, sagittal, and coronal planes. IV contrast was not administered for this ex amination as per the front clinician. A dose lowering technique was utilized adhering to the princip les of MISBAH. CT DOSE: 501.96 mGy.cm FINDINGS: Thyroid: Imaged portions of the thyroid gland are normal in size and heterogeneous in attenuation. A coarse calcification is noted in the left lobe. Thoracic aorta: There is atherosclerotic calcification of the thoracic aorta, which is normal in nemesio zo and demonstrates standard 3-vessel arch anatomy. Heart: The heart is enlarged and without pericardial effusion. The coronary arteries are densely calc ified. The pulmonary trunk is normal in caliber. Lungs and pleural spaces: Emphysematous change is identified. No airspace consolidation or pleural ef fusion is identified. There is a spiculated nodule with associated groundglass change at the right ap ex seen on image 62. This measures up to 2.6 cm and is highly concerning for neoplasm. This is increa sed in size dating back to studies from 11/23/2015. A 6 mm satellite nodule is seen on image #59. A 6 mm calcification containing nodule in the right upper lobe as seen on image #11. A 9 mm right middle lobe nodule along the minor Ordoñez is seen on image #180. The are unchanged dating back to 2016. Ch ronic pleural-parenchymal scarring and calcified pleural plaque are seen at the left lung base. Mediastinum: There are mildly enlarged mediastinal lymph nodes. A right paratracheal node on image #1 15 measures 11 mm in short axis. High right peritracheal nodes measure up to 10 mm in short axis. A s ubcarinal node measures 21 mm in short axis. A precarinal node on image #133 measures 13 mm short axi s. Iman: Not well assessed without IV contrast. Axillae: There is no axillary lymphadenopathy. Upper abdomen: There is a small hiatal hernia. The liver is enlarged and steatotic. The partially vis ualized kidneys demonstrate cortical atrophy. A 13 mm cyst is noted in the upper pole of the left kid sebastian. Skeletal structures: The skeletal structures are osteopenic. Degenerative change and hyperkyphosis ar e noted in the thoracic spine. Fusion hardware is seen in the upper lumbar spine. No lytic or blastic bony lesions are seen. IMPRESSION: 1. Cardiomegaly and emphysema. 2. There is no airspace consolidation or pleural effusion. 3. A spiculated 2.6 cm nodule at the right apex with an adjacent satellite nodule has continued to in crease in size from studies dating back to 2016. This should the considered lung cancer until proven otherwise. 4. There is mediastinal lymphadenopathy, new from 03/11/2018. This is pathologically indeterminant, wi th metastatic disease not excluded. 5. Additional subcentimeter pulmonary and pleural-based nodules have not appreciably changed dating b ack to 2016. 6. Hepatic steatosis. 7. Additional findings as above. Electronically signed by: Wilfredo Bueno M.D. 08/18/2018 10:19 AM
[2018-08-18 10:41] LABS: Base Excess VBG 3.4 mEq/L; Oxygen Saturation VBG 76.9 %; pH VBG 7.4 (7.36-7.41)
[2018-08-18] MEDS ORDERED: ALBUT/IPRATROP 3MG/0.5MG NEB 3 ML VIAL NEB STA (11:41)
--- NOTE | 2018-08-18 12:38 | History & Physical Report ---
Date of Service August 18, 2018 Assessment & Plan (1) Bronchitis: This is a 88-year-old male who has a PMH of T2 DM, HTN, HLD, CKD stage III, PMR on chronic 20 mg prednisone therapy, history of PE on warfarin, PAF, GERD, BPH, depression, known right pulmonary nodule who presents to [facility] secondary to cough times 3 weeks. Patient has received a course of doxycycline and Augmentin along with to increased steroid tapers in outpatient setting without relief. Presents today with continued cough congestion for 3 weeks. In ED patient had a normal VBG, WBC 8.32, H&H 13.3 and 40.1, INR 4.1, BUN 30, creatinine 1.39, glucose 221, lactate 2.3, LFTs WNL, troponin and BNP WNL Chest x-ray without acute process CT of chest revealed increase in size of spiculated 2.6 cm nodule at right apex along with mediastinal adenopathy which is new from 03/11/2018. Also noted is cardiomegaly and emphysema. Ddx but not limited to: chronic bronchitis/COPD exac, vs obstructive process given newly seen mediastinal adenopathy, Pseudomonal bacterial infection, chronic GERD, Chronic aspiration admit to med/surg telemetry Aggressive pulmonary toilet including: Duoneb q4hr RT, Budesonide 0.5mg neb bid, incentive spirometry, flutter valve, chest PT, robitussin sugar free, O2 as needed Continue prednisone taper (30mg daily x 2 days then return to 20mg daily) Consult pulmonology given increased size in lesion and new mediastinal adenopathy sputum culture check for influenza await blood culture results At this point I do not feel patient requires any further antibiotic (joann recent history of cdiff) but will await pulm recommendations hold lisinopril for now given cough Pt is already on PPI BID for GERD Consult speech therapy to determine if aspiration has worsened from prior evaluation (2) Elevated lactic acid level: Unknown significance at this time His blood pressure is normal and he is not hypoxic No signs or symptoms of sepsis at this point Will repeat lactic acid every 4x2 Order 500 mL IVF x1 (3) Hypertension: Blood pressure is currently stable 137/54 Continue amlodipine and metoprolol Will hold lisinopril for now in the event etiology of cough (4) PAF (paroxysmal atrial fibrillation): Had episode of A. fib on 06/24 during most recent admission, spontaneously converted Continue metoprolol Anticoagulated on Coumadin, INR 4.1 will hold Coumadin this evening (5) Diabetes mellitus, type II: Last A1c 7.1 on 03/24/18 Check A1c in a.m. Hyperglycemic in ED likely in setting of recent steroid taper Placed on Lantus/NovoLog sliding scale (6) History of pulmonary embolus (PE): On warfarin, INR 4.1 Hold Coumadin this evening Repeat INR in a.m. (7) Subtherapeutic international normalized ratio (INR): INR 4.1, repeat INR in a.m. Hold warfarin this evening (8) CKD (chronic kidney disease), stage III: Baseline creatinine 1.61.7 BUN/creatinine 30 and 1.39 Follow BMP (9) Dyslipidemia: Continue statin (10) PMR (polymyalgia rheumatica): On chronic prednisone 20 mg daily Currently on 30 mg x 2 days and then to resume 20 mg daily on 08/21 (11) Chronic anemia: H/H 13.2/40.1 Continue iron supplementation Normocytic normochromic (12) BPH (benign prostatic hyperplasia): Continue Flomax (13) GERD (gastroesophageal reflux disease): PPI twice daily (14) Chronic pain syndrome: Continue fentanyl patch and gabapentin History of PMR and lumbar surgery x3 (15) DVT prophylaxis: Warfarin, SCDs Disposition: To be determined Follow-up: PCP Dr. Liriano upon discharge Patient was seen and examined in collaboration with Dr. Caballero, please see addendum Starting 08/19/18 patient will be under the care of Dr. Lyn History of Present Illness Chief Complaint: Cough and congestion x 3 weeks. Primary Care Provider: Luis Miguel Liriano MD This is a 88-year-old male who has a PMH of T2 DM, HTN, HLD, CKD stage III, PMR on chronic 20 mg prednisone therapy, history of PE on warfarin, PAF, GERD, BPH, depression, known right pulmonary nodule who presents to [facility] secondary to cough times 3 weeks. Daughter Macy is at bedside. Patient symptoms initially started approximately 3 weeks ago. Patient's was ill prior with bronchitis and treated with antibiotics, nebulizer and prednisone and symptoms improved. Patient was initially seen on 07/30 by PCP secondary to bronchitis and prescribed doxycycline times 7 days. Symptoms did not improve. Again seen on 08/04 received nebulizer treatment, antibiotics switched to Augmentin, placed on increased steroid taper for 6 days. Cough was initially productive with yellow sputum; however no more moist with occasional production and clear. Due to symptoms not improving daughter called PCP on 08/15 in which albuterol inhaler was prescribed as well as another increased steroid taper starting at 50 mg x 2 days and tapering down until back to 20 mg daily. No real improvement with albuterol; therefore, patient presents to ER today. Cough is still present, moist and occasionally productive clear. Further elicits to increased shortness of breath with exertion, wheezing, increased fatigue, dizziness upon standing quickly. Denies documented fever, chills, sweats, rigors, lightheadedness or syncope, chest pain, palpitations, hemoptysis, nausea, vomiting, diarrhea, abdominal pain, change in bowel or urinary habits. His appetite has been good and there is no documented weight gain or loss. He is drinking at least 60 ounces of water daily. Daughter felt patient is more fatigued and slightly weak from the recurrent cough, but he has been receiving in-home PT and OT. Of significance patient hospitalized 06/22-06/27 secondary to lactic acidosis and presumed sepsis. Patient was treated with empiric antibiotic but no definitive source of sepsis was located. He also subsequently developed diarrhea and C. difficile colitis and was treated with oral vancomycin. Denies formal diagnosis of COPD. Unable to tolerate PFT as outpatient testing. He does have a former history of smoking but this stopped in 1970s. 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 Allergies Allergy/AdvReac Type Severity Reaction Status Date / Time oxycodone Allergy MD ITCHINESS Verified 08/18/18 09:11 lorazepam AdvReac SV agitation Unverified 08/18/18 09:11 Home Medications Home Medications Medication Instructions Recorded Confirmed Type amitriptyline 50 mg PO HS 03/15/18 08/18/18 History docusate sodium 100 mg PO BID 03/15/18 08/18/18 History escitalopram oxalate 10 mg PO QAM 03/15/18 08/18/18 History ferrous sulfate 325 mg PO BID 03/15/18 08/18/18 History finasteride 5 mg PO QAM 03/15/18 08/18/18 History gabapentin 800 mg PO TID 03/15/18 08/18/18 History omeprazole 40 mg PO BID 03/15/18 08/18/18 History simvastatin 20 mg PO HS 03/15/18 08/18/18 History tamsulosin 0.8 mg PO HS 03/15/18 08/18/18 History warfarin 5 mg PO 4XWK 03/15/18 08/18/18 History fentanyl 50 mcg TRANSDERMAL Q72H 06/22/18 08/18/18 History lisinopril 2.5 mg PO QAM 06/22/18 08/18/18 History prednisone 20 mg PO DIRECTED 06/22/18 08/18/18 History timolol maleate 1 drp OPB HS 06/22/18 08/18/18 History amlodipine 5 mg PO DAILY 08/18/18 08/18/18 History metoprolol tartrate 12.5 mg PO BID 08/18/18 08/18/18 History warfarin 2.5 mg PO 3XWK 08/18/18 08/18/18 History Past Med/Surg History Medical History PAF (paroxysmal atrial fibrillation) (Chronic) Chronic anemia (Chronic) BPH (benign prostatic hyperplasia) (Chronic) Diabetes mellitus, type II (Chronic) Lung mass (Chronic) Depression (Chronic) GERD (gastroesophageal reflux disease) (Chronic) Hypertension (Chronic) Osteoarthritis (Chronic) PMR (polymyalgia rheumatica) (Chronic) Pulmonary embolism (Chronic) on Coumadin Dyslipidemia (Chronic) CKD (chronic kidney disease), stage III (Chronic) Hydrocele, right (Chronic) Surgical History H/O arthroscopic knee surgery (Chronic) Hx of spinal surgery (Chronic) "lumbar decompression/fusion in [address] Brown" per daughter hx of lumbar surgery x 3 Social History Preferred Language: Greek Communication Ability: Effective Title 1 Tutor Required: No Beliefs That Will Affect Care: None marital status: Current Living Situation: Family Current Living Situation Comment: and patient live with daughter Macy Other Information That Helps Us Care for You: No Feels Safe at Home: Yes Safety Concerns: Feels Safe At This Time Smoking Status: Former smoker Hx Alcohol Use: No Hx Substance Use: No Review of Systems All systems reviewed & are unremarkable except as noted in HPI & below Physical Exam Vital Signs (Past 24 Hours): Last Vital Signs Temp 36.4 C L 04/15/19 08:23 Pulse 71 08/18/18 12:12 Resp 22 08/18/18 12:12 BP 137/54 L 08/18/18 12:12 Pulse Ox 98 08/18/18 12:12 Physical Exam: Gen: Elderly, male, sitting up in bed, no acute distress, on O2 via nasal cannula, answers questions appropriately, pleasant, conversing easily Head: Normocephalic, Atraumatic Eyes: Sclera normal, no conjunctival injection, PERRLA, EOMI, glasses ENT: Gross hearing intact, normal pharynx, mucous membranes moist Neck: supple, no adenopathy, No JVD, no bruit, Resp: Clear to auscultation b/l, with diffuse inspiratory and expiratory rhonchi noted, improved with coughing, no rales or wheeze. Normal insp/exp effort, no accessory muscle use CV: Regular rate, regular rhythm, no murmur, rub, gallop, or ectopy Abd: + protuberant abdomen +hepatomegaly, +BS x 4, soft, nontender, nondistended Musculoskeletal: moves extremities active rom x 4, strength intact, good backfiller strength Extremities: Trace/mental edema bilaterally Skin: warm, moist, no rash, negative turgor, cap refill < 2sec Neuro: Alert and oriented x 3, speech normal but slow, good mood/affect, cran nerve 2-12 intact grossly : deferred Results & Data Laboratory Results Short CBC 08/18/18 Range/Units 09:15 WBC 8.32 (4.8-10.8) K/uL Hgb 13.2 L (14.0-18.0) g/dL Hct 40.1 L (42-52) % Plt Count 161 (130-400) K/uL BMP 08/18/18 09:15 Sodium 137 Potassium 4.2 Chloride 104 Carbon Dioxide 29 BUN 30 H Creatinine 1.39 Glucose 221 H Calcium 8.5 Cardiac Enzymes 08/18/18 Range/Units 09:15 Troponin I < 0.015 (0-0.045) ng/ml Liver Function 08/18/18 Range/Units 09:15 Total Bilirubin 0.3 (0.2-1) mg/dl Direct Bilirubin 0.1 (0-0.2) mg/dl AST 22 (15-37) U/L ALT 59 (12-78) U/L Alkaline Phosphatase 74 (45-117) U/L Albumin 2.9 L (3.4-5.0) gm/dl Urine 08/18/18 Range/Units 10:10 Urine Color Yellow Urine Appearance Clear (Clear) Urine pH 5.5 (4.5-7.5) Ur Specific [place] 1.017 (1.000-1.030) Urine Protein Negative (Negative) Urine Glucose (UA) 1+ H (Negative) Diagnostic Findings Chest CT: IMPRESSION: 1. Cardiomegaly and emphysema. 2. There is no airspace consolidation or pleural effusion. 3. A spiculated 2.6 cm nodule at the right apex with an adjacent satellite nodule has continued to increase in size from studies dating back to 2016. This should the considered lung cancer until proven otherwise. 4. There is mediastinal lymphadenopathy, new from 03/11/2018. This is pathologically indeterminant, with metastatic disease not excluded. 5. Additional subcentimeter pulmonary and pleural-based nodules have not appre ciably changed dating back to 2016. 6. Hepatic steatosis. 7. Additional findings as above. Chest XR: IMPRESSION: No significant change compared to the prior study. No acute process. Medications Administered Discontinued Medications Albuterol (Duoneb) 3 ml NEB NOW STA Stop: 08/18/18 11:42 Last Admin: 08/18/18 12:04 Dose: 3 ml Documented by: [id number] ECG Rate (beats per minute): 63 Rhythm: normal sinus Code Status & VTE Plan Code Status DNR Discussed with patient and daughter at bedside VTE Prophylaxis Plan VTE Prophylaxis will be ordered: Yes Supervising Physician Co-Signing Physician Notes I have seen and examined the patient and have discussed the case with the provider above. I agree with the assessment and plan as stated. DO Federico (1) BPH (benign prostatic hyperplasia) Lower urinary tract symptom presence: unspecified whether lower urinary tract symptoms present Qualified Code(s): N40.0 - Benign prostatic hyperplasia without lower urinary tract symptoms (2) Diabetes mellitus, type II Chronic kidney disease stage: stage 3 (moderate) Diabetes mellitus complication detail: with chronic kidney disease Diabetes mellitus complication status: with kidney complications Diabetes mellitus usp insulin use: without usp use Qualified Code(s): E11.22 - Type 2 diabetes mellitus with diabetic chronic kidney disease; N18.3 - Chronic kidney disease, stage 3 (moderate) (3) GERD (gastroesophageal reflux disease) Esophagitis presence: without esophagitis Qualified Code(s): K21.9 - Gastro- esophageal reflux disease without esophagitis (4) Hypertension Hypertension type: essential hypertension Qualified Code(s): I10 - Essential (primary) hypertension
[2018-08-18] MEDS ORDERED: GLUCOSE 40% GEL 15 GM TUBE PO PRN (13:27)
[2018-08-18] MEDS ORDERED: DEXTROSE 50% 50 ML SYRINGE IV PRN (13:27)
[2018-08-18] MEDS ORDERED: GLUCOSE 10 TABS/TUBE PO PRN (13:27)
[2018-08-18] MEDS ORDERED: ONDANSETRON INJ 2 MG/ML 2 ML VIAL IV PRN (13:27)
[2018-08-18] MEDS ORDERED: ACETAMINOPHEN 325 MG TAB PO PRN (13:27)
[2018-08-18] MEDS ORDERED: SODIUM CHLORIDE 0.9% 500 ML IV SCH (13:27)
[2018-08-18] MEDS ORDERED: guaiFENesin SUGAR FREE 200 MG/10 ML UDC PO SCH ×2 (13:27→18:00)
[2018-08-18] MEDS ORDERED: ALUMINUM/MAGNESIUM SUSP 30 ML UDC PO PRN (13:27)
[2018-08-18] MEDS ORDERED: GLUCAGON FOR INJ 1 MG VIAL SQ PRN (13:27)
[2018-08-18] MEDS ORDERED: POLYETHYLENE (MIRALAX) 17 GM PACK PO PRN (13:27)
[2018-08-18] MEDS ORDERED: CARBOHYDRATES FOR HYPOGLYCEMIA PO PRN (13:27)
[2018-08-18] MEDS ORDERED: MAGNESIUM HYDROXIDE SUSP 30 ML UDC PO PRN (13:27)
[2018-08-18] MEDS ORDERED: fentaNYL 50 MCG/HR TDSY TD SCH (15:00)
--- NOTE | 2018-08-18 15:00 | Emergency Department Note ---
Entered by Yamilka Saleh acting as a scribe for ED Provider Note Name: Hugh Kan Age: 88 Arrives Via: Private vehicle Informant: Patient, daughter CC: Shortness of breath HPI: An 88 year old male arrives for evaluation of persistent shortness of breath beginning about 3 weeks ago. He reports laying down flat exacerbates his symptoms. The patient notes a cough and mild leg swelling. He denies urinary pain/burning, chest pain, abdominal pain, or loss of consciousness. The patient's daughter reports his was recently treated for bronchitis. She states the patient has been treated with two different antibiotics, steroids, and albuterol, which have not improved his symptoms. ROS: See above HPI for pertinent positives & negatives. A total of 10 systems reviewed and were otherwise negative. Past Medical History: BPH, chronic anemia, CKD (stage III), depression, diabetes (type II), lung cancer, GERD, hypertension, osteoarthritis, PMR, PE, sepsis. Past Surgical History: Arthroscopic knee surgery, spinal surgery. Family History: Brain cancer, heart disease. Social History: Lives with and daughter. Former smoker (quit in ). Home Medications: Amitriptyline, docusate sodium, escitalopram oxalate, fentanyl, ferrous sulfate, finasteride, gabapentin, lisinopril, omeprazole, prednisone, simvastatin, tamsulosin, timolol maleate, warfarin. Allergies: Oxycodone, lorazepam Physical: Vitals: Blood pressure: 180/74. Heart rate: 72. Respiratory rate: 24. Temper ature: 97.5 F. O2 saturation: 98, delivery: room air. Exam: GENERAL: Patient is chronically unwell-appearing and in mild distress. EYES: No scleral icterus, unremarkable pupils. ENT: Mucous membranes moist, no nasal congestion. NECK: No masses appreciated, no meningismus, trachea is midline. RESPIRATORY: Wet, junky cough. Diffusely wet lung sounds with crackles. Decrease d at bases. CARDIOVASCULAR: Bradycardic. Regular rhythm. No murmurs, rubs, gallops appreciated. GASTROINTESTINAL: Abdomen soft, non-tender, no peritonitis. Bowel sounds positive. No masses appreciated. BACK: No midline tenderness, no CVA tenderness EXTREMITIES: Normal motion all extremities, no cyanosis. Mild edema, bilateral lower legs. NEUROLOGIC: Alert and oriented, no acute motor or sensory deficits, no focal weakness, cranial nerves grossly intact. SKIN: No rash, no jaundice, no diaphoresis. ED Course: Prior Medical Record, Triage/Nursing Notes, Medications, Allergies reviewed by Me Vital Signs: reviewed and remarkable for HTN Labs: Reviewed and remarkable for elevated lactic acid Interventions: saline lock, NC O2 (vastly improved with this) Imaging: X ray results are stated below per my interpretation: Chest: 1 view: No infiltrate, no effusion, normal cardiac border. CT Chest: Per Rads there is increased mass RUL with perihilar lymphadenopathy see below for full EKG: Per My Interpretation: Indication: SHOB: NSR 63 bpm without ectopy nor ischemia. QTC 431 Consults: 1035: I reviewed the patient's case with Kavita Smart PA-C, [facility] hospitalist. Dr. Lyn's service will evaluate the patient for further management. Reassessments/Times: 921: Upon reevaluation, the patient is feeling much better on a nasal cannula. 1012: I updated the patient's daughter. 1038: Upon reevaluation, the patient is resting and states he feels vastly improved on nasal cannula O2. He still has a junky cough. I discussed test results with the patient and his daughter They verbalized agreement with the treatment plan. Blood pressure: Elevated - management by hospitalist. Disposition: Evaluation by hospitalist. Prescriptions: none. Differentials: Etiologies such as infections, reactive airway disease, COPD, pn eumonia, pleural effusion, pulmonary edema, ARDS, pneumothorax, CHF, cardiac ischemia, cardiac tamponade, dysrhythmia, anemia, pulmonary embolism, musculoskeletal, gastrointestinal process, as well as others were entertained. Medical Decision Makin yr old mlae with worsening shortness of breath over last few weeks despite multiple rounds abx and steroids. Sounds very wet on exam though not significant leg edema nor jvd. CXR unconvincing as well. CT chest without con reveal no pulm edema/chf, though notes increased rul mass and perihilar lymphadenopathy. I am suspicious that perihilar issue is cause of worsening breathing. While Lactic acid a bit raised there is no other clear indication for infection. Will hold on abx given no fever nor other acute infectious findings for now. He is vastly improved just with putting him on NC O2. With failure of outpatient treatments will have him come in for further management. Given he sounds wet will hold off on IV fluids for uncertain etiology Lactic Acidosis. Impression: Shortness of breath Lactic Acidosis Mass of Right Lung Mars Kirkland MD The scribe's documentation has been prepared under my direction and personally reviewed by me in its entirety. I confirm that the note above accurately reflects all work, treatment, procedures, and medical decision making performed by me. Impression & Plan Shortness of breath, Acidosis, lactic, Mass of right lung Past Med/Surg History Medical History PAF (paroxysmal atrial fibrillation) (Chronic) Chronic anemia (Chronic) BPH (benign prostatic hyperplasia) (Chronic) Diabetes mellitus, type II (Chronic) Lung mass (Chronic) Depression (Chronic) GERD (gastroesophageal reflux disease) (Chronic) Hypertension (Chronic) Osteoarthritis (Chronic) PMR (polymyalgia rheumatica) (Chronic) Pulmonary embolism (Chronic) on Coumadin Dyslipidemia (Chronic) CKD (chronic kidney disease), stage III (Chronic) Hydrocele, right (Chronic) Surgical History H/O arthroscopic knee surgery (Chronic) Hx of spinal surgery (Chronic) "lumbar decompression/fusion in [address] Brown" per daughter hx of lumbar surgery x 3 Social History Preferred Language: Slovenian Communication Ability: Effective Egg Buyer Required: No Beliefs That Will Affect Care: None marital status: Current Living Situation: Family Current Living Situation Comment: and patient live with daughter Macy Other Information That Helps Us Care for You: No Feels Safe at Home: Yes Safety Concerns: Feels Safe At This Time Smoking Status: Former smoker Hx Alcohol Use: No Hx Substance Use: No Results & Data Vital Signs Vital Signs - 24 hr 08/18/18 08:23 08/18/18 09:02 08/18/18 09:40 Temperature 36.4 C L Temperature Source Oral Sepsis Recent Fever Within 48 Hours No Sepsis New/Unexplained Change in Mental Status No Sepsis Action Taken by Nursing No Action Required Pulse Rate 72 Pulse Rate [Left] Pulse Rate [Right Finger] Respiratory Rate 24 Respiratory Effort / Characteristics Respiratory Depth Respiratory Pattern Blood Pressure 180/74 H Blood Pressure [Left Arm] Blood Pressure [Right Arm] Blood Pressure Mean 109 Blood Pressure Mean [Left Arm] Blood Pressure Mean [Right Arm] Blood Pressure Position [Left Arm] Blood Pressure Position [Right Arm] Pulse Oximetry 98 93 100 Oxygen Delivery Method Room Air Room Air Nasal Cannula Oxygen Flow Rate 2 08/18/18 10:32 08/18/18 12:12 08/18/18 12:55 Temperature Temperature Source Sepsis Recent Fever Within 48 Hours Sepsis New/Unexplained Change in Mental Status Sepsis Action Taken by Nursing Pulse Rate 72 Pulse Rate [Left] 66 71 Pulse Rate [Right Finger] Respiratory Rate 22 22 20 Respiratory Effort / Characteristics Spontaneous Respiratory Depth Respiratory Pattern Blood Pressure 138/78 Blood Pressure [Left Arm] 169/71 H 137/54 L Blood Pressure [Right Arm] Blood Pressure Mean Blood Pressure Mean [Left Arm] 103 81 Blood Pressure Mean [Right Arm] Blood Pressure Position [Left Arm] Lying Blood Pressure Position [Right Arm] Pulse Oximetry 99 98 98 Oxygen Delivery Method Nasal Cannula Nasal Cannula Nasal Cannula Oxygen Flow Rate 2 2 3 08/18/18 13:28 08/18/18 13:29 Temperature 36.3 C L Temperature Source Oral Sepsis Recent Fever Within 48 Hours Sepsis New/Unexplained Change in Mental Status Sepsis Action Taken by Nursing Pulse Rate Pulse Rate [Left] Pulse Rate [Right Finger] 68 Respiratory Rate 18 Respiratory Effort / Characteristics Non-Labored Spontaneous Non-Labored Spontaneous Respiratory Depth Normal Respiratory Pattern Regular Blood Pressure Blood Pressure [Left Arm] Blood Pressure [Right Arm] 165/68 H Blood Pressure Mean Blood Pressure Mean [Left Arm] Blood Pressure Mean [Right Arm] 100 Blood Pressure Position [Left Arm] Blood Pressure Position [Right Arm] Sitting Pulse Oximetry 97 Oxygen Delivery Method Nasal Cannula Nasal Cannula Oxygen Flow Rate 3 2 Laboratory Data Attestation: I reviewed the patient's lab results. Result diagrams: 08/18/18 09:15 08/18/18 09:15 Lab Results 08/18/18 08/18/18 08/18/18 Range/Units 09:15 09:15 09:15 WBC 8.32 (4.8-10.8) K/uL RBC 4.43 L (4.7-6.1) M/uL Hgb 13.2 L (14.0-18.0) g/dL Hct 40.1 L (42-52) % MCV 90.5 (80-100) fL MCH 29.8 (25-34) pg MCHC 32.9 (32-36) g/dL RDW Std Deviation 47.6 H (36.4-46.3) fL RDW Coeff of [place] 14.6 H (11.5-14.5) % Plt Count 161 (130-400) K/uL MPV 10.1 (7.4-10.4) fL Immature Gran % (Auto) 1.7 % Neut % (Auto) 83.9 % Lymph % (Auto) 8.5 % [place] % (Auto) 5.9 % Eos % (Auto) 0.0 % Baso % (Auto) 0.0 % Immature Gran # (Auto) 0.14 H (0.00-0.02) K/uL Neut # (Auto) 6.98 H (1.4-6.5) K/uL Lymph # (Auto) 0.71 L (1.2-3.4) K/uL [place] # (Auto) 0.49 (0.11-0.59) K/uL Eos # (Auto) 0.00 (0-0.5) K/uL Baso # (Auto) 0.00 (0-0.2) K/uL ESR (0-14) mm/hr PT 37.8 H (9.0-12.0) Seconds INR 4.1 H (0.9-1.1) APTT 40.8 H (21.0-31.0) Seconds PTT Ratio 1.5 VBG pH (7.36-7.41) VBG pCO2 (38-50) mmHg VBG pO2 mmHg VBG HCO3 mmol/L VBG O2 Saturation % VBG Base Excess mEq/L Barometric Pressure mm/Hg Sodium 137 (136-145) mmol/L Potassium 4.2 (3.5-5.1) mmol/L Chloride 104 (98-107) mmol/L Carbon Dioxide 29 (21-32) mmol/L Anion Gap 4.0 (3-11) BUN 30 H (7-18) mg/dl Creatinine 1.39 (0.6-1.4) mg/dl Est Cr Clr Drug Dosing 39.1 ml/min Est GFR ( Amer) 52.1 Est GFR (Non-Af Amer) 44.9 BUN/Creatinine Ratio 21.7 H (10-20) Glucose 221 H (70-99) mg/dl POC Glucose (70-99) Lactate (0.4-2.0) mmol/L Calcium 8.5 (8.5-10.1) mg/dl Magnesium 2.3 (1.8-2.4) mg/dl Total Bilirubin 0.3 (0.2-1) mg/dl Direct Bilirubin 0.1 (0-0.2) mg/dl AST 22 (15-37) U/L ALT 59 (12-78) U/L Alkaline Phosphatase 74 (45-117) U/L Troponin I < 0.015 (0-0.045) ng/ml NT-Pro-B Natriuret Pep (0-1800) pg/ml Total Protein 6.3 L (6.4-8.2) gm/dl Albumin 2.9 L (3.4-5.0) gm/dl Urine Color Urine Appearance (Clear) Urine pH (4.5-7.5) Ur Specific [place] (1.000-1.030) Urine Protein (Negative) Urine Glucose (UA) (Negative) Urine Ketones (Negative) Urine Blood (Negative) Urine Nitrite (Negative) Urine Bilirubin (Negative) Urine Urobilinogen (Negative) Ur Leukocyte Esterase (Negative) 08/18/18 08/18/18 08/18/18 Range/Units 09:15 09:15 09:15 WBC (4.8-10.8) K/uL RBC (4.7-6.1) M/uL Hgb (14.0-18.0) g/dL Hct (42-52) % MCV (80-100) fL MCH (25-34) pg MCHC (32-36) g/dL RDW Std Deviation (36.4-46.3) fL RDW Coeff of [place] (11.5-14.5) % Plt Count (130-400) K/uL MPV (7.4-10.4) fL Immature Gran % (Auto) % Neut % (Auto) % Lymph % (Auto) % [place] % (Auto) % Eos % (Auto) % Baso % (Auto) % Immature Gran # (Auto) (0.00-0.02) K/uL Neut # (Auto) (1.4-6.5) K/uL Lymph # (Auto) (1.2-3.4) K/uL [place] # (Auto) (0.11-0.59) K/uL Eos # (Auto) (0-0.5) K/uL Baso # (Auto) (0-0.2) K/uL ESR 23 H (0-14) mm/hr PT (9.0-12.0) Seconds INR (0.9-1.1) APTT (21.0-31.0) Seconds PTT Ratio VBG pH (7.36-7.41) VBG pCO2 (38-50) mmHg VBG pO2 mmHg VBG HCO3 mmol/L VBG O2 Saturation % VBG Base Excess mEq/L Barometric Pressure mm/Hg Sodium (136-145) mmol/L Potassium (3.5-5.1) mmol/L Chloride (98-107) mmol/L Carbon Dioxide (21-32) mmol/L Anion Gap (3-11) BUN (7-18) mg/dl Creatinine (0.6-1.4) mg/dl Est Cr Clr Drug Dosing ml/min Est GFR ( Amer) Est GFR (Non-Af Amer) BUN/Creatinine Ratio (10-20) Glucose (70-99) mg/dl POC Glucose (70-99) Lactate 2.3 H* (0.4-2.0) mmol/L Calcium (8.5-10.1) mg/dl Magnesium (1.8-2.4) mg/dl Total Bilirubin (0.2-1) mg/dl Direct Bilirubin (0-0.2) mg/dl AST (15-37) U/L ALT (12-78) U/L Alkaline Phosphatase (45-117) U/L Troponin I (0-0.045) ng/ml NT-Pro-B Natriuret Pep 442 (0-1800) pg/ml Total Protein (6.4-8.2) gm/dl Albumin (3.4-5.0) gm/dl Urine Color Urine Appearance (Clear) Urine pH (4.5-7.5) Ur Specific [place] (1.000-1.030) Urine Protein (Negative) Urine Glucose (UA) (Negative) Urine Ketones (Negative) Urine Blood (Negative) Urine Nitrite (Negative) Urine Bilirubin (Negative) Urine Urobilinogen (Negative) Ur Leukocyte Esterase (Negative) 08/18/18 08/18/18 08/18/18 Range/Units 10:10 10:21 14:15 WBC (4.8-10.8) K/uL RBC (4.7-6.1) M/uL Hgb (14.0-18.0) g/dL Hct (42-52) % MCV (80-100) fL MCH (25-34) pg MCHC (32-36) g/dL RDW Std Deviation (36.4-46.3) fL RDW Coeff of [place] (11.5-14.5) % Plt Count (130-400) K/uL MPV (7.4-10.4) fL Immature Gran % (Auto) % Neut % (Auto) % Lymph % (Auto) % [place] % (Auto) % Eos % (Auto) % Baso % (Auto) % Immature Gran # (Auto) (0.00-0.02) K/uL Neut # (Auto) (1.4-6.5) K/uL Lymph # (Auto) (1.2-3.4) K/uL [place] # (Auto) (0.11-0.59) K/uL Eos # (Auto) (0-0.5) K/uL Baso # (Auto) (0-0.2) K/uL ESR (0-14) mm/hr PT (9.0-12.0) Seconds INR (0.9-1.1) APTT (21.0-31.0) Seconds PTT Ratio VBG pH 7.40 (7.36-7.41) VBG pCO2 48 (38-50) mmHg VBG pO2 43 mmHg VBG HCO3 29 mmol/L VBG O2 Saturation 76.9 % VBG Base Excess 3.4 mEq/L Barometric Pressure 721.3 mm/Hg Sodium (136-145) mmol/L Potassium (3.5-5.1) mmol/L Chloride (98-107) mmol/L Carbon Dioxide (21-32) mmol/L Anion Gap (3-11) BUN (7-18) mg/dl Creatinine (0.6-1.4) mg/dl Est Cr Clr Drug Dosing ml/min Est GFR ( Amer) Est GFR (Non-Af Amer) BUN/Creatinine Ratio (10-20) Glucose (70-99) mg/dl POC Glucose 118 H (70-99) Lactate (0.4-2.0) mmol/L Calcium (8.5-10.1) mg/dl Magnesium (1.8-2.4) mg/dl Total Bilirubin (0.2-1) mg/dl Direct Bilirubin (0-0.2) mg/dl AST (15-37) U/L ALT (12-78) U/L Alkaline Phosphatase (45-117) U/L Troponin I (0-0.045) ng/ml NT-Pro-B Natriuret Pep (0-1800) pg/ml Total Protein (6.4-8.2) gm/dl Albumin (3.4-5.0) gm/dl Urine Color Yellow Urine Appearance Clear (Clear) Urine pH 5.5 (4.5-7.5) Ur Specific [place] 1.017 (1.000-1.030) Urine Protein Negative (Negative) Urine Glucose (UA) 1+ H (Negative) Urine Ketones Negative (Negative) Urine Blood Negative (Negative) Urine Nitrite Negative (Negative) Urine Bilirubin Negative (Negative) Urine Urobilinogen Negative (Negative) Ur Leukocyte Esterase Negative (Negative) Administered Medications Sodium Chloride (Nss) 500 mls @ 80 mls/hr IV .[id number] AMANDA Stop: 08/18/18 19:41 Last Admin: 08/18/18 14:49 Dose: 80 mls/hr Documented by: [id number] Discontinued Medications Albuterol (Duoneb) 3 ml NEB NOW STA Stop: 08/18/18 11:42 Last Admin: 08/18/18 12:04 Dose: 3 ml Documented by: [id number] Imaging Data Radiologist's Impression: Radiology results as stated below per my review and the radiologist's interpretation: CT SCAN OF THE CHEST WITHOUT IV CONTRAST CLINICAL HISTORY: Dyspnea. COMPARISON STUDY: Chest x-ray dated 08/18/2018. Chest CT scans dated 03/11/2018 and 11/23/2015. TECHNIQUE: CT scan of the thorax was performed from the thoracic inlet to the upper abdomen. Images are reviewed in the axial, sagittal, and coronal planes. IV contrast was not administered for this examination as per the front clinician. A dose lowering technique was utilized adhering to the principles of ALARA. CT DOSE: 501.96 mGy.cm FINDINGS: Thyroid: Imaged portions of the thyroid gland are normal in size and heterogeneous in attenuation. A coarse calcification is noted in the left lobe. Thoracic aorta: There is atherosclerotic calcification of the thoracic aorta, which is normal in caliber and demonstrates standard 3-vessel arch anatomy. Heart: The heart is enlarged and without pericardial effusion. The coronary arteries are densely calcified. The pulmonary trunk is normal in caliber. Lungs and pleural spaces: Emphysematous change is identified. No airspace consolidation or pleural effusion is identified. There is a spiculated nodule with associated groundglass change at the right apex seen on image 62. This measures up to 2.6 cm and is highly concerning for neoplasm. This is increased in size dating back to studies from 11/23/2015. A 6 mm satellite nodule is seen on image #59. A 6 mm calcification containing nodule in the right upper lobe as seen on image #11. A 9 mm right middle lobe nodule along the minor [place] is seen on image #180. The are unchanged dating back to 2016. Chronic pleural- parenchymal scarring and calcified pleural plaque are seen at the left lung base. Mediastinum: There are mildly enlarged mediastinal lymph nodes. A right paratracheal node on image #115 measures 11 mm in short axis. High right peritracheal nodes measure up to 10 mm in short axis. A subcarinal node measures 21 mm in short axis. A precarinal node on image #133 measures 13 mm short axis. [place]: Not well assessed without IV contrast. Axillae: There is no axillary lymphadenopathy. Upper abdomen: There is a small hiatal hernia. The liver is enlarged and steatotic. The partially visualized kidneys demonstrate cortical atrophy. A 13 mm cyst is noted in the upper pole of the left kidney. Skeletal structures: The skeletal structures are osteopenic. Degenerative change and hyperkyphosis are noted in the thoracic spine. Fusion hardware is seen in the upper lumbar spine. No lytic or blastic bony lesions are seen. IMPRESSION: 1. Cardiomegaly and emphysema. 2. There is no airspace consolidation or pleural effusion. 3. A spiculated 2.6 cm nodule at the right apex with an adjacent satellite nodule has continued to increase in size from studies dating back to 2016. This should the considered lung cancer until proven otherwise. 4. There is mediastinal lymphadenopathy, new from 03/11/2018. This is pathologically indeterminant, with metastatic disease not excluded. 5. Additional subcentimeter pulmonary and pleural-based nodules have not appreciably changed dating back to 2016. 6. Hepatic steatosis. 7. Additional findings as above. Electronically signed by: Wilfredo Bueno M.D. 08/18/2018 10:19 AM XR chest 1V portable HISTORY: Shortness of breath. COMPARISON: Chest 217/. FINDINGS: The heart remains borderline enlarged. No pleural effusions. No pneumothorax. No new focal lung consolidations to suggest pneumonia. No evidence for pulmonary edema. IMPRESSION: No significant change compared to the prior study. No acute process. Electronically signed by: Gregor Chanel M.D. 08/18/2018 9:06 AM Discharge Plan Visit Data *Final* Discharge Date/Time: 08/18/18 12:55 Chief Complaint: Congestion Stated Complaint: CONGESTION,SOB ED Provider: Mars Kirkland Discharge Problem: Shortness of breath, Acidosis, lactic, Mass of right lung Patient Disposition: Admitted As Inpatient Discharge Instructions Interventions: ED Discharge Assessment Last Done: 08/18/18 12:55 The scribe's documentation has been prepared under my direction and personally reviewed by me in its entirety. I confirm that the note above accurately reflects all work, treatment, procedures, and medical decision making performed by me.
[2018-08-18] MEDS: ALBUT/IPRATROP 3MG/0.5MG NEB 3 ML VIAL NEB SCH ×2 (15:28→20:09)
[2018-08-18] MEDS: GABAPENTIN 800 MG TAB PO SCH ×2 (16:01→20:40)
[2018-08-18] MEDS: CHECK FENTANYL PATCH PLACEMENT SCH (16:09)
[2018-08-18 17:23] LABS: Influenza A virus by PCR Neg for Influ A (Neg); Influenza B virus by PCR Neg for Influ B (Neg)
[2018-08-18] MEDS: INSULIN ASPART 100 UNITS/ML 3 ML PEN SC SCH ×2 (17:58→20:50)
[2018-08-18] MEDS ORDERED: Nursing to Pharmacy Communication ONE (18:35)
[2018-08-18] MEDS: BUDESONIDE 0.5 MG/2 ML VIAL (PULMICORT) NEB SCH (20:10)
[2018-08-18] MEDS: methylPREDNISolone 40 MG in SYRINGE 0 ML IV SCH (20:35)
[2018-08-18] MEDS: TIMOLOL MALEATE 0.25% OP SOLN 5 ML BTL OPB SCH (20:38)
[2018-08-18] MEDS: TAMSULOSIN HCL 0.4 MG CAP PO SCH (20:39)
[2018-08-18] MEDS: SIMVASTATIN 20 MG TAB PO SCH (20:39)
[2018-08-18] MEDS: METOPROLOL TARTRATE 25 MG TAB PO SCH (20:40)
[2018-08-18] MEDS: PANTOprazole 40 MG TAB PO SCH (20:41)
[2018-08-18] MEDS: DOCUSATE SODIUM 100 MG CAP PO SCH (20:41)
[2018-08-18] MEDS: FERROUS SULFATE 325 MG TAB PO SCH (20:41)
[2018-08-18] MEDS: INSULIN GLARGINE SOLOSTAR 100 UNITS/ML 3 ML PEN SC SCH (20:50)
[2018-08-18] MEDS: AMITRIPTYLINE HCL 50 MG TAB PO SCH (21:33)
[2018-08-18] MEDS: guaiFENesin SUGAR FREE 200 MG/10 ML UDC PO SCH (21:34)
[2018-08-18] MEDS ORDERED: SODIUM CHLORIDE 0.9% 500 ML IV ONE (23:56)
[2018-08-19] MEDS: CHECK FENTANYL PATCH PLACEMENT SCH ×4 (00:12→23:07)
--- NOTE | 2018-08-19 00:52 | Consultation Report ---
DATE OF CONSULTATION: 08/18/2018 PULMONARY CONSULTATION TIME: 5:30 p.m. REPORT OF CONSULTATION: The patient was seen in room #282. He was accompanied by his daughter. The patient is an 88-year-old male who has a chief complaint of a cough. This began about 3 weeks ago. His had been ill with bronchitis shortly before this occurred. Initially, he was expectorating yellow sputum. He saw his family doctor on multiple occasions. At first, he was prescribed doxycycline. Subsequently, he was prescribed Augmentin. 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 The cough did not quit however. His cough has been fairly aggressive at times. The patient is not the best historian. He has had increasing shortness of breath in association with worsening cough. For instance, he would be winded walking from room to room. He lives with his daughter. His is still living and they live on the first floor. The patient's appetite has been good. He has not been losing weight. His energy level is only fair. He has not had any chest pain. The patient does have chronic pain in the back related to spinal stenosis and 3 back surgeries. He is on a pain patch for this problem. The patient did have a hospital admission in June. At that time he came in with shakes and weakness. He was thought to have sepsis. Cultures were negative, however. He was admitted from 06/22/2018 until 06/26/2018. A C. diff done during that hospital stay was positive and he was treated for the C. diff. He is not having any diarrhea at present. The patient has a history of pulmonary embolism. This occurred in September of 2017. He had a deep vein thrombosis in his leg at the same time. He has been found to have an increased density in the right upper lung field and he has had some lung nodules. Dr. Sierra has been following the patient as an outpatient. There has been very slow growth in the predominant density in the right upper lung field with slight growth in one or more of the nodules. He did have a CT of the chest done today. This shows what appears to be cardiomegaly and some emphysema. There was no definite pneumonia or consolidation. He has a somewhat spiculated 2.6 cm nodule in the right apex. He does have irregular margins. There is an adjacent satellite nodule that also has increased in size slightly going back to 2016. The new finding is some mediastinal adenopathy seen which has occurred since the prior scan done 03/11/2018. He has a subcarinal lymph node that measures 21 mm. He has a precarinal lymph node measuring 13 mm. There is a right paratracheal node measuring 10 mm and a second right paratracheal node measuring 11 mm. These have all increased compared with 5 months ago. PAST SURGICAL HISTORY: 1. Low back surgery x3. 2. Cataract surgery. 3. Knee surgery. PAST MEDICAL HISTORY: 1. Aspiration pneumonia. 2. Pulmonary embolism. 3. Renal insufficiency. 4. Hyperlipidemia. 5. Hypertension. 6. Diabetes. 7. Spinal stenosis. 8. Polymyalgia rheumatica for which he is on chronic prednisone typically at 20 mg. 9. Benign prostatic hypertrophy. 10. C. diff infection as noted. SOCIAL HISTORY: Tobacco: The patient quit smoking in 1972 and he smoked about 1 pack per day for 25 years. FAMILY HISTORY: Father with a brain tumor in his 70s and mother in her 70s, but did not know what the cause was. 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 ALLERGIES: 1. OXYCODONE CAUSES ITCHING. 2. LORAZEPAM GIVES PARADOXICAL AGITATION. MEDICATIONS: At home, 1. Amitriptyline 50 mg at bedtime. 2. Amlodipine 5 mg daily. 3. Docusate b.i.d. 4. Escitalopram 10 mg daily. 5. Fentanyl patch 50 mcg q. 72 hours. 6. Ferrous sulfate b.i.d. 7. Finasteride 5 mg daily. 8. Gabapentin 800 mg t.i.d. 9. Lisinopril 2.5 mg daily. 10. Metoprolol 12.5 mg b.i.d. 11. Omeprazole 40 mg b.i.d. 12. Prednisone baseline 20 mg daily. 13. Simvastatin 20 mg daily. 14. Tamsulosin 0.8 mg at bedtime. 15. Timolol drops. 16. Warfarin. REVIEW OF SYSTEMS: The patient denies headache. The only pain he has is in the low back. Currently, denies nausea, vomiting, diarrhea, constipation. Denies difficulty urinating, although he is on multiple meds for prostate enlargement. The remainder of the review of systems is negative except as noted in the history of present illness. Ten systems reviewed. PHYSICAL EXAMINATION: GENERAL: The patient is an 88-year-old male who had somewhat of a flat affect. He was cooperative. He was overall alert. VITAL SIGNS: Temperature 36.3. Weight is 87 kilograms. HEENT: Pupils were reactive. It appears he has had prior cataract surgeries. Nasal cannula was in place. Mouth exam showed dry mucous membranes. There was crowding with the pharynx being a Mallampati grade 3. NECK: Palpation of the neck reveals no lymph nodes. His daughter did admit when questioned that she thinks he may stop breathing when he sleeps and thus sleep apnea is a possibility. CHEST: Showed diminished excursions. Cardiac rate is 73 per minute. Rhythm was regular. Occasional extrasystole was seen on telemetry. Blood pressure 165/68. LUNGS: Respiratory rate was 18. Rhonchi were heard bilaterally posteriorly. Oxygen saturation was 98% on 2 liters. ABDOMEN: Obese. Bowel sounds are active. No tenderness to palpation, masses or organomegaly. EXTREMITIES: Reveals trace edema of both lower extremities. No cyanosis or clubbing. LABORATORY DATA: White count is 8.32. Hemoglobin 13.2. Platelets 161,000. INR today was elevated at 4.1. He is on Coumadin at home. A venous blood gas showed pH 7.4, pCO2 of 48, pO2 43. Lactate level was initially 2.3 and on repeat 2.8. Electrolytes show sodium 137, potassium 4.2, chloride 104, bicarb 29. BUN 30 with creatinine 1.39. Blood sugars today were as high as 169. Albumin 2.9, total protein 6.3. EKG showed a sinus rhythm with a rate of 63. No acute changes were noted. IMPRESSION: 1. Cough x3 weeks - suggestive for an inflammatory process with retained secretions. 2. Emphysema - as noted on CAT scan. 3. Mass lesion right upper lobe with multiple nodules - gradually getting larger. 4. Mediastinal adenopathy - new finding. COMMENTS AND RECOMMENDATIONS: I suspect that the patient's acute cough. His more likely related to an inflammatory or infectious problem than a neoplasm. The mass lesion that he is quite peripheral. This would not be typical to cause an obstruction. I believe effort should be made to help the patient clear secretions if possible. Cautious hydration may help. I suspect the IV saline may have been also because of the elevated lactate. With his age however we would be very cautious with that after several hours. I do agree with the neb treatments with DuoNebs q. 4 hours and the budesonide twice a day. He is ordered a flutter valve which is in his room. I do not know if he is actually used it as yet. It might be worth trying a vibration vest to see if this would help. I would suggest giving the patient IV Solu-Medrol 40 mg IV q. 12 hours rather than prednisone at least for a day or a couple of days to see if this would help. I would suggest obtaining a consultation with Dr. Sierra who knows the patient. He has been reluctant, I believe, to do a lung biopsy. Obviously, one option would be to do a PET scan which I think would be reasonable (can only be done as an outpatient due to insurance requirements). If the PET scan lit up significantly including in the mediastinum then doing any of this would be feasible. This would be less invasive than doing a VATS. I did explain to the patient and his daughter sometimes a bronchoscopy needs to be done to help remove secretions and that is still feasible, but I would like to give him some opportunities prior to them to proceed conservatively. Ultimately, I believe the patient perhaps should have a sleep study done. His daughter believes that he has episodes of apnea when he is sleeping. I did review pulmonary functions which were done in March and I actually were very mildly abnormal with a mild restrictive pattern. Diffusion was mildly decreased at 67%. Thank you for asking me to assist in his care. JAMAAL
[2018-08-19] MEDS: ALBUT/IPRATROP 3MG/0.5MG NEB 3 ML VIAL NEB SCH ×7 (00:53→22:54)
[2018-08-19] MEDS: guaiFENesin SUGAR FREE 200 MG/10 ML UDC PO SCH ×5 (04:26→21:32)
[2018-08-19] MEDS: methylPREDNISolone 40 MG in SYRINGE 0 ML IV SCH ×2 (05:31→17:24)
--- NOTE | 2018-08-19 06:59 | XRay Report ---
XR chest 1V portable CLINICAL HISTORY: sob dyspnea COMPARISON STUDY: 08/18/2018 FINDINGS: Mild stable cardia megaly. Lungs are clear. Persistent fullness of the mid to superior medi astinum. Mild left basilar atelectasis IMPRESSION: 1. Persistent fullness of the mid superior mediastinum. 2. Mild left basilar atelectasis. The above report was generated using voice recognition software. It may contain grammatical, syntax or spelling errors. Electronically signed by: Shahab Renee M.D. 08/19/2018 6:58 AM
[2018-08-19] MEDS: BUDESONIDE 0.5 MG/2 ML VIAL (PULMICORT) NEB SCH ×2 (07:03→19:16)
[2018-08-19 08:17] LABS: Hematocrit (blood only) 40.1 % (42-52); Hemoglobin 13.2 g/dL (14.0-18.0); Mean Corpuscular Hgb Conc 32.9 g/dL (32-36); Mean Corpuscular Volume 91.6 fL (80-100); Mean Platelet Volume 10.4 fL (7.4-10.4); Platelet Count 152 K/uL (130-400); RDW Coefficient of Variation 14.7 % (11.5-14.5); RDW Standard Deviation 49.2 fL (36.4-46.3); Red Blood Count 4.38 M/uL (4.7-6.1); White Blood Count 9.15 K/uL (4.8-10.8)
[2018-08-19] MEDS: PANTOprazole 40 MG TAB PO SCH ×2 (08:18→20:52)
[2018-08-19] MEDS: AMLODIPINE BESYLATE 5 MG TAB PO SCH (08:19)
[2018-08-19] MEDS: FERROUS SULFATE 325 MG TAB PO SCH ×2 (08:19→20:47)
[2018-08-19] MEDS: METOPROLOL TARTRATE 25 MG TAB PO SCH ×2 (08:20→20:48)
[2018-08-19] MEDS: GABAPENTIN 800 MG TAB PO SCH ×3 (08:20→20:50)
[2018-08-19 08:21] LABS: INR 3.3 (0.9-1.1); Prothrombin Time 31.4 Seconds (9.0-12.0)
[2018-08-19] MEDS: FINASTERIDE 5 MG TAB PO SCH (08:21)
[2018-08-19] MEDS: DOCUSATE SODIUM 100 MG CAP PO SCH ×2 (08:22→20:47)
[2018-08-19] MEDS: INSULIN GLARGINE SOLOSTAR 100 UNITS/ML 3 ML PEN SC SCH ×2 (08:22→20:47)
[2018-08-19] MEDS: INSULIN ASPART 100 UNITS/ML 3 ML PEN SC SCH ×4 (08:25→20:50)
[2018-08-19 08:42] LABS: BUN Creatinine Ratio 15.4 (10-20); Creatinine Clr Calc Pharmacy 32.8 ml/min; Est GFR (Non-African American) 36.3; Potassium 4.4 mmol/L (3.5-5.1)
[2018-08-19] MEDS ORDERED: predniSONE 10 MG TABLET PO SCH (09:00)
[2018-08-19] MEDS: ESCITALOPRAM OXALATE 10 MG TAB PO SCH (09:20)
[2018-08-19 10:02] LABS: Estimated Average Glucose 197 mg/dl; Hemoglobin A1C 8.5 % (4.5-5.6)
--- NOTE | 2018-08-19 13:58 | Fluoroscopy Report ---
FL video swallow HISTORY: Aspiration r/o worsened aspiration TECHNIQUE: Video fluoroscopic evaluation of swallowing was performed in the AP and lateral projection s by the speech pathology staff. The patient is fed nectar-thick and thin liquid barium, a barium coa kevin wafer, and barium pudding. FLUOROSCOPY TIME: 2.5 minutes NUMBER OF FLUOROSCOPIC IMAGES: 899 COMPARISON STUDY: None. FINDINGS: Aspiration is confirmed within liquids. There is moderate vallecular pooling with semisolid materials. There is evidence for esophageal dysmotility. There is vallecular pooling. IMPRESSION: 1. Positive for aspiration with thin liquids. Vallecular pooling with semisolid materials 2. Please see the speech pathologist report for detailed findings and recommendations. The above report was generated using voice recognition software. It may contain grammatical, syntax or spelling errors. Electronically signed by: Shahab Renee M.D. 08/19/2018 1:57 PM
--- NOTE | 2018-08-19 15:49 | Progress Note ---
DATE: 08/19/2018 PULMONARY PROGRESS NOTE TIME: 2:45 p.m. SUBJECTIVE: The patient currently is congested. He had been very good earlier today. Reportedly, he coughed up a lot of phlegm last evening. His daughter was present during this evaluation. This occurred about 15 minutes after eating. It is not clear to me if this mucus was coming from what he had swallowed or from his chest. This morning, reportedly, he was pretty good. He had a speech evaluation. He did have problems with some aspiration at the time of the barium swallow portion. I did speak directly with the speech therapist. She feels he has esophageal dysmotility. He also has pooling in the oropharynx. At present, the patient is coughing fairly regularly. He is a little bit short of breath. This all occurred after the study. OBJECTIVE: GENERAL: The patient looked mildly uncomfortable. VITAL SIGNS: Temperature is 36.2. He has had no fevers. ENT: Exam is same as yesterday. HEART: Rate is 76 per minute. Rhythm regular. Blood pressure 172/82. LUNGS: Respiratory rate was 20 breaths per minute. Diffuse rhonchi were heard bilaterally. This is greater than prior. Saturation currently was 93% on room air. After taking deep breaths for me, it went up to 97%. ABDOMEN: Somewhat obese. EXTREMITIES: Showed trace edema. The swallow study reported aspiration with liquids. There was moderate vallecular pooling with semisolid materials. Evidence for esophageal dysmotility. The patient had a chest x-ray done this morning early. This showed fullness of the superior mediastinum with mild left basilar atelectatic change. I was not clear why this was done at 1:10 a.m. I did not receive any report from nursing that he had trouble at that point. White count was 9.15. Hemoglobin 13.2. Platelets 152,000. INR today was 3.3, yesterday was 4.1. Electrolytes show sodium 138, potassium 4.4, chloride 105, bicarb 24. Lactate today was elevated at 4.7. Yesterday, lactate had been 3.0 and shortly after midnight, it was 3.4. According to the patient's hospitalist, this has been a chronic type of elevation of lactate. IMPRESSION: 1. Severe cough. 2. Emphysema. 3. Right upper lobe mass. 4. Multiple lung nodules. 5. Mediastinal adenopathy. 6. Dysphagia. COMMENTS AND RECOMMENDATIONS: My feeling last evening after seeing the patient was that he had probably an acute inflammatory process with retained secretions. This was based upon his exam and the history that his had been ill, etc. Now, I am wondering, however, if the problem might be related to recurrent aspiration. I would continue with his current treatment now, which includes the methylprednisolone as well as the nebulizer treatments. He has been getting both levalbuterol and budesonide. Speech therapy indicated they were going to suggest a GI opinion. I will defer this to the hospitalist team. The patient's daughter would like to generally follow a conservative course with minimal intervention as possible in light of his age. I did discuss the case with Dr. Sierra and also with his PA, Wes Mayes.
--- NOTE | 2018-08-19 17:27 | Hospitalist Progress Note ---
Date of Service August 19, 2018 Assessment & Plan (1) Bronchitis: Patient is an 88 yr male with H/O DM II, HTN, HLD, CKD stage III, PMR on chronic 20 mg prednisone therapy, H/O PE on warfarin, PAF, GERD, BPH, depression, known right pulmonary nodule who presents to [facility] secondary to cough times 3 weeks. Bronchitis COPD Possible recurrent aspiration due to esophageal dysmotility Right upper lobe mass: Possible malignant neoplasm Failed outpatient Abx course doxycycline and Augmentin, steroid taper course CT of chest revealed increase in size of spiculated 2.6 cm nodule at right apex along with mediastinal adenopathy which is new from 03/11/2018. Also noted is cardiomegaly and emphysema. Video Swallow:Positive for aspiration with thin liquids. Vallecular pooling with semisolid materials Continue Solu medrol Hold of on Abx for now Aggressive pulmonary toilet Continue Nebs Appreciate Pulmonology Input Consider GI eval for esophageal dysmotility after addressing goals of care CT surgery is on board as well Aspiration precautions Sputum Culture:Moderate normal liz Influenza screen: Negative Blood Cultures:pending Continue PPI BID for GERD (2) Elevated lactic acid level: Chronic elevation No obvious source of infection Likely Type B Lactic acidosis due to malignancy No Hypoxia (3) Hypertension: Slightly elevated today Continue amlodipine and metoprolol lisinopril held as could be contributing to cough Monitor BP (4) PAF (paroxysmal atrial fibrillation): Supratherapeutic INR Continue metoprolol INR 4.1>>3.3 hold Coumadin today (5) Diabetes mellitus, type II: A1C:8.5 Hyperglycemic in ED likely in setting of recent steroid taper Continue Lantus/NovoLog sliding scale Monitor (6) History of pulmonary embolus (PE): Resume coumadin as able (7) Subtherapeutic international normalized ratio (INR): Monitor INR No bleeding issues (8) CKD (chronic kidney disease), stage III: Baseline creatinine 1.61.7 Monitor renal function (9) Dyslipidemia: Continue statin (10) PMR (polymyalgia rheumatica): On chronic prednisone 20 mg daily Currently on Solu medrol (11) Chronic anemia: Continue iron supplementation Normocytic normochromic Monitor CBC (12) BPH (benign prostatic hyperplasia): Continue Flomax (13) GERD (gastroesophageal reflux disease): PPI BID (14) Chronic pain syndrome: Continue fentanyl patch and gabapentin History of PMR and lumbar surgery x3 (15) DVT prophylaxis: Warfarin, SCDs Subjective Patient is seen and examined at bedside this morning Less cough and SOB earlier today Had speech eval today Likely has esophageal dysmotility as per speech therapy Denies chest pain Discussed with Patient's daughter in detail this morning Also discussed with Pulmnology Physical Exam Vital Signs (Past 24 Hours): Last Vital Signs Temp 36.6 C 08/19/18 14:59 Pulse 77 08/19/18 15:58 Resp 18 08/19/18 15:08 BP 155/72 H 08/19/18 14:59 Pulse Ox 95 08/19/18 15:08 Physical Exam: Physical Exam: Vitals signs as noted above General Appearance:Chronic ill appearing, moderate built Head: normocephalic, Atraumatic Eyes: normal inspection, EOMI Neck: supple, Trachea midline Respiratory/Chest: Coarse breath sounds, +Rhonchi Cardiovascular: S1, S2, No murmur Abdomen/GI:Soft, Non tender, Bowel sounds present Extremities/Musculoskelatal:normal inspection, Trace pedal edema Neurologic/Psych:AAOX3, grossly no focal neurological deficits Skin: normal color, warm Results & Data Laboratory Results Short CBC 08/19/18 Range/Units 07:50 WBC 9.15 (4.8-10.8) K/uL Hgb 13.2 L (14.0-18.0) g/dL Hct 40.1 L (42-52) % Plt Count 152 (130-400) K/uL BMP 08/19/18 07:50 Sodium 138 Potassium 4.4 Chloride 105 Carbon Dioxide 24 BUN 26 H Creatinine 1.66 H Glucose 222 H Calcium 9.0 (1) Hypertension Hypertension type: essential hypertension Qualified Code(s): I10 - Essential (primary) hypertension (2) Diabetes mellitus, type II Diabetes mellitus terminal superintendent insulin use: without nursing home use Diabetes mellitus complication status: with kidney complications Diabetes mellitus complication detail: with chronic kidney disease Chronic kidney disease stage: stage 3 (moderate) Qualified Code(s): E11.22 - Type 2 diabetes mellitus with diabetic chronic kidney disease; N18.3 - Chronic kidney disease, stage 3 (moderate) (3) BPH (benign prostatic hyperplasia) Lower urinary tract symptom presence: unspecified whether lower urinary tract symptoms present Qualified Code(s): N40.0 - Benign prostatic hyperplasia without lower urinary tract symptoms (4) GERD (gastroesophageal reflux disease) Esophagitis presence: without esophagitis Qualified Code(s): K21.9 - Gastro- esophageal reflux disease without esophagitis
[2018-08-19] MEDS: TAMSULOSIN HCL 0.4 MG CAP PO SCH (20:47)
[2018-08-19] MEDS: AMITRIPTYLINE HCL 50 MG TAB PO SCH (20:47)
[2018-08-19] MEDS: SIMVASTATIN 20 MG TAB PO SCH (20:52)
[2018-08-19] MEDS: TIMOLOL MALEATE 0.25% OP SOLN 5 ML BTL OPB SCH (20:52)
--- NOTE | 2018-08-19 23:51 | Consultation Report ---
DATE OF CONSULTATION: 08/19/2018 REASON FOR CONSULTATION: Mediastinal adenopathy as well as a right upper lobe mass. HISTORY OF PRESENT ILLNESS: This is a very pleasant 88-year-old male known to Dr. Sierra's service. The patient was most recently seen in our office in March of 2018 secondary to a slowly growing right upper lobe mass. At his visit in March, the patient had had serial CT scans followed. The patient was noted to have a right upper lobe lung mass that appeared to be slowly growing. Dr. Sierra noted to the patient and the family that he could not ascertain exactly what this mass represented, whether it would be a cancer or inflammatory, but he said he could not definitely say what it was unless he performed surgical biopsies or removal of this mass. At that time, the patient opted to wait another 6 months with a serial CT scan. The patient presented to [facility] on 08/18/2018 secondary to a worsening cough that began about 3 weeks ago. Of note, the patient's had had bronchoscopy recently and they felt that this could represent that. The patient does note some shortness of breath as well as a cough productive of yellow sputum. He saw his family doctor several times and he was initially prescribed doxycycline, but then was prescribed Augmentin with some clearing of his mucus noted. The patient persistently had a cough, however. Because of the patient's worsening cough, he did present to the [facility] Emergency Department for further evaluation. Thus far in the hospital, he has had some labs where he was not noted to have leukocytosis. His hemoglobin and hematocrit are stable at 13.2 and 40.0 and platelet count is within normal range. He is anticoagulated with an INR of 3.3. He had a venous blood gas with a pH noted to be 7.4. Chemistry profile did show sodium and potassium were normal. BUN and creatinine were slightly elevated at 26 and 1.6. The patient underwent a CT scan of his chest which did show no pleural effusion or infiltrates. He was noted to have a 2.6 cm nodule at the right apex that was spiculated which has slightly increased in size from his most recent scan, mediastinal lymphadenopathy which was also a new finding was noted. The patient was admitted to the hospital. He has been initiated on steroid therapy and a pulmonary consultation was obtained. There was concern that patient may have been aspirating, which was contributing to his cough. This patient underwent a swallowing evaluation and a video swallow was performed that was positive for aspiration of thin liquids and a GI consultation was recommended. Due to his underlying history of lung mass and mediastinal adenopathy, we are asked to see him. At the time of my exam, he was resting in bed. He was in no distress, but he did have a persistent cough. Concerning other symptoms, there are no reported falls, visual changes, tinnitus, sore throat, or neck pain. He does not have any chest pain. He does have some shortness of breath as well as cough. He denies nausea, vomiting or abdominal pain. He does have a history of PE. He denies any dysuria. PAST MEDICAL HISTORY: Includes the followin. History of aspiration pneumonia. 2. PE. 3. History of chronic kidney disease. 4. Hyperlipidemia. 5. Hypertension. 6. Diabetes. 7. Spinal stenosis. 8. Polymyalgia rheumatica. He is on chronic prednisone with a baseline dose of 20 mg daily. 9. BPH. 10. History of C. diff. PAST SURGICAL HISTORY: Includes: 1. Lumbar spine surgery on 3 occasions. 2. Cataract surgery. 3. Knee surgery. SOCIAL HISTORY: Quit smoking in 1972, but he did smoke a pack a day for approximately 25 years. FAMILY HISTORY: The patient said his mother in her 70s with an unknown cause and father suffered from a brain tumor. ALLERGIES: INCLUDE OXYCODONE, WHICH CAUSES ITCHING, WELL ATIVAN, WHICH APPARENTLY CAUSES PARADOXICAL AGITATION. OUTPATIENT MEDICATIONS: 1. Amitriptyline 50 mg at bedtime. 2. Norvasc 5 mg daily. 3. Colace 100 mg twice daily. 4. Lexapro 10 mg daily. 5. Fentanyl patch 50 mcg every 3 days. 6. Iron 325 mg daily. 7. Finasteride 5 mg daily. 8. Neurontin 800 mg 3 times daily. 9. Lisinopril 2.5 mg daily. 10. Metoprolol 12.5 mg daily. 11. Omeprazole 40 mg twice daily. 12. Prednisone with a baseline dose of 20 mg daily or as directed by his other physicians. 13. Zocor 20 mg daily. 14. Flomax 0.8 mg at bedtime. 15. Timolol eyedrops at bedtime. 16. Coumadin, he takes alternating 5 and 2.5 mg doses. REVIEW OF SYSTEMS: As noted above. PHYSICAL EXAMINATION: VITAL SIGNS: Blood pressure 172/82, pulse 69 and regular, respirations are 18 and unlabored, he is afebrile with temperature 36.2, pulse ox is 97% on room air. SKIN: Warm with good turgor. GENERAL: He is alert. He is oriented to time, place and person. HEENT: Head is atraumatic, normocephalic. Eyes, pupils are equal, round react to light and accommodation. Extraocular motions are intact. Ears, auditory acuity is grossly intact. Nose, nasal patency was intact. Sinuses are nontender. Mouth is moist without exudates. NECK: Supple. There is no tracheal shift or stridor. CARDIOVASCULAR: Regular rate and rhythm. LUNGS: The patient's lungs revealed an occasional coarse rhonchi that did appear to improve with cough. He is not using accessory muscles. There is no wheezing. ABDOMEN: Soft and nontender. EXTREMITIES: Revealed no cyanosis, clubbing, or edema. NEUROLOGIC: He can move all 4 extremities and follow simple commands without noted focal deficits. DIAGNOSTIC DATA: As described above. IMPRESSION: An 88-year-old male with worsening cough, mediastinal adenopathy, as well as right upper lobe lung nodule. PLAN: The patient is noted to have aspiration, so he could have an inflammatory process going on in his lungs and GI consultation has been recommended by speech therapy. We will await their recommendations once obtained. I did discuss the case with Dr. Tanner and he says that the patient is currently receiving intravenous steroids which we will continue. Dr. Sierra is concerned about the patient's right upper lobe lung mass as well as the mediastinal adenopathy. At the present time, he is not going to pursue any diagnostic interventions such as a bronchoscopy or thoracoscopy due to the patient's acute aspiration issues. I did discuss the case with Dr. Tanner at bedside and he does note that he would like to obtain a PET scan once the patient is over these acute issues which will help guide further therapy. The patient is scheduled to see Dr. Sierra in the office in mid September of this year and will keep this appointment, but of course change it based on his clinical course here in the hospital. Again, we will wait for the patient to get over these acute issues before pursuing any further diagnostic intervention.
--- NOTE | 2018-08-20 00:46 | Consultation Report ---
DATE OF CONSULTATION: 08/19/2018 HISTORY OF PRESENT ILLNESS: Mr. Kan is an 88-year-old male that I know. He has a very suspicious lesion in his right upper lobe, but it has been very slow growing and the patient is going to be 89 in 6 months. We have purposely been quite slow to offer him any interventions. I had a long talk with the patient and his daughter at the bedside. At this point, I would hold off offering him any intervention until he gets over his current issues. The patient feels much better than he did when he came in; however, he is on no antibiotics. He developed a very difficult to treat Clostridium difficile colitis last time. He received IV antibiotics and is reticent to receive any now. The patient's daughter states that he does cough when he eats and he is scheduled for a video swallow later today, which I think is appropriate. We did review his CT scan. We have been following this lesion for 3 years and the lesion has slowly increased, it is now 2.6 cm. In addition, he does have some mediastinal adenopathy, but at this point I would not do anything about this. He does have some increase in his mediastinal adenopathy. We have discussed doing a possible endobronchial ultrasound in the past. I would like to let him get over whatever has acutely made him worse. I did discuss this with the patient and his daughter.
[2018-08-20] MEDS: ALBUT/IPRATROP 3MG/0.5MG NEB 3 ML VIAL NEB SCH ×5 (03:35→19:27)
[2018-08-20] MEDS: guaiFENesin SUGAR FREE 200 MG/10 ML UDC PO SCH ×4 (03:43→21:47)
[2018-08-20] MEDS: methylPREDNISolone 40 MG in SYRINGE 0 ML IV SCH ×2 (05:24→17:17)
[2018-08-20 05:49] LABS: Hematocrit (blood only) 39.8 % (42-52); Mean Corpuscular Hgb Conc 32.7 g/dL (32-36); Mean Corpuscular Volume 91.9 fL (80-100); Mean Platelet Volume 10.4 fL (7.4-10.4); Platelet Count 175 K/uL (130-400); RDW Coefficient of Variation 14.7 % (11.5-14.5); RDW Standard Deviation 49.6 fL (36.4-46.3); Red Blood Count 4.33 M/uL (4.7-6.1); White Blood Count 9.74 K/uL (4.8-10.8)
[2018-08-20 05:57] LABS: INR 2.2 (0.9-1.1); Prothrombin Time 21.4 Seconds (9.0-12.0)
[2018-08-20 06:07] LABS: BUN Creatinine Ratio 19.2 (10-20); Calcium 8.6 mg/dl (8.5-10.1); Creatinine Clr Calc Pharmacy 36.5 ml/min; Est GFR (African American) 47.9; Est GFR (Non-African American) 41.3; Potassium 4.4 mmol/L (3.5-5.1)
[2018-08-20] MEDS: BUDESONIDE 0.5 MG/2 ML VIAL (PULMICORT) NEB SCH ×2 (07:40→19:29)
[2018-08-20] MEDS: CHECK FENTANYL PATCH PLACEMENT SCH ×2 (08:05→15:37)
[2018-08-20] MEDS: METOPROLOL TARTRATE 25 MG TAB PO SCH ×2 (08:06→20:45)
[2018-08-20] MEDS: DOCUSATE SODIUM 100 MG CAP PO SCH ×2 (08:07→20:44)
[2018-08-20] MEDS: ESCITALOPRAM OXALATE 10 MG TAB PO SCH (08:07)
[2018-08-20] MEDS: FINASTERIDE 5 MG TAB PO SCH (08:07)
[2018-08-20] MEDS: AMLODIPINE BESYLATE 5 MG TAB PO SCH (08:07)
[2018-08-20] MEDS: GABAPENTIN 800 MG TAB PO SCH ×3 (08:08→20:44)
[2018-08-20] MEDS: FERROUS SULFATE 325 MG TAB PO SCH ×2 (08:08→20:44)
[2018-08-20] MEDS: PANTOprazole 40 MG TAB PO SCH ×2 (08:10→20:44)
[2018-08-20] MEDS: INSULIN GLARGINE SOLOSTAR 100 UNITS/ML 3 ML PEN SC SCH ×2 (08:12→20:49)
[2018-08-20] MEDS: INSULIN ASPART 100 UNITS/ML 3 ML PEN SC SCH ×4 (08:12→20:50)
--- NOTE | 2018-08-20 13:26 | Gastrointestinal Consultation ---
Date of Consultation August 20, 2018 Assessment & Plan (1) Dysphagia: Most likely this is multifactorial with etiologies including oral pharyngeal dysphagia and lower esophageal dysmotility. Regarding the oral pharyngeal dysphagia - recommend OP home Speech therapy for teaching on maneuvers to lesson aspiration. Regarding the lower esophageal dysphagia: 1. Offered EGD tr/o obstruction. Unfortunately, there are not any good medical options for tx of lower esophageal muscle dysmotility/spasm that in older patients. Daughter declines EGD 2. Recommend use of peppermint prior to each meal which is somewhat effective in relaxing the muscles of the GI tract. This may help the lower esophageal muscles relax to allow improved esophageal emptying into the stomach and therefore lower the risk of aspiration from regurgitation of recently swallowed foods/liquids. 3. OP GI office f/u. Our office will contact the pt's daughter to arrange appt. Attg add: I interviewed and examined pt/family, reviewed chart and labs. History primarily obtained from daughter, who lives with him. Pt with prior h/o asp pneumonia chronically on soft mech diet, now 3 month h/o chronic paroxysmal cough that has been difficult to clear. Cough occurs while eating, also throughout the day. No obv nocturnal worsening of cough; he sleeps at 45 degree angle. Occ chest pain. He is on BID PPI nursing home; denies reflux. Studies to date include chest CT which does not show esophageal pathology; VFSS which showed vallecular pooling and laryngeal penetration which did not improve with chin tuck, silent aspiration without cough with thin liquids, also esophageal retention of barium suggestive of esoph dysmotility. On my exam, he has absent gag. he has no apparent difficulty swallowing thin liquids - no cough, voice normal afterwards. A/P:I suspect that he has underlying esophageal dysmotility, as well as OP dysmotility. Therapeutic options for this issue are likely limited. I offered EGD to r/o esophageal obstruction; pt's family wishes to defer. We discussed possibility of speech rehab; elo wishes to pursue this as outpt, although VFSS report seem to suggests that OP dysphagia may not be responsive to PT. We discussed w/u of esophageal dysmotility - reluctant to pursue esophagram, due to asp risk; also, dtr does not wish to pursue formal motility study. Will try ppermint qAC. of note, pt on BID PPI, with h/o C diff and no h/o reflux symptoms and no apparent improvement in dysphagia. Will slowly wean as outpt. Present on Admission?: Yes (2) Dysphagia: History of Present Illness Reason for Consultation: persistent cough, possible GERD or spasms Requesting Physician: Dr. Acuna Attending Physician: Teofilo Acuna MD History of Present Illness Mr. Hugh Kan is an 88 yr old male pt of Dr. Liriano with a hx of DM-2, HTN, CKD-3, PMR, BPH, hyperlipidemia, osteoarthritis was admitted on 07/17 for cough. During this admission, he underwent video swallow with aspiration of thin liquids. Imaging was also suggestive of an enlarging lung nodule. He was seen in consult by pulmonology and OP f/u is planned with that service. GI is consulted to r/o GERD or esophageal dysmotility possibly causing his cough. He has never previously undergone endoscopy. Mr. Kan's daughter Gwen was available at the bedside and, along with the pt, provided the history. The pt has had prior aspiration pneumonia and speech therapy, and the daughter generally purees all his foods and makes sure that they are "slippery." Despite these efforts, with at least two meals/day and also in between, he has coughing, clearing of his throat. Recently, he has also felt that foods "get stuck" at the base of the chest after swallowing. He has not recently undergone EGD. His daughter mentions that after the video swallow ye sterday, he coughed up a large amt of white fluid and phlegm. Allergies Allergy/AdvReac Type Severity Reaction Status Date / Time oxycodone Allergy IL ITCHINESS Verified 08/18/18 09:11 lorazepam AdvReac SV agitation Unverified 08/18/18 09:11 Home Medications Home Medications Medication Instructions Recorded Confirmed Type amitriptyline 50 mg PO HS 03/15/18 08/18/18 History docusate sodium 100 mg PO BID 03/15/18 08/18/18 History escitalopram oxalate 10 mg PO QAM 03/15/18 08/18/18 History ferrous sulfate 325 mg PO BID 03/15/18 08/18/18 History finasteride 5 mg PO QAM 03/15/18 08/18/18 History gabapentin 800 mg PO TID 03/15/18 08/18/18 History omeprazole 40 mg PO BID 03/15/18 08/18/18 History simvastatin 20 mg PO HS 03/15/18 08/18/18 History tamsulosin 0.8 mg PO HS 03/15/18 08/18/18 History warfarin 5 mg PO 4XWK 03/15/18 08/18/18 History fentanyl 50 mcg TRANSDERMAL Q72H 06/22/18 08/18/18 History lisinopril 2.5 mg PO QAM 06/22/18 08/18/18 History prednisone 20 mg PO DIRECTED 06/22/18 08/18/18 History timolol maleate 1 drp OPB HS 06/22/18 08/18/18 History amlodipine 5 mg PO DAILY 08/18/18 08/18/18 History metoprolol tartrate 12.5 mg PO BID 08/18/18 08/18/18 History warfarin 2.5 mg PO 3XWK 08/18/18 08/18/18 History Patient History Medical History PAF (paroxysmal atrial fibrillation) (Chronic) Chronic anemia (Chronic) BPH (benign prostatic hyperplasia) (Chronic) Diabetes mellitus, type II (Chronic) Lung mass (Chronic) Depression (Chronic) GERD (gastroesophageal reflux disease) (Chronic) Hypertension (Chronic) Osteoarthritis (Chronic) PMR (polymyalgia rheumatica) (Chronic) Pulmonary embolism (Chronic) on Coumadin Dyslipidemia (Chronic) CKD (chronic kidney disease), stage III (Chronic) Hydrocele, right (Chronic) Surgical History H/O arthroscopic knee surgery (Chronic) Hx of spinal surgery (Chronic) "lumbar decompression/fusion in [address] Brown" per daughter hx of lumbar surgery x 3 Social History Preferred Language: [place] Communication Ability: Effective Site Physician Required: No Beliefs That Will Affect Care: None marital status: Current Living Situation: Family Current Living Situation Comment: and patient live with daughter Macy Other Information That Helps Us Care for You: No Feels Safe at Home: Yes Safety Concerns: Feels Safe At This Time Smoking Status: Former smoker Second Hand Exposure: No Hx Alcohol Use: No Hx Substance Use: No Review of Systems Review of Systems: ROS: Gen: + intermittent weakness, + fevers in July but not recently, no weight loss Eyes: No eye redness, or pain, no recent vision changes Resp: No SOB, no cough Cardio: No palpitations/irregular beats, no chest pain GI: No abdominal pain, no nausea/vomiting; on a BID PPI and has not has chest burning or reflux : Denies pain on urination Skin: No jaundice, itching or new rashes Physical Exam Constitutional: WD/WN, vitals as above average body habitus Eyes: PERRL, conjunctivae normal, anicteric sclerae ENMT: external ear and nose normal, oropharynx normal (however, minimal gag reflux) Neck: trachea midline, no thyromegaly Respiratory: normal respiratory effort, lungs clear to auscultation Cardiovascular: RRR, no murmur, no edema Gastrointestinal (Abdomen): normal bowel sounds, soft, nontender, no hepatosplenomegaly Musculoskeletal: no cyanosis or clubbing, extremities motor strength 5/5 Skin: no jaundice Neurologic: PERRL, EOMI, accommodation nl, no face palsy, no dysarthria Psychiatric: A+Ox3, euthymic affect Lymphatic: no cervical or axillary lymphadenopathy Results & Data Vital Signs (Past 12 Hours) Vital Signs Temp Pulse Pulse Resp BP BP Pulse Ox 08/20/18 11:08 36.4 C L 75 18 155/68 H 94 08/20/18 07:46 77 18 92 08/20/18 07:23 36.5 C 64 18 171/80 H 93 08/20/18 07:04 75 08/20/18 04:06 36.6 C 76 18 161/80 H 92 08/20/18 03:35 71 16 94
--- NOTE | 2018-08-20 14:06 | Progress Note ---
DATE: 08/20/2018 TIME: 12:30 p.m. SUBJECTIVE: The patient is still coughing frequently and complaining of shortness of breath. He states he does not feel any better today, although his voice was definitely stronger. His daughter was present during this evaluation. The patient is currently eating his lunch, so I am seeing him at a time of just having eaten some. The patient and his daughter seemed quite frustrated. His daughter states that physical therapy walked him today. He did well walking around the [place], but developed a coughing spell soon after he was done. OBJECTIVE: GENERAL: The patient did not appear in distress. VITAL SIGNS: Temperature 36.4. Heart rate is 74 per minute. Rhythm regular. Blood pressure 155/68. Blood pressure has been elevated most time. LUNGS: Lung contreras again reveal rhonchi, although they are mild. They are posteriorly and bilaterally. No active wheeze heard. Saturation on room air 91%. EXTREMITIES: No cyanosis, clubbing or edema. LABORATORY DATA: White count today 9.74. Hemoglobin 13. Platelets 175,000. INR 2.2. Electrolytes show sodium 137, potassium 4.4, chloride 107, bicarb 26. BUN 29 with a creatinine of 1.49. His creatinine level has been improving somewhat. His peak during this hospital stay is 1.78. The video swallow results were reviewed with the patient's daughter. The speech therapist did recommend a GI evaluation. IMPRESSION: 1. Severe cough. 2. Possible underlying bronchitis. 3. Dysphagia ? possibly the cause of his cough. 4. Emphysema. 5. Right upper lobe mass. 6. Multiple lung nodules. 7. Mediastinal adenopathy. COMMENTS AND RECOMMENDATIONS: The patient has had minimal improvement. After 24 hours, he seemed better. He seems worse since he had the swallow study. There certainly could be an aspiration component to this. The patient feels that the neb treatments make him cough, but they do not help him expectorate. Consideration is given to a GI evaluation as speech had suggested. One option would be to keep the patient n.p.o. for 24-36 hours and see if this significantly improves his symptoms. Would continue the methylprednisolone for now. Would decrease the DuoNebs to q. 6 hours. Ultimately if he does not clear, consideration could be given to bronchoscopy to visualize if there is secretions which are causing his cough. Dr. Sierra follows the patient and he could do that if need be. These possibilities were discussed with the patient's daughter, who was present.
[2018-08-20] MEDS ORDERED: WARFARIN SOD 2.5 MG TAB PO SCH (16:00)
--- NOTE | 2018-08-20 19:14 | Hospitalist Progress Note ---
Date of Service August 20, 2018 Assessment & Plan (1) Bronchitis: Patient is an 88 yr male with H/O DM II, HTN, HLD, CKD stage III, PMR on chronic 20 mg prednisone therapy, H/O PE on warfarin, PAF, GERD, BPH, depression, known right pulmonary nodule who presents to [facility] secondary to cough times 3 weeks. Bronchitis vs COPD vs Possible recurrent aspiration due to esophageal dysmotility vs Gastroesophageal reflux disease (GERD), -Sputum Culture:Moderate normal liz ; Influenza screen: Negative -Right upper lobe mass: Possible malignant neoplasm but no preference by patient or patient's daughter at this time for bronchoscopy -Patient had previous outpatient courses of Doxycycline and Augmentin and at this time pulmonary service dose not recommend antibiotics if coughing is from bronchitis; at this time will continue to follow pulmonary recommendations to continue solumedrol and nebulizers q 6 hours -CT of chest with increase in size of spiculated 2.6 cm nodule at right apex along with mediastinal adenopathy which is new from 03/11/[address] surgery recommending conservative management for now -CT of chest with cardiomegaly and emphysema but patient does not have fluid overload or respiratory issues from emphysema, breathing on room air -Video Swallow:Positive for aspiration with thin liquids. Vallecular pooling with semisolid materials -Have asked Gastroenterology service to evaluate for lower esophageal muscle dysmotility/spasm but patient and patient's daughter defers upper EGD Gastroenterology "Recommend use of peppermint prior to each meal which is somewhat effective in relaxing the muscles of the GI tract." -Continue PPI BID in case cough is from Gastroesophageal reflux disease (GERD) (2) Elevated lactic acid level: Chronic elevation No obvious source of infection (3) Hypertension: lisinopril held to prevent any TONIO inhibitor contribution to cough increase amlodipine from 5 mg daily to 10 mg daily continue metoprolol tartrate 12.5 mg BID (4) PAF (paroxysmal atrial fibrillation): Supratherapeutic INR Continue metoprolol INR was supratherapeutic on admission as 4.1 and coumadin was held and was 3.3 on 08/19/18 INR 2.2 on 08/20/18 and Coumadin resumed as less than home dose as 2.5 mg daily for now (5) Diabetes mellitus, type II: Type 2 diabetes mellitus without current fci use of insulin HbA1C:8.5 history of chronic prednisone use likely as cause of diabetes mellitus Continue Lantus/NovoLog sliding scale start oral glipizide mg daily (6) History of pulmonary embolus (PE): INR was supratherapeutic on admission as 4.1 and coumadin was held and was 3.3 on 08/19/18 INR 2.2 on 08/20/18 and Coumadin resumed as less than home dose as 2.5 mg daily for now (7) CKD (chronic kidney disease), stage III: Baseline creatinine 1.61.7 creatinine 1.49 on 08/20/18 (8) Dyslipidemia: Continue statin (9) PMR (polymyalgia rheumatica): On chronic prednisone 20 mg daily at home hold prednisone and patient currently on Solumedrol (10) Chronic anemia: Continue iron supplementation Normocytic normochromic (11) BPH (benign prostatic hyperplasia): Continue Flomax (12) GERD (gastroesophageal reflux disease): PPI BID (13) Chronic pain syndrome: Continue fentanyl patch and gabapentin History of PMR and lumbar surgery x3 (14) DVT prophylaxis: INR was supratherapeutic on admission as 4.1 and coumadin was held and was 3.3 on 08/19/18 INR 2.2 on 08/20/18 and Coumadin resumed as less than home dose as 2.5 mg daily for now Subjective Patient seen and examined earlier today. breathing on room air. had cough that appeared to be worse with meals. patient reported feeling as if origin of the cough from below midsternal chest Physical Exam Constitutional: WD/WN, vitals as above Eyes: PERRL, conjunctivae normal, anicteric sclerae EOM intact bilaterally ENMT: external ear and nose normal, oropharynx normal Neck: trachea midline, no thyromegaly Respiratory: normal respiratory effort and + cough Auscultation: lungs clear to auscultation bilaterally Cardiovascular: Rate/Rhythm: regular rate and regular rhythm Gastrointestinal (Abdomen): normal bowel sounds, soft, nontender, no hepatosplenomegaly Musculoskeletal: Head/Neck/Chest: normocephalic and head atraumatic Neurologic: PERRL, EOMI, accommodation nl, no face palsy, no dysarthria CN's II-XI intact bilaterally Psychiatric: Orientation: alert and cooperative Results & Data Vital Signs (Past 12 Hours) Vital Signs Temp Pulse Resp BP BP Pulse Ox 08/20/18 16:13 84 16 96 08/20/18 15:33 95 08/20/18 15:08 36.6 C 81 20 174/81 H 94 08/20/18 11:08 36.4 C L 75 18 155/68 H 94 08/20/18 07:46 77 18 92 08/20/18 07:23 36.5 C 64 18 171/80 H 93 (1) BPH (benign prostatic hyperplasia) Lower urinary tract symptom presence: unspecified whether lower urinary tract symptoms present Qualified Code(s): N40.0 - Benign prostatic hyperplasia without lower urinary tract symptoms (2) Diabetes mellitus, type II Chronic kidney disease stage: stage 3 (moderate) Diabetes mellitus complication detail: with chronic kidney disease Diabetes mellitus complication status: with kidney complications Diabetes mellitus fci insulin use: without fci use Qualified Code(s): E11.22 - Type 2 diabetes mellitus with diabetic chronic kidney disease; N18.3 - Chronic kidney disease, stage 3 (moderate) (3) GERD (gastroesophageal reflux disease) Esophagitis presence: without esophagitis Qualified Code(s): K21.9 - Gastro- esophageal reflux disease without esophagitis (4) Hypertension Hypertension type: essential hypertension Qualified Code(s): I10 - Essential (primary) hypertension
[2018-08-20] MEDS ORDERED: AMLODIPINE BESYLATE 5 MG TAB PO ONE (19:26)
[2018-08-20] MEDS: SIMVASTATIN 20 MG TAB PO SCH (20:44)
[2018-08-20] MEDS: AMITRIPTYLINE HCL 50 MG TAB PO SCH (20:44)
[2018-08-20] MEDS: TAMSULOSIN HCL 0.4 MG CAP PO SCH (20:44)
[2018-08-20] MEDS: TIMOLOL MALEATE 0.25% OP SOLN 5 ML BTL OPB SCH (21:47)
[2018-08-21] MEDS: CHECK FENTANYL PATCH PLACEMENT SCH ×2 (00:29→08:12)
[2018-08-21] MEDS: ALBUT/IPRATROP 3MG/0.5MG NEB 3 ML VIAL NEB SCH ×3 (01:54→14:08)
[2018-08-21] MEDS: guaiFENesin SUGAR FREE 200 MG/10 ML UDC PO SCH ×2 (04:09→10:37)
[2018-08-21] MEDS: methylPREDNISolone 40 MG in SYRINGE 0 ML IV SCH (05:58)
[2018-08-21] MEDS ORDERED: glipiZIDE 5 MG TAB PO SCH (06:30)
[2018-08-21 06:57] LABS: INR 1.6 (0.9-1.1); Prothrombin Time 16.2 Seconds (9.0-12.0)
[2018-08-21] MEDS: BUDESONIDE 0.5 MG/2 ML VIAL (PULMICORT) NEB SCH (07:20)
[2018-08-21] MEDS: INSULIN ASPART 100 UNITS/ML 3 ML PEN SC SCH ×2 (08:08→12:20)
[2018-08-21] MEDS: INSULIN GLARGINE SOLOSTAR 100 UNITS/ML 3 ML PEN SC SCH (08:09)
[2018-08-21] MEDS: FINASTERIDE 5 MG TAB PO SCH (08:10)
[2018-08-21] MEDS: ESCITALOPRAM OXALATE 10 MG TAB PO SCH (08:11)
[2018-08-21] MEDS: METOPROLOL TARTRATE 25 MG TAB PO SCH (08:11)
[2018-08-21] MEDS: DOCUSATE SODIUM 100 MG CAP PO SCH (08:11)
[2018-08-21] MEDS: PANTOprazole 40 MG TAB PO SCH (08:11)
[2018-08-21] MEDS: GABAPENTIN 800 MG TAB PO SCH ×2 (08:12→14:14)
[2018-08-21] MEDS: FERROUS SULFATE 325 MG TAB PO SCH (08:12)
[2018-08-21] MEDS ORDERED: WARFARIN SOD 5 MG TAB PO ONE (08:30)
[2018-08-21] MEDS ORDERED: AMLODIPINE BESYLATE 5 MG TAB PO SCH (09:00)
[2018-08-21] MEDS ORDERED: predniSONE 20 MG TAB PO SCH (09:00)
--- NOTE | 2018-08-21 11:46 | Progress Note ---
DATE: 08/21/2018 TIME: 10:15 a.m. SUBJECTIVE: The patient states he is feeling much better. His cough is much less. He states he did cough up a little yellow this morning. He denies significant shortness of breath. The patient was evaluated by GI yesterday. They made some recommendations. The patient's daughter did not wish him to have EGD. OBJECTIVE: GENERAL: The patient appears comfortable at rest. He is sitting up in a chair. He is comfortable. VITAL SIGNS: Temperature is 36.3. CARDIAC: Heart rate 71 per minute. Rhythm regular. Blood pressure 168/62. LUNGS: Lung contreras revealed mild rhonchi on the left. Right side was clear. Respiratory rate 18. Saturation on room air 95%. ABDOMEN: Soft. Bowel sounds were present. LABORATORY DATA: White count today 9.74. Hemoglobin 13. Platelets 175,000. Electrolytes show sodium 137, potassium 4.4, chloride 107, bicarb 26. BUN 29 with creatinine 1.49. Creatinine yesterday had been 1.66. IMPRESSION: 1. Cough ? improved. 2. Acute bronchitis. 3. Dysphagia ? likely contributing to cough. 4. Emphysema. 5. Right upper lobe mass. 6. Multiple lung nodules. 7. Mediastinal adenopathy. COMMENTS: This seems to be the patient's best day. He indicates that he was told he is going home today. I have no objection to that from a pulmonary perspective. He has been on methylprednisolone throughout his hospital stay. We changed to prednisone and taper this off over approximately 7-10 days. The patient does not feel that the neb treatments have helped him. Thus, I would not send him home with neb treatments. The patient does follow up with Dr. Sierra. We had discussed the possibility of a PET scan in the future. I get the sense from his daughter that she likely does not want anything much done. Nonetheless in light of the mediastinal adenopathy, an outpatient PET scan could offer some information. We would be happy to see him in the Pulmonary office if the patient and his daughter would so wish. I am sure he will be following up with Dr. Sierra.
[2018-08-21 11:50] VITALS: BP 161/68; TEMP 97.5
[2018-08-21] MEDS ORDERED: BENZONATATE 100 MG CAPSULE PO PRN (13:47)
--- NOTE | 2018-08-21 14:04 | Hospitalist Progress Note ---
Date of Service August 21, 2018 Assessment & Plan (1) Bronchitis: Patient is an 88 yr male with H/O DM II, HTN, HLD, CKD stage III, PMR on chronic 20 mg prednisone therapy, H/O PE on warfarin, PAF, GERD, BPH, depression, known right pulmonary nodule who presents to [facility] secondary to cough times 3 weeks. Bronchitis vs COPD vs Possible recurrent aspiration due to esophageal dysmotility vs Gastroesophageal reflux disease (GERD), Lung Mass -Sputum Culture:Moderate normal liz ; Influenza screen: Negative -Right upper lobe mass: Possible malignant neoplasm but no preference by patient or patient's daughter at this time for bronchoscopy -Patient had previous outpatient courses of Doxycycline and Augmentin and at this time pulmonary service dose not recommend antibiotics if coughing is from bronchitis; at this time will continue to follow pulmonary recommendations to continue solumedrol and nebulizers q 6 hours -CT of chest with increase in size of spiculated 2.6 cm nodule at right apex along with mediastinal adenopathy which is new from 03/11/[address] surgery recommending conservative management for now -CT of chest with cardiomegaly and emphysema but patient does not have fluid overload or respiratory issues from emphysema, breathing on room air -Video Swallow:Positive for aspiration with thin liquids. Vallecular pooling with semisolid materials -Have asked Gastroenterology service to evaluate for lower esophageal muscle dysmotility/spasm but patient and patient's daughter defers upper EGD Gastroenterology "Recommend use of peppermint prior to each meal which is somewhat effective in relaxing the muscles of the GI tract." -Continue PPI BID in case cough is from Gastroesophageal reflux disease (GERD) moist and minced (mechanical soft) slippery diet, thin liquids. avoid foods that are dry, thick,pastry, doughy. add condiments to foods to keep them moist. No straws. oral care - brush surfaces of mouth prior to after meals Can take as needed tessalone perles 100 mg three times a day for cough and guafenesin every 6 hours as needed for cough Patient may follow up with [facility] Pulmonary clinic to follow for lung nodule (lung mass) may need PET scan please call [phone] to schedule [place] [id number] [facility], [address] [place] [address] (2) Elevated lactic acid level: Chronic elevation No obvious source of infection (3) Hypertension: lisinopril stopped to prevent any TONIO inhibitor contribution to cough amlodipine 10 mg daily continue metoprolol tartrate 12.5 mg BID (4) PAF (paroxysmal atrial fibrillation): Supratherapeutic INR Continue metoprolol INR was supratherapeutic on admission as 4.1 and coumadin was held and was 3.3 on 08/19/18 INR 2.2 on 08/20/18 and Coumadin resumed as less than home dose as 2.5 mg daily for now INR 1.6 on 08/21/18 Take coumadin 5 mg daily for now until follow up with coumadin clinic or family medical doctor (5) Diabetes mellitus, type II: Type 2 diabetes mellitus 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 of 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 HbA1C:8.5 history of chronic prednisone use likely as cause of diabetes mellitus given Lantus/NovoLog sliding scale while inpatient For diabetes mellitus, take glipizide daily and discuss with primary medical doctor on diabetes management (6) History of pulmonary embolus (PE): History of thrombembolism in the past INR was supratherapeutic on admission as 4.1 and coumadin was held and was 3.3 on 08/19/18 INR 2.2 on 08/20/18 and Coumadin resumed as less than home dose as 2.5 mg daily for now INR 1.6 on 08/21/18 Take coumadin 5 mg daily for now until follow up with coumadin clinic or family medical doctor (7) CKD (chronic kidney disease), stage III: stable (8) Dyslipidemia: Continue statin (9) PMR (polymyalgia rheumatica): On chronic prednisone 20 mg daily at home was given solumedrol as inpatient can resume home dose prednisone on discharge (10) Chronic anemia: Continue iron supplementation Normocytic normochromic (11) BPH (benign prostatic hyperplasia): Continue Flomax (12) GERD (gastroesophageal reflux disease): continue PPI BID (13) Chronic pain syndrome: Continue fentanyl patch and gabapentin History of PMR and lumbar surgery x3 (14) DVT prophylaxis: INR was supratherapeutic on admission as 4.1 and coumadin was held and was 3.3 on 08/19/18 INR 2.2 on 08/20/18 and Coumadin resumed as less than home dose as 2.5 mg daily for now INR 1.6 on 08/21/18 Take coumadin 5 mg daily for now until follow up with coumadin clinic or family medical doctor Discharge Diagnosis Cough, Lung mass (2.6 cm nodule at right apex along with mediastinal adenopathy which is new from 03/11/2018), lactic acidosis (chronic), Bronchitis vs COPD vs Possible recurrent aspiration due to esophageal dysmotility vs Gastroesophageal reflux disease (GERD), Hypertension, paroxysmal atrial fibrillation, history of thromboembolism, on coumadin, Type 2 diabetes mellitus 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 avoid foods that are dry, thick,pastry, doughy. add condiments to foods to keep them moist. No straws. oral care - brush surfaces of mouth prior to after meals Can take as needed tessalone perles 100 mg three times a day for cough and guafenesin every 6 hours as needed for cough Patient may follow up with [facility] Pulmonary clinic to follow for lung nodule (lung mass) may need PET scan please call [phone] to schedule [place] [id number] [facility], [address] [place] [address] For blood pressure take amlodipine 10 mg daily, stop the lisinopril For diabetes mellitus, take glipizide daily and discuss with primary medical doctor on diabetes management Take coumadin 5 mg daily for now until follow up with coumadin clinic or family medical doctor 09/01/2018 1:20 PM Provider Luis Miguel Liriano MD Department Family [facility] 08/29/2018 11:00 AM Provider [facility] Department Pharmacy, [facility] 10/09/2018 3:20 PM Provider Jer King MD Department Gastroenterology, [facility] Subjective less cough today. patient reports eating without choking. no shortness of breath. no vomiting. no abdominal pain Physical Exam Constitutional: WD/WN, vitals as above Eyes: PERRL, conjunctivae normal, anicteric sclerae EOM intact bilaterally ENMT: external ear and nose normal, oropharynx normal Neck: trachea midline, no thyromegaly Respiratory: normal respiratory effort and + cough Auscultation: lungs clear to auscultation bilaterally Cardiovascular: Rate/Rhythm: regular rate and regular rhythm Gastrointestinal (Abdomen): normal bowel sounds, soft, nontender, no hepatosplenomegaly Musculoskeletal: Head/Neck/Chest: normocephalic and head atraumatic Neurologic: PERRL, EOMI, accommodation nl, no face palsy, no dysarthria CN's II-XI intact bilaterally Psychiatric: Orientation: alert and cooperative Results & Data Vital Signs (Past 12 Hours) Vital Signs Temp Pulse Resp BP BP Pulse Ox 08/21/18 11:48 36.4 C L 82 20 161/68 H 94 08/21/18 08:16 71 18 95 08/21/18 07:29 36.3 C L 77 20 168/62 H 94 08/21/18 04:00 36.6 C 74 18 171/79 H 92 (1) BPH (benign prostatic hyperplasia) Lower urinary tract symptom presence: unspecified whether lower urinary tract symptoms present Qualified Code(s): N40.0 - Benign prostatic hyperplasia without lower urinary tract symptoms (2) Diabetes mellitus, type II Chronic kidney disease stage: stage 3 (moderate) Diabetes mellitus complication detail: with chronic kidney disease Diabetes mellitus complication status: with kidney complications Diabetes mellitus prison insulin use: without watermelon harvesting supervisor use Qualified Code(s): E11.22 - Type 2 diabetes mellitus with diabetic chronic kidney disease; N18.3 - Chronic kidney disease, stage 3 (moderate) (3) GERD (gastroesophageal reflux disease) Esophagitis presence: without esophagitis Qualified Code(s): K21.9 - Gastro- esophageal reflux disease without esophagitis (4) Hypertension Hypertension type: essential hypertension Qualified Code(s): I10 - Essential (primary) hypertension
[2018-08-21 14:08] VITALS: PULSE 102; O2SAT 91
--- NOTE | 2018-08-21 14:10 | Discharge Summary ---
Date of Service August 21, 2018 Admission HPI Per Admitting Provider This is a 88-year-old male who has a PMH of T2 DM, HTN, HLD, CKD stage III, PMR on chronic 20 mg prednisone therapy, history of PE on warfarin, PAF, GERD, BPH, depression, known right pulmonary nodule who presents to [facility] secondary to cough times 3 weeks. Daughter Macy is at bedside. Patient symptoms initially started approximately 3 weeks ago. Patient's was ill prior with bronchitis and treated with antibiotics, nebulizer and prednisone and symptoms improved. Patient was initially seen on 07/30 by PCP secondary to bronchitis and prescribed doxycycline times 7 days. Symptoms did not improve. Again seen on 08/04 received nebulizer treatment, antibiotics switched to Augmentin, placed on increased steroid taper for 6 days. Cough was initially productive with yellow sputum; however no more moist with occasional production and clear. Due to symptoms not improving daughter called PCP on 08/15 in which albuterol inhaler was prescribed as well as another increased steroid taper starting at 50 mg x 2 days and tapering down until back to 20 mg daily. No real improvement with albuterol; therefore, patient presents to ER today. Cough is still present, moist and occasionally productive clear. Further elicits to increased shortness of breath with exertion, wheezing, increased fatigue, dizziness upon standing quickly. Denies documented fever, chills, sweats, rigors, lightheadedness or syncope, chest pain, palpitations, hemoptysis, nausea, vomiting, diarrhea, abdominal pain, change in bowel or urinary habits. His appetite has been good and there is no documented weight gain or loss. He is drinking at least 60 ounces of water daily. Daughter felt patient is more fatigued and slightly weak from the recurrent cough, but he has been receiving in-home PT and OT. Of significance patient hospitalized 06/22-06/27 secondary to lactic acidosis and presumed sepsis. Patient was treated with empiric antibiotic but no definitive source of sepsis was located. He also subsequently developed diarrhea and C. difficile colitis and was treated with oral vancomycin. Denies formal diagnosis of COPD. Unable to tolerate PFT as outpatient testing. He does have a former history of smoking but this stopped in 1970s. 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 Admission Exam Per Admitting Provider Gen: Elderly, male, sitting up in bed, no acute distress, on O2 via nasal cannula, answers questions appropriately, pleasant, conversing easily Head: Normocephalic, Atraumatic Eyes: Sclera normal, no conjunctival injection, PERRLA, EOMI, glasses ENT: Gross hearing intact, normal pharynx, mucous membranes moist Neck: supple, no adenopathy, No JVD, no bruit, Resp: Clear to auscultation b/l, with diffuse inspiratory and expiratory rhonchi noted, improved with coughing, no rales or wheeze. 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 Extremities: Trace/mental edema bilaterally Skin: warm, moist, no rash, negative turgor, cap refill < 2sec Neuro: Alert and oriented x 3, speech normal but slow, good mood/affect, cran nerve 2-12 intact grossly : deferred Principal Diagnosis Cough, Lung mass (2.6 cm nodule at right apex along with mediastinal adenopathy which is new from 03/11/2018), lactic acidosis (chronic), Bronchitis vs COPD vs Possible recurrent aspiration due to esophageal dysmotility vs Gastroesophageal reflux disease (GERD), Hypertension, paroxysmal atrial fibrillation, history of thromboembolism, on coumadin, Type 2 diabetes mellitus without current correction use of insulin, chronic kidney disease stage III Discharge Exam Constitutional WD/WN, vitals as above Eyes PERRL, conjunctivae normal, anicteric sclerae EOM intact bilaterally ENMT external ear and nose normal, oropharynx normal Neck trachea midline, no thyromegaly Respiratory normal respiratory effort and + cough Auscultation: lungs clear to auscultation bilaterally Cardiovascular Rate/Rhythm: regular rate and regular rhythm Gastrointestinal (Abdomen) normal bowel sounds, soft, nontender, no hepatosplenomegaly Musculoskeletal Head/Neck/Chest: normocephalic and head atraumatic Neurologic PERRL, EOMI, accommodation nl, no face palsy, no dysarthria CN's II-XI intact bilaterally Psychiatric Orientation: alert and cooperative Discharge Data Allergies Allergy/AdvReac Type Severity Reaction Status Date / Time oxycodone Allergy [place] ITCHINESS Verified 08/18/18 09:11 lorazepam AdvReac SV agitation Unverified 08/18/18 09:11 Consultations 08/18/18 10:36 ED Decision to Admit Stat 08/18/18 12:11 Consult Pulmonology Routine 08/18/18 13:27 Consult Case Management - Discharge Planning Routine 08/18/18 17:53 Consult Thoracic Surgery Routine 08/20/18 13:06 Consult Gastroenterology Routine Ordered Studies 08/18/18 09:28 CT chest wo con Stat 08/19/18 13:30 FL video swallow Routine Hospital Course (1) Bronchitis: Patient is an 88 yr male with H/O DM II, HTN, HLD, CKD stage III, PMR on chronic 20 mg prednisone therapy, H/O PE on warfarin, PAF, GERD, BPH, depression, known right pulmonary nodule who presents to [facility] secondary to cough times 3 weeks. Bronchitis vs COPD vs Possible recurrent aspiration due to esophageal dysmotility vs Gastroesophageal reflux disease (GERD), Lung Mass -Sputum Culture:Moderate normal liz ; Influenza screen: Negative -Right upper lobe mass: Possible malignant neoplasm but no preference by patient or patient's daughter at this time for bronchoscopy -Patient had previous outpatient courses of Doxycycline and Augmentin and at this time pulmonary service dose not recommend antibiotics if coughing is from bronchitis; at this time will continue to follow pulmonary recommendations to continue solumedrol and nebulizers q 6 hours -CT of chest with increase in size of spiculated 2.6 cm nodule at right apex along with mediastinal adenopathy which is new from 03/11/[address] surgery recommending conservative management for now -CT of chest with cardiomegaly and emphysema but patient does not have fluid overload or respiratory issues from emphysema, breathing on room air -Video Swallow:Positive for aspiration with thin liquids. Vallecular pooling with semisolid materials -Have asked Gastroenterology service to evaluate for lower esophageal muscle dysmotility/spasm but patient and patient's daughter defers upper EGD Gastroenterology "Recommend use of peppermint prior to each meal which is somewhat effective in relaxing the muscles of the GI tract." -Continue PPI BID in case cough is from Gastroesophageal reflux disease (GERD) moist and minced (mechanical soft) slippery diet, thin liquids. avoid foods that are dry, thick,pastry, doughy. add condiments to foods to keep them moist. No straws. oral care - brush surfaces of mouth prior to after meals Can take as needed tessalone perles 100 mg three times a day for cough and guafenesin every 6 hours as needed for cough Patient may follow up with [facility] Pulmonary clinic to follow for lung nodule (lung mass) may need PET scan please call [phone] to schedule [place] [id number] [facility] [facility] [address], [address] [place] [address] (2) Elevated lactic acid level: Chronic elevation No obvious source of infection (3) Hypertension: lisinopril stopped to prevent any TONIO inhibitor contribution to cough amlodipine 10 mg daily continue metoprolol tartrate 12.5 mg BID (4) PAF (paroxysmal atrial fibrillation): Supratherapeutic INR Continue metoprolol INR was supratherapeutic on admission as 4.1 and coumadin was held and was 3.3 on 08/19/18 INR 2.2 on 08/20/18 and Coumadin resumed as less than home dose as 2.5 mg daily for now INR 1.6 on 08/21/18 Take coumadin 5 mg daily for now until follow up with coumadin clinic or family medical doctor (5) Diabetes mellitus, type II: Type 2 diabetes mellitus without current continuous churn buttermaker use of insulin HbA1C:8.5 history of chronic prednisone use likely as cause of diabetes mellitus given Lantus/NovoLog sliding scale while inpatient For diabetes mellitus, take glipizide daily and discuss with primary medical doctor on diabetes management (6) History of pulmonary embolus (PE): History of thrombembolism in the past INR was supratherapeutic on admission as 4.1 and coumadin was held and was 3.3 on 08/19/18 INR 2.2 on 08/20/18 and Coumadin resumed as less than home dose as 2.5 mg daily for now INR 1.6 on 08/21/18 Take coumadin 5 mg daily for now until follow up with coumadin clinic or family medical doctor (7) CKD (chronic kidney disease), stage III: stable (8) Dyslipidemia: Continue statin (9) PMR (polymyalgia rheumatica): On chronic prednisone 20 mg daily at home was given solumedrol as inpatient can resume home dose prednisone on discharge (10) Chronic anemia: Continue iron supplementation Normocytic normochromic (11) BPH (benign prostatic hyperplasia): Continue Flomax (12) GERD (gastroesophageal reflux disease): continue PPI BID (13) Chronic pain syndrome: Continue fentanyl patch and gabapentin History of PMR and lumbar surgery x3 (14) DVT prophylaxis: INR was supratherapeutic on admission as 4.1 and coumadin was held and was 3.3 on 08/19/18 INR 2.2 on 08/20/18 and Coumadin resumed as less than home dose as 2.5 mg daily f or now INR 1.6 on 08/21/18 Take coumadin 5 mg daily for now until follow up with coumadin clinic or family medical doctor Discharge Diagnosis Cough, Lung mass (2.6 cm nodule at right apex along with mediastinal adenopathy which is new from 03/11/2018), lactic acidosis (chronic), Bronchitis vs COPD vs Possible recurrent aspiration due to esophageal dysmotility vs Gastroesophageal reflux disease (GERD), Hypertension, paroxysmal atrial fibrillation, history of thromboembolism, on coumadin, Type 2 diabetes mellitus without current correction use of insulin, chronic kidney disease stage III Discharge Instructions Discharge to home with home health services and prescription for speech therapy moist and minced (mechanical soft) slippery diet, thin liquids. avoid foods that are dry, thick,pastry, doughy. add condiments to foods to keep them moist. No straws. oral care - brush surfaces of mouth prior to after meals Can take as needed tessalone perles 100 mg three times a day for cough and gua fenesin every 6 hours as needed for cough Patient may follow up with [facility] Pulmonary clinic to follow for lung nodule (lung mass) may need PET scan please call [phone] to schedule [place] [id number] [facility] [facility] [address], [address] [place] [address] For blood pressure take amlodipine 10 mg daily, stop the lisinopril For diabetes mellitus, take glipizide daily and discuss with primary medical doctor on diabetes management Take coumadin 5 mg daily for now until follow up with coumadin clinic or family medical doctor 09/01/2018 1:20 PM Provider Luis Miguel Liriano MD Department [facility] 08/29/2018 11:00 AM Provider [facility] Department Pharmacy, [facility] 10/09/2018 3:20 PM Provider Jer King MD Department Gastroenterology, [facility] Total Time Total Time Spent Total Time Spent (In Minutes): 40 minutes Total Time Includes: Examination of the Patient, Discharge Planning and Medication Reconciliation Discharge Plan Discharge Items Patient Disposition: Home - Home Health Services Reason For Visit: BRONCHITIS-FAILED OUT PT THERAPY Discharge Diagnosis: Cough, Lung mass (2.6 cm nodule at right apex along with mediastinal adenopathy which is new from 03/11/2018), lactic acidosis (chronic), Bronchitis vs COPD vs Possible recurrent aspiration due to esophageal dysmotility vs Gastroesophageal reflux disease (GERD), Hypertension, paroxysmal atrial fibrillation, history of thromboembolism, on coumadin, Type 2 diabetes mellitus without current continuous churn buttermaker use of insulin, chronic kidney disease stage III, Condition: Good Discharge Goals: Improve disease control and Improve function Activity: Resume your previous activity Non-emergency contact: Primary Care Provider Call non-emergency contact if: you have any medication questions Follow-up/Referrals: Luis Miguel Liriano MD [Primary Care Provider] - Diet: Carb Consistent or DM2 Diet Texture: Dental soft (bite-sized) Addtl Provider Instructions: Discharge to home with home health services and prescription for speech therapy moist and minced (mechanical soft) slippery diet, thin liquids. avoid foods that are dry, thick,pastry, doughy. add condiments to foods to keep them moist. No straws. oral care - brush surfaces of mouth prior to after meals Can take as needed tessalone perles 100 mg three times a day for cough and guafenesin every 6 hours as needed for cough Patient may follow up with [facility] Pulmonary clinic to follow for lung nodule (lung mass) may need PET scan please call [phone] to schedule [facility] [address], [address] [place] [address] For blood pressure take amlodipine 10 mg daily, stop the lisinopril For diabetes mellitus, take glipizide daily and discuss with primary medical doctor on diabetes management Take coumadin 5 mg daily for now until follow up with coumadin clinic or family medical doctor 09/01/2018 1:20 PM Provider Luis Miguel Liriano MD Department Family [facility] 08/29/2018 11:00 AM Provider [facility] Department Pharmacy, [facility] 10/09/2018 3:20 PM Provider Jer King MD Department Gastroenterology, [facility] Prescriptions: New amlodipine [Norvasc] 5 mg Tablet 10 mg PO DAILY 30 Days Qty: 60 RF: 0 warfarin [Coumadin] 5 mg Tablet 5 mg PO DAILY@1600 10 Days Qty: 10 RF: 0 glipizide 5 mg Tablet 5 mg PO DAILYBB 30 Days Qty: 30 RF: 0 guaifenesin 100 mg/5 mL Liquid 100 mg PO Q6H PRN (Reason: cough) 5 Days Qty: 500 RF: 0 benzonatate [Tessalon Perles] 100 mg Capsule 100 mg PO TID PRN (Reason: cough) 7 Days Qty: 21 RF: 0 Continued gabapentin 400 mg capsule 800 mg PO TID RF: 0 omeprazole 40 mg capsule,delayed release(DR/EC) 40 mg PO BID RF: 0 amitriptyline 50 mg tablet 50 mg PO HS RF: 0 tamsulosin 0.4 mg capsule 0.8 mg PO HS RF: 0 simvastatin 20 mg tablet 20 mg PO HS RF: 0 ferrous sulfate 325 mg (65 mg iron) Tablet 325 mg PO BID RF: 0 finasteride 5 mg tablet 5 mg PO QAM RF: 0 escitalopram oxalate 10 mg tablet 10 mg PO QAM RF: 0 docusate sodium 100 mg Capsule 100 mg PO BID RF: 0 fentanyl 25 mcg/hr patch 72 hour 50 mcg Transdermal Q72H RF: 0 timolol maleate 0.5 % drops 1 drp OPB HS RF: 0 prednisone 10 mg tablet 20 mg PO DIRECTED RF: 0 metoprolol tartrate 25 mg Tablet 12.5 mg PO BID RF: 0 Discontinued warfarin 5 mg tablet 5 mg PO 4XWK RF: 0 lisinopril 2.5 mg tablet 2.5 mg PO QAM RF: 0 warfarin 2.5 mg Tablet 2.5 mg PO 3XWK RF: 0 amlodipine 5 mg Tablet 5 mg PO DAILY RF: 0 Stand-Alone Forms: [facility] Discharge Orders: Discharge Order (Routine); Ordered 08/21/18 Ordered By: Teofilo Acuna Admission Data Admit Date/Time: 08/18/18 11:44 Attending Provider: Teofilo Acuna Admit Provider: Rosie Caballero Primary Care Provider: Luis Miguel Liriano Other Providers: Neftaly Sierra ; Neftaly Tanner ; Flo Lyn ; Jer King Service: Telemetry
[2018-08-22] MEDS ORDERED: WARFARIN SOD 5 MG TAB PO SCH (16:00)
== END 2018-08-21 14:48 | disposition home health service (06) | DRG 202 ==
LOC: ED 08:19 → SUATTDRO 11:44 → 2N 11:44